=== PATIENT | male | born 1965 | race Hispanic/Latino ===

== ENCOUNTER 2019-01-21 09:36 | Emergency (ER) | payer SELFPAY ==
--- NOTE | 2019-01-21 11:16 | RAD REPORT ---
EXAM DESCRIPTION: RAD - Chest Pa And Lat (2 Views) - 01/21/2019 11:09 am CLINICAL HISTORY: cough, fever Chest pain. COMPARISON: Chest Single View dated 08/14/2016; CHEST SINGLE VIEW dated 03/12/2015; CHEST PA AND LAT 2 VIEW dated 11/08/2012; CHEST SINGLE VIEW dated 10/01/2011 FINDINGS: The lungs are clear. The heart is normal in size. No displaced fractures. IMPRESSION: No acute or concerning finding suspected.
[2019-01-21 11:29] LABS: Absolute Lymphocytes (CBC) 2.5 K/uL (0.7-4.9); Absolute Monocytes 0.5 K/uL (0.1-1.3); Absolute Neutrophil 6.4 K/uL (1.8-8.0); Basophils % 0.9 % (0-1.3); Eosinophils % 2.4 % (0-4.4); Hematocrit 47.2 % (39.6-49.0); Lymphocytes % 25.8 % (15.3-44.8); MPV 7.9 fL (7.6-11.3); Monocytes % 5.1 % (3.3-12.3); RBC Red Blood Cell Count 5.53 M/uL (4.33-5.43)
[2019-01-21 11:45] LABS: ALT/SGPT 24 U/L (12-78); AST/SGOT 7 U/L (15-37); Albumin 3.5 g/dL (3.4-5.0); Alkaline Phosphatase 120 U/L (45-117); BUN Blood Urea Nitrogen 13 mg/dL (7-18); Bicarbonate 27 mmol/L (21-32); Bilirubin Total 0.5 mg/dL (0.2-1.0); Glucose Level 264 mg/dL (74-106); Potassium 4.3 mmol/L (3.5-5.1); Protein, Total 8.1 g/dL (6.4-8.2); Sodium Level 134 mmol/L (136-145)
--- NOTE | 2019-01-21 12:22 | ER ---
Nurse's Notes [facility] Name: Nas White Jr Age: 53 yrs Sex: Male : 1965 Arrival Date: 01/21/2019 Time: 09:38 Bed 14 Private MD: None, None Diagnosis: Streptococcal pharyngitis Presentation: 01/21 10:12 Presenting complaint: Patient states: 2 weeks ago, my throat started hurting, I felt sg really sick, had been riding to work with a friend who had flu like symptoms, started taking OTC medications (Nyquil, etc) and thought it was getting better until last night, I got the sweats and its hard and painful to swallow now, this cough just wont go away. Im diabetic so i know if i get sick it can make that all worse. Transition of care: patient was not received from another setting of care. Onset of symptoms was January 21, 2019. Risk Assessment: Do you want to hurt yourself or someone else? Patient reports no desire to harm self or others. Initial Sepsis Screen: Does the patient meet any 2 criteria? No. Patient's initial sepsis screen is negative. Does the patient have a suspected source of infection? No. Patient's initial sepsis screen is negative. Care prior to arrival: None. 10:12 Method Of Arrival: Ambulatory sg 10:12 Acuity: CAITLIN 4 sg Historical: - Allergies: 10:16 No Known Allergies; sg - Home Meds: 10:16 Metformin Oral [Active]; sg - PMHx: 10:16 Diabetes - NIDDM; Hypertension; sg - PSHx: 10:16 Appendectomy; sg - Immunization history:: Adult Immunizations not up to date, Flu vaccine is not up to date. Patient has never been vaccinated. - Social history:: Smoking status: Patient uses tobacco products, denies chronic smoking, but will smoke occasionally, quitting today. - Ebola Screening: : Patient negative for fever greater than or equal to 101.5 degrees Fahrenheit, and additional compatible Ebola Virus Disease symptoms Patient denies exposure to infectious person Patient denies travel to an Ebola-affected area in the 21 days before illness onset No symptoms or risks identified at this time. Screenin:20 Abuse screen: Denies threats or abuse. Denies injuries from another. Nutritional sg screening: No deficits noted. Tuberculosis screening: No symptoms or risk factors identified. Never had TB. Fall Risk None identified. Assessment: 10:18 General: Appears in no apparent distress. uncomfortable, well groomed, well developed, sg well nourished, Behavior is cooperative, appropriate for age. Pain: Complains of pain in body aches and sore throat Quality of pain is described as aching, sore. Neuro: Level of Consciousness is awake, alert, obeys commands, Oriented to person, place, time, situation, Commercial Reporter are equal bilaterally Moves all extremities. Full function Gait is steady, Speech is normal, Facial symmetry appears normal. Cardiovascular: Heart tones S1 S2 present Capillary refill is brisk in bilateral fingers Patient's skin is warm and dry. Chest pain is denied. Respiratory: Airway is patent Respiratory effort is even, unlabored, Respiratory pattern is regular, symmetrical, Breath sounds are clear. GI: Abdomen is round non-distended, obese, Reports tolerance of fluids, tolerance of food. : No signs and/or symptoms were reported regarding the genitourinary system. EENT: Nares are clear bilaterally Oral mucosa is moist. Throat is pink Reports pain when swallowing. Derm: Skin is pink, warm \T\ dry. Musculoskeletal: No signs and/or symptoms reported regarding the musculoskeletal system. Vital Signs: 10:14 BP 117 / 80; Pulse 75; Resp 18; Temp 98.4; Pulse Ox 97% on R/A; Weight 111.13 kg; sg Height 5 ft. 4 in. (162.56 cm); Pain 8/10; 11:16 BP 127 / 85 LA; Pulse 76; Resp 17 S; Pulse Ox 98% on R/A; rv 12:00 BP 137 / 85 LA; Pulse 77; Resp 17 S; Pulse Ox 98% on R/A; rv 10:14 Body Mass Index 42.05 (111.13 kg, 162.56 cm) sg ED Course: 09:38 Patient arrived in ED. ag5 09:40 None, None is Private Physician. ag5 10:08 Mark Tavarez PA is PHCP. jmm 10:08 Jose D Ponce MD is Attending Physician. jmm 10:12 Yon Mata, GELY is Primary Nurse. sg 10:14 Triage completed. sg 10:17 Arm band placed on. sg 10:20 No provider procedures requiring assistance completed. sg 11:08 X-ray completed. Patient tolerated procedure well. Patient moved back from radiology. jb2 11:10 Chest Pa And Lat (2 Views) XRAY In Process Unspecified. EDMS 12:36 Patient has correct armband on for positive identification. Bed in low position. Call rv light in reach. Side rails up X 1. Adult w/ patient. Pulse ox on. NIBP on. 12:37 IV discontinued, bleeding controlled, No redness/swelling at site. Pressure dressing rv applied. Administered Medications: No medications were administered Outcome: 12:20 Discharge ordered by . keila 12:36 Discharged to home ambulatory. rv 12:36 Condition: good 12:36 Discharge instructions given to patient, Instructed on discharge instructions, follow up and referral plans. medication usage, Demonstrated understanding of instructions, follow-up care, medications, Prescriptions given X 1. 12:37 Patient left the ED. rv Signatures: Dispatcher [employer] EDMS Yon Mata, GELY RN sg Mark Tavarez PA PA jmm Buechter, Jesse jb2 Shaan Sprague RN RN Santos Bowles ag5
--- NOTE | 2019-01-21 12:22 | EDPHYS ---
Physician Documentation [facility] Name: Nas White Jr Age: 53 yrs Sex: Male : 1965 Arrival Date: 01/21/2019 Time: 09:38 Bed 14 Private MD: None, None ED Physician Jose D Ponce HPI: 01/21 10:16 This 53 yrs old Male presents to ER via Ambulatory with complaints of Cough, jmm Cold Symptoms, Difficulty Swallowing. 10:16 The patient or guardian reports cough. Onset: The symptoms/episode began/occurred jmm gradually, 2 week(s) ago. Modifying factors: The symptoms are alleviated by nothing, the symptoms are aggravated by nothing. Associated signs and symptoms: Pertinent positives: fever, sore throat. This is a 53 year old male with a history of dm that presents to the ED with complaints of sore throat for 2 weeks with cough. Patient states he developed chills last night with increased pain to his throat. . Historical: - Allergies: 10:16 No Known Allergies; sg - Home Meds: 10:16 Metformin Oral [Active]; sg - PMHx: 10:16 Diabetes - NIDDM; Hypertension; sg - PSHx: 10:16 Appendectomy; sg - Immunization history:: Adult Immunizations not up to date, Flu vaccine is not up to date. Patient has never been vaccinated. - Social history:: Smoking status: Patient uses tobacco products, denies chronic smoking, but will smoke occasionally, quitting today. - Ebola Screening: : Patient negative for fever greater than or equal to 101.5 degrees Fahrenheit, and additional compatible Ebola Virus Disease symptoms Patient denies exposure to infectious person Patient denies travel to an Ebola-affected area in the 21 days before illness onset No symptoms or risks identified at this time. ROS: 10:16 Constitutional: Positive for body aches, chills. jmm 10:16 ENT: Positive for sore throat. 10:16 Respiratory: Positive for cough. 10:16 All other systems are negative. Exam: 10:16 Constitutional: This is a well developed, well nourished patient who is awake, alert, jmm and in no acute distress. Head/Face: atraumatic. Eyes: EOMI, no conjunctival erythema appreciated ENT: Moist Mucus Membranes Neck: Trachea midline, Supple Chest/axilla: Normal chest wall appearance and motion. 10:16 Respiratory: Normal respirations, no respiratory distress appreciated Abdomen/GI: Non distended, soft Back: Normal ROM Skin: General appearance color normal MS/ Extremity: Moves all extremities, no obvious deformities appreciated, no edema noted to the lower extremities Neuro: Awake and alert, normal gait Psych: Behavior is normal, Mood is normal, Patient is cooperative and pleasant 10:16 ENT: Posterior pharynx: erythema, that is mild. Vital Signs: 10:14 BP 117 / 80; Pulse 75; Resp 18; Temp 98.4; Pulse Ox 97% on R/A; Weight 111.13 kg; sg Height 5 ft. 4 in. (162.56 cm); Pain 8/10; 11:16 BP 127 / 85 LA; Pulse 76; Resp 17 S; Pulse Ox 98% on R/A; rv 12:00 BP 137 / 85 LA; Pulse 77; Resp 17 S; Pulse Ox 98% on R/A; rv 10:14 Body Mass Index 42.05 (111.13 kg, 162.56 cm) sg MDM: 10:16 Patient medically screened. [facility] 12:19 Data reviewed: vital signs, nurses notes. Counseling: I had a detailed discussion with keila the patient and/or guardian regarding: the historical points, exam findings, and any diagnostic results supporting the discharge/admit diagnosis, lab results, radiology results, the need for outpatient follow up, to return to the emergency department if symptoms worsen or persist or if there are any questions or concerns that arise at home. ED course: Patient is alert and non toxic in appearance in the ED. Patient prescribed oral antibiotics. Advised to follow up with PCP in 1 to 2 days for reevaluation. Patient is otherwise given strict return precautions. Patient understood and agrees with the plan of care. . 01/21 10:34 Order name: Strep; Complete Time: 12:06 [facility] 01/21 10:34 Order name: CBC with Diff; Complete Time: 11:32 [facility] 01/21 10:34 Order name: CMP; Complete Time: 11:48 [facility] 01/21 10:34 Order name: Saline Lock; Complete Time: 11:36 [facility] 01/21 10:34 Order name: Chest Pa And Lat (2 Views) XRAY; Complete Time: 11:16 [facility] 01/21 10:34 Order name: Flu; Complete Time: 12:06 [facility] Administered Medications: No medications were administered Disposition: 15:14 Co-signature as Attending Physician, Jose D Ponce MD I agree with the assessment and [facility] plan of care. Disposition: 01/21/19 12:20 Discharged to Home. Impression: Streptococcal pharyngitis. - Condition is Stable. - Discharge Instructions: Strep Throat. - Prescriptions for Amoxicillin 875 mg Oral Tablet - take 1 tablet by ORAL route every 12 hours for 10 days; 20 tablet. - Medication Reconciliation Form, Thank You Letter, Antibiotic Education, Prescription Opioid Use form. - Follow up: Private Physician; When: 2 - 3 days; Reason: Recheck today's complaints, Continuance of care, Re-evaluation by your physician. Signatures: Dispatcher [employer] EDYon Beltran, GELY RN Jose D Schafer MD MD cha Mickail, Joel, PA PA Shaan Helm RN RN rv Corrections: (The following items were deleted from the chart) 12:37 12:20 01/21/2019 12:20 Discharged to Home. Impression: Streptococcal pharyngitis. rv Condition is Stable. Forms are Medication Reconciliation Form, Thank You Letter, Antibiotic Education, Prescription Opioid Use. Follow up: Private Physician; When: 2 - 3 days; Reason: Recheck today's complaints, Continuance of care, Re-evaluation by your physician. keila
[2019-01-21 13:08] VITALS: TEMP 98.4
[2019-01-21 13:09] VITALS: O2SAT 98
[2019-01-21 13:10] VITALS: BP 137/85
== END 2019-01-21 12:37 | disposition home or self-care (01) ==
LOC: ER 09:36
DX: J02.0 Streptococcal pharyngitis (principal); E11.9 Type 2 diabetes mellitus without complications
CPT/HCPCS: 36415; 71046; 80053; 85025; 87081; 87804; 99283

== ENCOUNTER 2020-05-20 05:38 | Emergency (ER) | payer SELFPAY ==
[2020-05-20] MEDS ORDERED: LIDOCAINE 1% MPF 5 ML VIAL ONE (06:51)
[2020-05-20] MEDS ORDERED: CEPHALEXIN 250 MG CAP ONE (06:51)
[2020-05-20] MEDS ORDERED: SMZ./TMP. 800/160 MG TABLET ONE (06:51)
--- NOTE | 2020-05-20 07:47 | ER ---
Nurse's Notes [facility] Name: Nas White Jr Age: 54 yrs Sex: Male : 1965 Arrival Date: 05/20/2020 Time: 05:39 Bed 5 Private MD: Diagnosis: Cutaneous abscess of right lower limb Presentation: 05/20 06:04 Chief complaint: Patient states: my right leg is swollen and its hurting so bad. I am rr5 doing yard work a week ago and something bit me, I don't know what it was. Coronavirus screen: Proceed with normal triage. Ebola Screen: Patient negative for fever greater than or equal to 101.5 degrees Fahrenheit, and additional compatible Ebola Virus Disease symptoms Patient denies exposure to infectious person. Patient denies travel to an Ebola-affected area in the 21 days before illness onset. Initial Sepsis Screen: Does the patient meet any 2 criteria? No. Patient's initial sepsis screen is negative. Does the patient have a suspected source of infection? Yes: Skin breakdown/wound. Risk Assessment: Do you want to hurt yourself or someone else? Patient reports no desire to harm self or others. Onset of symptoms was May 20, 2020. 06:04 Method Of Arrival: Ambulatory rr5 06:04 Acuity: CAITLIN 3 rr5 Triage Assessment: 06:11 Bite description: bite sustained to right leg and right calf by an unknown animal, rr5 animal information: vaccination(s) is unknown. Historical: - Allergies: 06:08 No Known Allergies; rr5 - Home Meds: 06:08 Metformin Oral [Active]; rr5 - PMHx: 06:08 Diabetes - NIDDM; Hypertension; rr5 - PSHx: 06:08 Appendectomy; rr5 - Immunization history:: Adult Immunizations unknown, Last tetanus immunization: unknown. - Social history:: Smoking status: Patient reports the use of cigarette tobacco products, smokes one-half pack cigarettes per day, Patient uses alcohol, only on a social basis. street drugs, marijuana. Screenin:09 Abuse screen: Denies threats or abuse. Denies injuries from another. Nutritional rr5 screening: No deficits noted. Tuberculosis screening: No symptoms or risk factors identified. Fall Risk None identified. Total Calderon Fall Scale indicates No Risk (0-24 pts). Assessment: 06:10 General: Appears in no apparent distress. uncomfortable, Behavior is calm, cooperative, rr5 appropriate for age. Pain: Complains of pain in right calf Pain radiates to right leg Pain currently is 8 out of 10 on a pain scale. Quality of pain is described as aching, Pain began gradually, Is intermittent. Neuro: Level of Consciousness is awake, alert, obeys commands, Oriented to person, place, time, situation. Cardiovascular: Capillary refill < 3 seconds Patient's skin is warm and dry. Respiratory: Airway is patent Respiratory effort is even, unlabored, Respiratory pattern is regular, symmetrical. GI: No signs and/or symptoms were reported involving the gastrointestinal system. : No signs and/or symptoms were reported regarding the genitourinary system. EENT: No signs and/or symptoms were reported regarding the EENT system. Derm: Skin is intact, is healthy with good turgor, Skin is pink, warm \T\ dry. Wound noted right calf Wound is dime size wound redness on the area noted. Musculoskeletal: Capillary refill < 3 seconds, Swelling present in right leg. Vital Signs: 06:04 BP 154 / 82; Pulse 84; Resp 19; Temp 98.5; Pulse Ox 100% ; Weight 108.86 kg; Height 5 rr5 ft. 4 in. (162.56 cm); Pain 8/10; 06:04 Body Mass Index 41.20 (108.86 kg, 162.56 cm) rr5 ED Course: 05:39 Patient arrived in ED. cl3 06:01 Annabella Aldana FNP-C [facility]. kb 06:01 Tyrone Rodriguez MD is Attending Physician. kb 06:04 Mike Flower RN is Primary Nurse. rr5 06:08 Triage completed. rr5 06:09 Arm band placed on right wrist. rr5 06:09 Patient has correct armband on for positive identification. Bed in low position. Call rr5 light in reach. 06:09 No provider procedures requiring assistance completed. rr5 07:53 Patient did not have IV access during this emergency room visit. Dressings: 4X4s X 1; ss right calf. Wound care: was cleaned with soap and water, Patient tolerated well. Administered Medications: 06:44 Drug: Bactrim (160 mg-800 mg (DS) 1 tablet Route: PO; wh 07:44 Follow up: Response: No adverse reaction em 06:44 Drug: KeFLEX 500 mg Route: PO; 07:44 Follow up: Response: No adverse reaction em 07:40 Drug: Lidocaine (1 %) 1 vials {Note: administered by NP. Annabella} Volume: 5 ml; Route: em Infiltration; Outcome: 07:46 Discharge ordered by . wilfred 07:53 Discharged to home ambulatory. 07:53 Condition: good 07:53 Discharge instructions given to patient, Instructed on discharge instructions, follow up and referral plans. medication usage, wound care, Demonstrated understanding of instructions, follow-up care, medications, wound care, Prescriptions given X 2. 07:54 Patient left the ED. Signatures: Annabella Aldana, STICK FEEDER-C STICK FEEDER-Kei Ferrer, Alia Ching RN, RN RN Jaylen Dorman Raymond, RN RN rr5 Maki Cullen cl3
--- NOTE | 2020-05-20 07:47 | EDPHYS ---
Physician Documentation [facility] Name: aNs White Jr Age: 54 yrs Sex: Male : 1965 Arrival Date: 05/20/2020 Time: 05:39 Bed 5 Private MD: ED Physician Tyrone Rodriguez HPI: 05/20 07:45 This 54 yrs old Male presents to ER via Ambulatory with complaints of Insect kb Bite, Leg Swelling. 07:45 The patient presents with an abscess of the right calf. Description: draining, kb erythematous, swollen, warm. Onset: The symptoms/episode began/occurred 4 day(s) ago. Possible cause(s): insect sting, spider bite. Associated signs and symptoms: Pertinent positives: drainage, erythema, swelling, Pertinent negatives: fever. Modifying factors: the symptoms are alleviated by nothing, the symptoms are aggravated by touching. Severity of symptoms: At their worst the symptoms were moderate, in the emergency department the symptoms are unchanged. The patient has not experienced similar symptoms in the past. The patient has not recently seen a physician. Historical: - Allergies: 06:08 No Known Allergies; rr5 - Home Meds: 06:08 Metformin Oral [Active]; rr5 - PMHx: 06:08 Diabetes - NIDDM; Hypertension; rr5 - PSHx: 06:08 Appendectomy; rr5 - Immunization history:: Adult Immunizations unknown, Last tetanus immunization: unknown. - Social history:: Smoking status: Patient reports the use of cigarette tobacco products, smokes one-half pack cigarettes per day, Patient uses alcohol, only on a social basis. street drugs, marijuana. ROS: 07:43 Constitutional: Negative for fever, chills, and weight loss, Cardiovascular: Negative kb for chest pain, palpitations, and edema, Respiratory: Negative for shortness of breath, cough, wheezing, and pleuritic chest pain, Abdomen/GI: Negative for abdominal pain, nausea, vomiting, diarrhea, and constipation, Back: Negative for injury and pain, MS/Extremity: Negative for injury and deformity, Neuro: Negative for headache, weakness, numbness, tingling, and seizure. 07:43 Skin: Positive for abscess, of the right calf. Exam: 07:44 Constitutional: This is a well developed, well nourished patient who is awake, alert, kb and in no acute distress. Head/Face: Normocephalic, atraumatic. Chest/axilla: Normal chest wall appearance and motion. Nontender with no deformity. No lesions are appreciated. Cardiovascular: Regular rate and rhythm with a normal S1 and S2. No gallops, murmurs, or rubs. Normal PMI, no JVD. No pulse deficits. Respiratory: Lungs have equal breath sounds bilaterally, clear to auscultation and percussion. No rales, rhonchi or wheezes noted. No increased work of breathing, no retractions or nasal flaring. Abdomen/GI: Soft, non-tender, with normal bowel sounds. No distension or tympany. No guarding or rebound. No evidence of tenderness throughout. MS/ Extremity: Pulses equal, no cyanosis. Neurovascular intact. Full, normal range of motion. Neuro: Awake and alert, GCS 15, oriented to person, place, time, and situation. Cranial nerves II-XII grossly intact. Motor strength 5/5 in all extremities. Sensory grossly intact. Cerebellar exam normal. Normal gait. 07:44 Skin: abscess, that is small, of the right calf, with drainage, with fluctuance, with induration. Vital Signs: 06:04 BP 154 / 82; Pulse 84; Resp 19; Temp 98.5; Pulse Ox 100% ; Weight 108.86 kg; Height 5 rr5 ft. 4 in. (162.56 cm); Pain 8/10; 06:04 Body Mass Index 41.20 (108.86 kg, 162.56 cm) rr5 Procedures: 07:44 I \T\ D: Incision and drainage was performed for an abscess of the right right calf kb Prepped with Betadine, Anesthetized with 1 ml's 1% Lidocaine. Incised with #11 blade. Drained moderate amount purulent fluid. the patient tolerated the procedure well. MDM: 06:01 Patient medically screened. kb 07:44 Data reviewed: vital signs, nurses notes. Data interpreted: Pulse oximetry: on room air kb is 100 %. Interpretation: normal. Counseling: I had a detailed discussion with the patient and/or guardian regarding: the historical points, exam findings, and any diagnostic results supporting the discharge/admit diagnosis, the need for outpatient follow up, a family practitioner, to return to the emergency department if symptoms worsen or persist or if there are any questions or concerns that arise at home. 05/20 06:21 Order name: I\T\D Setup; Complete Time: 06:44 kb Administered Medications: 06:44 Drug: Bactrim (160 mg-800 mg (DS) 1 tablet Route: PO; 07:44 Follow up: Response: No adverse reaction em 06:44 Drug: KeFLEX 500 mg Route: PO; 07:44 Follow up: Response: No adverse reaction em 07:40 Drug: Lidocaine (1 %) 1 vials {Note: administered by RITCHIE Winchester.} Volume: 5 ml; Route: em Infiltration; Disposition: 05/21 01:34 Co-signature as Attending Physician, Tyrone Rodriguez MD. [email or web address] Disposition: 05/20/20 07:46 Discharged to Home. Impression: Cutaneous abscess of right lower limb. - Condition is Stable. - Discharge Instructions: Skin Abscess, [id number], Incision and Drainage, Care After. - Prescriptions for Keflex 500 mg Oral Capsule - take 1 capsule by ORAL route every 8 hours for 10 days; 30 capsule. Bactrim DS 800- 160 mg Oral Tablet - take 1 tablet by ORAL route every 12 hours for 10 days; 20 tablet. - Medication Reconciliation Form, Thank You Letter, Antibiotic Education, Prescription Opioid Use form. - Follow up: Emergency Department; When: As needed; Reason: Worsening of condition. Follow up: Private Physician; When: 2 - 3 days; Reason: Recheck today's complaints, Continuance of care, Re-evaluation by your physician. Signatures: Annabella Aldana, RIMA WHEAT COMBINE DRIVER-Kei Ferrer RN RN Alia Rangel RN RN Jaylen Dorman Mike Flower RN RN 5 Tyrone Rodriguez MD MD 7 Corrections: (The following items were deleted from the chart) 05/20 07:54 07:46 05/20/2020 07:46 Discharged to Home. Impression: Cutaneous abscess of right lower ss limb. Condition is Stable. Forms are Medication Reconciliation Form, Thank You Letter, Antibiotic Education, Prescription Opioid Use. Follow up: Emergency Department; When: As needed; Reason: Worsening of condition. Follow up: Private Physician; When: 2 - 3 days; Reason: Recheck today's complaints, Continuance of care, Re-evaluation by your physician. kb
[2020-05-20 08:05] VITALS: BP 154/82; TEMP 98.5; O2SAT 100
== END 2020-05-20 07:54 | disposition home or self-care (01) ==
LOC: ER 05:38
PROC: 0J9N0ZZ Drainage of Right Lower Leg Subcutaneous Tissue and Fascia, Open Approach (ICD-10-PCS; principal; 2020-05-20)
DX: L02.415 Cutaneous abscess of right lower limb (principal); E11.9 Type 2 diabetes mellitus without complications
CPT/HCPCS: 99283

== ENCOUNTER 2020-10-23 08:48 | Emergency (ER) | payer SELFPAY ==
--- NOTE | 2020-10-23 09:51 | ER ---
Nurse's Notes [facility] Name: Nas White Jr Age: 54 yrs Sex: Male : 1965 Arrival Date: 10/23/2020 Time: 08:48 Bed 28 Private MD: Diagnosis: Cellulitis of face Presentation: 10/23 09:39 Chief complaint: Patient states: pain inside right nostril X 4 days, scratched it and iw it's now painful and feels like there's a sore inside it. Coronavirus screen: At this time, the client does not indicate any symptoms associated with coronavirus-19. Ebola Screen: Patient negative for fever greater than or equal to 101.5 degrees Fahrenheit, and additional compatible Ebola Virus Disease symptoms Patient denies exposure to infectious person. Patient denies travel to an Ebola-affected area in the 21 days before illness onset. No symptoms or risks identified at this time. Initial Sepsis Screen: Does the patient meet any 2 criteria? No. Patient's initial sepsis screen is negative. Does the patient have a suspected source of infection? No. Patient's initial sepsis screen is negative. Risk Assessment: Do you want to hurt yourself or someone else? Patient reports no desire to harm self or others. Onset of symptoms was October 19, 2020. 09:39 Method Of Arrival: Ambulatory iw 09:39 Acuity: CAITLIN 4 iw Triage Assessment: 10:00 General: Appears in no apparent distress. Behavior is calm, cooperative. iw Historical: - Allergies: 09:40 No Known Allergies; iw - PMHx: 09:40 Diabetes - NIDDM; Hypertension; iw - PSHx: 09:40 Appendectomy; iw - Immunization history:: Adult Immunizations unknown. - Social history:: Smoking status: unknown. Screenin:05 Abuse screen: Denies threats or abuse. Denies injuries from another. Nutritional iw screening: No deficits noted. Tuberculosis screening: No symptoms or risk factors identified. Fall Risk None identified. Assessment: 10:00 General: Appears in no apparent distress. Behavior is calm, cooperative. Pain: iw Complains of pain in nose. Neuro: Level of Consciousness is awake, alert, obeys commands, Oriented to person, place, time, situation, Moves all extremities. Full function. Cardiovascular: Patient's skin is warm and dry. Respiratory: Respiratory effort is even, unlabored, Respiratory pattern is regular, symmetrical. EENT: Nares redness and swelling noted to right nostril . Derm: Skin is intact, is healthy with good turgor. Musculoskeletal: Range of motion: intact in all extremities. Vital Signs: 09:44 BP 151 / 74; Pulse 89; Resp 16; Temp 98.2; Pulse Ox 100% ; Weight 108.86 kg; Pain 9/10; iw ED Course: 08:48 Patient arrived in ED. ag5 09:07 Jose D Ferris PA is PHCP. cp 09:07 Jose D Ponce MD is Attending Physician. cp 09:34 Margot Shea RN is Primary Nurse. iw 09:40 Triage completed. iw 09:40 Patient has correct armband on for positive identification. iw 09:41 Arm band placed on. iw 09:50 Virginia Evans MD is Referral Physician. cp 10:06 No provider procedures requiring assistance completed. Patient did not have IV access iw during this emergency room visit. Administered Medications: 09:56 Drug: Clindamycin 600 mg Route: PO; iw 09:56 Drug: Bactrim (160 mg-800 mg (DS) 1 tablet Route: PO; iw 09:57 Drug: Ibuprofen 800 mg Route: PO; iw 09:57 Drug: Tylenol 1000 mg Route: PO; iw Outcome: 09:51 Discharge ordered by MD. cp 10:06 Discharged to home ambulatory. iw 10:06 Condition: good 10:06 Discharge instructions given to patient, Instructed on discharge instructions, follow up and referral plans. medication usage, Demonstrated understanding of instructions, follow-up care, medications, Prescriptions given X 3. 10:07 Patient left the ED. iw Signatures: Margot Shea, RN RN iw Jose D Ferris PA PA cp Gaskin, Ajare ag5 Corrections: (The following items were deleted from the chart) 09:41 09:39 Acuity: CAITLIN 3 iw iw
--- NOTE | 2020-10-23 09:52 | EDPHYS ---
Physician Documentation [facility] Name: Nas White Jr Age: 54 yrs Sex: Male : 1965 Arrival Date: 10/23/2020 Time: 08:48 Bed 28 Private MD: AUDRA Physician Jose D Ponce HPI: 10/23 09:45 This 54 yrs old Male presents to ER via Ambulatory with complaints of Nose cp Problem. 09:45 The patient presents with swelling of nose and pain. cp 09:45 Onset: The symptoms/episode began/occurred 4 day(s) ago. cp 09:45 Associated signs and symptoms: Pertinent negatives: fever. cp Historical: - Allergies: 09:40 No Known Allergies; iw - PMHx: 09:40 Diabetes - NIDDM; Hypertension; iw - PSHx: 09:40 Appendectomy; iw - Immunization history:: Adult Immunizations unknown. - Social history:: Smoking status: unknown. ROS: 09:48 Constitutional: Negative for body aches, chills, fever. cp 09:48 ENT: Positive for nose swelling and nose pain. 09:48 Skin: Negative for rash. 09:48 All other systems are negative. Exam: 09:49 Constitutional: The patient appears in no acute distress, alert, awake, non-toxic, well cp developed, well nourished. 09:49 Head/face: Noted is erythema, that is mild, of the right cheek and nose, swelling, cp that is mild, of the right cheek and nose, tenderness, that is moderate, of the nose. 09:49 Eyes: Pupils: equal, round, and reactive to light and accomodation, Conjunctiva: normal, no exudate, no injection, Sclera: no appreciated abnormality, Lids and lashes: appear normal, bilaterally. 09:49 ENT: External ear(s): are unremarkable, Nose: Nasal mucosa: edematous, right nasal passage, nasal drainage, is not appreciated, Posterior pharynx: Airway: no evidence of obstruction, patent. 09:49 Neck: ROM/movement: is normal, is supple, no meningismus, no nuchal rigidity, Lymph nodes: no appreciated lymphadenopathy. 09:49 Chest/axilla: Inspection: normal. 09:49 Cardiovascular: Rate: normal. 09:49 Respiratory: the patient does not display signs of respiratory distress, Respirations: normal. Vital Signs: 09:44 BP 151 / 74; Pulse 89; Resp 16; Temp 98.2; Pulse Ox 100% ; Weight 108.86 kg; Pain 9/10; iw MDM: 09:37 Patient medically screened. cp 09:50 Differential diagnosis: trauma, cellulitis, abscess. cp 09:51 Data reviewed: vital signs, nurses notes, and as a result, I will discharge patient. cp 09:51 Counseling: I had a detailed discussion with the patient and/or guardian regarding: the cp historical points, exam findings, and any diagnostic results supporting the discharge/admit diagnosis, the need for outpatient follow up, an ENT specialist. Administered Medications: 09:56 Drug: Clindamycin 600 mg Route: PO; iw 09:56 Drug: Bactrim (160 mg-800 mg (DS) 1 tablet Route: PO; iw 09:57 Drug: Ibuprofen 800 mg Route: PO; iw 09:57 Drug: Tylenol 1000 mg Route: PO; iw Disposition: 09:55 Chart complete. cp 17:51 Co-signature as Attending Physician, Jose D Ponce MD I agree with the assessment and tyler plan of care. Disposition: 10/23/20 09:51 Discharged to Home. Impression: Cellulitis of face. - Condition is Stable. - Discharge Instructions: Cellulitis, Adult. - Prescriptions for Clindamycin HCl 300 mg Oral Capsule - take 1 capsule by ORAL route every 6 hours for 10 days; 40 capsule. Bactrim DS 800- 160 mg Oral Tablet - take 1 tablet by ORAL route every 12 hours for 10 days; 20 tablet. Tramadol 50 mg Oral Tablet - take 1 tablet by ORAL route every 8 hours as needed; 12 tablet. - Medication Reconciliation Form, Thank You Letter, Antibiotic Education, Prescription Opioid Use form. - Follow up: Virginia Evans MD; When: 1 - 2 days; Reason: Recheck today's complaints. - Problem is new. - Symptoms have improved. Signatures: Jose D Ponce MD MD cha Williams, Irene RN RN iw Jose D Ferris PA PA cp Corrections: (The following items were deleted from the chart) 10:07 09:51 10/23/2020 09:51 Discharged to Home. Impression: Cellulitis of face. Condition is iw Stable. Forms are Medication Reconciliation Form, Thank You Letter, Antibiotic Education, Prescription Opioid Use. Follow up: Virginia Evans; When: 1 - 2 days; Reason: Recheck today's complaints. Problem is new. Symptoms have improved. cp 10/24 06:00 10/23 09:45 The patient presents with swelling of nose, cp cp
[2020-10-23] MEDS ORDERED: SMZ./TMP. 800/160 MG TABLET ONE (10:05)
[2020-10-23] MEDS ORDERED: ACETAMINOPHEN 500 MG TAB ONE (10:06)
[2020-10-23] MEDS ORDERED: IBUPROFEN 400 MG TAB ONE (10:06)
[2020-10-26 23:08] VITALS: BP 151/74; TEMP 98.2; O2SAT 100
== END 2020-10-23 10:07 | disposition home or self-care (01) ==
LOC: ER 08:48
DX: J34.0 Abscess, furuncle and carbuncle of nose (principal); I10 Essential (primary) hypertension
CPT/HCPCS: 99283

== ENCOUNTER 2023-04-29 14:11 | Emergency (ER) | payer SELFPAY ==
[2023-04-29] MEDS ORDERED: CLINDAMYCIN 600MG/D5W 50 ML IV ONE (15:04)
[2023-04-29 15:14] LABS: Absolute Lymphocytes (CBC) 2.3 K/uL (0.7-4.9); Hematocrit 42.8 % (39.6-49.0); Lymphocytes % 29.8 % (15.3-44.8); MCV 88.5 fL (80-100); MPV 8.1 fL (7.6-11.3); RBC Red Blood Cell Count 4.84 M/uL (4.33-5.43)
--- NOTE | 2023-04-29 16:01 | RAD REPORT ---
EXAM DESCRIPTION: RAD - Foot Left 3 View - 04/29/2023 3:25 pm CLINICAL HISTORY: assess for osteo 5th digit;Swelling;Pain COMPARISON: No comparisons TECHNIQUE: Left foot, 3 views. FINDINGS: Subtle lucency along the medial aspect of the fifth digit distal phalanx. No fracture, dis location or periosteal reaction. Mild degenerative changes at the first tarsometatarsal articulation. No air or foreign body. Soft tis saeid swelling about the fifth digit. Vascular calcifications. Large calcaneal spur. Enthesopathy at the Achilles tendon attachment. IMPRESSION: Subtle lucency along the medial aspect of the fifth digit distal phalanx. Possibility of osteomyelitis cannot be ruled out. If there is persistent clinical concern, MRI would provide improv ed imaging sensitivity. Chronic findings as above.
--- NOTE | 2023-04-29 16:15 | EDPHYS ---
Physician Documentation [facility] Name: Nsa White Jr Age: 57 yrs Sex: Male : 1965 Arrival Date: 04/29/2023 Time: 14:11 Bed Treatment Private MD: ED Physician Bal Bernal HPI: 04/29 14:34 This 57 yrs old Male presents to ER via Ambulatory with complaints of Foot sp3 infection little toe. 14:34 57-year-old male with history of diabetes and hypertension presents with left fifth sp3 digit foot pain secondary to "having a boot on all day". He states that he had a blister that "popped" and he has been having extreme pain and swelling in the fifth digit and he feels it may be infected. He has had prior peripheral infections in the past and they have "taken a long time to heal". No history of osteomyelitis endorsed. On review of systems, he denies headache, fever, URI symptoms, chest pain, shortness of breath, abdominal pain, back pain, other skin rash, joint pain, neurological complaints or deficits, or any other signs or symptoms at this time.. Historical: - Allergies: 14:19 No Known Allergies; aa5 - PMHx: 14:19 Diabetes - NIDDM; Hypertension; aa5 - PSHx: 14:19 Appendectomy; aa5 - Immunization history:: Adult Immunizations unknown. - Social history:: Smoking status: Patient reports the use of cigarette tobacco products. ROS: 14:35 Constitutional: Negative for fever, chills, and weight loss, Eyes: Negative for injury, sp3 pain, redness, and discharge, Neck: Negative for injury, pain, and swelling, Cardiovascular: Negative for chest pain, palpitations, and edema, Respiratory: Negative for shortness of breath, cough, wheezing, and pleuritic chest pain, Abdomen/GI: Negative for abdominal pain, nausea, vomiting, diarrhea, and constipation, Back: Negative for injury and pain, Neuro: Negative for headache, weakness, numbness, tingling, and seizure, Psych: Negative for depression, anxiety, suicide ideation, homicidal ideation, and hallucinations, Allergy/Immunology: Negative for hives, rash, and allergies. 14:35 All other systems are negative. Exam: 14:35 Constitutional: This is a well developed, well nourished patient who is awake, alert, sp3 and in no acute distress. Head/Face: Normocephalic, atraumatic. Neck: Trachea midline, no thyromegaly or masses palpated, and no cervical lymphadenopathy. Supple, full range of motion without nuchal rigidity, or vertebral point tenderness. No Meningismus. Chest/axilla: Normal chest wall appearance and motion. Nontender with no deformity. No lesions are appreciated. Cardiovascular: Regular rate and rhythm with a normal S1 and S2. No gallops, murmurs, or rubs. Normal PMI, no JVD. No pulse deficits. Respiratory: Lungs have equal breath sounds bilaterally, clear to auscultation and percussion. No rales, rhonchi or wheezes noted. No increased work of breathing, no retractions or nasal flaring. Abdomen/GI: Soft, non-tender, with normal bowel sounds. No distension or tympany. No guarding or rebound. No evidence of tenderness throughout. Back: No spinal tenderness. No costovertebral tenderness. Full range of motion. Neuro: Awake and alert, GCS 15, oriented to person, place, time, and situation. Cranial nerves II-XII grossly intact. Motor strength 5/5 in all extremities. Sensory grossly intact. Cerebellar exam normal. Normal gait. 14:35 Musculoskeletal/extremity: Poor skin care and nail care on bilateral lower extremities. Left foot fifth digit demonstrates small ulceration and overlying cellulitis and does not appear to be down to the bone level. Area is painful to touch. Nail does not allow capillary refill secondary to fungal growth. Soft tissue capillary refill assessment is less than 3 seconds.. Vital Signs: 14:19 BP 149 / 82; Pulse 89; Resp 19 S; Temp 98.2(TE); Pulse Ox 99% on R/A; Weight 108.86 kg aa5 (R); Height 5 ft. 4 in. (R); 16:37 BP 138 / 84; Pulse 82; Resp 18; Pulse Ox 100% on R/A; mb9 14:19 Body Mass Index 41.20 (108.86 kg, 162.56 cm) aa5 MDM: 14:33 Patient medically screened. sp3 14:37 Data reviewed: vital signs, nurses notes, lab test result(s), radiologic studies. ED sp3 course: 57-year-old male with diabetes and hypertension and likely poor peripheral circulation presents with left foot infection of the fifth small toe. Infection is most likely cellulitic however we will assess for any osteomyelitis with an x-ray and also obtain lab work and administer 1 dose of IV clindamycin. If work-up is negative, we will safely discharge patient home on p.o. clindamycin and p.o. Bactrim with follow-up to PCP. I have educated patient extensively on not keeping his foot in a boot for sweat infused environment. He acknowledges understanding and states he will do his best to avoid this. Clinically I am not highly suspicious for DVT/PE spectrum, arterial occlusion, sepsis, shock, joint involvement, or any other concerning or critical findings at this time.. 16:12 ED course: Laboratory values within normal limits other than glucose which is 385. sp3 Pseudohyponatremia noted and is normal once corrected for glucose. Patient given option to stay for MRI in the morning for potential osteomyelitis of the left fifth digit however patient wants to be discharged and wants to try p.o. antibiotics first. He states he will return if there are not working or if he has not improved. I have stressed to him the importance of keeping his foot dry and not in any hot and moist environment. He verbally articulates understanding. He also understands the risk of being discharged with possible early osteomyelitis but states he would still rather try oral medications first. Joint decision-making has been documented and patient will be discharged at this time.. 04/29 14:33 Order name: CBC with Diff; Complete Time: 15:36 sp3 04/29 14:33 Order name: Chem 7; Complete Time: 15:36 sp3 04/29 14:33 Order name: Foot Left 3 View XRAY: Assess for osteo 5th digit; Complete Time: 16:08 sp3 04/29 14:33 Order name: IV Saline Lock; Complete Time: 15:08 sp3 04/29 16:12 Order name: Dressing - Wound: Please clean and dress left 5th digit prior to discharge; sp3 Complete Time: 16:28 Administered Medications: 15:08 Drug: Clindamycin IVPB 600 mg Route: IVPB; Infused Over: 30 mins; Site: right mb9 antecubital; 16:28 Follow up: Response: No adverse reaction; IV Status: Completed infusion mb9 16:28 Drug: Insulin Regular Human IVP 10 units {Co-Signature: iw (Margot Shea RN).} mb9 Route: IVP; Site: right antecubital; Disposition Summary: 04/29/23 16:14 Discharge Ordered Location: Home sp3 Condition: Stable sp3 Diagnosis - Cellulitis of left foot fifth digit, hyperglycemia sp3 Followup: sp3 - With: Private Physician - When: Upon discharge from the Emergency Department - Reason: Continuance of care Discharge Instructions: - Discharge Summary Sheet sp3 - Cellulitis, Adult sp3 Forms: - Medication Reconciliation Form sp3 - Thank You Letter sp3 - Antibiotic Education sp3 - Prescription Opioid Use sp3 - Work release form mb9 Prescriptions: - Clindamycin HCl 300 mg Oral Capsule - take 1 capsule by ORAL route every 6 hours for 10 days; 40 capsule; Refills: 0, sp3 Product Selection Permitted - Metformin 500 mg Oral Tablet - take 1 tablet by ORAL route every 12 hours for 7 days Then take 1 tablet with sp3 morning meals AND evening meals; 30 tablet; Refills: 0, Product Selection Permitted - Bactrim DS 800-160 mg Oral Tablet - take 1 tablet by ORAL route every 12 hours for 10 days; 20 tablet; Refills: 0, sp3 Product Selection Permitted Signatures: Dispatcher [employer] Maritza Irwin, RN RN aa5 Bal Bernal MD MD sp3 Laverne Bergeron RN RN mb9 Margot Shea RN iw
--- NOTE | 2023-04-29 16:15 | ER ---
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 Pt reports left foot pain radiating up to left calf. Coronavirus screen: At this time, the client does not indicate any symptoms associated with coronavirus-19. Ebola Screen: Patient denies travel to an Ebola-affected area in the 21 days before illness onset. Initial Sepsis Screen: Does the patient meet any 2 criteria? No. Patient's initial sepsis screen is negative. Does the patient have a suspected source of infection? No. Patient's initial sepsis screen is negative. Risk Assessment: Do you want to hurt yourself or someone else? Patient reports no desire to harm self or others. Onset of symptoms was April 2023. 14:19 Acuity: CAITLIN 3 aa5 14:19 Method Of Arrival: Ambulatory aa5 Historical: - Allergies: 14:19 No Known Allergies; aa5 - PMHx: 14:19 Diabetes - NIDDM; Hypertension; aa5 - PSHx: 14:19 Appendectomy; aa5 - Immunization history:: Adult Immunizations unknown. - Social history:: Smoking status: Patient reports the use of cigarette tobacco products. Screenin:09 [facility] ED Fall Risk Assessment (Adult) History of falling in the last 3 months, mb9 including since admission No falls in past 3 months (0 pts) Confusion or Disorientation No (0 pts) Intoxicated or Sedated No (0 pts) Impaired Gait No (0 pts) Mobility Assist Device Used No (0 pt) Altered Elimination No (0 pt) Score/Fall Risk Level 0 - 2 = Low Risk Oriented to surroundings, Maintained a safe environment, Educated pt \\T\\ family on fall prevention, incl call for assistance when getting out of bed. Abuse screen: Denies threats or abuse. Nutritional screening: No deficits noted. Tuberculosis screening: No symptoms or risk factors identified. Assessment: 15:08 General: Appears in no apparent distress. Behavior is cooperative. Pain: Complains of mb9 pain in left foot. Neuro: [place] Agitation-Sedation Scale (RASS): 0 - Alert and Calm Level of Consciousness is awake, alert, obeys commands, Oriented to person, place, time, situation, Appropriate for age. Respiratory: Airway is patent Respiratory effort is even, unlabored, Respiratory pattern is regular, symmetrical. Derm: Skin is pink, warm \\T\\ dry. Musculoskeletal: Range of motion: intact in all extremities. 16:37 Reassessment: No changes from previously documented assessment. Patient and/or family mb9 updated on plan of care and expected duration. Pain level reassessed. Patient is alert, oriented x 3, equal unlabored respirations, skin warm/dry/pink. Vital Signs: 14:19 BP 149 / 82; Pulse 89; Resp 19 S; Temp 98.2(TE); Pulse Ox 99% on R/A; Weight 108.86 kg aa5 (R); Height 5 ft. 4 in. (R); 16:37 BP 138 / 84; Pulse 82; Resp 18; Pulse Ox 100% on R/A; mb9 14:19 Body Mass Index 41.20 (108.86 kg, 162.56 cm) aa5 ED Course: 14:13 Patient arrived in ED. im 14:19 Arm band placed on. aa5 14:21 Triage completed. aa5 14:21 Bal Bernal MD is Attending Physician. sp3 14:28 Laverne Bergeron RN is Primary Nurse. mb9 15:08 Chem 7 Sent. mb9 15:08 CBC with Diff Sent. mb9 15:08 Inserted saline lock: 22 gauge in right antecubital area, using aseptic technique. mb9 15:09 Bed in low position. Call light in reach. Side rails up X 1. Client placed on mb9 continuous cardiac and pulse oximetry monitoring. NIBP monitoring applied. 15:09 No provider procedures requiring assistance completed. mb9 15:27 Foot Left 3 View XRAY: Assess for osteo 5th digit In Process Unspecified. EDMS 16:41 IV discontinued, intact, bleeding controlled, No redness/swelling at site. Pressure mb9 dressing applied. Administered Medications: 15:08 Drug: Clindamycin IVPB 600 mg Route: IVPB; Infused Over: 30 mins; Site: right mb9 antecubital; 16:28 Follow up: Response: No adverse reaction; IV Status: Completed infusion mb9 16:28 Drug: Insulin Regular Human IVP 10 units {Co-Signature: john (Margot Shea RN).} mb9 Route: IVP; Site: right antecubital; Medication: 15:09 VIS not applicable for this client. mb9 Outcome: 16:14 Discharge ordered by . melo 16:41 Discharged to home ambulatory. mb9 16:41 Condition: stable 16:41 Discharge instructions given to patient, Instructed on discharge instructions, follow up and referral plans. Demonstrated understanding of instructions, follow-up care, medications, Prescriptions given X 3. 16:41 Patient left the ED. mb9 Signatures: Dispatcher [employer] EDMaritza Koenig, RN RN aa5 Bal Bernal MD MD sp3 Laverne Bergeron RN RN mb9 Catherine Rivera Irene RN iw
[2023-04-29] MEDS ORDERED: INSULIN -REGULAR HUMAN 50 UNIT/0.5 ML ML ONE (16:32)
[2023-04-29 16:54] VITALS: TEMP 98.2
[2023-04-29 16:59] VITALS: BP 138/84; O2SAT 100
== END 2023-04-29 16:41 | disposition home or self-care (01) ==
LOC: ER 14:11
DX: L03.032 Cellulitis of left toe (principal); E11.65 Type 2 diabetes mellitus with hyperglycemia
CPT/HCPCS: 36415; 80048; 85025; 96365; 96375; 99284; J1815

== ENCOUNTER 2023-05-01 13:08 | Emergency (ER) | payer SELFPAY ==
--- NOTE | 2023-05-01 15:54 | EDPHYS ---
Physician Documentation [facility] Name: Nas White Jr Age: 57 yrs Sex: Male : 1965 Arrival Date: 05/01/2023 Time: 13:08 Bed DIS2 Private MD: ED Physician Gagan Nunez HPI: 05/01 15:59 This 57 yrs old Male presents to ER via Ambulatory with complaints of Infected snw Toe. Historical: - Allergies: 13:51 No Known Drug Allergies; ph - PMHx: 13:51 Diabetes - NIDDM; Hypertension; ph - PSHx: 13:51 Appendectomy; ph ROS: 15:59 Constitutional: Negative for fever, chills, and weight loss, Eyes: Negative for injury, snw pain, redness, and discharge, ENT: Negative for injury, pain, and discharge, Neck: Negative for injury, pain, and swelling, Cardiovascular: Negative for chest pain, palpitations, and edema, Respiratory: Negative for shortness of breath, cough, wheezing, and pleuritic chest pain, Abdomen/GI: Negative for abdominal pain, nausea, vomiting, diarrhea, and constipation, Back: Negative for injury and pain, : Negative for injury, bleeding, discharge, and swelling, MS/Extremity: Negative for injury and deformity, Skin: Negative for injury, rash, and discoloration, need to recheck left pinkie toe, may need MRI Neuro: Negative for headache, weakness, numbness, tingling, and seizure, Psych: Negative for depression, anxiety, suicide ideation, homicidal ideation, and hallucinations. Exam: 15:57 Constitutional: This is a well developed, well nourished patient who is awake, alert, snw and in no acute distress. Head/Face: Normocephalic, atraumatic. Eyes: Pupils equal round and reactive to light, extra-ocular motions intact. Lids and lashes normal. Conjunctiva and sclera are non-icteric and not injected. Cornea within normal limits. Periorbital areas with no swelling, redness, or edema. Neck: Trachea midline, no thyromegaly or masses palpated, and no cervical lymphadenopathy. Supple, full range of motion without nuchal rigidity, or vertebral point tenderness. No Meningismus. Chest/axilla: Normal chest wall appearance and motion. Nontender with no deformity. No lesions are appreciated. Cardiovascular: Regular rate and rhythm with a normal S1 and S2. No gallops, murmurs, or rubs. Normal PMI, no JVD. No pulse deficits. Abdomen/GI: Soft, non-tender, with normal bowel sounds. No distension or tympany. No guarding or rebound. No evidence of tenderness throughout. Back: No spinal tenderness. No costovertebral tenderness. Full range of motion. MS/ Extremity: Pulses equal, no cyanosis. Neurovascular intact. Full, normal range of motion. Neuro: Awake and alert, GCS 15, oriented to person, place, time, and situation. Cranial nerves II-XII grossly intact. Motor strength 5/5 in all extremities. Sensory grossly intact. Cerebellar exam normal. Normal gait. 15:57 Skin: Appearance: normal except for affected area, cellulitis, that is mild, well demarcated, on the left fifth toe, skin peeling, otherwise clean and dry, + perfusion, cap refill less than 3 sec. Vital Signs: 13:48 BP 146 / 85; Pulse 83; Resp 18; Temp 97.7; Pulse Ox 100% on R/A; Weight 108.86 kg; ph Height 5 ft. 4 in. ; 13:48 Body Mass Index 41.20 (108.86 kg, 162.56 cm) ph MDM: 14:06 Patient medically screened. snw 15:56 Differential diagnosis: viral Infection, bacterial infection. Data reviewed: vital snw signs, nurses notes. I considered the following discharge prescriptions or medication management in the emergency department Medications were administered in the Emergency Department. See MAR. Care significantly affected by the following chronic conditions: Diabetes, Hypertension. Counseling: I had a detailed discussion with the patient and/or guardian regarding: the historical points, exam findings, and any diagnostic results supporting the discharge/admit diagnosis, the need for outpatient follow up, for definitive care, Need to bridge RX for abx not filled 2nd to financial hardship, pt voices understanding, will give abx here and a RX for Cipro to pick up driver x 7 days for under $10. Pt will complete this rx but also pick up driver and begin previous rx on Saturday (). Special discussion: I have referred the patient to see his PCP for further evaluation of high blood pressure. I discussed in detail with the patient the higher chance of wound infection based on his presenting history. Based on the history and exam findings, there is no indication for further emergent testing or inpatient evaluation. I discussed with the patient/guardian the need to see the primary care provider for further evaluation of the symptoms. Administered Medications: 16:42 Drug: Rocephin (cefTRIAXone) IM 1 grams Route: IM; Site: left gluteus; ss 16:51 Drug: Ciprofloxacin PO 500 mg Route: PO; ss 16:51 Drug: Hibiclens Topical Liquid 4 % 1 application Route: Topical; Site: affected area; ss Disposition: : Co-signature as Attending Physician, Gagan Nunez MD I reviewed the patient's care rt provided by the Advanced Practice Provider and agree with the diagnosis and treatment plan. Disposition Summary: 05/01/23 15:53 Discharge Ordered Location: Home snw Condition: Stable snw Diagnosis - Cellulitis of toe snw - Patient's intentional underdosing of medication regimen due to financial hardship snw Followup: snw - With: Emergency Department - When: As needed - Reason: Worsening of condition Followup: snw - With: Private Physician - When: 1 week - Reason: Recheck today's complaints, Continuance of care, Re-evaluation by your physician Discharge Instructions: - Discharge Summary Sheet snw - Cellulitis, Adult snw Forms: - Medication Reconciliation Form snw - Thank You Letter snw - Antibiotic Education snw - Prescription Opioid Use snw Prescriptions: - Cipro 500 mg Oral Tablet - take 1 tablet by ORAL route every 12 hours for 7 days; 14 tablet; Refills: 0, snw Product Selection Permitted Signatures: Antonina Briones, ALEX-C HOUSEKEEPING/LAUNDRY-Csnw Alia August, RN RN Kylee Caceres RN RN Gagan Nunez MD MD rt
--- NOTE | 2023-05-01 15:54 | ER ---
Nurse's Notes [facility] Name: Nas White Jr Age: 57 yrs Sex: Male : 1965 Arrival Date: 05/01/2023 Time: 13:08 Bed DIS2 Private MD: Diagnosis: Cellulitis of toe;Patient's intentional underdosing of medication regimen due to financial hardship Presentation: 05/01 13:48 Chief complaint: Patient states: Seen in ED on Saturday for wound to R 5th toe, states ph that DR Bernal wanted to admit him for MRI but he was unable to stay at that time d/t work. Is here for MRI of R foot to r/o bone infection. Coronavirus screen: Vaccine status: Patient reports being unvaccinated. Ebola Screen: No symptoms or risks identified at this time. Initial Sepsis Screen: Does the patient meet any 2 criteria? No. Patient's initial sepsis screen is negative. Does the patient have a suspected source of infection? No. Patient's initial sepsis screen is negative. Risk Assessment: Do you want to hurt yourself or someone else? Patient reports no desire to harm self or others. Onset of symptoms was May 01, 2023. 13:48 Method Of Arrival: Ambulatory ph 13:48 Acuity: CAITLIN 3 ph Historical: - Allergies: 13:51 No Known Drug Allergies; ph - PMHx: 13:51 Diabetes - NIDDM; Hypertension; ph - PSHx: 13:51 Appendectomy; ph Screenin:52 Tuberculosis screening: ss 16:52 [facility] ED Fall Risk Assessment (Adult) History of falling in the last 3 months, ss including since admission No falls in past 3 months (0 pts). Abuse screen: Denies threats or abuse. Denies injuries from another. Nutritional screening: No deficits noted. Assessment: 16:52 General: Appears in no apparent distress. comfortable, Behavior is calm, cooperative. ss Neuro: Level of Consciousness is awake, alert, obeys commands, Oriented to person, place, time, situation. Respiratory: Airway is patent Respiratory effort is even, unlabored. Derm: Skin is pink, warm \T\ dry. normal. Vital Signs: 13:48 BP 146 / 85; Pulse 83; Resp 18; Temp 97.7; Pulse Ox 100% on R/A; Weight 108.86 kg; ph Height 5 ft. 4 in. ; 13:48 Body Mass Index 41.20 (108.86 kg, 162.56 cm) ph ED Course: 13:11 Patient arrived in ED. mr 13:38 Antonina Briones FNP-C is [facility]. snw 13:38 Gagan Nunez MD is Attending Physician. snw 13:51 Triage completed. ph 13:51 Arm band placed on. ph 16:51 Alia August, RN is Primary Nurse. ss 16:52 Patient has correct armband on for positive identification. ss 16:53 No provider procedures requiring assistance completed. Patient did not have IV access ss during this emergency room visit. Wound care: cleansed wound with Hibiclens, saline and 4x4s. Administered Medications: 16:42 Drug: Rocephin (cefTRIAXone) IM 1 grams Route: IM; Site: left gluteus; ss 16:51 Drug: Ciprofloxacin PO 500 mg Route: PO; ss 16:51 Drug: Hibiclens Topical Liquid 4 % 1 application Route: Topical; Site: affected area; ss Medication: 16:52 VIS not applicable for this client. ss Outcome: 15:53 Discharge ordered by . snw 16:53 Discharged to home ambulatory. ss 16:53 Condition: good 16:53 Discharge instructions given to patient, Instructed on discharge instructions, follow up and referral plans. Demonstrated understanding of instructions, follow-up care, Prescriptions given X 1. 16:54 Patient left the ED. ss Signatures: Antonina Briones FNP-C GROUP LEADER-Lizzy Laverne Lopez mr Alia August, RN RN Kylee Caceres RN RN
[2023-05-01] MEDS ORDERED: CIPROFLOXACIN HCL 500 MG TAB ONE (16:42)
[2023-05-01] MEDS ORDERED: WATER FOR INJ,STERILE 10 ML ONE (16:42)
[2023-05-01] MEDS ORDERED: CEFTRIAXONE 1000 MG/VIAL ONE (16:42)
[2023-05-01 17:15] VITALS: BP 146/85; TEMP 97.7; O2SAT 100
== END 2023-05-01 16:54 | disposition home or self-care (01) ==
LOC: ER 13:08
DX: L03.032 Cellulitis of left toe (principal); Z91.120 Patient's intentional underdosing of medication regimen due to financial hardship
CPT/HCPCS: J0696

== ENCOUNTER 2023-07-23 10:06 | Observation (INO) | payer SELFPAY ==
[2023-07-23] MEDS ORDERED: ASPIRIN 81 MG CHEWABLE TABLET ONE (10:37)
[2023-07-23] MEDS ORDERED: NA CHLORIDE 0.9% 1,000 ML ONE (10:37)
[2023-07-23] MEDS ORDERED: NA CHLORIDE 0.9% 500 ML ONE (10:37)
--- NOTE | 2023-07-23 10:43 | RAD REPORT ---
EXAM DESCRIPTION: RAD - Chest Single View - 07/23/2023 10:35 am CLINICAL HISTORY: CHEST PAIN COMPARISON: Chest Pa And Lat (2 Views) dated 01/21/2019; Chest Single View dated 08/14/2016; CHEST SIN GLE VIEW dated 03/12/2015; CHEST PA AND LAT 2 VIEW dated 11/08/2012 FINDINGS: Lines: None. Lungs: No evidence of edema or pneumonia. Pleural: No significant pleural effusions or pneumothorax. Cardiac: The heart size is within normal limits. Mediastinum: Within normal limits. Bones: No acute fractures. Other: None IMPRESSION: No acute cardiopulmonary disease.
[2023-07-23 11:00] LABS: Absolute Lymphocytes (CBC) 2.5 K/uL (0.7-4.9); Hematocrit 49.1 % (39.6-49.0); MCV 87.5 fL (80-100); MPV 7.8 fL (7.6-11.3); Platelets 216 thou/uL (152-406); RBC Red Blood Cell Count 5.61 M/uL (4.33-5.43)
--- NOTE | 2023-07-23 11:01 | EDPHYS ---
Physician Documentation [facility] Name: Nas White Jr Age: 57 yrs Sex: Male : 1965 Arrival Date: 07/23/2023 Time: 10:06 Bed 4 Private MD: ED Physician Jose D Ponce HPI: 07/23 10:50 This 57 yrs old Male presents to ER via Ambulatory with complaints of Chest tyler Pain. 10:50 The patient or guardian reports chest pain that is located primarily in the substernal tyler area. Onset: last night. The pain does not radiate. Associated signs and symptoms: Pertinent positives: nausea, shortness of breath. The chest pain is described as a pressure. Duration: The patient or guardian reports multiple episodes, with no pattern. Modifying factors: The symptoms are alleviated by nothing. the symptoms are aggravated by nothing. Severity of pain: At its worst the pain was moderate in the emergency department the pain has improved moderately. The patient has not experienced similar symptoms in the past. Historical: - Allergies: 10:10 No Known Allergies; ap3 - Home Meds: 10:10 Metformin Oral [Active]; ap3 - PMHx: 10:10 Diabetes - NIDDM; Hypertension; ap3 - Immunization history:: Client reports having NOT received the Covid vaccine. - Social history:: Smoking status: Patient reports the use of cigarette tobacco products, smokes one pack cigarettes per day. - Family history:: not pertinent. ROS: 10:50 Constitutional: Negative for fever, chills, and weight loss, Eyes: Negative for injury, tyler pain, redness, and discharge, ENT: Negative for injury, pain, and discharge, Neck: Negative for injury, pain, and swelling, Respiratory: Negative for shortness of breath, cough, wheezing, and pleuritic chest pain, Abdomen/GI: Negative for abdominal pain, nausea, vomiting, diarrhea, and constipation, Back: Negative for injury and pain, : Negative for injury, bleeding, discharge, and swelling, MS/Extremity: Negative for injury and deformity, Skin: Negative for injury, rash, and discoloration, Neuro: Negative for headache, weakness, numbness, tingling, and seizure. 10:50 Cardiovascular: Positive for chest pain, of the chest. Exam: 10:50 Constitutional: This is a well developed, well nourished patient who is awake, alert, tyler and in no acute distress. Head/Face: Normocephalic, atraumatic. Eyes: Pupils equal round and reactive to light, extra-ocular motions intact. Lids and lashes normal. Conjunctiva and sclera are non-icteric and not injected. Cornea within normal limits. Periorbital areas with no swelling, redness, or edema. ENT: Nares patent. No nasal discharge, no septal abnormalities noted. Tympanic membranes are normal and external auditory canals are clear. Oropharynx with no redness, swelling, or masses, exudates, or evidence of obstruction, uvula midline. Mucous membranes moist. Neck: Trachea midline, no thyromegaly or masses palpated, and no cervical lymphadenopathy. Supple, full range of motion without nuchal rigidity, or vertebral point tenderness. No Meningismus. Chest/axilla: Normal chest wall appearance and motion. Nontender with no deformity. No lesions are appreciated. Cardiovascular: Regular rate and rhythm with a normal S1 and S2. No gallops, murmurs, or rubs. Normal PMI, no JVD. No pulse deficits. Respiratory: Lungs have equal breath sounds bilaterally, clear to auscultation and percussion. No rales, rhonchi or wheezes noted. No increased work of breathing, no retractions or nasal flaring. Abdomen/GI: Soft, non-tender, with normal bowel sounds. No distension or tympany. No guarding or rebound. No evidence of tenderness throughout. Back: No spinal tenderness. No costovertebral tenderness. Full range of motion. Skin: Warm, dry with normal turgor. Normal color with no rashes, no lesions, and no evidence of cellulitis. MS/ Extremity: Pulses equal, no cyanosis. Neurovascular intact. Full, normal range of motion. Neuro: Awake and alert, GCS 15, oriented to person, place, time, and situation. Cranial nerves II-XII grossly intact. Motor strength 5/5 in all extremities. Sensory grossly intact. Cerebellar exam normal. Normal gait. Psych: Awake, alert, with orientation to person, place and time. Behavior, mood, and affect are within normal limits. 10:50 ECG was reviewed by the Attending Physician. Vital Signs: 10:09 BP 131 / 81; Pulse 97; Resp 18; Temp 98.1; Pulse Ox 99% ; Weight 111.13 kg; Pain 6/10; ap3 11:36 BP 161 / 84; Pulse 72; Resp 16; Pulse Ox 99% on R/A; mb9 12:23 BP 148 / 86; Pulse 90; Resp 17; Pulse Ox 100% on R/A; mb9 13:20 BP 150 / 89; Pulse 82; Resp 18; Pulse Ox 98% on R/A; mb9 10:09 Pain Scale: Adult ap3 MDM: 10:19 Patient medically screened. tyler 10:56 Differential diagnosis: abnormal EKG, acute myocardial infarction, acute pericarditis, tyler chest wall pain, cholecystitis, Cholelithiasis costochondritis, esophagitis, gastritis, herpes zoster, hiatal hernia, mitral valve prolapse, pancreatitis, pericarditis, pleurisy, pneumonia, pulmonary embolus, thoracic aortic disection. HEART Score: History: Moderately Suspicious (1), ECG: Normal (0), Age: > 45 and < 65 years (1), Risk Factors: > or = 3 Risk factors for atherosclerotic disease (2), [Hypercholesterolemia] [Hypertension] [Active Smoker] [+ Family HX] [Obesity] Troponin: < or = 1 x Normal Limit (0). The patient was given aspirin in the Emergency Department. VANDANA Risk Score: 1 - Three or more CAD risk factors, TOTAL SCORE = 1. Data reviewed: vital signs, nurses notes, lab test result(s), EKG, radiologic studies, plain films. Consideration of Admission/Observation Patient was admitted/placed on observation. Escalation of care including admission/observation considered. I considered the following discharge prescriptions or medication management in the emergency department Medications were administered in the Emergency Department. See MAR. Independent interpretation of the following test(s) in the Emergency Department EKG: See my EKG interpretation above. Test considered but Not performed: EKG: . Care significantly affected by the following chronic conditions: Diabetes, Hypertension, Obesity. Counseling: I had a detailed discussion with the patient and/or guardian regarding the historical points, exam findings, and any diagnostic results supporting the discharge/admit diagnosis, lab results, radiology results, the need for further work-up and treatment in the hospital. 07/23 10:19 Order name: Basic Metabolic Panel; Complete Time: 11:24 [facility] 07/23 10:19 Order name: CBC with Diff; Complete Time: 11:24 [facility] 07/23 10:19 Order name: LFT's; Complete Time: 11:24 [facility] 07/23 10:19 Order name: Magnesium; Complete Time: 11:24 [facility] 07/23 10:19 Order name: NT PRO-BNP; Complete Time: 11:24 [facility] 07/23 10:19 Order name: PT-INR; Complete Time: 11:24 [facility] 07/23 10:19 Order name: Troponin HS; Complete Time: 11:24 [facility] 07/23 10:19 Order name: Lipase; Complete Time: 11:24 [facility] 07/23 12:19 Order name: Hemoglobin A1c [facility] 07/23 12:19 Order name: Lipid Profile [facility] 07/23 12:19 Order name: Thyroid Stimulating Hormone [facility] 07/23 12:19 Order name: Troponin High Sensitivity [facility] 07/23 12:19 Order name: CBC with Automated Diff [facility] 07/23 12:19 Order name: CBC with Automated Diff [facility] 07/23 12:19 Order name: CBC with Automated Diff [facility] 07/23 12:19 Order name: CBC with Automated Diff [facility] 07/23 12:19 Order name: Comprehensive Metabolic Panel [facility] 07/23 12:19 Order name: Comprehensive Metabolic Panel [facility] 07/23 12:19 Order name: Comprehensive Metabolic Panel [facility] 07/23 12:19 Order name: Comprehensive Metabolic Panel [facility] 07/23 10:19 Order name: XRAY Chest (1 view); Complete Time: 11:24 [facility] 07/23 10:19 Order name: EKG; Complete Time: 10:20 [facility] 07/23 12:19 Order name: CONS Physician Consult [facility] 07/23 12:19 Order name: 60g Consistent Carbohydrate (ADA 1800/2000) [facility] 07/23 10:19 Order name: Cardiac monitoring; Complete Time: 10:44 [facility] 07/23 10:19 Order name: EKG - Nurse/Tech; Complete Time: 10:44 [facility] 07/23 10:19 Order name: IV Saline Lock; Complete Time: 10:44 [facility] 07/23 10:19 Order name: Labs collected and sent; Complete Time: 10:44 [facility] 07/23 10:19 Order name: O2 Per Protocol; Complete Time: 10:44 [facility] 07/23 10:19 Order name: O2 Sat Monitoring; Complete Time: 10:44 [facility] EC:50 Rate is 87 beats/min. Rhythm is regular. QRS [place] is Normal. NV interval is normal. QRS tyler interval is normal. QT interval is normal. No Q waves. T waves are Normal. No ST changes noted. Clinical impression: NSR w/ Non-specific ST/T Changes and No evidence of ischemia. Interpreted by me. Reviewed by me. Administered Medications: 10:44 Drug: Aspirin PO Chewable Tablet 324 mg Route: PO; mb9 12:27 Follow up: Response: No adverse reaction mb9 10:45 Drug: NS 0.9% IV 500 ml Route: IV; Rate: bolus; Site: right antecubital; mb9 12:27 Follow up: Response: No adverse reaction; IV Status: Completed infusion mb9 10:45 Drug: NS 0.9% IV 1000 ml Route: IV; Rate: 125 ml/hr; Site: right antecubital; mb9 12:01 Drug: Enoxaparin Sub-Q 1 mg/kg Route: Sub-Q; Site: left lower abdomen; mb9 12:27 Follow up: Response: No adverse reaction mb9 Disposition Summary: 07/23/23 11:00 Hospitalization Ordered Hospitalization Status: Observation tyler Provider: Gume Gonzalez cha Location: Telemetry/MedSurg (observation) tyler Condition: Stable tyler Problem: new tyler Symptoms: have improved tyler Bed/Room Type: Standard tyler Room Assignment: 218(07/23/23 13:11) bd Diagnosis - Chest pain, unspecified tyler - Type 2 diabetes mellitus with hyperglycemia tyler - Obesity due to excess calories tyler Forms: - Medication Reconciliation Form tyler - SBAR form tyler - Leadership Thank You Letter tyler Signatures: Dispatcher [employer] Anisa Silveira Corey, MD MD cha Prokisch, Amanda RN RN ap3 Laverne Bergeron RN RN mb9 Corrections: (The following items were deleted from the chart) 13:11 11:00 tyler bd
--- NOTE | 2023-07-23 11:01 | ER ---
Nurse's Notes [facility] Name: Nas White Jr Age: 57 yrs Sex: Male : 1965 Arrival Date: 07/23/2023 Time: 10:06 Bed 4 Private MD: Diagnosis: Chest pain, unspecified;Type 2 diabetes mellitus with hyperglycemia;Obesity due to excess calories Presentation: 07/23 10:09 Chief complaint: Patient states: he started having chest pain last night that feels ap3 like a "bubbling sensation". patient rates his pain as a 6/10 on the pain scale. Coronavirus screen: At this time, the client does not indicate any symptoms associated with coronavirus-19. Ebola Screen: No symptoms or risks identified at this time. Initial Sepsis Screen: Does the patient meet any 2 criteria? No. Patient's initial sepsis screen is negative. Does the patient have a suspected source of infection? No. Patient's initial sepsis screen is negative. Risk Assessment: Do you want to hurt yourself or someone else? Patient reports no desire to harm self or others. Onset of symptoms was July 22, 2023. 10:09 Method Of Arrival: Ambulatory ap3 10:09 Acuity: CAITLIN 3 ap3 Triage Assessment: 10:11 General: Appears in no apparent distress. Behavior is calm, cooperative, appropriate ap3 for age. Pain: Complains of pain in chest Pain currently is 6 out of 10 on a pain scale. Pain began 1 day ago. Neuro: Level of Consciousness is awake, alert, obeys commands, Oriented to person, place, time, situation. Cardiovascular: Reports chest pain, Patient's skin is warm and dry. Respiratory: Airway is patent Respiratory effort is even, unlabored, Respiratory pattern is regular, symmetrical. Historical: - Allergies: 10:10 No Known Allergies; ap3 - Home Meds: 10:10 Metformin Oral [Active]; ap3 - PMHx: 10:10 Diabetes - NIDDM; Hypertension; ap3 - Immunization history:: Client reports having NOT received the Covid vaccine. - Social history:: Smoking status: Patient reports the use of cigarette tobacco products, smokes one pack cigarettes per day. - Family history:: not pertinent. Screenin:12 [facility] ED Fall Risk Assessment (Adult) History of falling in the last 3 months, ap3 including since admission No falls in past 3 months (0 pts). Abuse screen: Denies threats or abuse. Nutritional screening: No deficits noted. Tuberculosis screening: No symptoms or risk factors identified. Assessment: 10:36 General: Appears uncomfortable, Behavior is cooperative. Pain: Complains of pain in mb9 chest Pain does not radiate. Pain currently is 8 out of 10 on a pain scale. Quality of pain is described as heavy, pressure, Pain began 1 day ago. Is intermittent. Neuro: Darden Agitation-Sedation Scale (RASS): 0 - Alert and Calm Level of Consciousness is awake, alert, obeys commands, Oriented to person, place, time, situation, Appropriate for age. Cardiovascular: Reports chest pain, lightheadedness, shortness of breath, Heart tones S1 S2 present Patient's skin is warm and dry. Rhythm is regular. Respiratory: Airway is patent Respiratory effort is even, unlabored, Respiratory pattern is regular, symmetrical, Breath sounds are clear bilaterally. GI: Abdomen is round non-distended, Bowel sounds present X 4 quads. Abd is soft and non tender X 4 quads. : No signs and/or symptoms were reported regarding the genitourinary system. EENT: No signs and/or symptoms were reported regarding the EENT system. Derm: Skin is pink, warm \\T\\ dry. Musculoskeletal: Range of motion: intact in all extremities. 11:36 Reassessment: No changes from previously documented assessment. Patient and/or family mb9 updated on plan of care and expected duration. Pain level reassessed. Patient is alert, oriented x 3, equal unlabored respirations, skin warm/dry/pink. 12:23 Reassessment: No changes from previously documented assessment. Patient and/or family mb9 updated on plan of care and expected duration. Pain level reassessed. Patient is alert, oriented x 3, equal unlabored respirations, skin warm/dry/pink. 13:20 Reassessment: attempted to call report to admitting nurse. ina 13:21 Reassessment: No changes from previously documented assessment. Patient and/or family mb9 updated on plan of care and expected duration. Pain level reassessed. Patient is alert, oriented x 3, equal unlabored respirations, skin warm/dry/pink. 14:04 Reassessment: report called to admitting nurse Neda. RN. mb9 Vital Signs: 10:09 BP 131 / 81; Pulse 97; Resp 18; Temp 98.1; Pulse Ox 99% ; Weight 111.13 kg; Pain 6/10; ap3 11:36 BP 161 / 84; Pulse 72; Resp 16; Pulse Ox 99% on R/A; mb9 12:23 BP 148 / 86; Pulse 90; Resp 17; Pulse Ox 100% on R/A; mb9 13:20 BP 150 / 89; Pulse 82; Resp 18; Pulse Ox 98% on R/A; mb9 10:09 Pain Scale: Adult ap3 ED Course: 10:07 Patient arrived in ED. im 10:10 Triage completed. ap3 10:12 Arm band placed on left wrist. ap3 10:12 Patient maintains SpO2 saturation greater than 95% on room air. ap3 10:18 Jose D Ponce MD is Attending Physician. tyler 10:25 No provider procedures requiring assistance completed. EKG done, by ED staff, reviewed mb9 by Laverne Bergeron RN. 10:35 Inserted saline lock: 22 gauge in right antecubital area, using aseptic technique. mb9 10:36 Laverne Bergeron, RN is Primary Nurse. mb9 10:37 XRAY Chest (1 view) In Process Unspecified. EDMS 10:37 Placed in gown. Bed in low position. Call light in reach. Side rails up X 1. Client mb9 placed on continuous cardiac and pulse oximetry monitoring. NIBP monitoring applied. nuclear monitoring technician on. 10:45 Basic Metabolic Panel Sent. mb9 10:45 CBC with Diff Sent. mb9 10:45 LFT's Sent. mb9 10:45 Magnesium Sent. mb9 10:45 NT PRO-BNP Sent. mb9 10:45 PT-INR Sent. mb9 10:45 Troponin HS Sent. mb9 10:45 Lipase Sent. mb9 10:59 Gume Gonzalez MD is Hospitalizing Provider. tyler 14:04 Patient admitted, IV remains in place. mb9 Administered Medications: 10:44 Drug: Aspirin PO Chewable Tablet 324 mg Route: PO; mb9 12:27 Follow up: Response: No adverse reaction mb9 10:45 Drug: NS 0.9% IV 500 ml Route: IV; Rate: bolus; Site: right antecubital; mb9 12:27 Follow up: Response: No adverse reaction; IV Status: Completed infusion mb9 10:45 Drug: NS 0.9% IV 1000 ml Route: IV; Rate: 125 ml/hr; Site: right antecubital; mallorie9 12:01 Drug: Enoxaparin Sub-Q 1 mg/kg Route: Sub-Q; Site: left lower abdomen; mb9 12:27 Follow up: Response: No adverse reaction mb9 Medication: 10:12 VIS not applicable for this client. ap3 Outcome: 11:00 Decision to Hospitalize by Provider. tyler 14:04 Admitted to Med/surg via wheelchair, room 219, with chart, Report called to GELY Red9 14:04 Condition: stable 14:04 Instructed on the need for admit. 14:15 Patient left the ED. mb9 Signatures: Dispatcher [employer] Jose D Ge MD MD cha Prokisch, Amanda, RN RN ap3 Laverne Bergeron RN RN mb9 Catherine Rivera
[2023-07-23 11:18] LABS: Albumin 3.7 g/dL (3.4-5.0); Bilirubin Direct 0.2 mg/dL (0-0.2); Bilirubin Indirect, Calculated 0.5 mg/dL (0.2-0.8); Bilirubin Total 0.7 mg/dL (0.2-1.0); Magnesium 2.3 mg/dL (1.6-2.4); Protein, Total 8.1 g/dL (6.4-8.2); Troponin High Sensitivity 6.7 pg/mL (<58.9)
[2023-07-23] MEDS ORDERED: ENOXAPARIN 100 MG/ML SYR SQ ONE (11:32)
--- NOTE | 2023-07-23 12:09 | P.HP ---
Certification for Inpatient Patient admitted to: Observation With expected LOS: <2 Midnights Patient will require the following post-hospital care: None Practitioner: I am a practitioner with admitting privileges, knowledge of patient current condition, hospital course, and medical plan of care. Services: Services provided to patient in accordance with Admission requirements found in Title 42 Section 412.3 of the Code of Federal Regulations Patient History Date of Service: 07/23/23 Primary Care Provider: none Reason for admission: chest pain History of Present Illness: Patient with a 20 year history of dm2. As well as htn. He has been out of his medications due to lack of insurance. Has been feeling thirsty and polyuria. Last night he had numbness of his chest and epigastric area. The patient states the pain was on and off. Has been on and off pain. Radiates to the left jaw and down the left arm. It was getting worse and he came to the ER. Has negative troponins and EKG looks benign. However he is high risk so will admit the patient Allergies No Known Drug Allergies Allergy (Verified 08/14/16 17:22) Unknown No Known Allergies Allergy (Uncoded 08/14/16 17:54) Unknown Home Medications: Metformin HCl [Glucophage*] 500 mg PO BID 08/14/16 lisinopriL [Prinivil*] 10 mg PO DAILY 08/14/16 - Past Medical/Surgical History Diabetic: Yes -: HTN -: DM -: APPENDECTOMY - Family History Mother -: Hypertension, Diabetes, Cancer Notes: STOMACH CANCER Father -: Hypertension, Diabetes, Stroke - Social History Alcohol use: Yes CD- Drugs: Yes Caffeine use: Yes Review of Systems 10-point ROS is otherwise unremarkable Cardiovascular: Chest Pain Physical Examination - Physical Exam General: Alert, Moderate distress HEENT: Atraumatic, PERRLA, Mucous membr. moist/pink, EOMI, Sclerae nonicteric Neck: Supple, 2+ carotid pulse no bruit, No LAD, Without JVD or thyroid abnormality Respiratory: Clear to auscultation bilaterally, Normal air movement Cardiovascular: Regular rate/rhythm, Normal S1 S2 Gastrointestinal: Normal bowel sounds, No tenderness Musculoskeletal: No tenderness Integumentary: No rashes Neurological: Normal gait, Normal speech, Normal strength at 5/5 x4 extr, Normal tone, Normal affect Lymphatics: No axilla or inguinal lymphadenopathy - Studies Laboratory Data (last 24 hrs) 07/23/23 07/23/23 07/23/23 10:40 10:40 10:40 WBC 8.40 Hgb 17.0 Hct 49.1 H Plt Count 216 PT 11.0 INR 1.00 Sodium 133 L Potassium 4.0 BUN 20 H Creatinine 0.99 Glucose 279 H Magnesium 2.3 Total Bilirubin 0.7 AST 15 ALT 29 Alkaline Phosphatase 93 Lipase 32 Assessment and Plan - Problems (Diagnosis) (1) Chest pain Onset Date: 08/15/16 Current Visit: No Status: Acute Plan: will admit for a chest pain rule out. Start nitrous patch and anticoagulation. Will consult Dr. Jasso and monitor serial troponins Qualifiers: Chest pain type: unspecified Qualified Code(s): R07.9 - Chest pain, unspecified (2) Diabetes type 2, controlled Current Visit: No Status: Acute Plan: will restart his metformin. Start him on an ada diet. check an a1c on the patient Qualifiers: Diabetes mellitus manager intermediate insulin use: without residential use Diabetes mellitus complication status: without complication Qualified Code(s): E11.9 - Type 2 diabetes mellitus without complications (3) Hypertension Current Visit: No Status: Chronic Plan: start the patient on lisinopril. will adjust as needed. Qualifiers: Hypertension type: primary hypertension Qualified Code(s): I10 - Essential (primary) hypertension Discharge Plan: Home Plan to discharge in: 24 Hours - Advance Directives Does patient have a Living Will: No Does patient have a Durable POA for Healthcare: No - Code Status/Comfort Care Code Status Assessed: No Code Status: Full Code Physician Review: Patient Assessed, Agree with Above Assessment and Plan Critical Care: No Time Spent Managing Pts Care (In Minutes): 40
[2023-07-23] MEDS ORDERED: HYDRALAZINE HCL 20 MG/ML VIAL IV PRN (12:13)
[2023-07-23] MEDS ORDERED: GLUCAGON 1 MG/VIAL IM PRN (12:14)
[2023-07-23] MEDS ORDERED: IBUPROFEN 600 MG TAB PO PRN (12:14)
[2023-07-23] MEDS ORDERED: D50W 25 GM/50 ML SYRINGE IV PRN (12:14)
[2023-07-23] MEDS ORDERED: MORPHINE 4 MG/ML SYR IV PRN (12:14)
[2023-07-23] MEDS ORDERED: D10W 125 ML IV PRN (12:25)
[2023-07-23] MEDS: NA CHLORIDE 0.9% 1,000 ML IV SCH ×2 (13:00→21:59)
[2023-07-23 15:46] VITALS: BMI 42.0
[2023-07-23] MEDS: ENOXAPARIN 40 MG/0.4 ML SQ SCH (17:00)
[2023-07-23] MEDS: INSULIN -REGULAR HUMAN 50 UNIT/0.5 ML ML SQ SCH ×2 (17:14→19:25)
[2023-07-23] MEDS: METFORMIN HCL 500 MG TAB PO SCH (17:15)
[2023-07-24] MEDS: PANTOPRAZOLE 40MG TABLET PO SCH (05:50)
[2023-07-24 06:50] LABS: Absolute Lymphocytes (CBC) 3.4 K/uL (0.7-4.9); Hematocrit 39.7 % (39.6-49.0); Lymphocytes % 44.9 % (15.3-44.8); MCV 87.5 fL (80-100); MPV 7.6 fL (7.6-11.3); Platelets 169 thou/uL (152-406); RBC Red Blood Cell Count 4.53 M/uL (4.33-5.43)
[2023-07-24] MEDS ORDERED: SIMETHICONE 80 MG TAB PO PRN (08:24)
--- NOTE | 2023-07-24 08:27 | P.PN ---
Subjective Date of Service: 07/24/23 Primary Care Provider: none Chief Complaint: chest pain Subjective: Improving Review of Systems 10-point ROS is otherwise unremarkable Cardiovascular: Chest Pain (improved but still has impremittent luq pain ) Physical Examination - Vital Signs Temperature: 97.3 F Blood Pressure: 131/65 Pulse: 72 Respirations: 18 Pulse Ox (%): 97 - Physical Exam General: Alert, In no apparent distress HEENT: Atraumatic, PERRLA, EOMI Neck: Supple, JVD not distended Respiratory: Clear to auscultation bilaterally, Normal air movement Cardiovascular: Regular rate/rhythm, Normal S1 S2 Gastrointestinal: Normal bowel sounds, No tenderness Musculoskeletal: No tenderness Integumentary: No rashes Neurological: Normal speech, Normal tone, Normal affect Lymphatics: No axilla or inguinal lymphadenopathy - Studies Laboratory Data (last 24 hrs) 07/23/23 07/23/23 07/23/23 10:40 10:40 10:40 WBC 8.40 Hgb 17.0 Hct 49.1 H Plt Count 216 PT 11.0 INR 1.00 Sodium 133 L Potassium 4.0 BUN 20 H Creatinine 0.99 Glucose 279 H Magnesium 2.3 Total Bilirubin 0.7 AST 15 ALT 29 Alkaline Phosphatase 93 Lipase 32 Assessment And Plan - Current Problems (Diagnosis) (1) Chest pain Onset Date: 08/15/16 Current Visit: No Status: Acute Plan: will admit for a chest pain rule out. Start nitrous patch and anticoagulation. Will consult Dr. Jasso and monitor serial troponins 07/24/23 Patient has negative troponins. Will treat him with gerd medications. Will await Dr. Jasso seeing the patient before discharge. Qualifiers: Chest pain type: unspecified Qualified Code(s): R07.9 - Chest pain, unspecified (2) Diabetes type 2, controlled Current Visit: No Status: Acute Plan: will restart his metformin. Start him on an ada diet. check an a1c on the patient . a1c is 12.4 continue metformin and sliding scale. Will have him follow up and start the patient on ozempic. Will need to refer him to the diabetic education program Qualifiers: Diabetes mellitus fci insulin use: without personal coach use Diabetes mellitus complication status: without complication Qualified Code(s): E11.9 - Type 2 diabetes mellitus without complications (3) Hypertension Current Visit: No Status: Chronic Plan: start the patient on lisinopril. will adjust as needed. Qualifiers: Hypertension type: primary hypertension Qualified Code(s): I10 - Essential (primary) hypertension Discharge Plan: Home Plan to discharge in: 24 Hours - Code Status/Comfort Care Code Status Assessed: No Physician Review: Patient Assessed, Agree with Above Assessment and Plan Critical Care: No Time Spent Managing PTS Care (In Minutes): 20
[2023-07-24] MEDS ORDERED: lisinopriL 10 MG TAB PO SCH (09:00)
[2023-07-24] MEDS: NITROGLYCERIN 0.1 MG/HR (2.5 MG) PATCH TD SCH (09:00)
[2023-07-24 09:43] LABS: Bilirubin Total 0.4 mg/dL (0.2-1.0); Protein, Total 6.7 g/dL (6.4-8.2); Thyroid Stimulating Hormone 1.71 uIU/mL (0.358-3.740)
[2023-07-24 09:44] LABS: Potassium 4.2 mEq/L (3.5-5.1)
[2023-07-24] MEDS: METFORMIN HCL 500 MG TAB PO SCH ×2 (10:06→18:13)
[2023-07-24] MEDS: INSULIN -REGULAR HUMAN 50 UNIT/0.5 ML ML SQ SCH ×4 (10:07→21:59)
[2023-07-24] MEDS: NA CHLORIDE 0.9% 1,000 ML IV SCH ×3 (10:57→22:01)
--- NOTE | 2023-07-24 14:58 | EKG ---
Test Date: 2023-07-23 Test Time: 10:31:48 Proc Tech: MB MEASUREMENT RESULTS: Intervals: Rate: 87 KS: 144 QRSD: 82 QT: 378 QTc: 454 [place]: P: 15 KS: 144 QRS: 14 T: 23 INTERPRETIVE STATEMENTS: Normal sinus rhythm Normal ECG Compared to ECG 08/14/2016 12:09:27 No significant changes Electronically Signed On 07-24-23 14:54:45 CDT by Les Jasso
[2023-07-24] MEDS: ENOXAPARIN 40 MG/0.4 ML SQ SCH (18:13)
--- NOTE | 2023-07-24 20:17 | CON ---
Date of Consultation: 07/24/2023 Reason For Consultation: Chest pain. History Of Present Illness: This is a 57-year-old male with history of diabetes, hypertension, prese nted with chest pain on and off and it is in the lower chest and epigastric area. No radiation. Not related to exertion. Since admission, has no further chest pain and cardiac enzymes have been negat werner. Past Medical History: As outlined above in the HPI. Medications: Refer to reconciliation sheet for detailed list. Allergies: NO KNOWN DRUG ALLERGIES. Family History: No premature coronary artery disease or cancer. Social History: He does not drink, or use any drugs. Review of Systems: All systems reviewed and they were negative except what mentioned in HPI. Physical Examination: Vital Signs: Reviewed. Head and Neck: Pupils are equal, reactive to light. Intact eye movements. No JVD. No cervical lym phadenopathy. Neck is supple. Thyroid is not enlarged. Lungs: Clear to auscultation bilaterally. No rhonchi, wheezing, or crackles. No accessory muscle u se. Heart: Regular rate and rhythm. No extra sounds. Abdomen: Soft, nontender. Bowel sounds positive. No organomegaly. No masses or hernia. No rigidi ty or rebound. Extremities: No edema, clubbing, or cyanosis. Intact pulses. Skin: No rash. No nodule. Neurologic: Alert, awake, oriented x3. No acute focal deficits appreciated. Investigations: Troponins are negative. BUN is 18, creatinine 0.85. Assessment And Recommendations: 1.Chest pain. It is atypical, but he has multiple risk factors. Further ischemia evaluation is rec ommended with a stress test and an echo, and continue baby aspirin. 2.Hypertension. Blood pressure is controlled. Continue current management. SR/MODL Voice ID: [id number] Report ID: [id number]
[2023-07-25] MEDS: NA CHLORIDE 0.9% 1,000 ML IV SCH (04:13)
[2023-07-25] MEDS: PANTOPRAZOLE 40MG TABLET PO SCH (04:13)
[2023-07-25 07:16] LABS: Absolute Lymphocytes (CBC) 3.1 K/uL (0.7-4.9); Hematocrit 39.5 % (39.6-49.0); Lymphocytes % 36.9 % (15.3-44.8); MCV 88.3 fL (80-100); MPV 7.7 fL (7.6-11.3); Platelets 173 thou/uL (152-406); RBC Red Blood Cell Count 4.47 M/uL (4.33-5.43)
[2023-07-25 07:22] LABS: Albumin 2.7 g/dL (3.4-5.0); Bilirubin Total 0.3 mg/dL (0.2-1.0); Potassium 4.4 mEq/L (3.5-5.1)
[2023-07-25] MEDS: INSULIN -REGULAR HUMAN 50 UNIT/0.5 ML ML SQ SCH ×2 (07:30→11:30)
[2023-07-25] MEDS: METFORMIN HCL 500 MG TAB PO SCH (08:00)
--- NOTE | 2023-07-25 08:29 | P.PN ---
Subjective Date of Service: 07/25/23 Primary Care Provider: none Chief Complaint: chest pain Subjective: No new changes Review of Systems 10-point ROS is otherwise unremarkable Cardiovascular: Chest Pain (while contrast was injected ) Physical Examination - Vital Signs Temperature: 98.1 F Blood Pressure: 129/70 Pulse: 76 Respirations: 18 Pulse Ox (%): 96 - Physical Exam General: Alert, In no apparent distress HEENT: Atraumatic, PERRLA, EOMI Neck: Supple, JVD not distended Respiratory: Clear to auscultation bilaterally, Normal air movement Cardiovascular: Regular rate/rhythm, Normal S1 S2 Gastrointestinal: Normal bowel sounds, No tenderness Musculoskeletal: No tenderness Integumentary: No rashes Neurological: Normal speech, Normal tone, Normal affect Lymphatics: No axilla or inguinal lymphadenopathy Assessment And Plan - Current Problems (Diagnosis) (1) Chest pain Onset Date: 08/15/16 Current Visit: No Status: Acute Plan: will admit for a chest pain rule out. Start nitrous patch and anticoagulation. Will consult Dr. Jasso and monitor serial troponins 07/25 plans for stress test today Qualifiers: Chest pain type: unspecified Qualified Code(s): R07.9 - Chest pain, unspecified (2) Diabetes type 2, controlled Current Visit: No Status: Acute Plan: will restart his metformin. Start him on an ada diet. check an a1c on the patient 9.12 a1c is 12.4 continue metformin and sliding scale. Will have him follow up and start the patient on ozempic. Will need to refer him to the diabetic education program Qualifiers: Diabetes mellitus joint terminal attack controller insulin use: without joint terminal attack controller use Diabetes mellitus complication status: without complication Qualified Code(s): E11.9 - Type 2 diabetes mellitus without complications (3) Hypertension Current Visit: No Status: Chronic Plan: start the patient on lisinopril. will adjust as needed. Qualifiers: Hypertension type: primary hypertension Qualified Code(s): I10 - Essential (primary) hypertension Discharge Plan: Home Plan to discharge in: 24 Hours - Code Status/Comfort Care Code Status Assessed: No Physician Review: Patient Assessed, Agree with Above Assessment and Plan Critical Care: No Time Spent Managing PTS Care (In Minutes): 20
[2023-07-25] MEDS ORDERED: REGADENOSON 0.4 MG/5 ML SYR IV ONE (08:50)
[2023-07-25] MEDS: NITROGLYCERIN 0.1 MG/HR (2.5 MG) PATCH TD SCH (09:00)
--- NOTE | 2023-07-25 11:21 | RAD REPORT ---
EXAM DESCRIPTION: NM - Rest Stress Cardiac Imaging - 07/25/2023 10:04 am CLINICAL HISTORY: CP COMPARISON: Rest Stress Cardiac Imaging dated 08/15/2016 TECHNIQUE: The patient was administered approximately 10.9 mCi of Tc 99m Sestamibi prior to resting SPECT imaging of the heart. The patient was then administered approximately 30.2 mCi of Tc 99m Sestam ibi following exercise or pharmacologic stress. Multiplanar SPECT images were reviewed. FINDINGS: No stress induced ischemic defect is seen to suggest stress induced ischemia. No sizable f ixed defect is seen to suggest hibernating myocardium or scarred myocardium. Stable small focus of r elatively decreased uptake along the inferolateral wall near the apex, favored to be artifactual. The end diastolic volume is 130 ml, the end systolic volume is 63 ml, and the ejection fraction is 52 %. IMPRESSION: No evidence of stress-induced myocardial ischemia. Stable likely artifactual fixed defec t of the inferolateral wall near the apex. Ejection fraction calculated at 52%, probably within normal limits.
[2023-07-25 12:34] VITALS: BP 147/71; TEMP 97.9
[2023-07-25 13:20] VITALS: O2SAT 100
--- NOTE | 2023-07-25 14:04 | TREADPHA ---
DX: CHEST PAIN Date of Study: 07/25/2023 Ht: 5' 4 " Wt: 245 lb 0 oz Consulting Physician: FOZIA MEDICATIONS: LOVENOX, APRESOLINE, NOVOLIN-R, PRINIVIL HISTORY: 57 YEAR OLD MALE WITH COMPLAINTS OF CHEST PAIN. HISTORY OF HYPERTENSION, HIGH CHOLESTEROL, DIABETES MELLITUS, SMOKES ONE PACK DAILY, OCCASIONAL DRINKING. PHYSICIAL EXAMINATION: RESTING B.P.: 131/74 RESTING H.R.: 70 RESTING EKG: NORMAL SINUS RHYTHM, WITHIN NORMAL LIMITS. PROTOCOL: LEXISCAN EXERCISE TIME: 3:30 B.P. AT PEAK STRESS: 106/61 IMPRESSION: LEXISCAN INJECTED, FOLLOWED BY CARDIOLITE PER PROTOCOL. SEE NUCLEAR MEDICINE REPORT. NO SUPRAVENTRICULAR TACHYCARDIA, VENTRICULAR TACHYCARDIA, PREMATURE ATRIAL COMPLEXES OT PREMATURE VENTRICULAR COMPLEXES. PATIENT REPORTED CHEST PAIN 8/10. NO EKG CHANGES OF ISCHEMIA WITH LEXISCAN.
--- NOTE | 2023-07-25 14:27 | P.DS ---
Admission Date: 07/23/23 Discharge Date: 07/25/23 Primary Care Provider: none Disposition: ROUTINE DISCHARGE Discharge Condition: GOOD Reason for Admission: chest pain - Problems (1) Chest pain Onset Date: 08/15/16 Current Visit: No Status: Acute Qualifiers: Chest pain type: unspecified Qualified Code(s): R07.9 - Chest pain, unspecified (2) Diabetes type 2, controlled Current Visit: No Status: Acute Qualifiers: Diabetes mellitus ferry terminal supervisor insulin use: without ferry terminal supervisor use Diabetes mellitus complication status: without complication Qualified Code(s): E11.9 - Type 2 diabetes mellitus without complications (3) Hypertension Current Visit: No Status: Chronic Qualifiers: Hypertension type: primary hypertension Qualified Code(s): I10 - Essential (primary) hypertension Brief History of Present Illness: Patient with a 20 year history of dm2. As well as htn. He has been out of his medications due to lack of insurance. Has been feeling thirsty and polyuria. Last night he had numbness of his chest and epigastric area. The patient states the pain was on and off. Has been on and off pain. Radiates to the left jaw and down the left arm. It was getting worse and he came to the ER. Has negative troponins and EKG looks benign. However he is high risk so will admit the patient Hospital Course: Patient admitted for chest pain. He had negative troponins and a negative stress test He was started on GERD medications. Has an a1c of 12.4. He can follow up with me in the office and Dr. Jasso Vital Signs/Physical Exam: Temp Pulse Resp BP Pulse Ox 97.9 F 70 18 147/71 H 100 07/25/23 12:00 07/25/23 12:07/25/23 12:00 07/25/23 12:07/25/23 12:00 General: Alert, In no apparent distress HEENT: Atraumatic, PERRLA, EOMI Neck: Supple, JVD not distended Respiratory: Clear to auscultation bilaterally, Normal air movement Cardiovascular: Regular rate/rhythm, Normal S1 S2 Gastrointestinal: Normal bowel sounds, No tenderness Musculoskeletal: No tenderness Integumentary: No rashes Neurological: Normal speech, Normal tone, Normal affect Lymphatics: No axilla or inguinal lymphadenopathy Laboratory Data at Discharge: WBC 8.30 thou/uL (4.3-10.9) 07/25/23 06:50 Hgb 13.5 g/dL (13.6-17.9) L 07/25/23 06:50 Hct 39.5 % (39.6-49.0) L 07/25/23 06:50 Plt Count 173 thou/uL (152-406) 07/25/23 06:50 PT 11.0 SECONDS (9.5-12.5) 07/23/23 10:40 INR 1.00 07/23/23 10:40 Sodium 133 mEq/L (136-145) L 07/25/23 06:50 Potassium 4.4 mEq/L (3.5-5.1) 07/25/23 06:50 BUN 15 mg/dL (7-18) 07/25/23 06:50 Creatinine 0.86 mg/dL (0.70-1.30) 07/25/23 06:50 Glucose 194 mg/dL (74-106) H 07/25/23 06:50 Magnesium 2.3 mg/dL (1.6-2.4) 07/23/23 10:40 Total Bilirubin 0.3 mg/dL (0.2-1.0) 07/25/23 06:50 AST 9 U/L (15-37) L 07/25/23 06:50 ALT 22 U/L (16-61) 07/25/23 06:50 Alkaline Phosphatase 78 U/L (45-117) 07/25/23 06:50 Triglycerides 381 mg/dL (<150) H 07/24/23 08:48 Cholesterol 156 mg/dL (<200) 07/24/23 08:48 HDL Cholesterol 29 mg/dL (40-60) L 07/24/23 08:48 Cholesterol/HDL Ratio 5.38 07/24/23 08:48 Lipase 32 U/L (13-75) 07/23/23 10:40 Home Medications: Metformin HCl [Glucophage*] 500 mg PO BID 08/14/16 Metformin HCl [Glucophage*] 1,000 mg PO BIDWM 90 Days #180 tab 07/25/23 lisinopriL [Prinivil*] 10 mg PO DAILY 90 Days #90 tab 07/25/23 New Medications: Metformin HCl [Glucophage*] 1,000 mg PO BIDWM 90 Days #180 tab lisinopriL [Prinivil*] 10 mg PO DAILY 90 Days #90 tab Followup: NONE,NONE [Primary Care Provider] - Gume Gonzalez MD [ACTIVE - CAN ADMIT] - Les Jasso MD [ACTIVE - CAN ADMIT] - Time spent managing pt's care (in minutes): 30
[2023-07-25] MEDS ORDERED: METFORMIN HCL 500 MG TAB PO SCH (17:00)
== END 2023-07-25 15:02 | disposition home or self-care (01) ==
LOC: ER 10:06 → ERHOLD 12:12 → 2ND 14:01
PROVIDERS: ADMIT Internal Medicine; ATTEND Internal Medicine
DX: R07.9 Chest pain, unspecified (principal); K21.9 Gastro-esophageal reflux disease without esophagitis; I10 Essential (primary) hypertension; R35.89 Other polyuria; E11.9 Type 2 diabetes mellitus without complications; R63.1 Polydipsia; Z82.49 Family history of ischemic heart disease and other diseases of the circulatory system; Z91.148 Patient's other noncompliance with medication regimen for other reason; Z83.3 Family history of diabetes mellitus; Z82.3 Family history of stroke; Z80.9 Family history of malignant neoplasm, unspecified
CPT/HCPCS: 36415; 71045; 78452; 80048; 80053; 80061; 80076; 82947; 83036; 83690; 83735; 83880; 84443; 84484; 85025; 85610; 93005; 93017; 96360; 96361; 96372; 99285; A9500; G0378; J1650; J1815; J2785; J7030; J7040

== ENCOUNTER 2024-05-14 14:19 | Emergency (ER) | payer OTHER, SELFPAY ==
--- NOTE | 2024-05-14 15:57 | RAD REPORT ---
EXAM DESCRIPTION: RAD - Foot Left 3 View - 05/14/2024 3:51 pm CLINICAL HISTORY: injury, wound on great toe COMPARISON: Foot Left 3 View dated 04/29/2023 FINDINGS/IMPRESSION: No acute fracture. No malalignment. Plantar and dorsal aspect calcaneal spurrin g. Peripheral vascular calcifications. Prominent spurring at the neck of the talus.
--- NOTE | 2024-05-14 15:58 | RAD REPORT ---
EXAM DESCRIPTION: RAD - Foot Right 3 View - 05/14/2024 3:51 pm CLINICAL HISTORY: wound, injury;Pain COMPARISON: Foot Left 3 View dated 05/14/2024 FINDINGS/IMPRESSION: No acute fracture. No malalignment. Dorsal and plantar aspect calcaneal spurs. Degenerative changes at the distal tibiotalar joint. No radiographic evidence of osteomyelitis.
--- NOTE | 2024-05-14 16:03 | EDPHYS ---
Physician Documentation [facility] Name: Nas White Jr Age: 58 yrs Sex: Male : 1965 Arrival Date: 05/14/2024 Time: 14:19 Bed 11 Private MD: ED Physician Alexey Garcia HPI: 05/14 14:44 This 58 yrs old Male presents to ER via Ambulatory with complaints of Toe rn Injury. 14:44 The patient presents with an injury, pain. The complaints affect the left foot. Onset: rn The symptoms/episode began/occurred 3 week(s) ago. Modifying factors: The symptoms are alleviated by nothing. the symptoms are aggravated by nothing. Severity of symptoms: At their worst the symptoms were mild, in the emergency department the symptoms are unchanged. The patient has not experienced similar symptoms in the past. Patient reports injured left great toe 3 weeks ago, stubbed it on something, had an open wound to that foot since then, has slowly been healing but has not completely healed. No drainage. No fever. Does not have PCP so came for evaluation. Also reports he is diabetic but off his metformin for some time now.. Historical: - Allergies: 14:29 No Known Allergies; ko1 - PMHx: 14:29 Diabetes - NIDDM; Hypertension; ko1 - PSHx: 14:29 Appendectomy; ko1 - Immunization history:: Adult Immunizations up to date. - Infectious Disease History:: Denies. - Social history:: Smoking status: Patient denies any tobacco usage or history of. - Family history:: not pertinent. - Hospitalizations: : No recent hospitalization is reported. ROS: 14:44 Constitutional: Negative for fever, chills, and weight loss, Cardiovascular: Negative rn for chest pain, palpitations, and edema, Respiratory: Negative for shortness of breath, cough, wheezing, and pleuritic chest pain, Abdomen/GI: Negative for abdominal pain, nausea, vomiting, diarrhea, and constipation, MS/Extremity: Positive for left great toe wound and pain Skin: Positive for slow healing wound to the left foot Exam: 14:44 Constitutional: This is a well developed, well nourished patient who is awake, alert, rn and in no acute distress. Cardiovascular: Regular rate and rhythm. No pulse deficits. MS/ Extremity: Pulses equal, no cyanosis. Neurovascular intact. Full, normal range of motion. Left foot medial side at the base of the great toe with slow healing wound, no drainage, no erythema, no warmth. Vital Signs: 14:25 BP 122 / 66; Pulse 88; Resp 16; Temp 98; Pulse Ox 98% ; ko1 16:34 BP 129 / 71; Pulse 74; Resp 18; Pulse Ox 100% on R/A; ld1 MDM: 14:25 Patient medically screened. rn 16:01 Differential diagnosis: closed fracture, contusion, Poor healing wound, cellulitis. rn Data reviewed: vital signs, nurses notes, lab test result(s), radiologic studies, plain films, and as a result, I will discharge patient. Care significantly affected by the following chronic conditions: Diabetes. Counseling: I had a detailed discussion with the patient and/or guardian regarding the historical points, exam findings, and any diagnostic results supporting the discharge/admit diagnosis, radiology results, the need for outpatient follow up, to return to the emergency department if symptoms worsen or persist or if there are any questions or concerns that arise at home. 16:02 Special discussion: I discussed with the patient/guardian in detail that at this point rn there is no indication for admission to the hospital. It is understood, however, that if the symptoms persist or worsen the patient needs to return immediately for re-evaluation. Based on the history and exam findings, there is no indication for further emergent testing or inpatient evaluation. I discussed with the patient/guardian the need to see the primary care provider for further evaluation of the symptoms. ED course: No evidence of osteomyelitis, more likely poor healing wound, will place on antibiotics given diabetic status and open wound for 3 weeks, also will refill his metformin given hyperglycemia. Stable vital signs. I have personally reviewed all of the results, including but not limited to blood tests and imaging deemed necessary to safely discharge this patient at this time. All results given to and printed out for patient. I personally went over all the results with the patient and answered all questions. Patient will follow-up with PCP and or specialist as discussed. Return precautions given and understood.. 05/14 14:49 Order name: Glucose, Ancillary Testing; Complete Time: 15:04 EDMS 05/14 14:35 Order name: XRAY Foot RIGHT 3 View; Complete Time: 16:01 rn 05/14 14:44 Order name: XRAY Foot LEFT 3 View; Complete Time: 16:01 rn 05/14 14:35 Order name: Glucose Level; Complete Time: 14:38 rn Administered Medications: 16:31 Drug: metFORMIN PO 1000 mg PO once; with meal or snack Route: PO; ld1 16:31 Drug: Trimethoprim-Sulfamethoxazole PO (160 mg-800 mg (DS) 1 tablet PO once Route: PO; ld1 Disposition Summary: 05/14/24 16:03 Discharge Ordered Notes: Location: Home rn Problem: an ongoing problem rn Symptoms: are unchanged rn Condition: Stable rn Diagnosis - Foot Laceration/ Open wound of foot rn - Hyperglycemia, unspecified rn Followup: rn - With: Private Physician - When: 2 - 3 days - Reason: Recheck today's complaints, Re-evaluation by your physician Discharge Instructions: - Discharge Summary Sheet rn - How to Change Your Wound Dressing rn - Hyperglycemia rn - Blood Glucose Monitoring, Adult rn - Wound Care, Adult rn Forms: - Medication Reconciliation Form rn - Antibiotic rnfa - Prescription Opioid Use rn - Patient Portal Instructions rn - Leadership Thank You Letter rn Prescriptions: - Metformin 500 mg Oral Tablet, Extended Release 24 hr - take 1 tablet ORAL route once daily with evening meal; 60 tablet; Refills: 0, rn Product Selection Permitted - Bactrim DS 800-160 mg Oral Tablet - take 1 tablet ORAL route every 12 hours for 10 days; 20 tablet; Refills: 0, rn Product Selection Permitted Signatures: Dispatcher [employer] Alexey Burris MD MD rn Sims, Lauren RN RN ld1 Amber Moon RN RN ko1
--- NOTE | 2024-05-14 16:03 | ER ---
Nurse's Notes [facility] Name: Nsa White Jr Age: 58 yrs Sex: Male : 1965 Arrival Date: 05/14/2024 Time: 14:19 Bed 11 Private MD: Diagnosis: Foot Laceration/ Open wound of foot;Hyperglycemia, unspecified Presentation: 05/14 14:25 Chief complaint: Patient states: left great toe joint with wound x 3 weeks. Coronavirus ko1 screen: At this time, the client does not indicate any symptoms associated with coronavirus-19. Ebola Screen: No symptoms or risks identified at this time. Initial Sepsis Screen: Does the patient meet any 2 criteria? No. Patient's initial sepsis screen is negative. Does the patient have a suspected source of infection? No. Patient's initial sepsis screen is negative. Risk Assessment: Do you want to hurt yourself or someone else? Patient reports no desire to harm self or others. Onset of symptoms is unknown. 14:25 Method Of Arrival: Ambulatory ko1 14:25 Acuity: CAITLIN 3 ko1 Triage Assessment: 14:29 General: Appears in no apparent distress. Behavior is calm, cooperative, appropriate ko1 for age. Pain: Complains of pain in medial aspect of left toes. Historical: - Allergies: 14:29 No Known Allergies; ko1 - PMHx: 14:29 Diabetes - NIDDM; Hypertension; ko1 - PSHx: 14:29 Appendectomy; ko1 - Immunization history:: Adult Immunizations up to date. - Infectious Disease History:: Denies. - Social history:: Smoking status: Patient denies any tobacco usage or history of. - Family history:: not pertinent. - Hospitalizations: : No recent hospitalization is reported. Screenin:35 [facility] ED Fall Risk Assessment (Adult) History of falling in the last 3 months, ld1 including since admission No falls in past 3 months (0 pts) Confusion or Disorientation No (0 pts) Intoxicated or Sedated No (0 pts) Impaired Gait No (0 pts) Mobility Assist Device Used No (0 pt) Altered Elimination No (0 pt) Score/Fall Risk Level 0 - 2 = Low Risk Oriented to surroundings, Maintained a safe environment, Educated pt \T\ family on fall prevention, incl call for assistance when getting out of bed, Assessed \T\ reinforced patient's understanding of fall precautions, Provided non-skid footwear, Hourly rounding (assess needs \T\ fall precautionary measures) done, Used ambulatory aids as needed (educated on \T\ assisted with), Used gait belt as appropriate. Abuse screen: Denies threats or abuse. Nutritional screening: No deficits noted. Tuberculosis screening: No symptoms or risk factors identified. Assessment: 16:34 Reassessment: Patient appears in no apparent distress at this time. No changes from ld1 previously documented assessment. Patient and/or family updated on plan of care and expected duration. Pain level reassessed. Patient is alert, oriented x 3, equal unlabored respirations, skin warm/dry/pink. General: Appears in no apparent distress. comfortable, Behavior is calm, cooperative, appropriate for age. Pain: Denies pain. Neuro: Level of Consciousness is awake, alert, obeys commands, Oriented to person, place, time, situation, Appropriate for age. Cardiovascular: Capillary refill < 3 seconds Patient's skin is warm and dry. Rhythm is sinus rhythm. Respiratory: Airway is patent Respiratory effort is even, unlabored. GI: Abdomen is round non-distended. : No signs and/or symptoms were reported regarding the genitourinary system. Vital Signs: 14:25 BP 122 / 66; Pulse 88; Resp 16; Temp 98; Pulse Ox 98% ; ko1 16:34 BP 129 / 71; Pulse 74; Resp 18; Pulse Ox 100% on R/A; ld1 ED Course: 14:22 Patient arrived in ED. ts1 14:25 Alexey Garcia MD is Attending Physician. rn 14:29 Triage completed. ko1 14:29 Arm band placed on right wrist. Patient placed in an exam room, on a stretcher, on ko1 pulse oximetry, Patient notified of wait time. 15:52 XRAY Foot RIGHT 3 View In Process Unspecified. EDMS 15:53 XRAY Foot LEFT 3 View In Process Unspecified. EDMS 16:31 Kristi Crooks, RN is Primary Nurse. ld1 16:35 No provider procedures requiring assistance completed. Patient did not have IV access ld1 during this emergency room visit. 16:36 Patient has correct armband on for positive identification. Placed in gown. Bed in low ld1 position. Call light in reach. Side rails up X2. hall monitor on. Pulse ox on. NIBP on. Door closed. Noise minimized. Warm blanket given. Administered Medications: 16:31 Drug: metFORMIN PO 1000 mg PO once; with meal or snack Route: PO; ld1 16:31 Drug: Trimethoprim-Sulfamethoxazole PO (160 mg-800 mg (DS) 1 tablet PO once Route: PO; ld1 Medication: 16:34 VIS not applicable for this client. ld1 Outcome: 16:03 Discharge ordered by . rn 16:36 Discharged to home ambulatory, ld1 16:36 Condition: stable 16:36 Discharge instructions given to patient, Instructed on discharge instructions, follow up and referral plans. Demonstrated understanding of instructions, follow-up care, 16:36 Patient left the ED. ld1 Signatures: Dispatcher [employer] EDAlexey Carrizales MD MD rn Sims, Lauren RN RN ld1 Amber Moon RN RN ko1 Tatiana Hawkins, FERNANDO PAS ts1
[2024-05-14] MEDS ORDERED: SMZ./TMP. 800/160 MG TABLET ONE (16:25)
[2024-05-14] MEDS ORDERED: METFORMIN HCL 500 MG TAB ONE (16:25)
[2024-05-14 17:17] VITALS: BP 129/71; TEMP 98; O2SAT 100
== END 2024-05-14 16:36 | disposition home or self-care (01) ==
LOC: ER 14:19
DX: S91.312A Laceration without foreign body, left foot, initial encounter (principal); E11.65 Type 2 diabetes mellitus with hyperglycemia
CPT/HCPCS: 82947; 99284

== ENCOUNTER 2024-06-15 08:20 | Inpatient (IN) | payer SELFPAY ==
[2024-06-15 09:09] LABS: Absolute Basophils 0.1 K/uL (0-0.5); Absolute Eosinophils 0.3 K/uL (0-0.5); Absolute Lymphocytes (CBC) 2.1 K/uL (0.7-4.9); Absolute Monocytes 0.5 K/uL (0.1-1.3); Absolute Neutrophil 5.1 K/uL (1.8-8.0); Basophils % 0.7 % (0-1.3); Eosinophils % 3.2 % (0-4.4); Hematocrit 42.3 % (39.6-49.0); Hemoglobin 14.2 g/dL (13.6-17.9); MCH 29.7 pg (27.0-35.0); MCHC 33.6 g/dL (32.0-36.0); MCV 88.1 fL (80-100); MPV 7.3 fL (7.6-11.3); Monocytes % 6.1 % (3.3-12.3); Platelets 285 thou/uL (152-406); RBC Red Blood Cell Count 4.79 M/uL (4.33-5.43); Red Cell Distribution Width 13.3 % (12.1-15.2)
[2024-06-15 09:20] LABS: Anion Gap 9.2 mEq/L (5.0-15.0); Potassium 4.2 mEq/L (3.5-5.1)
--- NOTE | 2024-06-15 10:10 | RAD REPORT ---
EXAM DESCRIPTION: RAD - Foot Left 3 View - 06/15/2024 9:09 am CLINICAL HISTORY: r/o osteomyelitis COMPARISON: Foot Left 3 View dated 05/28/2024; Foot Left 3 View dated 05/14/2024 TECHNIQUE: Left foot, 3 views. FINDINGS: Soft tissue defect along the medial forefoot at the level of the first metatarsal head. Un derlying osseous lucency of the metatarsal head. No fracture, dislocation or periosteal reaction. Large calcaneal spur. Moderate degenerative changes at the tibiotalar articulation with marginal spurring. Vascular calcifications. Enthesopathy at the A chilles tendon attachment. IMPRESSION: Osseous lucency of the first metatarsal head underlying knee wound, representing a woodard e since the prior radiographs, concerning for acute osteomyelitis.
--- NOTE | 2024-06-15 10:16 | EDPHYS ---
Physician Documentation [facility] Name: Nas White Jr Age: 58 yrs Sex: Male : 1965 Arrival Date: 06/15/2024 Time: 08:20 Bed 11 Private MD: ED Physician Ernie Mendez HPI: 06/15 08:31 This 58 yrs old Male presents to ER via Unassigned with complaints of Foot kb Pain - Open wound. 08:31 Pt is a 58 year old male who presents for open wound to left foot that started one kb month ago. States his shoe rubbed a wound into his foot a month ago, he was seen and put on antibiotics at that time. States he came again about 2 weeks ago and didn't have an infection in his blood or on x-ray. States he was given a stronger antibiotic at that visit and has about 4 pills left. Denies fever. States he came back today because his foot has been swelling. States the swelling gets better when he sleeps, but comes back when he's up moving around. . Historical: - Allergies: 08:34 No Known Drug Allergies; ll1 - PMHx: 08:34 Diabetes - NIDDM; Hypertension; ll1 - PSHx: 08:34 Appendectomy; ll1 - Immunization history:: Adult Immunizations up to date. - Infectious Disease History:: Denies. - Social history:: Smoking status: Patient reports the use of cigarette tobacco products, smokes one-half pack cigarettes per day. ROS: 08:34 Constitutional: As per HPI kb Exam: 10:14 Constitutional: This is a well developed, well nourished patient who is awake, alert, kb and in no acute distress. Head/Face: Normocephalic, atraumatic. ENT: Moist Mucous membranes Cardiovascular: Regular rate Respiratory: Respirations even and unlabored. No increased work of breathing. Talking in full sentences Abdomen/GI: Soft, non-tender. No distention MS/ Extremity: Pulses equal, no cyanosis. Neurovascular intact. Full, normal range of motion. Neuro: Awake and alert, GCS 15, oriented to person, place, time, and situation. Moves all extremities. Normal gait. 10:14 Skin: moderate swelling to left foot with ulcer to medial aspect, at base of great toe. 10:55 ECG was reviewed by the Attending Physician. kb Vital Signs: 08:46 BP 160 / 76; Pulse 88; Resp 17; Temp 97.1; Pulse Ox 96% ; Weight 111.13 kg; Height 5 ll1 ft. 4 in. ; Pain 6/10; 11:45 BP 152 / 81; Pulse 88; Resp 17; Temp 97.1; Pulse Ox 100% ; ll1 08:46 Body Mass Index 42.05 (111.13 kg, 162.56 cm) ll1 08:46 Pain Scale: Adult ll1 MDM: 08:25 Patient medically screened. kb 10:15 Differential diagnosis: cellulitis, osteomyelitis, diabetic ulcer. Data reviewed: vital kb signs, nurses notes. Consideration of Admission/Observation Patient was admitted/placed on observation. Escalation of care including admission/observation considered. Management of patient was discussed with the following: Hospitalist: Hospitalist team, pt accepted for admission under Dr Loo. Care significantly affected by the following chronic conditions: Diabetes, Hypertension. Counseling: I had a detailed discussion with the patient and/or guardian regarding the historical points, exam findings, and any diagnostic results supporting the discharge/admit diagnosis, lab results, radiology results, the need for further work-up and treatment in the hospital. 10:17 Care significantly affected by the following Social Determinants of Health: Poor access kb to healthcare and/or lack of insurance. ED course: Patient is a 58-year-old male with a history of diabetes and hypertension who presents for open wound and swelling to left foot that started 1 month ago. On exam patient has moderate swelling to left foot with an ulceration to medial aspect, close to base of great toe. Patient is afebrile, nontoxic in appearance. Labs reassuring, x-ray reveals possible osteomyelitis which is new since prior visit. Patient has been on 2 rounds of Bactrim, wound culture from previous visit reviewed and susceptible to Bactrim. Patient has no PCP, insurance, needs a follow-up. Will admit for IV antibiotics. 06/15 08:36 Order name: CBC with Diff; Complete Time: 09:15 kb 06/15 08:36 Order name: Basic Metabolic Panel; Complete Time: 09:27 kb 06/15 08:36 Order name: Wound Culture kb 06/15 10:13 Order name: Blood Culture Adult (2) kb 06/15 10:13 Order name: Lactate w/ 2H reflex if indic.; Complete Time: 11:24 kb 06/15 10:13 Order name: Protime (+inr); Complete Time: 11:06 kb 06/15 10:13 Order name: Ptt, Activated; Complete Time: 11:06 kb 06/15 10:13 Order name: LFT's; Complete Time: 11:41 kb 06/15 08:36 Order name: Foot Left 3 View XRAY; Complete Time: 10:11 kb 06/15 10:13 Order name: EKG; Complete Time: 10:14 kb 06/15 08:36 Order name: IV Start; Complete Time: 08:55 kb 06/15 10:13 Order name: Accucheck; Complete Time: 10:43 kb 06/15 10:13 Order name: Cardiac monitoring; Complete Time: 10:54 kb 06/15 10:13 Order name: EKG - Nurse/Tech; Complete Time: 10:54 kb 06/15 10:13 Order name: IV Saline Lock - Large Bore; Complete Time: 10:16 kb 06/15 10:13 Order name: Labs collected and sent; Complete Time: 10:16 kb 06/15 10:13 Order name: O2 Per Protocol; Complete Time: 10:16 kb 06/15 10:13 Order name: O2 Sat Monitoring; Complete Time: 10:16 kb 06/15 10:13 Order name: Vital Signs; Complete Time: 10:43 kb EC:55 Rate is 76 beats/min. Rhythm is regular. QRS [place] is Normal. ND interval is normal at kb 150 msec. QRS interval is normal at 86 msec. QT interval is normal at 411 msec. Administered Medications: 10:54 Drug: Cefepime IVPB 1 grams IVPB at 200 ml/hr once over 30 mins; (mix in NS 100 mL), hb administer after blood cultures drawn Route: IVPB; Rate: 200 ml/hr; Infused Over: 30 mins; Site: right forearm; 11:30 Follow up: Response: No adverse reaction; IV Status: Completed infusion; IV Intake: hb 100ml 11:32 Drug: vancoMYCIN IVPB 1 grams IVPB once over 2 hrs; administer after blood cultures hb drawn Route: IVPB; Infused Over: 2 hrs; Site: right forearm; Disposition Summary: 06/15/24 10:16 Hospitalization Ordered Notes: Hospitalization Status: Inpatient Admission kb Provider: Laurie Loo Location: Telemetry/[facility] (Inpatient) kb Condition: Stable kb Problem: new kb Symptoms: are unchanged kb Bed/Room Type: Standard Room Assignment: 219(06/15/24 11:17) kb3 Diagnosis - Osteomyelitis, unspecified kb - Foot Laceration/ Open wound of foot - ulceration left foot kb Forms: - Medication Reconciliation Form kb - SBAR form kb - Leadership Thank You Letter kb Addendum: 06/18/2024 20:19 I was immediately available for consultation during this patient's visit. I did not e c2 personally see the patient or discuss the patient with the SHAHBAZ. . Signatures: Dispatcher [employer] EDAnnabella Acosta, ALEX-C [employer] Milagro Mccarty, RN RN Edi Cullen RN RN ll1 Viviana Gramajo RN RN kb3 Ernie Mendez MD MD ec2 Corrections: (The following items were deleted from the chart) 06/15 08:36 08:36 Foot Left 3 View+RAD.RAD.BRZ ordered. [facility] 08:46 08:34 Social history: Smoking status: Patient denies any tobacco usage or history of. ll1 ll1 11:17 10:16 kb kb3
--- NOTE | 2024-06-15 10:16 | ER ---
Nurse's Notes [facility] Name: Nas White Jr Age: 58 yrs Sex: Male : 1965 Arrival Date: 06/15/2024 Time: 08:20 Bed 11 Private MD: Diagnosis: Osteomyelitis, unspecified;Foot Laceration/ Open wound of foot-ulceration left foot Presentation: 06/15 08:46 Chief complaint: Patient states: L foot wound for about 1 month. On second round of ll1 antibiotics. No known fever. Coronavirus screen: Client denies travel out of the [place] in the last 14 days. At this time, the client does not indicate any symptoms associated with coronavirus-19. Ebola Screen: Patient denies travel to an Ebola-affected area in the 21 days before illness onset. Initial Sepsis Screen: Does the patient meet any 2 criteria? No. Patient's initial sepsis screen is negative. Does the patient have a suspected source of infection? No. Patient's initial sepsis screen is negative. Risk Assessment: Do you want to hurt yourself or someone else? Patient reports no desire to harm self or others. Onset of symptoms was May 15, 2024. 08:46 Method Of Arrival: Ambulatory ll1 08:46 Acuity: CAITLIN 3 ll1 Historical: - Allergies: 08:34 No Known Drug Allergies; ll1 - PMHx: 08:34 Diabetes - NIDDM; Hypertension; ll1 - PSHx: 08:34 Appendectomy; ll1 - Immunization history:: Adult Immunizations up to date. - Infectious Disease History:: Denies. - Social history:: Smoking status: Patient reports the use of cigarette tobacco products, smokes one-half pack cigarettes per day. Screenin:04 [facility] ED Fall Risk Assessment (Adult) History of falling in the last 3 months, ll1 including since admission No falls in past 3 months (0 pts) Confusion or Disorientation No (0 pts) Intoxicated or Sedated No (0 pts) Impaired Gait No (0 pts) Mobility Assist Device Used No (0 pt) Altered Elimination No (0 pt) Score/Fall Risk Level 0 - 2 = Low Risk Maintained a safe environment, Hourly rounding (assess needs \T\ fall precautionary measures) done. Abuse screen: Denies threats or abuse. Nutritional screening: No deficits noted. Tuberculosis screening: No symptoms or risk factors identified. Assessment: 08:47 General: Appears uncomfortable, Behavior is calm, cooperative, appropriate for age. ll1 Pain: Complains of pain in left foot Pain currently is 6 out of 10 on a pain scale. Quality of pain is described as aching, throbbing. Derm: Approximate dollar sized decubitus L foot, slowly healing. Drains clear liquid on bandages Decubitus located on left foot Reports pain. Musculoskeletal: Circulation, motion, and sensation intact. Capillary refill < 3 seconds, Reports pain in left foot. 10:45 Reassessment: No changes from previously documented assessment. Patient and/or family ll1 updated on plan of care and expected duration. Pain level reassessed. Patient is alert, oriented x 3, equal unlabored respirations, skin warm/dry/pink. 11:45 Reassessment: No changes from previously documented assessment. Patient and/or family ll1 updated on plan of care and expected duration. Pain level reassessed. Patient is alert, oriented x 3, equal unlabored respirations, skin warm/dry/pink. Vital Signs: 08:46 BP 160 / 76; Pulse 88; Resp 17; Temp 97.1; Pulse Ox 96% ; Weight 111.13 kg; Height 5 ll1 ft. 4 in. ; Pain 6/10; 11:45 BP 152 / 81; Pulse 88; Resp 17; Temp 97.1; Pulse Ox 100% ; ll1 08:46 Body Mass Index 42.05 (111.13 kg, 162.56 cm) ll1 08:46 Pain Scale: Adult ll1 ED Course: 08:25 Patient arrived in ED. ra3 08:25 Annabella Aldana FNP-C is PHCP. kb 08:25 Ernie Mendez MD is Attending Physician. kb 08:47 Triage completed. ll1 08:48 Arm band placed on. ll1 08:50 Initial lab(s) drawn, by me, sent to lab. Inserted saline lock: 22 gauge in right ll1 forearm, using aseptic technique. Blood collected. Flushed with 10 mL NS. 09:01 Edi Cullen, GELY is Primary Nurse. ll1 09:01 Wound Culture Sent. ll1 09:01 Basic Metabolic Panel Sent. ll1 09:01 CBC with Diff Sent. ll1 09:04 Patient has correct armband on for positive identification. Bed in low position. 1 Provided Education on: ER procedures and process. Cardiac monitoring not applicable on this patient. 09:11 Foot Left 3 View XRAY In Process Unspecified. EDMS 10:16 Laurie Loo MD is Hospitalizing Provider. kb 10:54 Blood Culture Adult (2) Sent. hb 10:54 Lactate w/ 2H reflex if indic. Sent. hb 10:55 Ptt, Activated Sent. hb 11:41 No provider procedures requiring assistance completed. Patient admitted, IV remains in ll1 place. Administered Medications: 10:54 Drug: Cefepime IVPB 1 grams IVPB at 200 ml/hr once over 30 mins; (mix in NS 100 mL), hb administer after blood cultures drawn Route: IVPB; Rate: 200 ml/hr; Infused Over: 30 mins; Site: right forearm; 11:30 Follow up: Response: No adverse reaction; IV Status: Completed infusion; IV Intake: hb 100ml 11:32 Drug: vancoMYCIN IVPB 1 grams IVPB once over 2 hrs; administer after blood cultures hb drawn Route: IVPB; Infused Over: 2 hrs; Site: right forearm; Medication: 09:04 VIS not applicable for this client. 1 Intake: 11:30 IV: 100ml; Total: 100ml. hb Outcome: 10:16 Decision to Hospitalize by Provider. kb 11:41 Admitted to Med/surg 1 11:41 Condition: stable 11:41 Instructed on the need for admit, Demonstrated understanding of 12:33 Patient left the ED. eb Signatures: Dispatcher [employer] EDCA Annabella Aldana, EARTHMOVING LABOURER-C EARTHMOVING LABOURER-CkMilagro Winters, RN RN Sarah Cash Edi Cullen RN RN ll1 Gladys Silva ra3 Corrections: (The following items were deleted from the chart) 08:46 08:34 Social history: Smoking status: Patient denies any tobacco usage or history of. [email or web address]
--- NOTE | 2024-06-15 10:31 | P.HP ---
Certification for Inpatient Patient admitted to: Inpatient <Davina Alvarez - Last Filed: 06/15/24 14:35> Patient History Date of Service: 06/15/24 Reason for admission: Left foot osteomyelitis History of Present Illness: 58-year-old male past medical history of hypertension, diabetes mellitus type 2, presented to the emergency room with a left great toe diabetic foot ulcer. He reports failed outpatient treatment of antibiotics. He does not know the name of his antibiotics. He reports he is uninsured. He reports symptoms progressively worse over the last 2 weeks. He reports left lower extremity foot pain, swelling. With a open ulcer with drainage. He reports taking 2 rounds of antibiotics, wound is getting worse. denies fever, chills, nausea vomiting diarrhea. Plan to admit for left great toe osteomyelitis, with surgery to consult.BP 160 / 76; Pulse 88; Resp 17; Temp 97.1; Pulse Ox 96% ; Weight 111.13 kg; Height 5 ll1 ft. 4 in. ; Pain 6/10; EKG Rate is 76 beats/min. Rhythm is regular. QRS [place] is Normal. SC interval is normal at 150 msec. QRS interval is normal at 86 msec. QT interval is normal at 411 msec. - Past Medical/Surgical History Diabetic: Yes -: HTN -: DM -: left great toe diabtetic foot ulcer -: APPENDECTOMY - Family History Mother -: Hypertension, Diabetes, Cancer Notes: STOMACH CANCER Father -: Hypertension, Diabetes, Stroke - Social History Alcohol use: Yes CD- Drugs: Yes Caffeine use: Yes <Davina Alvarez - Last Filed: 06/15/24 14:35> Date of Service: 06/15/24 <Laurie Loo - Last Filed: 06/15/24 15:31> Allergies No Known Drug Allergies Allergy (Verified 08/14/16 17:22) Unknown No Known Allergies Allergy (Uncoded 08/14/16 17:54) Unknown Home Medications: Metformin HCl [Glucophage*] 500 mg PO DAILY 08/14/16 lisinopriL [Prinivil*] 10 mg PO DAILY 90 Days #90 tab 07/25/23 Review of Systems as per HPI <Davina Alvarez - Last Filed: 06/15/24 14:35> Physical Examination - Physical Exam General: Alert, In no apparent distress, Oriented x3 HEENT: Atraumatic, Normocephalic Neck: Supple, 2+ carotid pulse no bruit, JVD not distended Respiratory: Clear to auscultation bilaterally, Normal air movement Cardiovascular: Normal pulses, Regular rate/rhythm Gastrointestinal: Normal bowel sounds, Soft and benign, Non-distended Musculoskeletal: No clubbing, No swelling Integumentary: Other (Left great toe DM foot ulcer) Neurological: Normal gait, Normal speech, Normal strength at 5/5 x4 extr - Studies Laboratory Data (last 24 hrs) 06/15/24 06/15/24 08:50 08:50 WBC 7.90 Hgb 14.2 Hct 42.3 Plt Count 285 Sodium 132 L Potassium 4.2 BUN 18 Creatinine 0.96 Glucose 283 H <Davina Alvarez - Last Filed: 06/15/24 14:35> - Studies Laboratory Data (last 24 hrs) 06/15/24 06/15/24 06/15/24 10:30 10:30 08:50 WBC Hgb Hct Plt Count PT 10.2 INR 0.91 APTT 32.9 Sodium 132 L Potassium 4.2 BUN 18 Creatinine 0.96 Glucose 283 H Total Bilirubin 0.3 AST 15 ALT 31 Alkaline Phosphatase 92 06/15/24 08:50 WBC 7.90 Hgb 14.2 Hct 42.3 Plt Count 285 PT INR APTT Sodium Potassium BUN Creatinine Glucose Total Bilirubin AST ALT Alkaline Phosphatase <Laurie Loo C - Last Filed: 06/15/24 15:31> Assessment and Plan - Plan Assessment plan Left great toe diabetic foot ulcer Osteomyelitis of the left great toe Failed outpatient treatment and x 2 rounds Surgery consult, n.p.o. for possible I&D Vancomycin, cefepime Follow cultures As needed analgesia PT OT eval for DME MRI of the left foot ordered Left foot x-ray osteomyelitis of the left great toe Uncontrolled hypertension Uncontrolled diabetes mellitus type A1c in the a.m., Accu-Cheks Educated on strict blood glucose control Lipid panel Resume home med Full code DVT SCD Diet diabetic Disposition Home independent prior Discharge Plan: Home - Advance Directives Does patient have a Living Will: No Does patient have a Durable POA for Healthcare: No - Code Status/Comfort Care Code Status: Full Code Critical Care: No Time Spent Managing Pts Care (In Minutes): 65 <Davina Alvarez - Last Filed: 06/15/24 14:35> - Plan Pt seen and examined. I agree with the note by the CONSTRUCTION ENGINEER. Pt is a 58 yo male with past medical of Htn and DM who presents with left foot pain due to open wound. Pt noticed the wound about a month and he took abx but the infection persisted. He came back to the hospital due to leg swelling. On admission, lab studies show wbc 7.9, Hgb 14.2, K 4.2, Na 132, cr 0.96 and glucose 283. X-ray shows osseous lucency of the left 1st metatarsal head, concerning for acute osteomyelitis. At bedside, pt is in NAD. A/P: Acute osteomyelitis: X-ray of the left foot shows osseous lucency of the left 1 st metatarsal head. Will continue iv vanc and cefepime. F/u wound cx. Consulted Dr. Morales for wound debridement. Will f/u MRI of the left foot. Hyponatremia: Na is 132. Will give gentle hydration and trend sodium Htn: Continue home med DM II: Continue accuchek, SSI, lantus 20u qhs and ADA diet DVT ppx; SCD Code: full <Laurie Loo - Last Filed: 06/15/24 15:31>
[2024-06-15] MEDS ORDERED: VANCOMYCIN 1 GM/VIAL ONE (10:44)
[2024-06-15] MEDS ORDERED: NA CHLORIDE 0.9% 100 ML ONE (10:44)
[2024-06-15] MEDS ORDERED: NA CHLORIDE 0.9% 250 ML ONE (10:44)
[2024-06-15] MEDS ORDERED: CEFEPIME 1 GM/VIAL ONE (10:45)
[2024-06-15 11:05] LABS: PT Prothrombin Time 10.2 SECONDS (9.4-12.5); PTT, Activated Partial Thromb 32.9 SECONDS (24.3-36.9); Protime INR 0.91
[2024-06-15 11:18] LABS: ALT/SGPT 31 U/L (16-61); AST/SGOT 15 U/L (15-37); Albumin 3.5 g/dL (3.4-5.0); Albumin/Globulin Ratio 0.8 (1.1-1.8); Alkaline Phosphatase 92 U/L (45-117); Bilirubin Total 0.3 mg/dL (0.2-1.0); Globulin 4.6 g/dL (2.3-3.5); Protein, Total 8.1 g/dL (6.4-8.2)
[2024-06-15 11:29] LABS: Bilirubin Direct < 0.2 mg/dL (0-0.2); Bilirubin Indirect, Calculated 0.1 mg/dL (0.2-0.8)
[2024-06-15] MEDS: INSULIN LISPRO 100 UNIT/ML SQ SCH (11:30)
[2024-06-15] MEDS ORDERED: ONDANSETRON 4 MG/2 ML VIAL IV PRN (12:46)
[2024-06-15] MEDS ORDERED: ACETAMINOPHEN 500 MG TAB PO PRN (12:46)
[2024-06-15] MEDS ORDERED: HYDROMORPHONE HCL 2 MG/ML inj IV PRN (12:51)
[2024-06-15] MEDS: VANCOMYCIN 1 GM in NA CHLORIDE 0.9% 250 ML IVPB SCH (13:38)
[2024-06-15] MEDS: NA CHLORIDE 0.9% 1,000 ML IV SCH (13:38)
[2024-06-15 13:54] VITALS: BMI 42.0
[2024-06-15] MEDS: INSULIN REGULAR (HUMAN) 100 UNIT/ML SQ SCH (16:30)
--- NOTE | 2024-06-15 17:26 | P.CNS ---
Date of Consult: 06/15/24 PC: I was asked to see this 58-year-old male regards to a wound on his metatarsal phalange joint medial side HPC: Patient had been here a few weeks ago. Had an open wound in that area. Was given antibiotics. He says that the area has not improved, and is now causing him increased pain. PSHx: NAD PMHx: Diabetic poor control makes feel Social Hx: No known drug allergies Sys R: States he is otherwise in good health, O/E: Awake alert vital signs are stable HEENT: Within normal limits Chest: Negative Abd: Soft [place]: Has palpable pulses Data: X-ray of foot shows possible ostia Impression: This patient has an open wound over the metatarsal phalangeal joint of his right foot this appears to be a chronic wound with hypertrophic callus skin around a central necrotic area. Does not have a foul odor, is not draining much at the moment. Plan: We will modify wound care plan for this patient. I will discuss the case with the hospitalist to see whether a bone scan will be pertinent. He may require 6 weeks of IV antibiotics.
[2024-06-15] MEDS ORDERED: INSULIN GLARGINE 100 UNIT/ML SQ SCH (21:00)
[2024-06-15] MEDS: CEFEPIME 2 GM in NA CHLORIDE 0.9% 100 ML IV SCH (21:04)
[2024-06-15 21:49] LABS: Specific Gravity > 1.030 (1.005-1.030); Sqamous Epithelial <5 /HPF (None Seen); Urine Bacteria None Seen /HPF (<20); Urine Bilirubin NEGATIVE (Negative); Urine Blood Negative (Negative); Urine Clarity Clear (Clear); Urine Color Light-Yellow (Yellow); Urine Culture Reflex Order NOT NEEDED; Urine Glucose 4+ (Over) (Negative); Urine Ketones NEGATIVE (Negative); Urine Microscopic Reflex YN ORDER UMIC; Urine Mucus Slight /HPF (None Seen); Urine Nitrite NEGATIVE (Negative); Urine Protein NEGATIVE (Negative); Urine RBC <5 /HPF (None Seen); Urine Urobilinogen Normal (Normal); Urine WBC None Seen /HPF (<5); Urine pH 5.5 (5.0-7.0)
[2024-06-15] MEDS: VANCOMYCIN 1.5 GM in NA CHLORIDE 0.9% 500 ML IVPB SCH (23:48)
[2024-06-16 05:35] LABS: Absolute Eosinophils 0.4 K/uL (0-0.5); Absolute Lymphocytes (CBC) 2.8 K/uL (0.7-4.9); Absolute Monocytes 0.6 K/uL (0.1-1.3); Absolute Neutrophil 4.3 K/uL (1.8-8.0); Basophils % 0.5 % (0-1.3); Eosinophils % 4.4 % (0-4.4); Hematocrit 38.5 % (39.6-49.0); Hemoglobin 12.9 g/dL (13.6-17.9); Lymphocytes % 34.6 % (15.3-44.8); MCH 29.7 pg (27.0-35.0); MCHC 33.5 g/dL (32.0-36.0); MCV 88.6 fL (80-100); MPV 7.7 fL (7.6-11.3); Monocytes % 7.5 % (3.3-12.3); Platelets 236 thou/uL (152-406); RBC Red Blood Cell Count 4.34 M/uL (4.33-5.43); Red Cell Distribution Width 13.4 % (12.1-15.2)
[2024-06-16 05:41] LABS: Magnesium 1.9 mg/dL (1.6-2.4)
[2024-06-16] MEDS: AMLODIPINE 5 MG TAB PO SCH (09:33)
[2024-06-16] MEDS: lisinopriL 10 MG TAB PO SCH (09:33)
--- NOTE | 2024-06-16 10:29 | P.PN ---
Date of Service: 06/16/24 Subjective afebrile overnight, pain controlled with prn analgesics Review of Systems 10 point ROS negative unless listed as per HPI Physical Examination Vital signs reviewed - Physical Exam General: Alert, In no apparent distress, Oriented x3, afebrile HEENT: Atraumatic, Normocephalic Neck: Supple, 2+ carotid pulse no bruit, JVD not distended Respiratory: Clear to auscultation bilaterally, Normal air movement Cardiovascular: Normal pulses, Regular rate/rhythm Gastrointestinal: Normal bowel sounds, Soft and benign, Non-distended Musculoskeletal: No clubbing, LLE weakness, LLE OM Left foot, Integumentary: Other (Left great toe DM foot ulcer) Neurological: Normal gait, Normal speech, Normal strength at 5/5 x4 extr Assessment and Plan - Plan Assessment plan Left great toe diabetic foot ulcer Osteomyelitis of the left great toe Failed outpatient treatment and x 2 rounds Surgery consult, n.p.o. for possible I&D Vancomycin, cefepime Follow cultures As needed analgesia PT OT eval for DME MRI of the left foot ordered Left foot x-ray osteomyelitis of the left great toe Plan for 6 weeks IV antibiotics for OM of left great toe ID consulted uncontrolled hypertension hyperlipidemia uncontrolled Uncontrolled diabetes mellitus type with peripheral neuropathy A1c 12.2, start lantus 25 units daily Accu-Cheks, dietitian consult for diabetic diet Educated on strict blood glucose control Lipid panel Resume home med Full code DVT SCD Diet diabetic Disposition Home independent prior Discharge Plan: Home - Advance Directives Does patient have a Living Will: No Does patient have a Durable POA for Healthcare: No - Code Status/Comfort Care Code Status: Full Code Critical Care: No Time Spent Managing Pts Care (In Minutes): 35 <Davina Alvarez - Last Filed: 06/16/24 13:45> Patient chart was reviewed and patient was seen and examined. SHAHBAZ history and physical reviewed as well. Agree with the assessment and plan. Patient presented with diabetic foot wound; surgery consultation and wound care consult ation. Patient may need bedside debridement or chemical debridement. Most of the MDM was done by myself and plan of care was discussed with SHAHBAZ as well as the patient. Plan to discharge with IV antibiotics for 6 weeks. <Arabella Linton - Last Filed: 06/17/24 04:53>
[2024-06-16] MEDS: INSULIN GLARGINE 100 UNIT/ML SQ SCH (11:36)
--- NOTE | 2024-06-16 13:11 | CON ---
History Of Present Illness: Patient is being consulted for osteomyelitis of left big toe. Patient h as significant past medical history of uncontrolled diabetes mellitus, hypertension, and diabetic huong ropathy with decreased sensation to his feet. Patient is coming in with left big toe ulcer. Denies any headache, nausea, vomiting, chest pain, abdominal pain, constipation, or diarrhea. Past Medical History: As per HPI. Social History: Nonsmoker. Nondrinker. Family History: Noncontributory. Medications: Include cefepime and vancomycin. See MARs for other medications. Allergies: NO KNOWN DRUG ALLERGIES. Review of Systems: A 10-point review was performed. Physical Examination: General: This is a 58-year-old male, lying in bed, not in any acute cardiopulmonary distress. Vital Signs: Temperature 97, pulse 74, respirations 18, blood pressure 143/65. HEENT: Unremarkable. Neck: Supple. Lungs: Clear to auscultation. Heart: S1, S2. Regular. Abdomen: Soft, nontender. Bowel sounds present. Extremity: Left foot first metatarsal head ulceration noted to the medial aspect of the foot. Decre ased sensation to both foot region up to the ankle. Laboratory Data: Shows WBC 8.1, hemoglobin 12.9, platelets are 236. Chemistry shows BUN of 18, crea tinine 0.88, glucose is 220. Micro data; cultures are pending with no growth in 24 hours. Assessment And Plan: Left foot diabetic foot ulcer with diabetic neuropathy in a 58-year-old male sourav roberson. Recommend to apply Betadine and consider debridement of the ulceration necrotic area. Consid er diabetic shoe, 6 weeks of antibiotic if MRI is positive for osteomyelitis. Continue IV antibiotic and supportive care. Diabetic management and nutritional support. We will follow the patient as ne eded. Thank you for consult. NF/MODL Voice ID: [id number] Report ID: [id number]
--- NOTE | 2024-06-16 15:36 | RAD REPORT ---
EXAM DESCRIPTION: MRI - Foot Left Wo Cont - 06/16/2024 3:04 pm CLINICAL HISTORY: eval OM Left foot COMPARISON: Foot Left 3 View dated 06/15/2024; Foot Left 3 View dated 05/28/2024; Foot Right 3 View phyllis ed 05/14/2024 TECHNIQUE MRI of the left foot was obtained without contrast. FINDINGS: Abnormal T2 hyperintense signal and T1 low signal present within the lateral aspect of the first metatarsal head. There are erosive changes and loss of cortex. No abscess identified. Mild T2 hyperintensity within the great toe proximal phalanx but without corresponding low T1 signal or rotat ions. No abscess identified. IMPRESSION: Findings consistent with osteomyelitis at the great toe metatarsal head. No abscess. Mild marrow edema without corresponding T1 signal at the great toe proximal phalanx. Early osteomyeli tis not excluded.
--- NOTE | 2024-06-16 17:08 | EKG ---
Test Date: 2024-06-15 Test Time: 10:51:52 Regulatory Compliance Coordinator: SURJIT MEASUREMENT RESULTS: Intervals: Rate: 76 AR: 150 QRSD: 86 QT: 366 QTc: 411 [place]: P: 17 AR: 150 QRS: -2 T: 20 INTERPRETIVE STATEMENTS: Normal sinus rhythm Normal ECG Compared to ECG 07/23/2023 10:31:48 No significant changes Electronically Signed On 06-16-24 17:04:55 CDT by Les Jasso
[2024-06-16] MEDS: ATORVASTATIN 40 MG TAB PO SCH (21:19)
[2024-06-17 05:21] LABS: Absolute Basophils 0.1 K/uL (0-0.5); Absolute Eosinophils 0.3 K/uL (0-0.5); Absolute Lymphocytes (CBC) 2.9 K/uL (0.7-4.9); Absolute Monocytes 0.7 K/uL (0.1-1.3); Absolute Neutrophil 4.8 K/uL (1.8-8.0); Basophils % 0.8 % (0-1.3); Eosinophils % 3.8 % (0-4.4); Hematocrit 39.7 % (39.6-49.0); Hemoglobin 13.3 g/dL (13.6-17.9); Lymphocytes % 33.1 % (15.3-44.8); MCH 29.8 pg (27.0-35.0); MCHC 33.6 g/dL (32.0-36.0); MCV 88.7 fL (80-100); MPV 7.6 fL (7.6-11.3); Monocytes % 7.5 % (3.3-12.3); Neutrophils % 54.8 % (41.7-73.7); Nucleated Red Blood Cells % 0.2 % (0-0); Platelets 244 thou/uL (152-406); RBC Red Blood Cell Count 4.47 M/uL (4.33-5.43); Red Cell Distribution Width 13.8 % (12.1-15.2)
[2024-06-17 05:47] LABS: Anion Gap 9.9 mEq/L (5.0-15.0); Magnesium 2.3 mg/dL (1.6-2.4); Potassium 3.9 mEq/L (3.5-5.1)
--- NOTE | 2024-06-17 06:32 | P.PN ---
Date of Service: 06/17/24 Subjective No overnight complaint Surgery following for osteomyelitis of the left great Review of Systems 10 point ROS negative unless listed as per HPI Physical Examination Vital signs reviewed - Physical Exam General: Alert, In no apparent distress, Oriented x3, afebrile HEENT: Atraumatic, Normocephalic Neck: Supple, 2+ carotid pulse no bruit, JVD not distended Respiratory: Clear to auscultation bilaterally, Normal air movement Cardiovascular: Normal pulses, Regular rate/rhythm Gastrointestinal: Normal bowel sounds, nontender Musculoskeletal: No clubbing, LLE weakness, LLE OM Left foot, Integumentary: Other (Left great toe DM foot ulcer) Neurological: Normal gait, Normal speech, Normal strength at 5/5 x4 extr Assessment and Plan - Plan Assessment plan Left great toe diabetic foot ulcer Osteomyelitis of the left great toe Failed outpatient treatment and x 2 rounds Surgery consult, n.p.o. for possible I&D Vancomycin, cefepime Follow cultures As needed analgesia PT OT eval for DME MRI of the left foot ordered Left foot x-ray osteomyelitis of the left great toe Plan for 6 weeks IV antibiotics for OM of left great toe ID consulted uncontrolled hypertension hyperlipidemia uncontrolled Uncontrolled diabetes mellitus type with peripheral neuropathy A1c 12.2, start lantus 25 units daily Accu-Cheks, dietitian consult for diabetic diet Educated on strict blood glucose control Lipid panel Resume home med Full code DVT SCD Diet diabetic Disposition Home independent prior Discharge Plan: Home - Advance Directives Does patient have a Living Will: No Does patient have a Durable POA for Healthcare: No - Code Status/Comfort Care Code Status: Full Code Critical Care: No Time Spent Managing Pts Care (In Minutes): 35
[2024-06-17] MEDS ORDERED: HYDROCODONE/APAP 5/325 MG TAB PO PRN (06:39)
[2024-06-17] MEDS: Mupirocin NASAL 2 APPL/1 GM TUBE NAS SCH ×2 (08:50→20:35)
--- NOTE | 2024-06-17 13:40 | P.PN ---
Date of Service: 06/17/24 S: Patient has no specific complaints today. Says his foot feels a whole lot better. Not causing him hardly any discomfort at all. O: The wound is dry, this looks like it just a callus over the head of the metatarsal at the moment. There is no under lying passages noted. No fluctuance was elicited. A: Surgically stable P: This patient who presented to the hospital with pain and tenderness over the head of the metatarsal was suspected abscess and possible osteo has improved markedly over the last week with just IV antibiotics. The wound is dry there does not appear any pus accumulated underneath it. There is callus formation and some thick debris on top of the this area. 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 I explained to him the risks of this, but possible treatment outcomes etc. he is happy with this plan. Will get him back on a diabetic diet.
[2024-06-18 05:27] LABS: Absolute Basophils 0.1 K/uL (0-0.5); Absolute Eosinophils 0.4 K/uL (0-0.5); Absolute Lymphocytes (CBC) 2.7 K/uL (0.7-4.9); Absolute Monocytes 0.6 K/uL (0.1-1.3); Absolute Neutrophil 4.4 K/uL (1.8-8.0); Basophils % 0.7 % (0-1.3); Eosinophils % 4.4 % (0-4.4); Hematocrit 38.7 % (39.6-49.0); Hemoglobin 12.9 g/dL (13.6-17.9); Lymphocytes % 33.2 % (15.3-44.8); MCH 29.5 pg (27.0-35.0); MCHC 33.4 g/dL (32.0-36.0); MCV 88.4 fL (80-100); MPV 7.6 fL (7.6-11.3); Monocytes % 7.6 % (3.3-12.3); Neutrophils % 54.1 % (41.7-73.7); Nucleated Red Blood Cells % 0.1 % (0-0); Platelets 219 thou/uL (152-406); RBC Red Blood Cell Count 4.38 M/uL (4.33-5.43); Red Cell Distribution Width 13.6 % (12.1-15.2)
[2024-06-18 05:36] LABS: Anion Gap 9.1 mEq/L (5.0-15.0); Magnesium 2.1 mg/dL (1.6-2.4); Potassium 4.1 mEq/L (3.5-5.1)
--- NOTE | 2024-06-18 06:30 | P.PN ---
Date of Service: 06/18/24 Subjective afebrile overnight, pain controlled with prn analgesics Order for PICC line for long-term IV antibiotics for osteomyelitis of the left great toe Hyperglycemia nursing staff to educate patient on insulin injection, symptom hypoglycemia Review of Systems 10 point ROS negative unless listed as per HPI Physical Examination Vital signs reviewed - Physical Exam General: Alert, In no apparent distress, Oriented x3, afebrile HEENT: Atraumatic, Normocephalic Neck: Supple, 2+ carotid pulse no bruit, JVD not distended Respiratory: Clear to auscultation bilaterally, unlabored Cardiovascular: Normal pulses, Regular rate/rhythm Gastrointestinal: Normal bowel sounds, Soft and benign, Non-distended Musculoskeletal: No clubbing, LLE weakness, LLE OM Left foot, Integumentary: Other (Left great toe DM foot ulcer) scab no drainage Neurological: Normal gait, Normal speech, Normal strength at 5/5 x4 extr Assessment and Plan - Plan Assessment plan Left great toe diabetic foot ulcer Osteomyelitis of the left great toe Failed outpatient treatment and x 2 rounds Surgery consult, n.p.o. for possible I&D Vancomycin, cefepime Follow cultures As needed analgesia PT OT eval for DME MRI of the left foot ordered Left foot x-ray osteomyelitis of the left great toe Plan for 6 weeks IV antibiotics for OM of left great toe vancomycin, cefepime ID consulted Patient to follow-up with wound care the wound clinic for surgery to eval wound uncontrolled hypertension hyperlipidemia uncontrolled Uncontrolled diabetes mellitus type with peripheral neuropathy A1c 12.2, start lantus 25 units daily Accu-Cheks, dietitian consult for diabetic diet Educated on strict blood glucose control Lipid panel Resume home med Full code DVT SCD Diet diabetic Disposition Home independent prior Discharge Plan: Home - Advance Directives Does patient have a Living Will: No Does patient have a Durable POA for Healthcare: No - Code Status/Comfort Care Code Status: Full Code Critical Care: No Time Spent Managing Pts Care (In Minutes): 35
[2024-06-18] MEDS: COLLAGENASE 30 GM OINTMENT TOP SCH (08:33)
[2024-06-18 10:13] VITALS: O2SAT 97
[2024-06-18] MEDS: CEFEPIME 2 GM in NA CHLORIDE 0.9% 100 ML IV SCH (13:00)
[2024-06-18] MEDS: NA CHLORIDE 0.9% 0 ML ONE (13:24)
[2024-06-18] MEDS: VANCOMYCIN 2 GM in NA CHLORIDE 0.9% 500 ML IVPB SCH (13:31)
--- NOTE | 2024-06-18 18:07 | RAD REPORT ---
EXAM DESCRIPTION: RAD - Chest Single View - 06/17/2024 11:56 pm CLINICAL HISTORY: Male, 58 years old, PICC TECHNIQUE: 1 view COMPARISON: None available FINDINGS: SUPPORT DEVICES: Right upper extremity PICC tip overlies the mid SVC. LUNGS/PLEURA: No consolidation, pleural effusion, or pneumothorax. HEART/MEDIASTINUM: Normal size and configuration. OTHER: No acute osseous findings. IMPRESSION: 1. Appropriately positioned PICC. 2. No acute cardiopulmonary findings. Electronically signed by: Yon Young MD 06/18/2024 01:14 AM CDT RP Due to temporary technical issues with the PACS/Fluency reporting system, reports are being signed by the in house radiologists without review as a courtesy to insure prompt reporting. The interpreting radiologist is fully responsible for the content of the report.
--- NOTE | 2024-06-19 05:55 | P.PN ---
Date of Service: 06/19/24 Subjective afebrile overnight, pain controlled with prn analgesics Review of Systems 10 point ROS negative unless listed as per HPI Physical Examination Vital signs reviewed - Physical Exam General: Alert, In no apparent distress, Oriented x3, afebrile HEENT: Atraumatic, Normocephalic Neck: Supple, 2+ carotid pulse no bruit, JVD not distended Respiratory: Clear to auscultation bilaterally, Normal air movement Cardiovascular: Normal pulses, Regular rate/rhythm Gastrointestinal: Normal bowel sounds, Soft and benign, Non-distended Musculoskeletal: No clubbing, LLE weakness, LLE OM Left foot, Integumentary: Other (Left great toe DM foot ulcer) Neurological: Normal gait, Normal speech, Normal strength at 5/5 x4 extr Assessment and Plan - Plan Assessment plan Left great toe diabetic foot ulcer Osteomyelitis of the left great toe Failed outpatient treatment and x 2 rounds Surgery consult, n.p.o. for possible I&D Vancomycin, cefepime Follow cultures As needed analgesia PT OT eval for DME MRI of the left foot ordered Left foot x-ray osteomyelitis of the left great toe Plan for 6 weeks IV antibiotics for OM of left great toe ID consulted uncontrolled hypertension hyperlipidemia uncontrolled Uncontrolled diabetes mellitus type with peripheral neuropathy A1c 12.2, start lantus 25 units daily Accu-Cheks, dietitian consult for diabetic diet Educated on strict blood glucose control Lipid panel Resume home med Full code DVT SCD Diet diabetic Disposition Home independent prior Discharge Plan: Home - Advance Directives Does patient have a Living Will: No Does patient have a Durable POA for Healthcare: No - Code Status/Comfort Care Code Status: Full Code Critical Care: No Time Spent Managing Pts Care (In Minutes): 35
[2024-06-19 06:03] LABS: Absolute Basophils 0.1 K/uL (0-0.5); Absolute Eosinophils 0.3 K/uL (0-0.5); Absolute Lymphocytes (CBC) 2.4 K/uL (0.7-4.9); Absolute Monocytes 0.7 K/uL (0.1-1.3); Absolute Neutrophil 4.6 K/uL (1.8-8.0); Basophils % 0.7 % (0-1.3); Eosinophils % 4.1 % (0-4.4); Hematocrit 39.4 % (39.6-49.0); Lymphocytes % 29.3 % (15.3-44.8); MCH 29.2 pg (27.0-35.0); MCHC 32.9 g/dL (32.0-36.0); MCV 88.5 fL (80-100); MPV 7.6 fL (7.6-11.3); Monocytes % 8.6 % (3.3-12.3); Neutrophils % 57.3 % (41.7-73.7); Nucleated Red Blood Cells % 0.1 % (0-0); Platelets 192 thou/uL (152-406); RBC Red Blood Cell Count 4.45 M/uL (4.33-5.43); Red Cell Distribution Width 13.7 % (12.1-15.2)
[2024-06-19 06:11] LABS: Anion Gap 10.2 mEq/L (5.0-15.0); Magnesium 1.9 mg/dL (1.6-2.4); Potassium 4.2 mEq/L (3.5-5.1)
[2024-06-19] MEDS ORDERED: BISACODYL E.C. 5 MG TAB PO PRN (07:14)
[2024-06-19] MEDS ORDERED: HYDROMORPHONE HCL 0.5 MG/0.5 ML INJ IV PRN (07:31)
[2024-06-19] MEDS: INSULIN GLARGINE 100 UNIT/ML SQ SCH (08:52)
[2024-06-19 09:35] VITALS: BP 120/71; TEMP 97.1
--- NOTE | 2024-06-19 13:05 | P.DS ---
Admission Date: 06/16/24 Discharge Date: 06/19/24 Disposition: ROUTINE DISCHARGE Discharge Condition: FAIR Reason for Admission: Left foot osteomyelitis Brief History of Present Illness: 58-year-old male past medical history of hypertension, diabetes mellitus type 2, presented to the emergency room with a left great toe diabetic foot ulcer. He reports failed outpatient treatment of antibiotics. He does not know the name of his antibiotics. He reports he is uninsured. He reports symptoms progressively worse over the last 2 weeks. He reports left lower extremity foot pain, swelling. With a open ulcer with drainage. He reports taking 2 rounds of antibiotics, wound is getting worse. denies fever, chills, nausea vomiting diarrhea. Plan to admit for left great toe osteomyelitis, with surgery to consult.BP 160 / 76; Pulse 88; Resp 17; Temp 97.1; Pulse Ox 96% ; Weight 111.13 kg; Height 5 ll1 ft. 4 in. ; Pain 6/10; EKG Rate is 76 beats/min. Rhythm is regular. QRS [place] is Normal. CT interval is normal at 150 msec. QRS interval is normal at 86 msec. QT interval is normal at 411 msec. - Physical Exam General: Alert, In no apparent distress, Oriented x3 HEENT: Atraumatic, Normocephalic Neck: Supple, 2+ carotid pulse no bruit, JVD not distended Respiratory: Clear to auscultation bilaterally, Normal air movement Cardiovascular: Normal pulses, Regular rate/rhythm Gastrointestinal: Normal bowel sounds, Soft and benign, Non-distended Musculoskeletal: No clubbing, No swelling Integumentary: Other (Left great toe DM foot ulcer) Neurological: Normal gait, Normal speech, Normal strength at 5/5 x4 extr Hospital Course: 58-year-old male past medical history of hypertension, diabetes mellitus type 2, presented to the emergency room with a left great toe diabetic foot ulcer. He reports failed outpatient treatment of antibiotics. Revealed to have osteomyelitis of the left great toe. He was seen by surgery, wound is scabbed over, no incision or drainage, treated with IV antibiotics while inpatient. Plan to discharge home, receive IV antibiotics by coming to the hospital for infusions.. He is to follow-up with surgery after discharge. Diabetes is uncontrolled, hemoglobin A1c 12.2, started on long-acting insulin, treated with sliding scale insulin. He needs to follow-up with PCP for diabetic treatment and monitoring. Discharged with PICC line for long-term antibiotic, patient will have to return to the same-day surgery for antibiotic infusion/PICC care. Will need to follow-up with wound care for wound healing for wound care. Follow-up with PCP for uncontrolled diabetes, uncontrolled hypertension,. Educated on strict blood glucose control for wound healing. Patient verbalized understanding Assessment Osteomyelitis of the left great toe Will need IV antibiotics, arranged by same-day surgery for antibiotic infusion, PICC care Follow-up in the wound care clinic arranged by social work for wound care Assessment Osteomyelitis of the left great toe Uncontrolled diabetes Uncontrolled hypertension Discharge medications Lantus 15 units subcu daily Nursing instructed patient on insulin injection, signs and symptoms of hypoglycemia, patient verbalized understanding of care and strict blood glucose control for proper wound healing Norvasc 5 mg daily Hydrocodone 5 mg 1 every 4 hours as needed for pain Bactroban 1 application twice daily Continue home medicines as previously prescribed GOAL: Clear understanding of disease process INSTRUCTIONS: Physician Discharge Instructions: -Follow-up with PCP in 1 to 2 weeks -Please call Dr. Linton at [phone] if any questions regarding hospital stay -Please call nursing station at [phone] if any nursing or medication questions -Return to the emergency room if symptoms worsen Diet: ADA, low sodium Activity: Fall precautions Vital Signs/Physical Exam: Temp Pulse Resp BP Pulse Ox 97.1 F 75 18 120/71 100 06/19/24 08:00 06/19/24 08:00 06/19/24 08:00 06/19/24 08:00 06/19/24 08:00 Laboratory Data at Discharge: WBC 8.10 thou/uL (4.3-10.9) 06/19/24 05:45 Hgb 13.0 g/dL (13.6-17.9) L 06/19/24 05:45 Hct 39.4 % (39.6-49.0) L 06/19/24 05:45 Plt Count 192 thou/uL (152-406) 06/19/24 05:45 PT 10.2 SECONDS (9.4-12.5) 06/15/24 10:30 INR 0.91 06/15/24 10:30 APTT 32.9 SECONDS (24.3-36.9) 06/15/24 10:30 Sodium 135 mEq/L (136-145) L 06/19/24 05:45 Potassium 4.2 mEq/L (3.5-5.1) 06/19/24 05:45 BUN 13 mg/dL (7-18) 06/19/24 05:45 Creatinine 0.66 mg/dL (0.70-1.30) L 06/19/24 05:45 Glucose 205 mg/dL (74-106) H 06/19/24 05:45 Magnesium 1.9 mg/dL (1.6-2.4) 06/19/24 05:45 Total Bilirubin 0.3 mg/dL (0.2-1.0) 06/15/24 10:30 AST 15 U/L (15-37) 06/15/24 10:30 ALT 31 U/L (16-61) 06/15/24 10:30 Alkaline Phosphatase 92 U/L (45-117) 06/15/24 10:30 Triglycerides 373 mg/dL (<150) H 06/16/24 04:17 Cholesterol 160 mg/dL (<200) 06/16/24 04:17 HDL Cholesterol 28 mg/dL (40-60) L 06/16/24 04:17 Cholesterol/HDL Ratio 5.71 06/16/24 04:17 Home Medications: Metformin HCl [Glucophage*] 500 mg PO DAILY 08/14/16 lisinopriL [Prinivil*] 10 mg PO DAILY 90 Days #90 tab 07/25/23 Amlodipine [Norvasc*] 5 mg PO DAILY #30 tab 06/18/24 Atorvastatin Calcium [Lipitor] 40 mg PO BEDTIME #30 tab 06/18/24 Collagenase [Santyl Ointment*] 1 appl TOP DAILY tube 06/18/24 Hydrocodone 5/APAP 325 [[place] 5/325*] 1 tab PO Q4H PRN #30 tab 06/18/24 Insulin Glargine,Hum.rec.anlog [Semglee] 15 unit SQ DAILY #10 ml 06/18/24 Mupirocin Calcium [Bactroban Nasal*] 1 appl ELKIN BID #1 tube 06/18/24 New Medications: Mupirocin Calcium [Bactroban Nasal*] 1 appl ELKIN BID #1 tube Atorvastatin Calcium [Lipitor] 40 mg PO BEDTIME #30 tab Hydrocodone 5/APAP 325 [[place] 5/325*] 1 tab PO Q4H PRN #30 tab PRN Reason: Pain Scale 5-7 (Moderate) Amlodipine [Norvasc*] 5 mg PO DAILY #30 tab Insulin Glargine,Hum.rec.anlog [Semglee] 15 unit SQ DAILY #10 ml Physician Discharge Instructions: -DC IV and DC home -Follow-up with PCP in 1 to 2 weeks -[facility] 1 to 2 weeks ([phone]) -Please call Dr. Linton at [phone] if any questions regarding hospital stay -Please call nursing station at [phone] if any nursing or medication questions -Return to the emergency room if symptoms worsen IV Vancomycin and Cefepime daily for [address] Barlow ordered labs on Saturday and . P:[phone] for questions. On weekends will receive infusion through the ER. Come to the ER to have PICC line removed after the 5 weeks are completed. Diet: ADA Activity: Fall precautions Followup: NONE,NONE [Primary Care Provider] - Physician Review: Patient Assessed, Agree with Above Assessment and Plan Time spent managing pt's care (in minutes): 55
== END 2024-06-19 12:20 | disposition home or self-care (01) | DRG 638 ==
LOC: ER 08:20 → INTOOBSV 10:32 → ERHOLD 10:32 → 2ND 11:57 → OBSVTOIN 06-16 16:13
PROVIDERS: ADMIT Hospitalist; ATTEND Hospitalist
PROC: 02HV33Z Insertion of Infusion Device into Superior Vena Cava, Percutaneous Approach (ICD-10-PCS; principal; 2024-06-17)
DX: E11.69 Type 2 diabetes mellitus with other specified complication (principal); E87.1 Hypo-osmolality and hyponatremia; M86.172 Other acute osteomyelitis, left ankle and foot; E11.42 Type 2 diabetes mellitus with diabetic polyneuropathy; E11.65 Type 2 diabetes mellitus with hyperglycemia; E11.621 Type 2 diabetes mellitus with foot ulcer; L97.529 Non-pressure chronic ulcer of other part of left foot with unspecified severity; I10 Essential (primary) hypertension; E78.5 Hyperlipidemia, unspecified; S91.312A Laceration without foreign body, left foot, initial encounter; F17.210 Nicotine dependence, cigarettes, uncomplicated; Z79.4 Long term (current) use of insulin; Z79.84 Long term (current) use of oral hypoglycemic drugs; Z90.49 Acquired absence of other specified parts of digestive tract; Z79.899 Other long term (current) drug therapy
CPT/HCPCS: 36415; 71045; 80048; 80061; 80076; 80202; 81001; 82947; 83036; 83605; 83735; 85025; 85610; 85730; 86140; 87040; 87070; 87205; 93005; 96365; 96375; 97161; 99285; G0378; J0692; J3590; J7030; J7040; J7050

== ENCOUNTER 2024-08-12 07:17 | Emergency (ER) | payer SELFPAY ==
[2024-08-12] MEDS ORDERED: GABAPENTIN 300 MG CAP ONE (07:31)
[2024-08-12] MEDS ORDERED: MORPHINE 4 MG/ML SYR ONE (07:32)
[2024-08-12] MEDS ORDERED: NA CHLORIDE 0.9% 500 ML ONE (07:32)
[2024-08-12 08:01] LABS: Absolute Basophils 0.1 K/uL (0-0.5); Absolute Eosinophils 0.2 K/uL (0-0.5); Absolute Monocytes 1.3 K/uL (0.1-1.3); Absolute Neutrophil 8.9 K/uL (1.8-8.0); Basophils % 0.7 % (0-1.3); Eosinophils % 1.9 % (0-4.4); Hematocrit 37.9 % (39.6-49.0); Hemoglobin 12.9 g/dL (13.6-17.9); Lymphocytes % 15.7 % (15.3-44.8); MCH 28.8 pg (27.0-35.0); MCHC 34.1 g/dL (32.0-36.0); MCV 84.6 fL (80-100); MPV 7.3 fL (7.6-11.3); Monocytes % 10.3 % (3.3-12.3); Neutrophils % 71.4 % (41.7-73.7); Platelets 261 thou/uL (152-406); RBC Red Blood Cell Count 4.48 M/uL (4.33-5.43)
[2024-08-12 08:15] LABS: Anion Gap 7.9 mEq/L (5.0-15.0); Potassium 3.9 mEq/L (3.5-5.1)
--- NOTE | 2024-08-12 09:23 | ER ---
Nurse's Notes [facility] Name: Nas White Jr Age: 58 yrs Sex: Male : 1965 Arrival Date: 08/12/2024 Time: 07:17 Bed 20 Private MD: Diagnosis: Foot Laceration/ Open wound of foot;Type 2 diabetes mellitus with diabetic neuropathy, unspecified Presentation: 08/12 07:19 Chief complaint: EMS states: +they were toned out for LLE pain. pt states he has had a kc6 wound on it since May and has been taking care of it at home but reports increased pain since working last night. Coronavirus screen: At this time, the client does not indicate any symptoms associated with coronavirus-19. Ebola Screen: No symptoms or risks identified at this time. Initial Sepsis Screen: Does the patient meet any 2 criteria? No. Patient's initial sepsis screen is negative. Does the patient have a suspected source of infection? No. Patient's initial sepsis screen is negative. Risk Assessment: Do you want to hurt yourself or someone else? Patient reports no desire to harm self or others. Onset of symptoms was August 12, 2024. 07:19 Method Of Arrival: EMS: [facility] kc6 07:19 Acuity: CAITLIN 3 kc6 Triage Assessment: 07:21 General: Appears in no apparent distress. uncomfortable, well groomed, well developed, kc6 Behavior is calm, cooperative, appropriate for age. Pain: Complains of pain in left foot and left leg Pain currently is 10 out of 10 on a pain scale. Is chronic. EENT: No signs and/or symptoms were reported regarding the EENT system. Neuro: Level of Consciousness is awake, alert, obeys commands, Oriented to person, place, time, situation, Appropriate for age. Cardiovascular: Capillary refill < 3 seconds. Respiratory: Airway is patent Trachea midline Respiratory effort is even, unlabored, Respiratory pattern is regular, symmetrical. GI: No signs and/or symptoms were reported involving the gastrointestinal system. : No signs and/or symptoms were reported regarding the genitourinary system. Derm: Skin is healthy with good turgor, Skin is dry, Skin is normal, Skin temperature is warm Wound noted medial aspect of left toes Wound is open with serosanguineous drainage. Musculoskeletal: No signs and/or symptoms reported regarding the musculoskeletal system. Circulation, motion, and sensation intact. Capillary refill < 3 seconds, Range of motion: intact in all extremities. Historical: - Allergies: 07:21 No Known Allergies; kc6 - PMHx: 07:21 Diabetes - NIDDM; Hypertension; kc6 - PSHx: 07:21 Appendectomy; kc6 - Immunization history:: Adult Immunizations up to date. - Infectious Disease History:: Denies. - Social history:: Smoking status: Patient reports the use of cigarette tobacco products, smokes one pack cigarettes per day. - Family history:: not pertinent. - Hospitalizations: : No recent hospitalization is reported. Screenin:23 [facility] ED Fall Risk Assessment (Adult) History of falling in the last 3 months, kc6 including since admission No falls in past 3 months (0 pts) Confusion or Disorientation No (0 pts) Intoxicated or Sedated No (0 pts) Impaired Gait No (0 pts) Mobility Assist Device Used No (0 pt) Altered Elimination No (0 pt) Score/Fall Risk Level 0 - 2 = Low Risk Oriented to surroundings. Abuse screen: Denies threats or abuse. Denies injuries from another. Nutritional screening: No deficits noted. Tuberculosis screening: No symptoms or risk factors identified. Assessment: 07:23 Reassessment: please see triage. [facility] 08:50 Reassessment: Patient appears in no apparent distress at this time. No changes from [facility] previously documented assessment. Patient and/or family updated on plan of care and expected duration. Pain level reassessed. Patient is alert, oriented x 3, equal unlabored respirations, skin warm/dry/pink. Patient states feeling better. Patient states symptoms have improved. 09:37 Reassessment: Patient appears in no apparent distress at this time. No changes from [facility] previously documented assessment. Patient and/or family updated on plan of care and expected duration. Pain level reassessed. Patient is alert, oriented x 3, equal unlabored respirations, skin warm/dry/pink. Vital Signs: 07:19 BP 127 / 72; Pulse 82; Resp 18 S; Temp 97.8(O); Pulse Ox 100% on R/A; Weight 108.86 kg kc6 (R); Height 5 ft. 4 in. (R); Pain 10/10; 08:50 BP 129 / 73; Pulse 76; Resp 16 S; Pulse Ox 97% on R/A; kc6 07:19 Body Mass Index 41.20 (108.86 kg, 162.56 cm) kc6 07:19 Pain Scale: Adult kc6 ED Course: 07:19 Patient arrived in ED. kc6 07:19 Alexey Garcia MD is Attending Physician. rn 07:21 Triage completed. kc6 07:21 Arm band placed on. kc6 07:23 Patient has correct armband on for positive identification. Bed in low position. Call kc6 light in reach. Side rails up X2. Pulse ox on. NIBP on. Door closed. Noise minimized. Lights dimmed. Pillow given. 07:23 Patient maintains SpO2 saturation greater than 95% on room air. kc6 07:30 Marianela Anguiano RN is Primary Nurse. kc6 07:52 Missed attempt(s): 20 gauge in right antecubital area. Inserted saline lock: 22 gauge kc6 in right antecubital area, using aseptic technique. Blood collected. Flushed with 10 mL NS. 09:37 Wound care: to diabetic foot ulcer located on medial aspect of left toes was dressed kc6 with petroleum gauze, non adherent dressing, gauze and aleisha wrap, Patient tolerated well. 09:38 No provider procedures requiring assistance completed. IV discontinued, intact, kc6 bleeding controlled, No redness/swelling at site. Pressure dressing applied. Administered Medications: 07:52 Drug: NS 0.9% IV 500 ml IV at bolus once Route: IV; Rate: bolus; Site: right kc6 antecubital; 08:22 Follow up: Response: No adverse reaction; IV Status: Completed infusion; IV Intake: kc6 500ml 07:52 Drug: morphine IVP or IV 4 mg IVP once over 4 mins Route: IVP; Infused Over: 4 mins; kc6 Site: right antecubital; 08:22 Follow up: Response: No adverse reaction; Pain is decreased; RASS: Alert and Calm (0) kc6 07:52 Drug: Gabapentin PO 300 mg PO once Route: PO; kc6 08:22 Follow up: Response: No adverse reaction; Pain is decreased kc6 Medication: 09:39 VIS not applicable for this client. kc6 Intake: 08:22 IV: 500ml; Total: 500ml. kc6 Outcome: 09:22 Discharge ordered by . rn 09:39 Discharged to home ambulatory, kc6 :39 Condition: good :39 Discharge instructions given to patient, Instructed on discharge instructions, follow up and referral plans. medication usage, wound care, Demonstrated understanding of instructions, follow-up care, medications, wound care, Prescriptions given X :39 Patient left the ED. kc6 Signatures: Alexey Garcia MD MD rn Campbell, Kaitlyn, RN RN kc6
--- NOTE | 2024-08-12 09:23 | EDPHYS ---
Physician Documentation [facility] Name: Nas White Jr Age: 58 yrs Sex: Male : 1965 Arrival Date: 08/12/2024 Time: 07:17 Bed 20 Private MD: ED Physician Alexey Garcia HPI: 08/12 09:15 This 58 yrs old Male presents to ER via EMS with complaints of Foot Pain. rn 09:15 The patient presents with pain. The complaints affect the left foot. Onset: The rn symptoms/episode began/occurred at an unknown time. Modifying factors: The symptoms are alleviated by nothing. 09:19 Severity of symptoms: At their worst the symptoms were moderate, in the emergency rn department the symptoms are unchanged. The patient has experienced similar episodes in the past, chronically. The patient has been recently seen by a physician: The patient has been recently seen at the [facility] Emergency Department. 09:19 Patient reports still having foot pain, seen here recently for foot pain, negative rn x-ray and negative blood work. Patient having a little trouble controlling his blood sugar, takes 15 units of insulin once a day and sugar still 200-400. Otherwise denies any fever or chills or signs of infection from the wound.. Historical: - Allergies: 07:21 No Known Allergies; kc6 - PMHx: 07:21 Diabetes - NIDDM; Hypertension; kc6 - PSHx: 07:21 Appendectomy; kc6 - Immunization history:: Adult Immunizations up to date. - Infectious Disease History:: Denies. - Social history:: Smoking status: Patient reports the use of cigarette tobacco products, smokes one pack cigarettes per day. - Family history:: not pertinent. - Hospitalizations: : No recent hospitalization is reported. ROS: 09:19 Constitutional: Negative for fever, chills, and weight loss, Cardiovascular: Negative rn for chest pain, palpitations, and edema, Respiratory: Negative for shortness of breath, cough, wheezing, and pleuritic chest pain, Abdomen/GI: Negative for abdominal pain, nausea, vomiting, diarrhea, and constipation, MS/Extremity: Negative for injury Exam: 09:19 Constitutional: This is a well developed, well nourished patient who is awake, alert, rn and in no acute distress. Cardiovascular: Regular rate and rhythm. No pulse deficits. MS/ Extremity: Pulses equal, no cyanosis. Neurovascular intact. Full, normal range of motion. Equal circumference. Chronic wound left medial foot at base of first toe, no purulence or foul smell. Vital Signs: 07:19 BP 127 / 72; Pulse 82; Resp 18 S; Temp 97.8(O); Pulse Ox 100% on R/A; Weight 108.86 kg kc6 (R); Height 5 ft. 4 in. (R); Pain 10; 08:50 BP 129 / 73; Pulse 76; Resp 16 S; Pulse Ox 97% on R/A; kc6 07:19 Body Mass Index 41.20 (108.86 kg, 162.56 cm) [facility] 07:19 Pain Scale: Adult kc6 MDM: 07:19 Patient medically screened. rn 09:19 Differential diagnosis: Chronic wound, hyperglycemia, neuropathy. Data reviewed: vital rn signs, nurses notes, old medical records, lab test result(s), and as a result, I will discharge patient. Counseling: I had a detailed discussion with the patient and/or guardian regarding the historical points, exam findings, and any diagnostic results supporting the discharge/admit diagnosis, lab results, the need for outpatient follow up, to return to the emergency department if symptoms worsen or persist or if there are any questions or concerns that arise at home. Special discussion: I discussed with the patient/guardian in detail that at this point there is no indication for admission to the hospital. It is understood, however, that if the symptoms persist or worsen the patient needs to return immediately for re-evaluation. Based on the history and exam findings, there is no indication for further emergent testing or inpatient evaluation. I discussed with the patient/guardian the need to see the primary care provider for further evaluation of the symptoms. ED course: Patient states did not fill his gabapentin prescription. Recommended tighter glucose control and monitoring to follow-up with PCP for further insulin instructions. Will add antibiotics given elevated white blood cell count but no indication for admission at this time. 08/12 07:26 Order name: CBC with Diff; Complete Time: 08: rn 08/12 07:26 Order name: Basic Metabolic Panel; Complete Time: 08: rn 08/12 07: Order name: IV Start; Complete Time: :52 rn Administered Medications: 07:52 Drug: NS 0.9% IV 500 ml IV at bolus once Route: IV; Rate: bolus; Site: right kc6 antecubital; 08:22 Follow up: Response: No adverse reaction; IV Status: Completed infusion; IV Intake: kc6 500ml 07:52 Drug: morphine IVP or IV 4 mg IVP once over 4 mins Route: IVP; Infused Over: 4 mins; kc6 Site: right antecubital; 08:22 Follow up: Response: No adverse reaction; Pain is decreased; RASS: Alert and Calm (0) kc6 07:52 Drug: Gabapentin PO 300 mg PO once Route: PO; kc6 08:22 Follow up: Response: No adverse reaction; Pain is decreased kc6 Disposition Summary: 08/12/24 09:22 Discharge Ordered Notes: Location: Home rn Problem: chronic rn Symptoms: have improved rn Condition: Stable rn Diagnosis - Foot Laceration/ Open wound of foot rn - Type 2 diabetes mellitus with diabetic neuropathy, unspecified rn Followup: rn - With: Private Physician - When: As needed - Reason: Recheck today's complaints, Re-evaluation by your physician Discharge Instructions: - Discharge Summary Sheet rn - Diabetes Mellitus and Foot Care rn - Neuropathic Pain rn Forms: - Medication Reconciliation Form rn - Antibiotic axle turner - Prescription Opioid Use rn - Patient Portal Instructions rn - Leadership Thank You Letter rn Prescriptions: - Clindamycin HCl 300 mg Oral Capsule - take 1 capsule ORAL route every 6 hours for 10 days; 40 capsule; Refills: 0, rn Product Selection Permitted Signatures: Dispatcher [employer] Alexey Burris MD MD rn Campbell, Kaitlyn, RN RN [facility]
[2024-08-12 21:33] VITALS: TEMP 97.8
[2024-08-12 22:03] VITALS: BP 129/73; O2SAT 97
== END 2024-08-12 09:39 | disposition home or self-care (01) ==
LOC: ER 07:17
DX: S91.302A Unspecified open wound, left foot, initial encounter (principal); E11.40 Type 2 diabetes mellitus with diabetic neuropathy, unspecified; F17.210 Nicotine dependence, cigarettes, uncomplicated; I10 Essential (primary) hypertension; X58.XXXA Exposure to other specified factors, initial encounter; Z79.4 Long term (current) use of insulin
CPT/HCPCS: 36415; 80048; 85025; 96374; 99285; J7040

== ENCOUNTER 2024-08-13 14:31 | Inpatient (IN) | payer SELFPAY ==
[2024-08-13] MEDS ORDERED: VANCOMYCIN 1 GM/VIAL ONE (15:23)
[2024-08-13] MEDS ORDERED: NA CHLORIDE 0.9% 250 ML ONE (15:23)
[2024-08-13] MEDS ORDERED: MORPHINE 4 MG/ML SYR ONE (15:23)
[2024-08-13] MEDS ORDERED: PIPERACIL/TAZO 3.375 GM VIAL IV ONE (15:24)
[2024-08-13] MEDS ORDERED: NA CHLORIDE 0.9% 100 ML ONE (15:24)
[2024-08-13 15:33] LABS: Absolute Basophils 0.1 K/uL (0-0.5); Absolute Eosinophils 0.1 K/uL (0-0.5); Absolute Monocytes 1.2 K/uL (0.1-1.3); Absolute Neutrophil 12.9 K/uL (1.8-8.0); Basophils % 0.5 % (0-1.3); Eosinophils % 0.6 % (0-4.4); Hematocrit 39.7 % (39.6-49.0); Hemoglobin 13.5 g/dL (13.6-17.9); Lymphocytes % 12.4 % (15.3-44.8); MCH 28.6 pg (27.0-35.0); MCHC 33.9 g/dL (32.0-36.0); MCV 84.3 fL (80-100); MPV 7.6 fL (7.6-11.3); Monocytes % 7.4 % (3.3-12.3); Neutrophils % 79.1 % (41.7-73.7); Platelets 274 thou/uL (152-406); RBC Red Blood Cell Count 4.71 M/uL (4.33-5.43); Red Cell Distribution Width 13.7 % (12.1-15.2)
[2024-08-13 15:44] LABS: PT Prothrombin Time 12.7 SECONDS (9.4-12.5); PTT, Activated Partial Thromb 30.8 SECONDS (24.3-36.9); Protime INR 1.14
[2024-08-13 15:53] LABS: ALT/SGPT 22 U/L (16-61); Albumin 3.2 g/dL (3.4-5.0); Albumin/Globulin Ratio 0.6 (1.1-1.8); Alkaline Phosphatase 92 U/L (45-117); Anion Gap 2.3 mEq/L (5.0-15.0); BUN Blood Urea Nitrogen 19 mg/dL (7-18); Bicarbonate 31 mEq/L (21-32); Bilirubin Total 0.9 mg/dL (0.2-1.0); Globulin 5.2 g/dL (2.3-3.5); Glomerular Filtration Rate 91 ml/min (=/>90); Glucose Level 248 mg/dL (74-106); Potassium 4.3 mEq/L (3.5-5.1); Protein, Total 8.4 g/dL (6.4-8.2); Sodium Level 127 mEq/L (136-145)
[2024-08-13 15:54] LABS: AST/SGOT < 10 U/L (15-37)
--- NOTE | 2024-08-13 16:27 | ER ---
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 Not ss getting wound care due to financial reasons. Coronavirus screen: Vaccine status: Client denies travel out of the [place] in the last 14 days. At this time, the client does not indicate any symptoms associated with coronavirus-19. Ebola Screen: Patient denies travel to an Ebola-affected area in the 21 days before illness onset. Initial Sepsis Screen: Does the patient meet any 2 criteria? No. Patient's initial sepsis screen is negative. Does the patient have a suspected source of infection? No. Patient's initial sepsis screen is negative. Risk Assessment: Do you want to hurt yourself or someone else? Patient reports no desire to harm self or others. Onset of symptoms was July 26, 2024. 14:57 Method Of Arrival: Wheelchair ss 14:57 Acuity: CAITLIN 2 ss Historical: - Allergies: 14:57 No Known Allergies; ss - PMHx: 14:57 Diabetes - NIDDM; Hypertension; ss - PSHx: 14:57 Appendectomy; ss - Immunization history:: Adult Immunizations up to date. - Infectious Disease History:: Denies. - Social history:: Smoking status: Patient denies any tobacco usage or history of. Screenin:20 [facility] ED Fall Risk Assessment (Adult) History of falling in the last 3 months, kc6 including since admission No falls in past 3 months (0 pts) Confusion or Disorientation No (0 pts) Intoxicated or Sedated No (0 pts) Impaired Gait Yes (1 pt) Mobility Assist Device Used No (0 pt) Altered Elimination No (0 pt) Score/Fall Risk Level 0 - 2 = Low Risk Oriented to surroundings. Abuse screen: Denies threats or abuse. Denies injuries from another. Nutritional screening: No deficits noted. Tuberculosis screening: No symptoms or risk factors identified. Assessment: 15:50 General: Appears in no apparent distress. uncomfortable, well groomed, well developed, kc6 Behavior is cooperative, appropriate for age, crying. Pain: Complains of pain in medial aspect of left toes Pain currently is 10 out of 10 on a pain scale. Quality of pain is described as sharp, shooting, Is continuous, Alleviated by medications, Aggravated by increased activity, weight bearing, Noted to be crying, grimacing, moaning, resistant to movement. Neuro: Level of Consciousness is awake, alert, obeys commands, Oriented to person, place, time, situation, Appropriate for age. Cardiovascular: Capillary refill < 3 seconds. Respiratory: Airway is patent Trachea midline Respiratory effort is even, unlabored, Respiratory pattern is regular, symmetrical. GI: No signs and/or symptoms were reported involving the gastrointestinal system. : No signs and/or symptoms were reported regarding the genitourinary system. EENT: No signs and/or symptoms were reported regarding the EENT system. Derm: Skin is healthy with good turgor, Skin is dry, Skin is normal, Skin temperature is warm Wound noted medial aspect of left toes Wound is open, with redness, swelling, and drainage. no foul odor at this time. Musculoskeletal: No signs and/or symptoms reported regarding the musculoskeletal system. Circulation, motion, and sensation intact. Capillary refill < 3 seconds, Range of motion: intact in all extremities. 16:22 Reassessment: Patient appears in no apparent distress at this time. No changes from kc6 previously documented assessment. Patient and/or family updated on plan of care and expected duration. Pain level reassessed. Patient is alert, oriented x 3, equal unlabored respirations, skin warm/dry/pink. 17:56 Reassessment: Patient appears in no apparent distress at this time. No changes from kc6 previously documented assessment. Patient and/or family updated on plan of care and expected duration. Pain level reassessed. Patient is alert, oriented x 3, equal unlabored respirations, skin warm/dry/pink. Vital Signs: 15:00 BP 134 / 76; Pulse 96; Resp 16; Pulse Ox 100% ; cm10 16:23 BP 129 / 74; Pulse 90; Resp 19 S; Pulse Ox 100% on R/A; kc6 ED Course: 14:35 Patient arrived in ED. im 14:40 Salomon Crooks DO is Attending Physician. ms3 14:57 Marianela Anguiano, RN is Primary Nurse. kc6 14:57 Arm band placed on Patient placed in an exam room, on a stretcher. ss 14:58 Triage completed. ss 15:44 Patient has correct armband on for positive identification. Bed in low position. Call kc6 light in reach. Side rails up X 1. Adult w/ patient. Pulse ox on. NIBP on. 15:44 Inserted saline lock: 20 gauge in right antecubital area, using aseptic technique. kc6 Blood collected. Flushed with 10 mL NS. 15:57 Notified ED physician of a critical lab result(s). Ca <5.0. ll1 16:21 Patient maintains SpO2 saturation greater than 95% on room air. kc6 16:25 Angelito Hidalgo is Hospitalizing Provider. ms3 17:08 1708 CM met with at the bedside in the ED exam room. Patient identified by ane name and . Patient confirmed address on file is only where is mail is sent and that he now stays at the [facility]. Patient's corrected his phopne number, and it is as follows; [phone]. Patient reports that prior to this admission, he was still ambulating without assistance or assistive devices. He states he performs ADLs independently and is still employed. He reports that he does not have any DME, no HH, no home oxygen and completed IV antibiotic therapy via PICC line on July 25, 2024. When asked what his preferred discharge plan is, Mr. White stated he does not prefer to return to the [facility] but will if that is his only choice, and " I don't have nowhere to go." Patient does not have an MPOA in place, does not have a PCP. He reports the does have family that may be able to transport him home upon discharge. CM team will continue to follow and coordinate care during this hospital stay. 17:56 No provider procedures requiring assistance completed. Patient admitted, IV remains in kc6 place. Administered Medications: 15:44 Drug: morphine IVP or IV 4 mg IVP once over 4 mins Route: IVP; Infused Over: 4 mins; kc6 Site: right antecubital; 16:20 Follow up: Response: No adverse reaction; Pain is decreased; RASS: Alert and Calm (0) kc6 15:44 Drug: Piperacillin-Tazobactam IVPB 3.375 grams IVPB once over 60 mins; (mix in NS 100 kc6 mL) Route: IVPB; Infused Over: 60 mins; Site: right antecubital; 16:13 Follow up: IV Status: Completed infusion 16:13 Drug: vancoMYCIN IVPB 1 grams IVPB once over 2 hrs Route: IVPB; Infused Over: 2 hrs; ss Site: right antecubital; 17:29 Follow up: Response: No adverse reaction; IV Status: Completed infusion; IV Intake: kc6 250ml Medication: 15:57 VIS not applicable for this client. ll1 Intake: 17:29 IV: 250ml; Total: 250ml. kc6 Outcome: 16:26 Decision to Hospitalize by Provider. ms3 17:56 Admitted to Med/surg accompanied by nurse, via wheelchair, with chart, 6 17:56 Condition: good 17:56 Instructed on the need for admit, 18:02 Patient left the ED. [facility] Signatures: Alia August, RN RN ss Edi Cullen RN RN ll1 Salomon Crooks, DO DO ms3 Marianela Anguiano RN RN kc6 Catherine Rivera Clarissa, RN RN cm10 Noreen Farr RN RN ryan
--- NOTE | 2024-08-13 16:27 | EDPHYS ---
Physician Documentation [facility] Name: Nas White Jr Age: 58 yrs Sex: Male : 1965 Arrival Date: 08/13/2024 Time: 14:31 Bed 19 Private MD: ED Physician Salomon Crooks HPI: 08/13 14:54 This 58 yrs old Male presents to ER via Unassigned with complaints of Foot ms3 Pain. 14:54 58-year-old male with past medical history of diabetes and hypertension presents to the [facility] emergency department for left foot ulceration. Patient states he has been dealing with this for the last 3 months. Patient states his ulceration began bleeding yesterday. Patient states pain is 10/10. He denies any alleviating or inciting factors. Historical: - Allergies: 14:57 No Known Allergies; ss - PMHx: 14:57 Diabetes - NIDDM; Hypertension; ss - PSHx: 14:57 Appendectomy; ss - Immunization history:: Adult Immunizations up to date. - Infectious Disease History:: Denies. - Social history:: Smoking status: Patient denies any tobacco usage or history of. ROS: 14:54 Constitutional: Negative for fever, and chills. Neck: Negative for injury, pain, and ms3 swelling, Cardiovascular: Negative for chest pain, and palpitations. Respiratory: Negative for shortness of breath, cough, wheezing, and pleuritic chest pain, Abdomen/GI: Negative for abdominal pain, nausea, vomiting, diarrhea, and constipation, MS/Extremity: Negative for injury and deformity, 14:54 Skin: Positive for ulceration, Exam: 14:54 Constitutional: This is a well developed, well nourished patient who is awake, alert, ms3 and in no acute distress. Head/Face: Normocephalic, atraumatic. Chest/axilla: Normal chest wall appearance and motion. Nontender with no deformity. Cardiovascular: Regular rate and rhythm with a normal S1 and S2. No gallops, murmurs, or rubs. Normal PMI, no JVD. No pulse deficits. Respiratory: Lungs have equal breath sounds bilaterally, clear to auscultation and percussion. No rales, rhonchi or wheezes noted. No increased work of breathing, no retractions or nasal flaring. Abdomen/GI: Soft, non-tender, with normal bowel sounds. No distension or tympany. No guarding or rebound. No evidence of tenderness throughout. MS/ Extremity: Pulses equal, no cyanosis. Neurovascular intact. Full, normal range of motion. 18:01 ECG was reviewed by the Attending Physician. ms3 Vital Signs: 15:00 BP 134 / 76; Pulse 96; Resp 16; Pulse Ox 100% ; cm10 16:23 BP 129 / 74; Pulse 90; Resp 19 S; Pulse Ox 100% on R/A; kc6 MDM: 14:54 Differential diagnosis: Osteomyelitis vs Cellulitis vs Foot pain. ms3 14:59 Patient medically screened. ms3 18:46 Data reviewed: vital signs, nurses notes, lab test result(s), EKG, radiologic studies, ms3 and as a result, I will admit patient. Consideration of Admission/Observation Patient was admitted/placed on observation. Management of patient was discussed with the following: Hospitalist: Dr. Hidalgo. I considered the following discharge prescriptions or medication management in the emergency department Medications were administered in the Emergency Department. See MAR. Counseling: I had a detailed discussion with the patient and/or guardian regarding the historical points, exam findings, and any diagnostic results supporting the discharge/admit diagnosis, lab results, radiology results, the need for further work-up and treatment in the hospital. ED course: Discussed necessity for admission with patient. Patient understands agrees with plan. All questions were answered. I discussed case with and he understands/ agrees with plan.. 08/13 14:53 Order name: Blood Culture Adult (2) ms3 08/13 14:53 Order name: CBC with Diff; Complete Time: 16:07 ms3 08/13 14:53 Order name: CMP; Complete Time: 16:07 ms3 08/13 14:53 Order name: Lactate w/ 2H reflex if indic.; Complete Time: 16:07 ms3 08/13 14:53 Order name: Protime (+inr); Complete Time: 16:07 ms3 08/13 14:53 Order name: Ptt, Activated; Complete Time: 16:07 ms3 08/13 17:09 Order name: Urinalysis w/ reflexes EDMS 08/13 17:09 Order name: Basic Metabolic Panel EDMS 08/13 17:09 Order name: Basic Metabolic Panel EDMS 08/13 17:09 Order name: Basic Metabolic Panel EDMS 08/13 17:09 Order name: Basic Metabolic Panel EDMS 08/13 17:09 Order name: Basic Metabolic Panel EDMS 08/13 17:09 Order name: Basic Metabolic Panel EDMS 08/13 17:09 Order name: Basic Metabolic Panel EDMS 08/13 17:09 Order name: Basic Metabolic Panel EDMS 08/13 17:09 Order name: CBC with Automated Diff EDMS 08/13 17:09 Order name: CBC with Automated Diff EDMS 08/13 17:09 Order name: CBC with Automated Diff EDMS 08/13 17:09 Order name: CBC with Automated Diff EDMS 08/13 17:09 Order name: CBC with Automated Diff EDMS 08/13 17:09 Order name: CBC with Automated Diff EDMS 08/13 17:09 Order name: CBC with Automated Diff EDMS 08/13 17:09 Order name: CBC with Automated Diff EDMS 08/13 17:09 Order name: Magnesium EDMS 08/13 17:09 Order name: Magnesium EDMS 08/13 17:09 Order name: Magnesium EDMS 08/13 17:09 Order name: Magnesium EDMS 08/13 17:09 Order name: Magnesium EDMS 08/13 17:09 Order name: Magnesium EDMS 08/13 17:09 Order name: Magnesium EDMS 08/13 17:09 Order name: Magnesium EDMS 08/13 17:09 Order name: Phosphorus EDMS 08/13 17:09 Order name: Phosphorus EDMS 08/13 17:09 Order name: Phosphorus EDMS 08/13 17:09 Order name: Phosphorus EDMS 08/13 17:09 Order name: Phosphorus EDMS 08/13 17:09 Order name: Phosphorus EDMS 08/13 17:09 Order name: Phosphorus EDMS 08/13 17:09 Order name: Phosphorus EDMS 08/13 14:53 Order name: EKG; Complete Time: 14:54 ms3 08/13 17:09 Order name: CONS Physician Consult EDMS 08/13 14:53 Order name: Accucheck; Complete Time: 15:44 ms3 08/13 14:53 Order name: Cardiac monitoring; Complete Time: 15:44 ms3 08/13 14:53 Order name: EKG - Nurse/Tech; Complete Time: 15:44 ms3 08/13 14:53 Order name: IV Saline Lock - Large Bore; Complete Time: 15:44 ms3 08/13 14:53 Order name: Labs collected and sent; Complete Time: 15:44 ms3 08/13 14:53 Order name: O2 Per Protocol; Complete Time: 14:58 ms3 08/13 14:53 Order name: O2 Sat Monitoring; Complete Time: 14:58 ms3 08/13 14:53 Order name: Vital Signs; Complete Time: 15:44 ms3 EC:01 Rate is 92 beats/min. Rhythm is regular. QRS Cob[place] is Normal. TX interval is normal. QRS ms3 interval is normal. QT interval is normal. Clinical impression: Normal ECG. Interpreted by me. Reviewed by me. Administered Medications: 15:44 Drug: morphine IVP or IV 4 mg IVP once over 4 mins Route: IVP; Infused Over: 4 mins; kc6 Site: right antecubital; 16:20 Follow up: Response: No adverse reaction; Pain is decreased; RASS: Alert and Calm (0) kc6 15:44 Drug: Piperacillin-Tazobactam IVPB 3.375 grams IVPB once over 60 mins; (mix in NS 100 kc6 mL) Route: IVPB; Infused Over: 60 mins; Site: right antecubital; 16:13 Follow up: IV Status: Completed infusion ss 16:13 Drug: vancoMYCIN IVPB 1 grams IVPB once over 2 hrs Route: IVPB; Infused Over: 2 hrs; ss Site: right antecubital; 17:29 Follow up: Response: No adverse reaction; IV Status: Completed infusion; IV Intake: kc6 250ml Disposition Summary: 08/13/24 16:26 Hospitalization Ordered Notes: Hospitalization Status: Inpatient Admission ms3 Provider: Angelito Hidalgo ms3 Location: Telemetry/MedSurg (Inpatient) ms3 Condition: Stable ms3 Problem: new ms3 Symptoms: are unchanged ms3 Bed/Room Type: Standard ms3 Room Assignment: 217(08/13/24 17:13) bc6 Diagnosis - 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 EDMS EDMS 14:54 14:54 CBC+H.LAB.BRZ ordered. EDMS EDMS 14:54 14:54 COMPREHENSIVE METABOLIC PANEL+C.LAB.BRZ ordered. EDMS EDMS 14:54 14:54 LACTATE+C.LAB.BRZ ordered. EDMS EDMS 14:54 14:54 PROTIME (+INR)+COAG.LAB.BRZ ordered. EDMS EDMS 14:54 14:54 PTT, ACTIVATED+COAG.LAB.BRZ ordered. EDMS EDMS 17:13 16:26 ms3 bc6
[2024-08-13] MEDS: VANCOMYCIN 1 GM in NA CHLORIDE 0.9% 250 ML IVPB SCH (17:05)
--- NOTE | 2024-08-13 17:28 | P.HP ---
Certification for Inpatient Patient admitted to: Inpatient With expected LOS: >2 Midnights Patient will require the following post-hospital care: None Practitioner: I am a practitioner with admitting privileges, knowledge of patient current condition, hospital course, and medical plan of care. Services: Services provided to patient in accordance with Admission requirements found in Title 42 Section 412.3 of the Code of Federal Regulations Patient History Date of Service: 08/13/24 Reason for admission: Left great toe wound History of Present Illness: Nas White is a 58 year old male with Pmhx DM- IDDM and HTN who presents to the ED with chief complaint of increased pain and open wound to right great toe. Nas reports seeing Dr. Morales until January when he lost his job/insurance. Since then he has not been able to take care of his foot. He was discharged with IV antibiotics from an June admission. Today, his wound is open, erythema and swelling to the foot, WBC 16.3, with severe pain. 08/08 left foot xray reports "No evidence of acute osseous abnormality involving the imaged foot." Initial vitals BP 134 / 76; Pulse 96; Resp 16; Pulse Ox 100% Nas will be admitted to hospitalist service for futher treatment of Left great toe wound. Allergies No Known Allergies Allergy (Verified 07/23/24 10:16) Home Medications: Metformin HCl [Glucophage*] 500 mg PO DAILY 08/14/16 lisinopriL [Prinivil*] 10 mg PO DAILY 90 Days #90 tab 07/25/23 Amlodipine [Norvasc*] 5 mg PO DAILY #30 tab 06/18/24 Atorvastatin Calcium [Lipitor] 40 mg PO BEDTIME #30 tab 06/18/24 Collagenase [Santyl Ointment*] 1 appl TOP DAILY tube 06/18/24 Hydrocodone 5/APAP 325 [[place] 5/325*] 1 tab PO Q4H PRN #30 tab 06/18/24 Insulin Glargine,Hum.rec.anlog [Semglee] 15 unit SQ DAILY #10 ml 06/18/24 Mupirocin Calcium [Bactroban Nasal*] 1 appl ELKIN BID #1 tube 06/18/24 - Past Medical/Surgical History Diabetic: Yes -: HTN -: DM -: left great toe diabtetic foot ulcer -: APPENDECTOMY - Family History Mother -: Hypertension, Diabetes, Cancer Notes: STOMACH CANCER Father -: Hypertension, Diabetes, Stroke - Social History Smoking Status: Former smoker Alcohol use: Yes CD- Drugs: Yes Caffeine use: Yes Review of Systems Musculoskeletal: Foot Pain (left ) Physical Examination - Physical Exam General: Alert, In no apparent distress, Oriented x3 HEENT: Atraumatic, Normocephalic, PERRLA Neck: Supple, JVD not distended Respiratory: Clear to auscultation bilaterally, Normal air movement Cardiovascular: Normal pulses, Regular rate/rhythm, Normal S1 S2 Capillary refill: <2 Seconds Gastrointestinal: Normal bowel sounds, Soft and benign Musculoskeletal: Swelling (left foot), Erythema (left foot), Tenderness (left foot), Warmth (left foot) Integumentary: Other (left great toe open wound) Neurological: Normal speech, Normal tone - Studies Laboratory Data (last 24 hrs) 08/13/24 08/13/24 08/13/24 15:18 15:18 15:18 WBC 16.30 H Hgb 13.5 L Hct 39.7 Plt Count 274 PT 12.7 H INR 1.14 APTT 30.8 Sodium 127 L Potassium 4.3 BUN 19 H Creatinine 0.97 Glucose 248 H Total Bilirubin 0.9 AST < 10 L ALT 22 Alkaline Phosphatase 92 Assessment and Plan - Plan Assessment and plan Left great toe wound Leukocytosis -WBC 16.3 -08/08 left foot xray reports "No evidence of acute osseous abnormality involving the imaged foot." -Surgery consulted -Cefepime and vanc -Pain control -Follow blood and wound culture cultures -Consult wound care Hyponatremia Hypocalcemia Decreased PO intake -Sodium 127, corrected calcium 5.6 -IVF -monitor and replace PRN -Reports [facility] and does not get very much food Diabetes mellitusIDDM -Accu-Chek with sliding scale insulin -Glucose 248 Hypertension -Continue home medication Substance Abuse -Marijuana abuse DVT PPx heparin Full code LOS 3 days Discharge Plan: Home Plan to discharge in: 72 Hours - Advance Directives Does patient have a Living Will: No Does patient have a Durable POA for Healthcare: No
[2024-08-13] MEDS: CALCIUM CL 10% 13.6 MEQ in NA CHLORIDE 0.9% 100 ML IV ONE (17:43)
[2024-08-13] MEDS: MORPHINE 2 MG/ML SYR IV PRN (19:05)
[2024-08-13] MEDS: NA CHLORIDE 0.9% 1,000 ML IV SCH (19:08)
[2024-08-13] MEDS: CALCIUM GLUCONATE 1 GM IVPB 1 GM/50 ML BAG IV ONE (19:09)
[2024-08-13 19:15] VITALS: BMI 41.1
[2024-08-13] MEDS: HEPARIN 5000 UNIT/ML 1 ML VIAL SQ SCH (19:48)
[2024-08-13] MEDS: INSULIN REGULAR (HUMAN) 100 UNIT/ML SQ SCH (19:49)
[2024-08-13] MEDS: CEFEPIME 2 GM in NA CHLORIDE 0.9% 100 ML IV SCH (19:50)
[2024-08-13] MEDS: VANCOMYCIN 1 GM in NA CHLORIDE 0.9% 250 ML IVPB ONE (22:32)
[2024-08-13 22:55] LABS: Specific Gravity 1.029 (1.005-1.030); Urine Bilirubin NEGATIVE (Negative); Urine Blood Negative (Negative); Urine Clarity Clear (Clear); Urine Color Light-Yellow (Yellow); Urine Glucose 4+ (Over) (Negative); Urine Ketones 1+ (Negative); Urine Microscopic Reflex YN NO UMIC; Urine Nitrite NEGATIVE (Negative); Urine Protein NEGATIVE (Negative); Urine Urobilinogen Normal (Normal)
[2024-08-14] MEDS: HYDROCODONE/APAP 10/325 TAB PO PRN (03:54)
[2024-08-14 05:33] LABS: Absolute Basophils 0.1 K/uL (0-0.5); Absolute Eosinophils 0.2 K/uL (0-0.5); Absolute Lymphocytes (CBC) 0.4 K/uL (0.7-4.9); Absolute Monocytes 0.7 K/uL (0.1-1.3); Basophils % 0.5 % (0-1.3); Eosinophils % 1.4 % (0-4.4); Hematocrit 33.5 % (39.6-49.0); Hemoglobin 11.4 g/dL (13.6-17.9); Lymphocytes % 2.8 % (15.3-44.8); MCHC 34.1 g/dL (32.0-36.0); MPV 7.4 fL (7.6-11.3); Monocytes % 4.9 % (3.3-12.3); Neutrophils % 90.4 % (41.7-73.7); Platelets 237 thou/uL (152-406); RBC Red Blood Cell Count 3.94 M/uL (4.33-5.43); Red Cell Distribution Width 13.7 % (12.1-15.2)
[2024-08-14 05:49] LABS: Anion Gap 8.9 mEq/L (5.0-15.0); Magnesium 1.8 mg/dL (1.6-2.4); Phosphorus 2.2 mg/dL (2.5-4.9); Potassium 3.9 mEq/L (3.5-5.1)
[2024-08-14 06:33] LABS: Blood Morphology Comment NOTED (NOT SEEN); Platelet Estimate ADEQ; Spherocyte 1+; White Blood Cell Scan OK (OK)
[2024-08-14] MEDS: POTASS/SODIUM PHOSPHATE 1 PKT POWD.PACK PO SCH (06:35)
[2024-08-14] MEDS: MAGNESIUM SULFATE 1 gm IVPB 1 GM/100 ML BAG IV ONE (06:35)
[2024-08-14] MEDS: POTASSIUM CL SA 10 MEQ TAB PO ONE (08:57)
[2024-08-14] MEDS: INFLUENZA VACCINE (for 6+ mo) 0.5 ML DOSE IMVAC ONE (12:00)
--- NOTE | 2024-08-14 15:19 | P.PN ---
Date of Service: 08/14/24 Subjective Awake, feeling a little better, Reports pain is more located just in his foot. no new complaints ROS 10 point ROS as noted above, otherwise negative Physical Exam General: Alert and Oriented x3, NAD HEENT: Atraumatic, Normocephalic, PERRLA Neck: Supple, JVD not distended Respiratory: Clear to auscultation bilaterally, symmetrical chest wall movement, on room air Cardiovascular: Normal pulses, RRR, Normal S1 S2, no murmur noted Capillary refill: <2 Seconds Gastrointestinal: Normal active bowel sounds, Soft and benign on palpation Musculoskeletal: Swelling (left foot), Erythema (left foot), Tenderness (left foot), Warmth (left foot) Integumentary: Other (left great toe open wound) Neurological: Normal speech, Normal tone Vitals Reviewed Problem list Left great toe wound Leukocytosis Hyponatremia Hypocalcemia Decreased PO intake Diabetes mellitusIDDM Hypertension Substance Abuse Assessment and Plan Left great toe wound Leukocytosis -Sirs Criteria HR 96, WBC 16.3 -WBC 14.4, improved -08/08 left foot xray reports "No evidence of acute osseous abnormality involving the imaged foot." -Surgery consulted -Cefepime stopped, gram positive blood culture -Merrem and vanc -Pain control -Blood culture G pos cocci in clusters x 2 vials and wound culture gram positive Cocci clusters, PRS, CHS -repeat blood culture -Consult wound care Hyponatremia Hypocalcemia Decreased PO intake -Sodium 131, calcium 8.8 -Continue IVF -monitor and replace PRN -Reports living at the [facility] and does not get very much food Diabetes mellitusIDDM -Accu-Chek with sliding scale insulin -Glucose 240 -Semglee 15 units added / Hypertension -Continue home medication Substance Abuse -Marijuana abuse DVT PPx heparin Full code LOS 3 days Discharge Plan: Home <Mirna Segura - Last Filed: 08/14/24 14:56> Patient seen and examined, plan of care discussed with Ms. Keysey. Patient complaining of left toe pain. 2 out of 4 blood cultures growing gram-positive cocci. Continue IV vancomycin and cefepime Awaiting general surgery input Analgesics as needed Aggressive blood sugar control. <mirela garcia - Last Filed: 08/14/24 18:30>
[2024-08-14] MEDS ORDERED: VANCOMYCIN 1 GM in NA CHLORIDE 0.9% 250 ML IVPB SCH (16:00)
[2024-08-14] MEDS: NA CHLORIDE 0.9% 1,000 ML IV SCH (16:00)
[2024-08-14] MEDS: VANCOMYCIN 2 GM in NA CHLORIDE 0.9% 500 ML IVPB SCH ×2 (16:00→20:00)
--- NOTE | 2024-08-14 16:34 | EKG ---
Test Date: 2024-08-13 Test Time: 15:38:25 Lead Programmer: DEANNA MEASUREMENT RESULTS: Intervals: Rate: 92 [place]: 144 QRSD: 86 QT: 356 QTc: 440 Poth: P: 25 NY: 144 QRS: 6 T: 32 INTERPRETIVE STATEMENTS: Normal sinus rhythm Normal ECG Compared to ECG 06/15/2024 10:51:52 No significant changes Electronically Signed On 08-14-24 16:32:07 CDT by Les Jasso
[2024-08-14] MEDS: Meropenem 1,000 MG in NA CHLORIDE 0.9% 100 ML IV SCH (17:00)
--- NOTE | 2024-08-14 19:33 | RAD REPORT ---
EXAMINATION: ONE VIEW CHEST XR CLINICAL INDICATION: PICC placement TECHNIQUE: Frontal chest projection is submitted. Examination is limited by patient positioning and t echnique. COMPARISON: No prior exam. FINDINGS: A right-sided PICC line has been placed with its tip in the SVC. The lungs are grossly clear. The hea rt is mildly prominent.
[2024-08-14] MEDS: Mupirocin NASAL 2 APPL/1 GM TUBE NAS SCH (20:08)
[2024-08-14] MEDS: INSULIN GLARGINE 100 UNIT/ML SQ SCH (20:48)
[2024-08-14] MEDS: ACETAMINOPHEN 325 MG TABLET PO PRN (20:49)
[2024-08-14] MEDS: DIPHENHYDRAMINE 50 MG/ML VIAL IV PRN (23:04)
[2024-08-15 06:08] LABS: Absolute Eosinophils 0.5 K/uL (0-0.5); Absolute Lymphocytes (CBC) 0.8 K/uL (0.7-4.9); Absolute Monocytes 0.9 K/uL (0.1-1.3); Absolute Neutrophil 8.1 K/uL (1.8-8.0); Basophils % 0.3 % (0-1.3); Hematocrit 30.8 % (39.6-49.0); Hemoglobin 10.6 g/dL (13.6-17.9); Lymphocytes % 7.6 % (15.3-44.8); MCH 29.2 pg (27.0-35.0); MCHC 34.6 g/dL (32.0-36.0); MCV 84.5 fL (80-100); MPV 7.4 fL (7.6-11.3); Monocytes % 8.4 % (3.3-12.3); Neutrophils % 78.7 % (41.7-73.7); Nucleated Red Blood Cells % 0.1 % (0-0); Platelets 231 thou/uL (152-406); RBC Red Blood Cell Count 3.64 M/uL (4.33-5.43); Red Cell Distribution Width 13.7 % (12.1-15.2)
[2024-08-15 06:23] LABS: Anion Gap 7.8 mEq/L (5.0-15.0); Magnesium 2.2 mg/dL (1.6-2.4); Potassium 3.8 mEq/L (3.5-5.1)
[2024-08-15] MEDS: POTASS/SODIUM PHOSPHATE 1 PKT POWD.PACK PO SCH (08:37)
[2024-08-15] MEDS: VANCOMYCIN 1.5 GM in NA CHLORIDE 0.9% 500 ML IVPB SCH (10:33)
--- NOTE | 2024-08-15 12:37 | P.PN ---
Date of Service: 08/15/24 Subjective Awake and crying continues to have a pain to the left foot Febrile 101.4 F ROS 10 point ROS as noted above, otherwise negative Physical Exam General: Alert and Oriented x3, NAD, Febrile HEENT: Atraumatic, Normocephalic, PERRLA Neck: Supple, JVD not distended Respiratory: Clear to auscultation bilaterally, non-labored breathing, on room air Cardiovascular: Normal pulses present,Regular rate and rhythm, Normal S1 S2, no murmur noted Capillary refill: <2 Seconds Gastrointestinal: Normal active bowel sounds, Soft and benign on palpation Musculoskeletal: Swelling (left foot), Erythema (left foot), Tenderness (left foot), Warmth (left foot), dressing CDI Integumentary: Other (left great toe open wound) Neurological: Normal speech, Normal tone Vitals Reviewed Problem list Left great toe wound Leukocytosis Hyponatremia Hypocalcemia Decreased PO intake Diabetes mellitusIDDM Hypertension Substance Abuse Assessment and Plan SIRS 2/2 Left great toe wound Leukocytosis-resolved -Sirs Criteria HR 96, WBC 16.3 now with Temp 101.4 F -WBC 14.4, improved -08/08 left foot xray reports "No evidence of acute osseous abnormality involving the imaged foot." -Surgery consulted -Cefepime stopped, gram positive blood culture -Merrem and vanc -IVF NS at 125 ml/hr, now at 75 ml/hr -Pain control -Blood culture G pos cocci in clusters x 2 vials and wound culture gram positive Cocci clusters, PRS, CHS -repeat blood culture -Consult wound care Hyponatremia Hypocalcemia Decreased PO intake -Sodium 132, calcium 8.0 -Continue IVF -monitor and replace PRN -Reports living at the [facility] [employer] and does not get very much food Diabetes mellitusIDDM -Accu-Chek with sliding scale insulin -Glucose 175- improved with semglee -Semglee 15 units added 08/14 Hypertension -Continue home medication Substance Abuse -Marijuana abuse DVT PPx heparin Full code LOS 3 days Discharge Plan: Home
[2024-08-15] MEDS: NA CHLORIDE 0.9% 1,000 ML IV SCH (17:55)
[2024-08-15] MEDS: Meropenem 1000 MG/VIAL IV ONE (17:56)
[2024-08-16 06:36] LABS: Absolute Eosinophils 0.5 K/uL (0-0.5); Absolute Lymphocytes (CBC) 1.2 K/uL (0.7-4.9); Absolute Monocytes 0.8 K/uL (0.1-1.3); Absolute Neutrophil 4.8 K/uL (1.8-8.0); Basophils % 0.3 % (0-1.3); Eosinophils % 7.5 % (0-4.4); Hematocrit 30.6 % (39.6-49.0); Hemoglobin 10.2 g/dL (13.6-17.9); Lymphocytes % 16.4 % (15.3-44.8); MCH 28.3 pg (27.0-35.0); MCHC 33.2 g/dL (32.0-36.0); MCV 85.4 fL (80-100); MPV 7.2 fL (7.6-11.3); Monocytes % 10.5 % (3.3-12.3); Neutrophils % 65.3 % (41.7-73.7); Platelets 213 thou/uL (152-406); RBC Red Blood Cell Count 3.59 M/uL (4.33-5.43); Red Cell Distribution Width 13.8 % (12.1-15.2)
[2024-08-16 06:47] LABS: Magnesium 2.2 mg/dL (1.6-2.4); Phosphorus 1.8 mg/dL (2.5-4.9)
[2024-08-16] MEDS: Levofloxacin 750mg IV 750 MG/150 ML BAG IV SCH (10:21)
--- NOTE | 2024-08-16 14:28 | P.PN ---
Date of Service: 08/16/24 Subjective Afebrile overnight, pain is better but continues to irritate c/o the bandage smelling bad no odor noticed on examination ROS 10 point ROS as noted above, otherwise negative Physical Exam General: Alert and oriented x3, NAD, Afebrile HEENT: Atraumatic, Normocephalic, PERRLA Neck: Supple, trachea midline, JVD not distended Respiratory: Clear to auscultation bilaterally, non-labored breathing, on room a ir Cardiovascular: Normal pulses present, RRR, Normal S1 S2, no murmur noted Capillary refill: <2 Seconds Gastrointestinal: Normal active bowel sounds, Soft and benign on palpation Musculoskeletal: Swelling (left foot), Erythema (left foot), Tenderness (left foot), Warmth (left foot), dressing CDI Integumentary: Other (left great toe open wound) Neurological: Normal speech, Normal tone Vitals Reviewed Problem list Left great toe wound Leukocytosis Hyponatremia Hypocalcemia Decreased PO intake Diabetes mellitusIDDM Hypertension Substance Abuse Assessment and Plan SIRS 2/2 Left great toe wound Leukocytosis-resolved -Sirs Criteria HR 96, WBC 16.3 now with Temp 101.4 F -WBC 14.4, improved -08/08 left foot xray reports "No evidence of acute osseous abnormality involving the imaged foot." -08/16 repeat left foot xray reoprts "Progressive osseous lytic changes along the medial head of the first metatarsal, concerning for osteomyelitis" -Dr. Barlow consulted -Surgery following -Cefepime stopped, gram positive blood culture -Merrem and vanc changed to Ancef and levaquin -IVF NS at 125 ml/hr, now at 75 ml/hr -Pain control -Blood culture Staph aureus x 4 vials and wound culture escherichia coli and staph aureus -repeat blood culture- NGTD -Consult wound care Hyponatremia Hypocalcemia Decreased PO intake -Sodium 134, calcium 7.8 -Continue IVF -monitor and replace PRN -Reports living at the [facility] [employer] and does not get very much food Diabetes mellitusIDDM -Accu-Chek with sliding scale insulin (mod) -Glucose 189- improved with semglee -Semglee 15 units added 08/14 -hypoglycemia protocol Hypertension -Continue home medication Substance Abuse -Marijuana abuse -Cessation education provided DVT PPx heparin Full code LOS 3 days Discharge Plan: Home <Mirna Segura - Last Filed: 08/16/24 18:42> Patient seen and examined, plan of care discussed with Ms. Segura. Patient with MSSA bacteremia. Patient recently completed 6 weeks of IV cefepime and vancomycin for osteomyelitis of the left great toe. Possible failed antibiotic therapy. Case discussed with Dr. Morales who is considering debridement as compared to amputation. Infectious disease Dr. Barlow consulted for opinion regarding repeat long-term antibiotics versus amputation. <mirela garcia - Last Filed: 08/17/24 18:37>
--- NOTE | 2024-08-16 17:04 | RAD REPORT ---
EXAMINATION: Foot Left 3 View CLINICAL INDICATION: Male, 58 years old. [facility] Left great toe wound TECHNIQUE: 3 view radiographs of the left foot were obtained. COMPARISON: No prior exam. FINDINGS: Progressive osseous lytic changes along the medial aspect of the head of the first metatars al. Overlying soft tissue defect/swelling. No dislocation. Normal alignment. No evidence of arthropathy or other focal bone lesion. No significant degenerative changes. IMPRESSION: Progressive osseous lytic changes along the medial head of the first metatarsal, concerning for osteo myelitis.
[2024-08-16] MEDS: CEFAZOLIN SODIUM 2 GM in NA CHLORIDE 0.9% 100 ML IVPB SCH (17:16)
[2024-08-16] MEDS: INSULIN REGULAR (HUMAN) 100 UNIT/ML SQ SCH (19:57)
[2024-08-17 05:46] LABS: Anion Gap 7.9 mEq/L (5.0-15.0); Magnesium 2.2 mg/dL (1.6-2.4); Phosphorus 2.4 mg/dL (2.5-4.9); Potassium 3.9 mEq/L (3.5-5.1)
[2024-08-17 05:49] LABS: Absolute Eosinophils 0.5 K/uL (0-0.5); Absolute Lymphocytes (CBC) 1.4 K/uL (0.7-4.9); Absolute Monocytes 0.7 K/uL (0.1-1.3); Absolute Neutrophil 4.5 K/uL (1.8-8.0); Basophils % 0.5 % (0-1.3); Eosinophils % 7.1 % (0-4.4); Hematocrit 30.8 % (39.6-49.0); Hemoglobin 10.4 g/dL (13.6-17.9); Lymphocytes % 19.6 % (15.3-44.8); MCH 28.6 pg (27.0-35.0); MCHC 33.8 g/dL (32.0-36.0); MCV 84.6 fL (80-100); MPV 7.1 fL (7.6-11.3); Monocytes % 10.3 % (3.3-12.3); Neutrophils % 62.5 % (41.7-73.7); Nucleated Red Blood Cells % 0.1 % (0-0); Platelets 237 thou/uL (152-406); RBC Red Blood Cell Count 3.63 M/uL (4.33-5.43); Red Cell Distribution Width 13.7 % (12.1-15.2)
[2024-08-17] MEDS: POTASSIUM PHOS IN 0.9 % NACL 15 MMOL/250 ML BAG IV ONE (08:10)
[2024-08-17] MEDS: FLU (Fluarix Triv) TS24-25(6MOS UP)/PF 45 MCG/0.5 ML Syringe IM ONE (12:00)
--- NOTE | 2024-08-17 12:26 | P.PN ---
Date of Service: 08/17/24 Subjective Feeling better expressed frustration with the chance he will need an amputation Dr. Barlow saw him today, recommendations below ROS 10 point ROS as noted above, otherwise negative Physical Exam General: AAO x3, NAD, Afebrile HEENT: Atraumatic, Normocephalic, PERRLA Neck: Supple, trachea midline, JVD not distended Respiratory: Clear to auscultation bilaterally, non-labored breathing, on room air Cardiovascular: Normal pulses present, Regular rate and rhythm, Normal S1 S2 present, no murmur noted Capillary refill: <2 Seconds Gastrointestinal: Normal active bowel sounds, Soft and benign on palpation, nontender Musculoskeletal: Swelling (left foot), Erythema (left foot), Tenderness (left foot), Warmth (left foot), dressing CDI Integumentary: Other (left great toe open wound) Neurological: Normal speech, Normal tone Vitals Reviewed Problem list SEPSIS 2/2 Left great toe osteomylitis Leukocytosis Hyponatremia Hypocalcemia Decreased PO intake Diabetes mellitusIDDM Hypertension Substance Abuse Assessment and Plan SEPSIS 2/2 Left great toe osteomylitis Leukocytosis-resolved -Sepsis Criteria HR 96, WBC 16.3 now with Temp 101.4 F, left great toe osteromylitis -WBC 14.4, improved -08/08 left foot xray reports "No evidence of acute osseous abnormality involving the imaged foot." -08/16 repeat left foot xray reoprts "Progressive osseous lytic changes along the medial head of the first metatarsal, concerning for osteomyelitis" -Dr. Barlow, santyl, levaquin IV, I and D -Surgery following -Cefepime stopped, gram positive blood culture -Merrem and vanc changed to Ancef and levaquin -IVF NS at 125 ml/hr, now at 75 ml/hr -Pain control -Blood culture Staph aureus x 4 vials and wound culture escherichia coli and staph aureus -repeat blood culture- NGTD -Consult wound care Hyponatremia Hypocalcemia Decreased PO intake -Sodium 135, calcium 8.2 -Continue IVF -monitor and replace PRN -Reports living at the [facility] and does not get very much food Diabetes mellitusIDDM -Accu-Chek with sliding scale insulin (mod) -Glucose 143- improved with semglee -Semglee 15 units added 10/4 -hypoglycemia protocol Hypertension -Continue home medication Substance Abuse -Marijuana abuse -Cessation education provided DVT PPx heparin Full code LOS 3 days Discharge Plan: Home
[2024-08-17] MEDS: COLLAGENASE 30 GM OINTMENT TOP SCH (12:51)
--- NOTE | 2024-08-17 16:27 | PN ---
History Of Present Illness: This is a 58-year-old male with diabetes mellitus, noncompliant with med ication, hemoglobin A1c of 11, coming in with the diabetic foot ulcer and osteomyelitis of the big to e metatarsal head. Patient complains of discomfort and pain. He is trying his best to control his s ugars, but still running in 200s to 300s. Past Medical History: As per HPI and hypercholesterolemia. Social History: Nonsmoker. Nondrinker. Family History: Noncontributory. Medications: Cefazolin and Levaquin. See MARs for other medications. Allergies: NO KNOWN DRUG ALLERGIES. Review of Systems: A 10-point review was performed. Physical Examination: Vital Signs: Temperature 97, pulse 75, respirations 16, blood pressure 138/67. HEENT: Unremarkable. Neck: Supple. Lungs: Clear to auscultation. Heart: S1, S2. Regular. Abdomen: Soft, nontender. Bowel sounds present. Extremity: Trace edema and foot wound noted. Laboratory Data: WBC 7.3 down from 16.3, hemoglobin 10.4, platelets are 237. Chemistry shows BUN of 10, creatinine 0.5. Micro data shows E coli, Enterobacter cloacae, and Staph aureus bacteremia. Recommendations: The patient on Levaquin and cefazolin. We will continue IV antibiotic for 6 weeks with Levaquin. Recommend to get an EKG to evaluate QT interval. Manage diabetes mellitus to control A1c and fasting sugar between 100 and 150. Continue diabetic education and diabetic support. We will fo llow the patient as needed. NF/MODL Voice ID: [id number] Report ID: [id number]
--- NOTE | 2024-08-17 16:41 | P.PN ---
Date of Service: 08/17/24 S: Patient feels well today, still having pain and tenderness in his toe. O: Open ulceration on that toe, has some drainage. His x-ray shows he does have osteo in that metatarsal phalangeal joint. A: Osteomyelitis of the great toe P: I discussed with the patient, his findings at the moment. He where he stood. He is very anxious to get his self back to work and reestablish himself. I explained to him that we could taken the operating room tomorrow for an amputation of that great toe. That is the route that he prefers to take, as he has been dealing with this for quite a time and it is both physically and mentally draining. He is anxious to get back to work so he can maintain his independence. We discussed ongoing problems with wound care, the need most likely for orthotics, the possibility of further pathology, and the fact that he will need to take care of his health over the oncoming years. He is understanding of all this and agrees. Will make him n.p.o. at midnight, and OR tomorrow.
[2024-08-18 07:45] LABS: Absolute Eosinophils 0.5 K/uL (0-0.5); Absolute Lymphocytes (CBC) 1.5 K/uL (0.7-4.9); Absolute Monocytes 0.7 K/uL (0.1-1.3); Absolute Neutrophil 4.7 K/uL (1.8-8.0); Basophils % 0.5 % (0-1.3); Eosinophils % 6.7 % (0-4.4); Hematocrit 33.2 % (39.6-49.0); Hemoglobin 11.1 g/dL (13.6-17.9); MCH 28.3 pg (27.0-35.0); MCHC 33.5 g/dL (32.0-36.0); MCV 84.6 fL (80-100); MPV 6.9 fL (7.6-11.3); Neutrophils % 62.8 % (41.7-73.7); Platelets 258 thou/uL (152-406); RBC Red Blood Cell Count 3.92 M/uL (4.33-5.43); Red Cell Distribution Width 13.8 % (12.1-15.2)
[2024-08-18 08:06] LABS: Anion Gap 8.1 mEq/L (5.0-15.0); Magnesium 1.9 mg/dL (1.6-2.4); Phosphorus 3.2 mg/dL (2.5-4.9); Potassium 4.1 mEq/L (3.5-5.1)
[2024-08-18] MEDS ORDERED: ONDANSETRON 4 MG/2 ML VIAL ONE (11:46)
[2024-08-18] MEDS ORDERED: propofoL 200 MG/20 ML VIAL IV ONE (11:46)
[2024-08-18] MEDS ORDERED: LIDOCAINE 2% MPF 5 ML VIAL ONE (11:46)
[2024-08-18] MEDS ORDERED: FENTANYL CITR 100 MCG/2 ML ONE ×2 (11:46→13:21)
[2024-08-18] MEDS ORDERED: MIDAZOLAM HCL 2 MG/2 ML INJ ONE (11:46)
[2024-08-18] MEDS ORDERED: COLLAGENASE 30 GM OINTMENT TOP SCH (12:00)
--- NOTE | 2024-08-18 12:29 | EKG ---
Test Date: 2024-08-17 Test Time: 13:03:46 Director Intelligence Analysis Programs: DERRICK MEASUREMENT RESULTS: Intervals: Rate: 67 MT: 162 QRSD: 86 QT: 402 QTc: 424 Thayer: P: 23 MT: 162 QRS: 0 T: 20 INTERPRETIVE STATEMENTS: Normal sinus rhythm Normal ECG Compared to ECG 08/13/2024 15:38:25 No significant changes Electronically Signed On 08-18-24 12:26:18 CDT by Yared Pedro
--- NOTE | 2024-08-18 12:42 | P.PN ---
Date of Service: 08/18/24 Subjective Going for amputation today No acute events overnight ROS 10 point ROS as noted above, otherwise negative Physical Exam General: AAO x3, NAD, Afebrile HEENT: Atraumatic, Normocephalic, PERRLA Neck: Supple, trachea midline, JVD not distended Respiratory: Clear to auscultation bilaterally, non-labored breathing, on room air Cardiovascular: Normal pulses present, Regular rate and rhythm, Normal S1 S2 present, no murmur noted Capillary refill: <2 Seconds Gastrointestinal: Normal active bowel sounds, Soft and benign on palpation, no ntender Musculoskeletal: Swelling (left foot), Erythema (left foot), Tenderness (left foot), Warmth (left foot), dressing CDI Integumentary: Other (left great toe open wound) Neurological: Normal speech, Normal tone Vitals Reviewed Problem list Sepsis secondary to left great toe osteomylitis Bacteremia Hyponatremia Hypocalcemia Decreased PO intake Diabetes mellitusIDDM Hypertension Substance Abuse Plan Sepsis secondary to left great toe osteomylitis Bacteremia Leukocytosis-resolved -Sepsis Criteria HR 96, WBC 16.3 now with Temp 101.4 F, left great toe osteromylitis -WBC improved -Surgery following-plan for amputation 08/18 -Cefepime stopped, gram positive blood culture -Merrem and vanc changed to Ancef and levaquin -IVF NS at 125 ml/hr, now at 75 ml/hr -Blood culture Staph aureus x 4 vials and wound culture escherichia coli and staph aureus -repeat blood culture- NGTD -Consult wound care Hyponatremia Hypocalcemia Decreased PO intake -Continue IVF -monitor and replace PRN -Reports living at the [facility] and does not get very much food Diabetes mellitusIDDM -Accu-Chek with sliding scale insulin (mod) -Semglee 15 units added 08/14 -hypoglycemia protocol Hypertension -Continue home medication Substance Abuse -Marijuana abuse -Cessation education provided DVT PPx heparin Full code LOS 3 days Discharge Plan: Home
--- NOTE | 2024-08-18 12:53 | P.CNS ---
Date of Consult: 08/15/24 PC: This patient presented to the emergency room with severe pain in his left great toe. HPC: This patient, who is well-known to me on a following the wound care presented back to the emergency room with severe pain and discomfort in his left great toe. He said there was purulent drainage from it, and he could hardly walk on it. PSHx: Negative PMHx: Diabetes, hypertension Social Hx: No known allergies Sys R: No cough, wheeze, shortness of breath. No chest pain or palpitations. Denies any urinary complaints O/E: Awake alert very uncomfortable HEENT: Negative Chest: Air entry equal bilaterally Abd: Soft nontender Saffell: Over the left metatarsal phalangeal joint has an ulcer. There is some foul-smelling drainage coming from it. We have been treating this as an outpatient at the wound care center. It however appears to have progressed Data: Foot x-ray displays osteomyelitis of the metatarsal phalangeal joint Impression: Osteomyelitis of the left great toe Plan: I have discussed extensively the patient his options at this point. We had tried treating him with IV antibiotics previously for this. He however is frustrated with this and I explained to him that the likelihood of it being healed at this time was minimal with the second round course. He wants to think about it, but he understands the metatarsal phalangeal amputation is most likely in his future. It may be necessary to take out the hole of the bone of the great toe depending on what the operative findings which show. The risks of this procedure were discussed with him the possibility of these for further surgeries and procedures was described nonhealing residual infection left behind were explained. Interference with his gait and need for proper footwear were explained. He understands and wants us to proceed.
--- NOTE | 2024-08-18 13:00 | PN ---
Subjective: The patient is lying in bed. No new acute event. Objective: Vital Signs: Reviewed. Lungs: Clear to auscultation. Heart: S1, S2. Regular. Abdomen: Soft, nontender. Bowel sounds present. Extremities: Foot wound noted. Laboratory Data: Reviewed. Assessment And Plan: Foot cellulitis and diabetic foot ulcer. The patient is up for amputation of t he big toe. Continue management of diabetes. The patient was encouraged to follow up with the clini c as outpatient. Wound care as per surgical team. We will follow the patient as needed. NF/MODL Voice ID: [id number] Report ID: [id number]
--- NOTE | 2024-08-18 14:29 | P.OP ---
Preoperative diagnosis: Osteomyelitis of the head of the left great metatarsal Postoperative diagnosis: The same Primary procedure: Amputation of great toe left foot Anesthesia: General Estimated blood loss: 10 cc Specimen: Toe and bone fragment Operative Technique: The patient brought the operating room placed supine on the table. After the induction of adequate general anesthesia, the area of the left foot was prepped with a Betadine solution, draped in the usual aseptic manner. After inspecting the toe a skin marker was used to danette our surgical incision lines. The skin incision was made over the medial aspect of the left foot over the metatarsal. This went down to ellipse around the actual metatarsal phalangeal joint that had ulcerated fold [place] and had necrotic bone underneath. This came around the great toe. Having extended our skin incision all the way down to bone the dissection continued we disarticulated the metatarsal tarsal phalangeal joint sending the toe for histopathology. On looking at the metatarsal phalangeal joint we could see there was obvious bone necrosis with fragments and passed the infection inside. Coming back to clean bone on that metatarsal we were now able to use the articulating solid to transect the metatarsal itself. Good clean bone was found on the proximal aspect. The distal portion was excised from the surrounding tissue and sent for histopa thology. The underlying sesamoid bones were now dissected free and sent as a separate specimen as well. The wound was inspected to ensure adequate hemostasis. Using interrupted sutures of PDS we were able to approximate the underlying tissue. Marie were then applied to the skin. At the end of the procedure the patient was in a stable condition when sent to the recovery room. Needle sponge instrument count were correct. No drains were placed.
[2024-08-18] MEDS: HYDROMORPHONE HCL 1 MG/ML INJ ONE (14:37)
[2024-08-18 14:52] VITALS: O2SAT 100
[2024-08-18] MEDS ORDERED: GLUCAGON 1 MG/VIAL IM PRN (15:19)
[2024-08-18] MEDS ORDERED: D10W 125 ML IV PRN (15:19)
[2024-08-18] MEDS: CEFAZOLIN SODIUM 2 GM in NA CHLORIDE 0.9% 100 ML IVPB SCH (16:48)
[2024-08-18] MEDS: HYDROCODONE/APAP 7.5/325 MG TAB PO PRN (16:48)
[2024-08-18] MEDS: Levofloxacin 750mg IV 750 MG/150 ML BAG IV SCH (16:48)
[2024-08-18] MEDS: INSULIN REGULAR (HUMAN) 100 UNIT/ML SQ SCH (16:50)
[2024-08-18] MEDS: MORPHINE 4 MG/ML SYR IV PRN (17:54)
[2024-08-18] MEDS: DIPHENHYDRAMINE 25 MG TAB/CAP PO ONE (21:30)
--- NOTE | 2024-08-19 09:17 | P.PN ---
Date of Service: 08/19/24 Subjective S/P amputation 08/18 Doing well post op Having a significant amount of pain still ROS 10 point ROS as noted above, otherwise negative Physical Exam General: AAO x3, NAD, Afebrile HEENT: Atraumatic, Normocephalic, PERRLA Neck: Supple, trachea midline, JVD not distended Respiratory: Clear to auscultation bilaterally, non-labored breathing, on room air Cardiovascular: Normal pulses present, Regular rate and rhythm, Normal S1 S2 present, no murmur noted Capillary refill: <2 Seconds Gastrointestinal: Normal active bowel sounds, Soft and benign on palpation, nontender Musculoskeletal: Swelling (left foot), Erythema (left foot), Tenderness (left foot), Warmth (left foot), dressing CDI Integumentary: Other (left great toe open wound) Neurological: Normal speech, Normal tone Vitals Reviewed Problem list Sepsis secondary to left great toe osteomylitis Bacteremia Hyponatremia Hypocalcemia Decreased PO intake Diabetes mellitusIDDM Hypertension Substance Abuse Plan Sepsis secondary to left great toe osteomylitis Bacteremia Leukocytosis-resolved -amputation performed 08/18 -Cefepime stopped, gram positive blood culture -Merrem and vanc changed to Ancef and levaquin -Blood culture Staph aureus x 4 vials and wound culture escherichia coli and staph aureus -repeat blood culture- NGTD -Consult wound care Hyponatremia Hypocalcemia Decreased PO intake -Continue IVF -monitor and replace PRN Diabetes mellitusIDDM -Accu-Chek with sliding scale insulin (mod) -Semglee 15 units added 08/14 -hypoglycemia protocol Hypertension -Continue home medication Substance Abuse -Marijuana abuse -Cessation education provided DVT PPx heparin Full code LOS 3 days Discharge Plan: Home
--- NOTE | 2024-08-19 13:36 | PN ---
Subjective: The patient is lying in bed, status post amputation, doing well. Objective: Vital Signs: Reviewed. Lungs: Clear to auscultation. Heart: S1, S2. Regular. Abdomen: Soft, nontender. Bowel sounds present. Extremities: Wound noted. Laboratory Data: Reviewed. Assessment And Plan: Diabetic neuropathy, diabetes mellitus, status post amputation of big toe. The patient's sugars are still running high. Continue current treatment. Wound management as per surgi noel team. We will follow the patient as needed. Continue antibiotic for 2 weeks, Keflex and Levaqui n. We will follow the patient as needed. NF/MODL Voice ID: [id number] Report ID: [id number]
[2024-08-19] MEDS: GABAPENTIN 100 MG CAP PO SCH (17:16)
[2024-08-19] MEDS ORDERED: GABAPENTIN 100 MG CAP PO SCH (21:00)
[2024-08-20 04:47] LABS: Hematocrit 33.1 % (39.6-49.0); Hemoglobin 11.2 g/dL (13.6-17.9); MCH 28.5 pg (27.0-35.0); MCHC 33.9 g/dL (32.0-36.0); MCV 84.1 fL (80-100); MPV 6.6 fL (7.6-11.3); Platelets 313 thou/uL (152-406); RBC Red Blood Cell Count 3.94 M/uL (4.33-5.43); Red Cell Distribution Width 14.2 % (12.1-15.2)
[2024-08-20 04:57] LABS: Anion Gap 7.9 mEq/L (5.0-15.0); Potassium 3.9 mEq/L (3.5-5.1)
[2024-08-20 09:19] VITALS: BP 137/73; TEMP 98.2
--- NOTE | 2024-08-20 13:52 | P.DS ---
Admission Date: 08/13/24 Discharge Date: 08/20/24 Disposition: ROUTINE DISCHARGE Discharge Condition: GOOD Reason for Admission: Left great toe wound Brief History of Present Illness: Nas White is a 58 year old male with Pmhx DM- IDDM and HTN who presents to the ED with chief complaint of increased pain and open wound to right great toe. Nas reports seeing Dr. Morales until January when he lost his job/insurance. Since then he has not been able to take care of his foot. He was discharged with IV antibiotics from an June admission. Today, his wound is open, erythema and swelling to the foot, WBC 16.3, with severe pain. Hospital Course: Problem list Sepsis secondary to left great toe osteomylitis Bacteremia Hyponatremia Hypocalcemia Decreased PO intake Diabetes mellitusIDDM Hypertension Substance Abuse Patient was admitted to the hospital for left great toe wound with osteomyelitis. Treated with IV antibiotics and subsequently underwent amputation of the great toe of left foot on 08/18. On admission he had blood cultures drawn on 08/13 which showed Staph aureus no 4 bottles, his wound culture grew E. coli, Enterobacter, Staph aureus and Enterococcus. All bacteria in the wound were sensitive to Levaquin, staph in blood sensitive to cephalosporins, Levaquin. Patient was seen by ID who recommends a total of 14 days of antibiotics after negative cultures, patient had negative blood cultures on 08/14 with 5 days with no growth. Patient will be sent prescriptions for Keflex, Levaquin for an additional 8 days to total 14 days of treatment after negative blood culture as well as the medicationNorco. Dressing with Santyl, gauze, Kerlix daily. Please follow-up with Dr. Morales and wound healing on Sunday 08/26. Continue other home medications as previously prescribed putting her insulin, gabapentin. Please also follow-up with your primary care doctor 1 to 2 weeks Vital Signs/Physical Exam: Temp Pulse Resp BP Pulse Ox 98.2 F 83 20 137/73 100 08/20/24 08:00 08/20/24 08:00 08/20/24 08:32 08/20/24 08:00 08/20/24 08:32 General: Alert, In no apparent distress, Oriented x3 HEENT: Atraumatic, PERRLA Neck: Supple, JVD not distended Respiratory: Clear to auscultation bilaterally, Normal air movement Cardiovascular: Regular rate/rhythm, Normal S1 S2 Gastrointestinal: Normal bowel sounds, No tenderness Musculoskeletal: No tenderness Integumentary: Other (Dressing in place to LLE CDI) Neurological: Normal speech, Normal tone, Normal affect Laboratory Data at Discharge: WBC 11.70 thou/uL (4.3-10.9) H 08/20/24 04:20 Hgb 11.2 g/dL (13.6-17.9) L 08/20/24 04:20 Hct 33.1 % (39.6-49.0) L 08/20/24 04:20 Plt Count 313 thou/uL (152-406) 08/20/24 04:20 PT 12.7 SECONDS (9.4-12.5) H 08/13/24 15:18 INR 1.14 08/13/24 15:18 APTT 30.8 SECONDS (24.3-36.9) 08/13/24 15:18 Sodium 132 mEq/L (136-145) L 08/20/24 04:20 Potassium 3.9 mEq/L (3.5-5.1) 08/20/24 04:20 BUN 13 mg/dL (7-18) 08/20/24 04:20 Creatinine 0.68 mg/dL (0.70-1.30) L 08/20/24 04:20 Glucose 127 mg/dL (74-106) H 08/20/24 04:20 Phosphorus 3.2 mg/dL (2.5-4.9) 08/18/24 07:00 Magnesium 1.9 mg/dL (1.6-2.4) 08/18/24 07:00 Total Bilirubin 0.9 mg/dL (0.2-1.0) 08/13/24 15:18 AST < 10 U/L (15-37) L 08/13/24 15:18 ALT 22 U/L (16-61) 08/13/24 15:18 Alkaline Phosphatase 92 U/L (45-117) 08/13/24 15:18 Home Medications: Metformin HCl [Glucophage*] 500 mg PO DAILY 08/14/16 lisinopriL [Prinivil*] 10 mg PO DAILY 90 Days #90 tab 07/25/23 Amlodipine [Norvasc*] 5 mg PO DAILY #30 tab 06/18/24 Atorvastatin Calcium [Lipitor] 40 mg PO BEDTIME #30 tab 06/18/24 Collagenase [Santyl Ointment*] 1 appl TOP DAILY tube 06/18/24 Insulin Glargine,Hum.rec.anlog [Semglee] 15 unit SQ DAILY #10 ml 06/18/24 Mupirocin Calcium [Bactroban Nasal*] 1 appl ELKIN BID #1 tube 06/18/24 Cephalexin [Keflex] 500 mg PO BID 8 Days #16 cap 08/20/24 Hydrocodone 10/APAP 325 [Pingree 10/325] 1 tab PO Q6H PRN #15 tab 08/20/24 levoFLOXacin [Levofloxacin] 500 mg PO DAILY #8 tab 08/20/24 New Medications: Cephalexin [Keflex] 500 mg PO BID 8 Days #16 cap levoFLOXacin [Levofloxacin] 500 mg PO DAILY #8 tab Hydrocodone 10/APAP 325 [Pingree 10/325] 1 tab PO Q6H PRN #15 tab PRN Reason: Pain Physician Discharge Instructions: Patient was admitted to the hospital for left great toe wound with osteomyelitis. Treated with IV antibiotics and subsequently underwent amputation of the great toe of left foot on 08/18. On admission he had blood cultures drawn on 08/13 which showed Staph aureus no 4 bottles, his wound culture grew E. coli, Enterobacter, Staph aureus and Enterococcus. All bacteria in the wound were sensitive to Levaquin, staph in blood sensitive to cephalosporins, Levaquin. Patient was seen by ID who recommends a total of 14 days of antibiotics after negative cultures, patient had negative blood cultures on 08/14 with 5 days with no growth. Patient will be sent prescriptions for Keflex, Levaquin for an additional 8 days to total 14 days of treatment after negative blood culture as well as the medicationNorco. Dressing with Santyl, gauze, Kerlix daily. Please follow-up with Dr. Morales and wound healing on Sunday 08/26. Continue other home medications as previously prescribed putting her insulin, gabapentin. Please also follow-up with your primary care doctor 1 to 2 weeks Diet: ADA Activity: Touch-down Followup: Fernie Morales MD [ACTIVE - CAN ADMIT] - 1 Week NONE,NONE [Primary Care Provider] - Time spent managing pt's care (in minutes): 43
== END 2024-08-20 10:07 | disposition home or self-care (01) | DRG 854 ==
LOC: ER 14:31 → 2ND 17:01
PROVIDERS: ADMIT Nurse Practitioner; ATTEND Hospitalist
PROC: 02HV33Z Insertion of Infusion Device into Superior Vena Cava, Percutaneous Approach (ICD-10-PCS; 2024-08-14)
PROC: 0Y6Q0Z0 Detachment at Left 1st Toe, Complete, Open Approach (ICD-10-PCS; principal; 2024-08-18 12:30)
DX: A41.51 Sepsis due to Escherichia coli [E. coli] (principal); E11.52 Type 2 diabetes mellitus with diabetic peripheral angiopathy with gangrene; L03.116 Cellulitis of left lower limb; E87.1 Hypo-osmolality and hyponatremia; M86.172 Other acute osteomyelitis, left ankle and foot; A41.01 Sepsis due to Methicillin susceptible Staphylococcus aureus; A41.81 Sepsis due to Enterococcus; A41.89 Other specified sepsis; I10 Essential (primary) hypertension; E11.69 Type 2 diabetes mellitus with other specified complication; E11.40 Type 2 diabetes mellitus with diabetic neuropathy, unspecified; E11.621 Type 2 diabetes mellitus with foot ulcer; L97.529 Non-pressure chronic ulcer of other part of left foot with unspecified severity; E83.51 Hypocalcemia; F12.10 Cannabis abuse, uncomplicated; T50.906A Underdosing of unspecified drugs, medicaments and biological substances, initial encounter; Z79.4 Long term (current) use of insulin; Z79.84 Long term (current) use of oral hypoglycemic drugs; Z90.49 Acquired absence of other specified parts of digestive tract; Z79.899 Other long term (current) drug therapy; Z87.891 Personal history of nicotine dependence; Z91.148 Patient's other noncompliance with medication regimen for other reason
CPT/HCPCS: 36415; 36569; 71045; 80048; 80053; 80202; 81003; 82947; 83036; 83605; 83735; 84100; 85025; 85027; 85610; 85730; 87040; 87070; 87077; 87186; 87205; 88304; 88305; 88311; 93005; 94010; 96365; 96367; 96375; 99285; J0612; J0692; J1170; J1200; J1644; J2001; J2185; J2250; J2270; J2405; J2543; J2704; J3010; J3475; J3590; J7030; J7040; J7050

== ENCOUNTER 2024-08-22 16:26 | Emergency (ER) | payer SELFPAY ==
--- NOTE | 2024-08-22 16:59 | ER ---
Nurse's Notes [facility] Name: Nas White Jr Age: 58 yrs Sex: Male : 1965 Arrival Date: 08/22/2024 Time: 16:26 Bed 5 Private MD: Diagnosis: Constipation Presentation: 08/22 16:37 Chief complaint: Patient states: constipation, pt reports rectal pain, reports last BM aa5 was 08/19/2024. Coronavirus screen: At this time, the client does not indicate any symptoms associated with coronavirus-19. Ebola Screen: Patient denies travel to an Ebola-affected area in the 21 days before illness onset. Initial Sepsis Screen: Does the patient meet any 2 criteria? No. Patient's initial sepsis screen is negative. Does the patient have a suspected source of infection? No. Patient's initial sepsis screen is negative. Risk Assessment: Do you want to hurt yourself or someone else? Patient reports no desire to harm self or others. Onset of symptoms was August 2024. 16:37 Acuity: CAITLIN 3 aa5 16:37 Method Of Arrival: Ambulatory aa5 Historical: - Allergies: 16:37 No Known Allergies; aa5 - PMHx: 16:37 Diabetes - NIDDM; Hypertension; aa5 - PSHx: 16:37 Appendectomy; aa5 - Immunization history:: Adult Immunizations unknown. - Infectious Disease History:: Denies. - Social history:: Smoking status: Patient reports the use of cigarette tobacco products, denies chronic smoking, but will smoke occasionally. Screenin:07 [facility] ED Fall Risk Assessment (Adult) History of falling in the last 3 months, mb9 including since admission No falls in past 3 months (0 pts) Confusion or Disorientation No (0 pts) Intoxicated or Sedated No (0 pts) Impaired Gait No (0 pts) Mobility Assist Device Used No (0 pt) Altered Elimination No (0 pt) Score/Fall Risk Level 0 - 2 = Low Risk Oriented to surroundings, Maintained a safe environment, Educated pt \T\ family on fall prevention, incl call for assistance when getting out of bed. Abuse screen: Denies threats or abuse. Nutritional screening: No deficits noted. Tuberculosis screening: No symptoms or risk factors identified. Assessment: 17:00 General: Appears in no apparent distress. Behavior is calm, cooperative. Pain: Denies mb9 pain. Neuro: Darden Agitation-Sedation Scale (RASS): 0 - Alert and Calm Level of Consciousness is awake, alert, obeys commands, Oriented to person, place, time, situation, Appropriate for age. Cardiovascular: Patient's skin is warm and dry. Respiratory: Airway is patent Respiratory effort is even, unlabored. GI: Abdomen is round non-distended, Bowel sounds present X 4 quads. Abd is soft and non tender X 4 quads. Reports constipation. : No signs and/or symptoms were reported regarding the genitourinary system. Derm: Skin is pink, warm \T\ dry. Musculoskeletal: Range of motion: intact in all extremities. Vital Signs: 16:37 BP 134 / 68; Pulse 99; Resp 18 S; Temp 98(TE); Pulse Ox 98% on R/A; Weight 106.59 kg aa5 (R); Height 5 ft. 4 in. (R); 16:37 Body Mass Index 40.34 (106.59 kg, 162.56 cm) aa5 ED Course: 16:30 Patient arrived in ED. mg5 16:31 [facility] Ald[facility]C [facility] kb 16:31 Ernie Mendez MD is Attending Physician. kb 16:37 Triage completed. aa5 16:37 Arm band placed on. aa5 16:40 Laverne Villanueva, RN is Primary Nurse. mb9 16:58 Laverne Villanueva, RN is Primary Nurse. mb9 17:00 Bed in low position. Call light in reach. Side rails up X 1. Provided Education on: mb9 press call light if needing anything. Client placed on continuous cardiac and pulse oximetry monitoring. NIBP monitoring applied. 17:07 No provider procedures requiring assistance completed. Patient did not have IV access mb9 during this emergency room visit. Administered Medications: 17:00 Drug: Magnesium Citrate PO Liquid 300 ml PO once Route: PO; mb9 17:22 Follow up: Response: No adverse reaction mb9 Medication: 17:07 VIS not applicable for this client. mb9 Outcome: 16:58 Discharge ordered by . kb 17:22 Discharged to home ambulatory, mb9 17:22 Condition: stable 17:22 Discharge instructions given to patient, Instructed on discharge instructions, follow up and referral plans. Demonstrated understanding of instructions, follow-up care, 17:23 Patient left the ED. mb9 Signatures: Annabella Aldana FNP-C FNP-Maritza Calzada RN RN aa5 Laverne Villanueva RN RN mb9 Jodi Sanchez mg5 Corrections: (The following items were deleted from the chart) 16:38 16:37 Social history: Smoking status: Patient denies any tobacco usage or history of. carissa aa5
--- NOTE | 2024-08-22 16:59 | EDPHYS ---
Physician Documentation [facility] Name: Nas White Jr Age: 58 yrs Sex: Male : 1965 Arrival Date: 08/22/2024 Time: 16:26 Bed 5 Private MD: ED Physician Ernie Mendez HPI: 08/22 16:52 This 58 yrs old Male presents to ER via Ambulatory with complaints of kb Constipation. 16:52 Pt is a 58 year old male who presents for constipation. States last BM was 08/19/24. kb States he feels like there is something there that needs to come out, but he is unable to push it out. Denies n/v, abd pain.. Historical: - Allergies: 16:37 No Known Allergies; aa5 - PMHx: 16:37 Diabetes - NIDDM; Hypertension; aa5 - PSHx: 16:37 Appendectomy; aa5 - Immunization history:: Adult Immunizations unknown. - Infectious Disease History:: Denies. - Social history:: Smoking status: Patient reports the use of cigarette tobacco products, denies chronic smoking, but will smoke occasionally. ROS: 16:50 Constitutional: As per HPI kb Exam: 16:51 Constitutional: This is a well developed, well nourished patient who is awake, alert, kb and in no acute distress. Head/Face: Normocephalic, atraumatic. ENT: Moist Mucous membranes Cardiovascular: Regular rate Respiratory: Respirations even and unlabored. No increased work of breathing. Talking in full sentences Abdomen/GI: Soft, non-tender. No distention Skin: Warm, dry with normal turgor. Normal color. MS/ Extremity: Pulses equal, no cyanosis. Neurovascular intact. Full, normal range of motion. Neuro: Awake and alert, GCS 15, oriented to person, place, time, and situation. Moves all extremities. Normal gait. 16:51 Abdomen/GI: Rectal exam: the exam is deferred, because of patient request, Vital Signs: 16:37 BP 134 / 68; Pulse 99; Resp 18 S; Temp 98(TE); Pulse Ox 98% on R/A; Weight 106.59 kg aa5 (R); Height 5 ft. 4 in. (R); 16:37 Body Mass Index 40.34 (106.59 kg, 162.56 cm) aa5 MDM: 16:31 Patient medically screened. kb 16:51 Differential diagnosis: constipation, bowel obstruction, fecal impaction. Data kb reviewed: vital signs, nurses notes. Test considered but Not performed: X-ray: KUB considered but pt has no abd pain or tenderness. Counseling: I had a detailed discussion with the patient and/or guardian regarding the historical points, exam findings, and any diagnostic results supporting the discharge/admit diagnosis, the need for outpatient follow up, a family practitioner, to return to the emergency department if symptoms worsen or persist or if there are any questions or concerns that arise at home. ED course: Discussed rectal exam and possible enema with pt. Pt does not want anything inserted into rectum. States he would just like an oral medication. Denies abd pian, n/v, fever. . Administered Medications: 17:00 Drug: Magnesium Citrate PO Liquid 300 ml PO once Route: PO; mb9 17:22 Follow up: Response: No adverse reaction mb9 Disposition Summary: 08/22/24 16:58 Discharge Ordered Notes: Location: Home kb Condition: Stable kb Diagnosis - Constipation kb Followup: kb - With: Emergency Department - When: As needed - Reason: Worsening of condition Followup: kb - With: Private Physician - When: 2 - 3 days - Reason: Recheck today's complaints, Continuance of care, Re-evaluation by your physician Discharge Instructions: - Discharge Summary Sheet kb - Constipation, Adult, [id number] kb Forms: - Medication Reconciliation Form kb - Antibiotic Education kb - Prescription Opioid Use kb - Patient Portal Instructions kb - Leadership Thank You Letter kb Addendum: 08/24/2024 09:22 I was immediately available for consultation during this patient's visit. I did not e c2 personally see the patient or discuss the patient with the SHAHBAZ. . Signatures: Annabella Aldana, RIMA JOHNSON-Maritza Calzada RN RN aa5 Laverne Villanueva RN RN mb9 Ernie Mendez MD MD ec2 Corrections: (The following items were deleted from the chart) 08/22 16:38 16:37 Social history: Smoking status: Patient denies any tobacco usage or history of. aa5 aa5
[2024-08-22] MEDS ORDERED: MAGNESIUM CITRATE 300 ML BOT ONE (17:00)
[2024-08-22 20:29] VITALS: BP 134/68; TEMP 98; O2SAT 98
== END 2024-08-22 17:23 | disposition home or self-care (01) ==
LOC: ER 16:26
DX: K59.00 Constipation, unspecified (principal)
CPT/HCPCS: 99283

== ENCOUNTER 2024-11-02 18:05 | Inpatient (IN) | payer SELFPAY ==
--- OUTSIDE RECORDS SUMMARY | 2024-11-02 18:08 | XMS REPORT | Continuity of Care Document ---
Author Name Unknown Address [address] [place] [address] [facility] thconnect Address 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 Ordering Clinician Indication Dosage Frequency Signature (SIG) Comments Components Source gabapentin 100 mg capsule 2023-11 2- 00:00: 00 Yes 12mg Raj Irwin atorvastati n 10 mg tablet 2023-11 0-24 00:00: 00 Yes 1mg Raj Irwin hydrocodone 10 mg-acetamin ophen 325 mg tablet 2023-11 0-10 00:00: 00 Yes mg Raj Irwin clindamycin HCl 300 mg capsule 2023-11 0- 00:00: 00 Yes mg Raj Irwin gabapentin 100 mg capsule 2023-11 0-02 00:00: 00 Yes mg Raj Irwin glyburide 2.5 mg tablet -20 00:00: 00 Yes mg Raj Irwin sulfamethox azole 800 mg-trimetho prim 160 mg tablet -20 00:00: 00 Yes mg Raj Irwin sulfamethox azole 800 mg-trimetho prim 160 mg tablet 7-05 00:00: 00 Yes mg Raj Irwin metformin ER 500 mg tablet,exte nded release 24 hr - 00:00: 00 Yes mg Raj Irwin Vital Signs Vital Name Observation Time Observation Value Comments S tracy BP Systolic 2024-10-22 14:11:00 122 mm[Hg] Step zina Irwin BP Diastolic 2024-10-22 14:11:00 71 mm[Hg] Raoy phen F Dc Weight Measured 2024-10-22 14:11:00 217.20 pounds Raj F Dc Height Measured 2024-10-22 14:11:00 68.00 inches Raj F Dc Body Temperature 2024-10-22 14:11:00 98.20 degrees Raj F Dc Heart Rate 2024-10-22 14:11:00 92.00 /min Verónica en F Dc Respiratory Rate 2024-10-22 14:11:00 18.00 /min Raj F Dc Body Temperature 2024-09-23 17:38:00 98.10 degrees Raj F Dc Heart Rate 2024-09-23 17:38:00 98.00 /min Verónica en F Dc Respiratory Rate 2024-09-23 17:38:00 18.00 /min Raj F Dc BP Systolic 2024-09-23 17:38:00 123 mm[Hg] Step hen F Dc BP Diastolic 2024-09-23 17:38:00 78 mm[Hg] Rayo phen F Dc Weight Measured 2024-09-23 17:38:00 213.00 pounds Raj F Dc Height Measured 2024-09-23 17:38:00 68.00 inches Raj F Dc BP Systolic 2024-09-03 10:03:00 108 mm[Hg] Step hen F Dc BP Diastolic 2024-09-03 10:03:00 72 mm[Hg] Rayo phen F Dc Weight Measured 2024-09-03 10:03:00 206.00 pounds Raj F Dc Height Measured 2024-09-03 10:03:00 68.00 inches Raj F Dc Body Temperature 2024-09-03 10:03:00 98.20 degrees Raj F Dc Heart Rate 2024-09-03 10:03:00 95.00 /min Verónica en F Dc Respiratory Rate 2024-09-03 10:03:00 18.00 /min Raj F Dc BP Systolic 2024-09-03 09:53:00 108 mm[Hg] Step hen F Dc BP Diastolic 2024-09-03 09:53:00 72 mm[Hg] Rayo phen F Dc Weight Measured 2024-09-03 09:53:00 206.00 pounds Raj F Dc Height Measured 2024-09-03 09:53:00 68.00 inches Raj Irwin Body Temperature 2024-09-03 09:53:00 98.20 degrees Raj Irwin Heart Rate 2024-09-03 09:53:00 95.00 /min Verónica Irwin Respiratory Rate 2024-09-03 09:53:00 18.00 /min Raj Irwin Encounters Start Date/Time End Date/Time Encounter Type Admission Type Attending [facility] Care Department Encounter ID Source 2024-10-22 14:04:32 2024-10-22 14:04:32 Outpatient [facility] S[facility] [id number] Raj Irwin 2024-10-22 00:00:00 2024-10-22 00:00:00 Outpatient Visit SFA [id number] Raj Irwin 2024-10-01 08:16:36 2024-10-01 08:16:36 Outpatient [facility] SFA [id number] Raj Irwin 2024-09-23 17:21:05 2024-09-23 17:21:05 Outpatient [facility] SFA [id number] Raj Irwin 2024-09-23 00:00:00 2024-09-23 00:00:00 Outpatient Visit SFA [id number] Raj Irwin 2024-09-03 09:39:47 2024-09-03 09:39:47 Outpatient S[facility] SFA [id number] Raj Irwin
[2024-11-02] MEDS ORDERED: NA CHLORIDE 0.9% 1,000 ML ONE (19:14)
[2024-11-02] MEDS ORDERED: MORPHINE 4 MG/ML SYR ONE (19:14)
[2024-11-02] MEDS ORDERED: ONDANSETRON 4 MG/2 ML VIAL ONE (19:14)
[2024-11-02 19:36] LABS: Absolute Basophils 0.1 K/uL (0-0.5); Absolute Eosinophils 0.2 K/uL (0-0.5); Absolute Lymphocytes (CBC) 2.5 K/uL (0.7-4.9); Absolute Monocytes 1.2 K/uL (0.1-1.3); Absolute Neutrophil 11.3 K/uL (1.8-8.0); Basophils % 0.7 % (0-1.3); Eosinophils % 1.4 % (0-4.4); Hematocrit 35.7 % (39.6-49.0); Hemoglobin 11.9 g/dL (13.6-17.9); Lymphocytes % 16.4 % (15.3-44.8); MCHC 33.4 g/dL (32.0-36.0); MCV 80.9 fL (80-100); MPV 6.8 fL (7.6-11.3); Monocytes % 7.6 % (3.3-12.3); Neutrophils % 73.9 % (41.7-73.7); Nucleated Red Blood Cells % 0.2 % (0-0); Platelets 330 thou/uL (152-406); RBC Red Blood Cell Count 4.42 M/uL (4.33-5.43); Red Cell Distribution Width 15.1 % (12.1-15.2)
[2024-11-02 19:41] LABS: PTT, Activated Partial Thromb 32.4 SECONDS (24.3-36.9); Protime INR 1.07
[2024-11-02 19:53] LABS: Albumin 2.9 g/dL (3.4-5.0); Albumin/Globulin Ratio 0.6 (1.1-1.8); Anion Gap 9.7 mEq/L (5.0-15.0); Bilirubin Total 0.4 mg/dL (0.2-1.0); Globulin 5.1 g/dL (2.3-3.5); Potassium 3.7 mEq/L (3.5-5.1)
--- NOTE | 2024-11-02 20:31 | RAD REPORT ---
Exam:Foot Left 3 View CLINICAL HISTORY: Left foot pain FINDINGS: Most of the first metatarsal and remainder of the first phalanx are absent presumably secondary to am putation. Ill-defined lucencies are present within the residual first metatarsal which may indicate osteomyelit is. Further evaluation with MRI may be helpful No fracture or location seen
--- NOTE | 2024-11-02 20:40 | ER ---
Nurse's Notes [facility] Name: Nas White Jr Age: 59 yrs Sex: Male : 1965 Arrival Date: 11/02/2024 Time: 18:05 Bed 17 Private MD: Diagnosis: Cellulitis of left lower limb-foot;Osteomyelitis, unspecified Presentation: 11/02 18:24 Chief complaint: Severe left foot pain that started after wound care at Dr. Morales's office today. Coronavirus screen: At this time, the client does not indicate any symptoms associated with coronavirus-19. Ebola Screen: No symptoms or risks identified at this time. Initial Sepsis Screen: Does the patient meet any 2 criteria? No. Patient's initial sepsis screen is negative. Does the patient have a suspected source of infection? No. Patient's initial sepsis screen is negative. Risk Assessment: Do you want to hurt yourself or someone else? Patient reports no desire to harm self or others. Onset of symptoms was November 02, 2024. 18:24 Method Of Arrival: Wheelchair 18:24 Acuity: CAITLIN 3 hb Historical: - Allergies: 18:25 No Known Allergies; hb - PMHx: 18:25 Diabetes - NIDDM; Hypertension; hb - PSHx: 18:25 Appendectomy; hb - Immunization history:: Adult Immunizations up to date. - Infectious Disease History:: Denies. - Social history:: Smoking status: Patient denies any tobacco usage or history of. Screenin:00 [facility] ED Fall Risk Assessment (Adult) History of falling in the last 3 months, me1 including since admission No falls in past 3 months (0 pts) Confusion or Disorientation No (0 pts) Intoxicated or Sedated No (0 pts) Impaired Gait No (0 pts) Mobility Assist Device Used No (0 pt) Altered Elimination No (0 pt) Score/Fall Risk Level 0 - 2 = Low Risk Maintained a safe environment, Provided non-skid footwear, Hourly rounding (assess needs \T\ fall precautionary measures) done. Abuse screen: Denies threats or abuse. Nutritional screening: No deficits noted. Tuberculosis screening: No symptoms or risk factors identified. Assessment: 19:00 General: Appears uncomfortable, well groomed, well developed, well nourished, Behavior me1 is calm, cooperative, appropriate for age, Reports Severe left foot pain that started after wound care at Dr. Morales's office today. Pain: Complains of pain in left third toe and left second toe and dorsum of left foot and left foot and left first toe Pain does not radiate. Pain currently is 10 out of 10 on a pain scale. Quality of pain is described as throbbing, Pain began suddenly, Is continuous. Neuro: Level of Consciousness is awake, alert, obeys commands, Oriented to person, place, time, situation, Appropriate for age. Cardiovascular: Patient's skin is warm and dry. Respiratory: Airway is patent Trachea midline Respiratory effort is even, unlabored, Respiratory pattern is regular, symmetrical. GI: Abdomen is round non-distended, Reports vomiting. : No signs and/or symptoms were reported regarding the genitourinary system. EENT: No signs and/or symptoms were reported regarding the EENT system. Derm: Skin is healthy with good turgor, Skin is pink, warm \T\ dry. Wound noted left first toe Wound is non healing wound from left great toe amputation in August. Musculoskeletal: Reports pain in left first toe. Vital Signs: 18:24 BP 111 / 69; Pulse 91; Resp 18; Temp 99.9(O); Pulse Ox 100% on R/A; Weight 98.43 kg; hb Height 5 ft. 4 in. ; Pain 10/10; 19:00 BP 143 / 63; Pulse 88; Resp 16; Pulse Ox 96% on R/A; me1 20:00 BP 143 / 64; Pulse 89; Resp 16; Pulse Ox 96% ; me1 21:00 BP 140 / 63; Pulse 87; Resp 14; Pulse Ox 99% ; me1 18:24 Body Mass Index 37.25 (98.43 kg, 162.56 cm) hb 18:24 Pain Scale: Adult hb ED Course: 18:08 Patient arrived in ED. im 18:09 Annabella Aldana FNP-C is PHCP. kb 18:09 Jose D Ponce MD is Attending Physician. kb 18:25 Triage completed. hb 18:25 Arm band placed on. hb 19:00 Patient has correct armband on for positive identification. Bed in low position. Call me1 light in reach. Side rails up X 1. Provided Education on: POC. Verbalized understanding.. Client placed on continuous cardiac and pulse oximetry monitoring. NIBP monitoring applied. nuclear monitoring technician on. Pulse ox on. NIBP on. Warm blanket given. 19:00 No provider procedures requiring assistance completed. me1 19:09 Orin Rojo, RN is Primary Nurse. me1 19:17 Foot Left 3 View In Process Unspecified. EDMS 19:29 Initial lab(s) drawn, by sd, sent to lab. Inserted saline lock: 20 gauge in right sd1 antecubital area, using aseptic technique. 19:30 Blood Culture Adult (2) Sent. me1 19:30 CBC with Diff Sent. me1 19:30 CMP Sent. me1 19:30 Lactate w/ 2H reflex if indic. Sent. me1 19:30 Protime (+inr) Sent. sd1 19:30 Ptt, Activated Sent. me1 19:35 First set of blood cultures drawn by me, Second set of blood cultures drawn by me. sd1 20:42 Mike Garcia MD is Hospitalizing Provider. 11/03 15:30 Patient admitted, IV remains in place. tm6 Administered Medications: 11/02 19:30 Drug: Ondansetron IVP 4 mg IVP once; over 2 minutes Route: IVP; Site: right antecubital;sd1 19:44 Follow up: Response: No adverse reaction; Nausea is decreased sd1 19:30 Drug: NS 0.9% IV 1000 ml IV at 1 bolus Per protocol; to be given as a bolus over 60 me1 minutes Route: IV; Rate: 1 bolus; Site: right antecubital; 21:56 Follow up: Response: No adverse reaction; IV Status: Infusion continued; IV Intake: mt4 1000ml 19:31 Drug: morphine IVP or IV 4 mg IVP once over 4 mins Route: IVP; Infused Over: 4 mins; sd1 Site: right antecubital; 19:45 Follow up: Response: No adverse reaction; Pain is decreased me1 20:47 Follow up: Response: No adverse reaction; Pain is decreased sd1 21:11 Drug: Piperacillin-Tazobactam IVPB 3.375 grams IVPB once over 60 mins; (mix in NS 100 me1 mL) Route: IVPB; Infused Over: 60 mins; Site: right antecubital; 21:56 Follow up: Response: No adverse reaction; IV Status: Infusion continued; IV Intake: mt4 100ml 21:55 Drug: vancoMYCIN IVPB 1 grams IVPB once over 2 hrs Route: IVPB; Infused Over: 2 hrs; mt4 Site: right antecubital; Medication: 19:00 VIS not applicable for this client. me1 Intake: 21:56 IV: 100ml; Total: 100ml. mt4 21:56 IV: 1000ml; Total: 1100ml. mt4 Outcome: 20:40 Discharge ordered by . wilfred 20:43 Decision to Hospitalize by Provider. wilfred 11/03 15:29 Admitted to ER Hold. Please see [facility] for further documentation. tm6 Condition: stable Instructed on the need for admit, 15:30 Patient left the ED. tm6 Signatures: Dispatcher [employer] EDAnnabella Acosta, PEDIATRIC PHYSICAL THERAPY ASSISTANT-C PEDIATRIC PHYSICAL THERAPY ASSISTANT-Ckb Milagro Mccarty RN RN Catherine Rivera Michelle, RN RN sd1 Fatuma Torres RN RN tm6 Fermin Jackson RN RN mt4 Corrections: (The following items were deleted from the chart) 11/02 21:36 18:24 Chief complaint: Severe left foot pain that started after wound care at Dr. salud Morales's office today. hb
--- NOTE | 2024-11-02 20:43 | EDPHYS ---
Physician Documentation [facility] Name: Nas White Jr Age: 59 yrs Sex: Male : 1965 Arrival Date: 11/02/2024 Time: 18:05 Bed 17 Private MD: ED Physician Jose D Ponce HPI: 11/02 19:58 This 59 yrs old Male presents to ER via Wheelchair with complaints of Foot kb Pain - Left. 19:58 Pt is a 59 year old male who presents for increased pain to left foot than normal. kb States he has had pain to the foot since amputation of great toe approx 4 months ago. Today he saw Dr Morales and he put "some black stuff on the wound." States the pain has been worse since then. Also reports increased redness and swelling. . Historical: - Allergies: 18:25 No Known Allergies; hb - PMHx: 18:25 Diabetes - NIDDM; Hypertension; hb - PSHx: 18:25 Appendectomy; hb - Immunization history:: Adult Immunizations up to date. - Infectious Disease History:: Denies. - Social history:: Smoking status: Patient denies any tobacco usage or history of. ROS: 19:57 Constitutional: As per HPI kb Exam: 19:57 Constitutional: This is a well developed, well nourished patient who is awake, alert, kb and in no acute distress. Head/Face: Normocephalic, atraumatic. ENT: Moist Mucous membranes Cardiovascular: Regular rate Respiratory: Respirations even and unlabored. No increased work of breathing. Talking in full sentences Neuro: Awake and alert, GCS 15, oriented to person, place, time, and situation. 19:57 Musculoskeletal/extremity: Extremities: grossly normal except: noted in the left first toe: open wound s/p amputation, ROM: intact in all extremities, Circulation is intact in all extremities. Sensation intact. 19:57 Skin: cellulitis, that is mild, on the left third toe and left second toe and dorsum of left foot, 21:11 ECG was reviewed by the Attending Physician. Vital Signs: 18:24 BP 111 / 69; Pulse 91; Resp 18; Temp 99.9(O); Pulse Ox 100% on R/A; Weight 98.43 kg; hb Height 5 ft. 4 in. ; Pain 10/10; 19:00 BP 143 / 63; Pulse 88; Resp 16; Pulse Ox 96% on R/A; me1 20:00 BP 143 / 64; Pulse 89; Resp 16; Pulse Ox 96% ; me1 21:00 BP 140 / 63; Pulse 87; Resp 14; Pulse Ox 99% ; me1 18:24 Body Mass Index 37.25 (98.43 kg, 162.56 cm) hb 18:24 Pain Scale: Adult hb MDM: 18:09 Medical Screening Exam initiated kb 19:57 Data reviewed: vital signs, nurses notes. kb 20:40 Differential diagnosis: cellulitis, osteomyelitis, wound infection. kb 20:41 Consideration of Admission/Observation Patient was admitted/placed on observation. kb Escalation of care including admission/observation considered. Management of patient was discussed with the following: Hospitalist: MARY Yang accepts pt for admission under Dr Garcia. Counseling: I had a detailed discussion with the patient and/or guardian regarding the historical points, exam findings, and any diagnostic results supporting the discharge/admit diagnosis, lab results, radiology results, the need for further work-up and treatment in the hospital. 11/02 18:24 Order name: Blood Culture Adult (2) kb 11/02 18:24 Order name: CBC with Diff; Complete Time: 19:39 kb 11/02 18:24 Order name: CMP; Complete Time: 19:54 kb 11/02 18:24 Order name: Lactate w/ 2H reflex if indic.; Complete Time: 19:54 kb 11/02 18:24 Order name: Protime (+inr); Complete Time: 19:42 kb 11/02 18:24 Order name: Ptt, Activated; Complete Time: 19:42 kb 11/02 21:15 Order name: Vancomycin Level Trough EDMS 11/02 21:26 Order name: Urinalysis w/ reflexes EDMS 11/02 21:26 Order name: CBC with Automated Diff EDMS 11/02 21:26 Order name: Comprehensive Metabolic Panel EDMS 11/02 21:26 Order name: Magnesium EDMS 11/02 21:26 Order name: Phosphorus EDMS 11/03 08:34 Order name: Glucose, Ancillary Testing EDMS 11/03 12:31 Order name: Glucose, Ancillary Testing EDMS 11/02 19:17 Order name: Foot Left 3 View; Complete Time: 20:32 EDMS 11/02 21:17 Order name: Foot Left Wo Cont EDMS 11/02 21:26 Order name: CONS Physician Consult EDKY 11/02 18:24 Order name: Accucheck; Complete Time: 10:25 kb 11/02 18:24 Order name: Cardiac monitoring; Complete Time: 10:25 kb 11/02 18:24 Order name: EKG - Nurse/Tech; Complete Time: 10:25 kb 11/02 18:24 Order name: IV Saline Lock - Large Bore; Complete Time: 19:30 kb 11/02 18:24 Order name: Labs collected and sent; Complete Time: 19:30 kb 11/02 18:24 Order name: O2 Per Protocol; Complete Time: 19:30 kb 11/02 18:24 Order name: O2 Sat Monitoring; Complete Time: 19:30 kb 11/02 18:24 Order name: Vital Signs; Complete Time: 19:30 kb EC:11 Rate is 84 beats/min. Rhythm is regular. QRS [place] is Normal. OR interval is normal at kb 178 msec. QRS interval is normal at 94 msec. QT interval is normal at 449 msec. Administered Medications: 19:30 Drug: Ondansetron IVP 4 mg IVP once; over 2 minutes Route: IVP; Site: right antecubital;me1 19:44 Follow up: Response: No adverse reaction; Nausea is decreased me1 19:30 Drug: NS 0.9% IV 1000 ml IV at 1 bolus Per protocol; to be given as a bolus over 60 me1 minutes Route: IV; Rate: 1 bolus; Site: right antecubital; 21:56 Follow up: Response: No adverse reaction; IV Status: Infusion continued; IV Intake: mt4 1000ml 19:31 Drug: morphine IVP or IV 4 mg IVP once over 4 mins Route: IVP; Infused Over: 4 mins; me1 Site: right antecubital; 19:45 Follow up: Response: No adverse reaction; Pain is decreased me1 20:47 Follow up: Response: No adverse reaction; Pain is decreased me1 21:11 Drug: Piperacillin-Tazobactam IVPB 3.375 grams IVPB once over 60 mins; (mix in NS 100 me1 mL) Route: IVPB; Infused Over: 60 mins; Site: right antecubital; 21:56 Follow up: Response: No adverse reaction; IV Status: Infusion continued; IV Intake: mt4 100ml 21:55 Drug: vancoMYCIN IVPB 1 grams IVPB once over 2 hrs Route: IVPB; Infused Over: 2 hrs; mt4 Site: right antecubital; Disposition Summary: 11/02/24 20:43 Hospitalization Ordered Notes: Hospitalization Status: Inpatient Admission kb Provider: Mike Garcia Condition: Stable(11/02/24 20:43) kb Problem: an ongoing problem kb Symptoms: have worsened kb Bed/Room Type: Standard kb Location: Telemetry/MedSurg (Inpatient)(11/03/24 12:23) eb Room Assignment: 232(11/03/24 12:27) ja Diagnosis - Cellulitis of left lower limb - foot(11/02/24 20:43) kb - Osteomyelitis, unspecified(11/02/24 20:43) kb Forms: - Medication Reconciliation Form kb - SBAR form kb - Leadership Thank You Letter kb Addendum: 11/05/2024 12:40 Co-signature as Attending Physician, Jose D Ponce MD I agree with the assessment and c villanueva plan of care. Signatures: Dispatcher [employer] EDKY Annabella Aldana, GLASS CUTTER HAND-C GLASS CUTTER HAND-Ckb Jose D Ponce MD MD cha Baxter, Heather, RN RN Vaibhav Bennett RN RN jaSarah Hernández Romy Larson RN RN vc1 Orin Rojo RN RN me1 Fermin Jackson RN RN mt4 Corrections: (The following items were deleted from the chart) 11/02 19:17 18:23 Foot Right 3 View+RAD.RAD.BRZ ordered. [facility] EDKY 19:57 19:55 Constitutional: As per HPI ENT: Negative for injury, pain, and discharge, kb Cardiovascular: Negative for chest pain, palpitations, and edema, Respiratory: Negative for shortness of breath, cough, wheezing, and pleuritic chest pain, Neuro: Negative for headache, weakness, numbness, tingling, and seizure, kb 19:57 19:55 MS/extremity: Positive for of the left first toe, s/p amputation, open wound with kb surrounding cellulitis. , kb 19:57 19:55 Skin: Positive for cellulitis, of the dorsum of left foot, left second toe and kb left third toe, kb 20:40 20:40 Home kb kb 20:40 20:40 Stable kb kb 20:40 20:40 Cellulitis of left lower limb - foot kb kb 20:40 20:40 Osteomyelitis, unspecified kb kb 11/03 02:20 11/02 20:43 Telemetry/MedSurg (Inpatient) kb vc1 11/03 02:20 11/02 20:43 kb vc1 11/03 12:23 02:20 [facility] ER HOLD vc1 eb 12: 02:20 ERHOLD- vc1 eb 12: 12:23 211 eb ja1
[2024-11-02] MEDS ORDERED: NA CHLORIDE 0.9% 250 ML ONE (21:01)
[2024-11-02] MEDS ORDERED: PIPERACIL/TAZO 3.375 GM VIAL IV ONE (21:01)
[2024-11-02] MEDS ORDERED: VANCOMYCIN 1 GM/VIAL ONE (21:01)
[2024-11-02] MEDS ORDERED: NA CHLORIDE 0.9% 100 ML ONE (21:01)
[2024-11-02] MEDS ORDERED: D10W 125 ML IV PRN (21:14)
[2024-11-02] MEDS ORDERED: GLUCAGON 1 MG/VIAL IM PRN (21:14)
[2024-11-02] MEDS: VANCOMYCIN 0.75 GM in NA CHLORIDE 0.9% 150 ML IVPB ONE (21:30)
--- NOTE | 2024-11-02 21:32 | P.HP ---
Certification for Inpatient With expected LOS: <2 Midnights <Celia Harrison - Last Filed: 11/02/24 21:26> Patient History Date of Service: 11/02/24 Reason for admission: Left foot pain History of Present Illness: 59-year-old man with a past medical history significant for DM type 2 insulin- dependent, HTN, and HDL presented to the emergency room complaining of left foot pain. The patient states 08/18/24 he had a left great toe amputation performed. He states he was given by mouth antibiotics to take after the surgery and completed all medication post discharge. The patient states that earlier today, he felt he was developing a fever, and noticed drainage from his left foot. He is a current smoker and reports smoking half a pack daily. The patient states that he has not attempted anything to alleviate his fever or left foot pain, and states nothing worsens. He denies cough, dyspnea, urinary symptoms. Home medications list reviewed: Yes - Past Medical/Surgical History Diabetic: Yes -: HTN -: DM -: left great toe chronic wound s/p amputation -: HDL -: APPENDECTOMY - Family History Mother -: Hypertension, Diabetes, Cancer Notes: STOMACH CANCER Father -: Hypertension, Diabetes, Stroke - Social History Smoking Status: Current every day smoker (Half a pack daily) Alcohol use: No CD- Drugs: No Caffeine use: Yes <Celia Harrison - Last Filed: 11/02/24 21:26> Date of Service: 11/03/24 <Mike Garcia - Last Filed: 11/03/24 10:45> Allergies No Known Allergies Allergy (Verified 07/23/24 10:16) Home Medications: Metformin HCl [Glucophage*] 500 mg PO DAILY 08/14/16 lisinopriL [Prinivil*] 10 mg PO DAILY 90 Days #90 tab 07/25/23 Amlodipine [Norvasc*] 5 mg PO DAILY #30 tab 06/18/24 Atorvastatin Calcium [Lipitor] 40 mg PO BEDTIME #30 tab 06/18/24 Collagenase [Santyl Ointment*] 1 appl TOP DAILY tube 06/18/24 Insulin Glargine,Hum.rec.anlog [Semglee] 15 unit SQ DAILY #10 ml 06/18/24 Mupirocin Calcium [Bactroban Nasal*] 1 appl ELKIN BID #1 tube 06/18/24 Cephalexin [Keflex] 500 mg PO BID 8 Days #16 cap 08/20/24 Hydrocodone 10/APAP 325 [[place] 103[address]] 1 tab PO Q6H PRN #15 tab 08/20/24 levoFLOXacin [Levofloxacin] 500 mg PO DAILY #8 tab 08/20/24 Review of Systems General: Fever Musculoskeletal: Foot Pain (Left foot) Integumentary: Other (Left great toe amputation) <Harrison,Celia Q - Last Filed: 11/02/24 21:26> Physical Examination - Vital Signs Temperature: 99.1 F Blood Pressure: 147/66 Pulse: 88 Respirations: 18 Pulse Ox (%): 100 (On room air) - Physical Exam General: Alert, Oriented x3 HEENT: Atraumatic, Normocephalic Neck: JVD not distended Respiratory: Clear to auscultation bilaterally Cardiovascular: No edema, Regular rate/rhythm, No gallops, No rubs, No murmurs Gastrointestinal: Normal bowel sounds, Non-distended, No tenderness Musculoskeletal: Swelling (Mild edema of left foot), Erythema (Mild erythema left foot), Tenderness (Mild tenderness of left foot), Warmth (Warm to touch- left foot) Integumentary: Other (Left great toe amputation with a black tape packing wound) Neurological: Normal speech, Normal strength at 5/5 x4 extr, Sensation intact - Studies Laboratory Data (last 24 hrs) 11/02/24 11/02/24 11/02/24 19:26 19:26 19:26 WBC 15.30 H Hgb 11.9 L Hct 35.7 L Plt Count 330 PT 12.0 INR 1.07 APTT 32.4 Sodium 132 L Potassium 3.7 BUN 18 Creatinine 0.76 Glucose 180 H Total Bilirubin 0.4 AST 15 ALT 23 Alkaline Phosphatase 87 <Harrison,Celia Q - Last Filed: 11/02/24 21:26> - Studies Laboratory Data (last 24 hrs) 11/02/24 11/02/24 11/02/24 19:26 19:26 19:26 WBC 15.30 H Hgb 11.9 L Hct 35.7 L Plt Count 330 PT 12.0 INR 1.07 APTT 32.4 Sodium 132 L Potassium 3.7 BUN 18 Creatinine 0.76 Glucose 180 H Total Bilirubin 0.4 AST 15 ALT 23 Alkaline Phosphatase 87 <Mike Garcia - Last Filed: 11/03/24 10:45> Assessment and Plan - Problems (Diagnosis) (1) Osteomyelitis Current Visit: Yes Status: Acute (2) Dyslipidemia (high LDL; low HDL) Current Visit: Yes Status: Acute (3) Diabetes type 2, controlled Current Visit: No Status: Acute Qualifiers: Diabetes mellitus mcfp insulin use: without terminal carman use Diabetes mellitus complication status: without complication Qualified Code(s): E11.9 - Type 2 diabetes mellitus without complications (4) Hypertension Current Visit: No Status: Chronic Qualifiers: Hypertension type: primary hypertension Qualified Code(s): I10 - Essential (primary) hypertension - Plan Osteomyelitis: Admit to floor General Surgery consulted Blood cultures collected in ED MRI of left foot ordered Vancomycin ordered IV cefepime ordered Vanc trough ordered Left foot XR revealed great toe amputated, ill-defined lucencies which may represent osteomyelitis DMT2: Insulin sliding scale ordered HTN: Resumed home medication HDL: Resumed home medication - Advance Directives Does patient have a Living Will: No Does patient have a Durable POA for Healthcare: No <Celia Harrison - Last Filed: 11/02/24 21:26> - Plan DOS (11/02/24) Discussed case with MARY Harrison and independently reviewed EMR at time of admission Agree with plan of care as noted above. Concern for osteomyelitis. empiric coverage: vanc/cefepime; avoid increased nephrotoxicity risk with vanc/zosyn confirm home meds surgery consult <Mike Garcia - Last Filed: 11/03/24 10:45>
[2024-11-02] MEDS: NA CHLORIDE 0.9% 1,000 ML IV SCH (22:00)
[2024-11-03] MEDS: HEPARIN 5000 UNIT/ML 1 ML VIAL SQ SCH (01:00)
[2024-11-03] MEDS ORDERED: NA CHLORIDE 0.9% 1,000 ML ONE (02:05)
[2024-11-03] MEDS ORDERED: VANCOMYCIN 1 GM/VIAL ONE (02:05)
[2024-11-03] MEDS ORDERED: HEPARIN 5000 UNIT/ML 1 ML VIAL ONE ×2 (02:05→09:29)
[2024-11-03] MEDS ORDERED: NA CHLORIDE 0.9% 250 ML ONE (02:11)
[2024-11-03] MEDS ORDERED: MORPHINE 2 MG/ML SYR ONE ×2 (02:31→09:30)
[2024-11-03] MEDS: MORPHINE 2 MG/ML SYR IV PRN (02:32)
[2024-11-03 04:51] LABS: Albumin 2.3 g/dL (3.4-5.0); Albumin/Globulin Ratio 0.5 (1.1-1.8); Anion Gap 7.1 mEq/L (5.0-15.0); Bilirubin Total 0.5 mg/dL (0.2-1.0); Globulin 4.7 g/dL (2.3-3.5); Phosphorus 2.4 mg/dL (2.5-4.9); Potassium 4.1 mEq/L (3.5-5.1)
[2024-11-03 04:58] LABS: Absolute Basophils 0.1 K/uL (0-0.5); Absolute Eosinophils 0.2 K/uL (0-0.5); Absolute Lymphocytes (CBC) 1.5 K/uL (0.7-4.9); Absolute Monocytes 0.7 K/uL (0.1-1.3); Absolute Neutrophil 9.8 K/uL (1.8-8.0); Basophils % 0.4 % (0-1.3); Eosinophils % 1.7 % (0-4.4); Hematocrit 35.2 % (39.6-49.0); Hemoglobin 11.3 g/dL (13.6-17.9); Lymphocytes % 12.3 % (15.3-44.8); MCH 26.3 pg (27.0-35.0); MCHC 32.3 g/dL (32.0-36.0); MCV 81.6 fL (80-100); MPV 7.4 fL (7.6-11.3); Monocytes % 5.7 % (3.3-12.3); Neutrophils % 79.9 % (41.7-73.7); Platelets 305 thou/uL (152-406); RBC Red Blood Cell Count 4.31 M/uL (4.33-5.43); Red Cell Distribution Width 14.8 % (12.1-15.2)
[2024-11-03] MEDS ORDERED: ACETAMINOPHEN 325 MG TABLET ONE (05:53)
[2024-11-03] MEDS: ACETAMINOPHEN 325 MG TABLET PO PRN (05:54)
[2024-11-03] MEDS: INSULIN REGULAR (HUMAN) 100 UNIT/ML SQ SCH (07:30)
[2024-11-03] MEDS ORDERED: VANCOMYCIN 1 GM in NA CHLORIDE 0.9% 250 ML IVPB SCH (09:00)
[2024-11-03] MEDS ORDERED: AMLODIPINE 5 MG TAB PO SCH (09:00)
[2024-11-03] MEDS: CEFEPIME 2 GM in NA CHLORIDE 0.9% 100 ML IV SCH (09:00)
[2024-11-03] MEDS ORDERED: lisinopriL 10 MG TAB PO SCH (09:00)
[2024-11-03] MEDS ORDERED: CEFEPIME 2 GM VIAL ONE (09:29)
[2024-11-03] MEDS ORDERED: NA CHLORIDE 0.9% 100 ML ONE (09:30)
[2024-11-03] MEDS: VANCOMYCIN 1.75 GM in NA CHLORIDE 0.9% 500 ML IVPB SCH (10:24)
--- NOTE | 2024-11-03 12:16 | RAD REPORT ---
EXAM: MRI of the left foot without contrast HISTORY: Evaluate for osteomyelitis. osteomyelitis COMPARISON: Plain radiograph 11/02/2024 prior MRI 06/16/2024 TECHNIQUE: Multiplanar multisequence MR images were obtained of the left foot without contrast. FINDINGS: Evidence of amputation at the level of the first metatarsal midshaft. The remaining osseous structure s show normal marrow pattern. Evidence of a heterogenous fluid collection measuring 3.5 x 1.9 cm is seen along the anteromedial soft tissues of the foot.No evidence of acute fracture or subluxation. Th e muscles and tendons appear intact. IMPRESSION: No osteomyelitis findings are present. The patient has undergone recent amputation at the level of th e mid shaft of the first metatarsal. 3.5 x 2.0 cm heterogenous presumed fluid collection is present as detailed. Sterility of this collection is indeterminant. Please note that evaluation is limited without IV contrast.
--- NOTE | 2024-11-03 14:23 | P.PN ---
Subjective Date of Service: 11/03/24 Chief Complaint: Left foot pain admitted left foot pain has suspected osteomyelitis left lower extremity, surgery consulted to eval <Davina Alvarez - Last Filed: 11/03/24 19:05> Date of Service: 11/03/24 <Arabella Linton - Last Filed: 11/10/24 05:17> Review of Systems 10-point ROS is otherwise unremarkable General: As per HPI <Davina Alvarez - Last Filed: 11/03/24 19:05> Physical Examination - Vital Signs Temperature: 98.1 F Blood Pressure: 143/67 Pulse: 68 Respirations: 19 Pulse Ox (%): 98 - Physical Exam General: Alert, In no apparent distress, Oriented x3 HEENT: Atraumatic, Normocephalic Neck: Supple, 2+ carotid pulse no bruit, JVD not distended Respiratory: Clear to auscultation bilaterally, Normal air movement Cardiovascular: Normal pulses, Regular rate/rhythm, Normal S1 S2, Other (Left lower foot edema) Capillary refill: <2 Seconds Gastrointestinal: Normal bowel sounds, Soft and benign Musculoskeletal: Other (Left lower foot tenderness to palpitation, 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) Integumentary: Erythema (Left foot erythema with mild edema and tenderness to palpation) Neurological: Normal speech, Normal strength at 5/5 x4 extr, Sensation intact, Cranial nerves 3-12 intact - Studies Laboratory Data (last 24 hrs) 11/02/24 11/02/24 11/02/24 19:26 19:26 19:26 WBC 15.30 H Hgb 11.9 L Hct 35.7 L Plt Count 330 PT 12.0 INR 1.07 APTT 32.4 Sodium 132 L Potassium 3.7 BUN 18 Creatinine 0.76 Glucose 180 H Total Bilirubin 0.4 AST 15 ALT 23 Alkaline Phosphatase 87 <Davina Alvarez - Last Filed: 11/03/24 19:05> Assessment And Plan - Current Problems (Diagnosis) (1) SIRS (systemic inflammatory response syndrome) Status: Acute (2) Lower extremity cellulitis Status: Acute (3) History of osteomyelitis Status: Acute (4) Amputation of left great toe Status: Acute (5) Insulin dependent type 2 diabetes mellitus Status: Acute (6) Hypertension Status: Chronic Qualifiers: Hypertension type: primary hypertension Qualified Code(s): I10 - Essential (primary) hypertension - Plan Assessment plan Admit to MedSur, Surgery to consult, IV antibiotics, IV fluids, as needed analgesics, antiemetic MRI of the left foot No osteomyelitis findings are present. The patient has undergone recent amputation at the level of the mid shaft of the first metatarsal. 3.5 x 2.0 cm heterogenous presumed fluid collection is presentas detailed. Sterility of this collection is indeterminant. Accu-Cheks ACHS, resume home insulin Resume home antihypertensives Full code DVT SCDs Diet diabetic disposition Home independent Discharge Plan: Home - Code Status/Comfort Care Code Status: Full Code Critical Care: No Time Spent Managing PTS Care (In Minutes): 35 <Davina Alvarez - Last Filed: 11/03/24 19:05> Date of Service: 11/03/24 Chart has been reviewed. Events of the last 24 hours have been noted. Case discussed with SHAHBAZ. I performed a substantial part of the MDM during this patient's care today. I personally made or approved the documented management plan and acknowledge its risk of complications. I agree with the findings and documentation provided in the SHAHBAZ's notes <Arabella Linton - Last Filed: 11/10/24 05:17>
--- NOTE | 2024-11-03 14:39 | EKG ---
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
[2024-11-03] MEDS ORDERED: VANCOMYCIN 1.75 GM in NA CHLORIDE 0.9% 500 ML IVPB SCH (15:00)
[2024-11-03] MEDS ORDERED: ATORVASTATIN 40 MG TAB PO SCH (21:00)
[2024-11-04 07:02] LABS: Absolute Eosinophils 0.3 K/uL (0-0.5); Absolute Lymphocytes (CBC) 0.6 K/uL (0.7-4.9); Absolute Monocytes 0.6 K/uL (0.1-1.3); Absolute Neutrophil 8.9 K/uL (1.8-8.0); Basophils % 0.2 % (0-1.3); Eosinophils % 2.6 % (0-4.4); Hematocrit 36.1 % (39.6-49.0); Hemoglobin 12.1 g/dL (13.6-17.9); MCH 26.8 pg (27.0-35.0); MCHC 33.5 g/dL (32.0-36.0); MCV 80.1 fL (80-100); MPV 6.7 fL (7.6-11.3); Monocytes % 5.4 % (3.3-12.3); Neutrophils % 85.8 % (41.7-73.7); Platelets 335 thou/uL (152-406)
[2024-11-04 07:25] LABS: Anion Gap 7.3 mEq/L (5.0-15.0); Potassium 4.3 mEq/L (3.5-5.1)
[2024-11-04 09:34] LABS: Blood Morphology Comment NOT SEEN (NOT SEEN); Platelet Estimate ADEQ; White Blood Cell Scan OK (OK)
[2024-11-04] MEDS ORDERED: ACETAMINOPHEN 500 MG TAB PO PRN (10:19)
[2024-11-04] MEDS: ACETAMINOPHEN 500 MG TAB PO ONE (12:50)
--- NOTE | 2024-11-04 16:53 | P.PN ---
Date of Service: 11/04/24 Subjective Chief Complaint: Left foot pain Left foot pain, swelling improving, afebrile overnight Review of Systems 10-point ROS is otherwise unremarkable General: As per HPI Physical Examination - Vital Signs Reviewed - Physical Exam General: Alert, In no apparent distress, Oriented x3 afebrile HEENT: Atraumatic, Normocephalic Neck: Supple, 2+ carotid pulse no bruit, JVD not distended Respiratory: Clear to auscultation bilaterally, Cardiovascular: Normal pulses, Regular rate/rhythm, Normal S1 S2, Other (Left lower foot edema) Capillary refill: <2 Seconds Gastrointestinal: Normal bowel sounds, Soft and benign only Musculoskeletal: Other (Left lower foot tenderness to palpitation, left great toe amputation dave) Integumentary: Erythema (Left foot edema improved) Neurological: Normal speech, Normal strength at 5/5 x4 extr, Assessment And Plan - Current Problems (Diagnosis) (1) SIRS (systemic inflammatory response syndrome) improved Current Visit: Yes Status: Acute (2) Lower extremity cellulitis improved Current Visit: Yes Status: Acute (3) History of osteomyelitis Current Visit: Yes Status: Chronic (4) Amputation of left great toe Current Visit: Yes Status: Chronic (5) Insulin dependent type 2 diabetes mellitus Current Visit: Yes Status: Acute (6) Hypertension Current Visit: No Status: Chronic Qualifiers: Hypertension type: primary hypertension Qualified Code(s): I10 - Essential (primary) hypertension - Plan Assessment plan Admit to MedSur, Surgery to consult, IV antibiotics, IV fluids, as needed analgesics, antiemetic MRI of the left foot No osteomyelitis findings are present. The patient has undergone recent amputation at the level of the mid shaft of the first metatarsal. 3.5 x 2.0 cm heterogenous presumed fluid collection is presentas detailed. Sterility of this collection is indeterminant. Accu-Cheks ACHS, resume home insulin Resume home antihypertensives Full code DVT SCDs Diet diabetic disposition Home independent Discharge Plan: Home - Code Status/Comfort Care Code Status: Full Code Critical Care: No Time Spent Managing PTS Care (In Minutes): 25 <Davina Alvarez - Last Filed: 11/04/24 16:49> Chart has been reviewed. Events of the last 24 hours have been noted. Case discussed with SHAHBAZ. I performed a substantial part of the MDM during this patient's care today. I personally made or approved the documented management plan and acknowledge its risk of complications. I agree with the findings and documentation provided in the SHAHBAZ's notes <Arabella Linton - Last Filed: 11/10/24 05:18>
[2024-11-04] MEDS: HYDROCODONE/APAP 10/325 TAB PO PRN (20:06)
[2024-11-05 05:15] VITALS: BMI 36.3
[2024-11-05 06:59] LABS: Absolute Eosinophils 0.4 K/uL (0-0.5); Absolute Lymphocytes (CBC) 0.9 K/uL (0.7-4.9); Absolute Monocytes 0.8 K/uL (0.1-1.3); Absolute Neutrophil 6.9 K/uL (1.8-8.0); Basophils % 0.2 % (0-1.3); Eosinophils % 4.4 % (0-4.4); Hematocrit 35.3 % (39.6-49.0); MCH 27.3 pg (27.0-35.0); MCHC 34.1 g/dL (32.0-36.0); MPV 6.9 fL (7.6-11.3); Monocytes % 8.5 % (3.3-12.3); Neutrophils % 76.9 % (41.7-73.7); Nucleated Red Blood Cells % 0.1 % (0-0); Platelets 330 thou/uL (152-406); RBC Red Blood Cell Count 4.42 M/uL (4.33-5.43); Red Cell Distribution Width 14.8 % (12.1-15.2)
[2024-11-05 07:22] LABS: Anion Gap 10.5 mEq/L (5.0-15.0); Phosphorus 2.5 mg/dL (2.5-4.9); Potassium 3.5 mEq/L (3.5-5.1)
--- NOTE | 2024-11-05 09:07 | P.DS ---
Admission Date: 11/02/24 Discharge Date: 11/07/24 Reason for Admission: Left foot pain Brief History of Present Illness: 59-year-old man with a past medical history significant for DM type 2 insulin- dependent, HTN, and HDL presented to the emergency room complaining of left foot pain. The patient states 08/18/24 he had a left great toe amputation performed. He states he was given by mouth antibiotics to take after the surgery and completed all medication post discharge. The patient states that earlier today, he felt he was developing a fever, and noticed drainage from his left foot. He is a current smoker and reports smoking half a pack daily. The patient states that he has not attempted anything to alleviate his fever or left foot pain, and states nothing worsens. He denies cough, dyspnea, urinary symptoms. - Physical Exam General: Alert, Oriented x3 HEENT: Atraumatic, Normocephalic Neck: JVD not distended Respiratory: Clear to auscultation bilaterally Cardiovascular: No edema, Regular rate/rhythm, No gallops, No rubs, No murmurs Gastrointestinal: Normal bowel sounds, Non-distended, No tenderness Musculoskeletal: Swelling (Mild edema of left foot), Erythema (Mild erythema left foot), Tenderness (Mild tenderness of left foot), Integumentary: Other (Left great toe amputation with a black tape packing wound) Neurological: Normal speech, Normal strength at 5/5 x4 extr, Sensation intact Hospital Course: 59-year-old man with a past medical history significant for DM type 2 insulin- dependent, HTN, and HDL presented to the emergency room complaining of left foot pain. The patient states 08/18/24 he had a left great toe amputation performed. He states he was given by mouth antibiotics to take after the surgery and completed all medication post discharge. The patient states that earlier today, he felt he was developing a fever, and noticed drainage from his left foot. He is a current smoker and reports smoking half a pack daily. Was noted to have SIRS infection left lower extremity. Leukocytosis, left foot cellulitis, was treated with IV fluids, IV antibiotics, as needed analgesics, surgery was consulted. MRI reports no osteomyelitis findings are present. He is tolerating diet stable to discharge home, follow-up with surgery after discharge Left foot x-ray FINDINGS: Most of the first metatarsal and remainder of the first phalanx are absent presumably secondary to amputation. Ill-defined lucencies are present within the residual first metatarsal which may indicate osteomyelitis. Further evaluation with MRI may be helpful No fracture or location seen MRI of the left foot No osteomyelitis findings are present. The patient has undergone recent amputation at the level of the mid shaft of the first metatarsal. 3.5 x 2.0 cm heterogenous presumed fluid collection is presentas detailed. Sterility of this collection is indeterminant. Continue home medicines as previously prescribed GOAL: Clear understanding of disease process INSTRUCTIONS: Physician Discharge Instructions: -Follow-up with surgery after discharge, call office for appointment -Follow-up with PCP in 1 to 2 weeks -Please call Dr. Linton at [phone] if any questions regarding hospital stay -Please call nursing station at [phone] if any nursing or medication questions -Return to the emergency room if symptoms worsen Diet: ADA, low sodium Activity: Fall precautions <Davina Alvarez - Last Filed: 11/09/24 12:14> Admission Date: 11/02/24 Discharge Date: 11/07/24 Hospital Course: Chart has been reviewed. Events of the last 24 hours have been noted. Case discussed with SHAHBAZ. I performed a substantial part of the MDM during this patient's care today. I personally made or approved the documented management plan and acknowledge its risk of complications. I agree with the findings and documentation provided in the SHAHBAZ's notes <Arabella Linton - Last Filed: 11/10/24 05:21> Disposition: ROUTINE DISCHARGE Discharge Condition: GOOD Vital Signs/Physical Exam: Temp Pulse Resp BP Pulse Ox 99.1 F 79 16 135/54 L 96 11/05/24 04:00 11/05/24 04:00 11/05/24 04:00 11/05/24 04:00 11/05/24 04:00 Laboratory Data at Discharge: WBC 9.00 thou/uL (4.3-10.9) 11/05/24 06:16 Hgb 12.0 g/dL (13.6-17.9) L 11/05/24 06:16 Hct 35.3 % (39.6-49.0) L 11/05/24 06:16 Plt Count 330 thou/uL (152-406) 11/05/24 06:16 PT 12.0 SECONDS (9.4-12.5) 11/02/24 19: INR 1.07 11/02/24 19: APTT 32.4 SECONDS (24.3-36.9) 11/02/24 19:26 Sodium 133 mEq/L (136-145) L 11/05/24 06:16 Potassium 3.5 mEq/L (3.5-5.1) D 11/05/24 06:16 BUN 10 mg/dL (7-18) 11/05/24 06:16 Creatinine 0.54 mg/dL (0.70-1.30) L 11/05/24 06:16 Glucose 88 mg/dL (74-106) 11/05/24 06:16 Phosphorus 2.5 mg/dL (2.5-4.9) 11/05/24 06:16 Magnesium 2.0 mg/dL (1.6-2.4) 11/03/24 04:15 Total Bilirubin 0.5 mg/dL (0.2-1.0) 11/03/24 04:15 AST 16 U/L (15-37) 11/03/24 04:15 ALT 20 U/L (16-61) 11/03/24 04:15 Alkaline Phosphatase 74 U/L (45-117) 11/03/24 04:15 <Davina Alvarez - Last Filed: 11/09/24 12:14> Vital Signs/Physical Exam: Temp Pulse Resp BP Pulse Ox 98.2 F 74 18 156/87 H 97 11/07/24 08:00 11/07/24 08:00 11/07/24 08:00 11/07/24 08:00 11/07/24 08:00 Laboratory Data at Discharge: WBC 10.10 thou/uL (4.3-10.9) 11/06/24 04:34 Hgb 11.2 g/dL (13.6-17.9) L 11/06/24 04:34 Hct 33.0 % (39.6-49.0) L 11/06/24 04:34 Plt Count 316 thou/uL (152-406) 11/06/24 04:34 PT 12.0 SECONDS (9.4-12.5) 11/02/24 19: INR 1.07 11/02/24 19:26 APTT 32.4 SECONDS (24.3-36.9) 11/02/24 19:26 Sodium 133 mEq/L (136-145) L 11/07/24 05:14 Potassium 3.5 mEq/L (3.5-5.1) D 11/07/24 05:14 BUN 9 mg/dL (7-18) 11/07/24 05:14 Creatinine 0.54 mg/dL (0.70-1.30) L 11/07/24 05:14 Glucose 81 mg/dL (74-106) 11/07/24 05:14 Phosphorus 2.4 mg/dL (2.5-4.9) L 11/07/24 05:14 Magnesium 2.0 mg/dL (1.6-2.4) 11/03/24 04:15 Total Bilirubin 0.5 mg/dL (0.2-1.0) 11/03/24 04:15 AST 16 U/L (15-37) 11/03/24 04:15 ALT 20 U/L (16-61) 11/03/24 04:15 Alkaline Phosphatase 74 U/L (45-117) 11/03/24 04:15 <Arabella Linton - Last Filed: 11/10/24 05:21> Diet: ADA Activity: Fall precautions Time spent managing pt's care (in minutes): 45 <Davina Alvarez - Last Filed: 11/09/24 12:14> <Arabella Linton - Last Filed: 11/10/24 05:21> Home Medications: lisinopriL [Prinivil*] 10 mg PO DAILY 90 Days #90 tab 07/25/23 Insulin Glargine,Hum.rec.anlog [Semglee] 15 unit SQ DAILY #10 ml 06/18/24 Mupirocin Calcium [Bactroban Nasal*] 1 appl ELKIN BID #1 tube 06/18/24 Hydrocodone 10/APAP 325 [[place] [address]] 1 tab PO Q6H PRN #15 tab 08/20/24 Atorvastatin Calcium [Lipitor] 40 mg PO BEDTIME #30 tab 11/07/24 Ciprofloxacin HCl [Cipro 500 MG Tablet] 500 mg PO BID 5 Days #10 tab 12/28/24 Metformin HCl [Glucophage*] 500 mg PO DAILY 30 Days #60 tab 11/07/24 lisinopriL [Lisinopril] 10 mg PO DAILY 30 Days #30 tab 11/07/24 traMADol HCL [Ultram*] 50 mg PO Q6H PRN 5 Days #15 tab 11/07/24 New Medications: Ciprofloxacin HCl [Cipro 500 MG Tablet] 500 mg PO BID 5 Days #10 tab Metformin HCl [Glucophage*] 500 mg PO DAILY 30 Days #60 tab Atorvastatin Calcium [Lipitor] 40 mg PO BEDTIME #30 tab lisinopriL [Lisinopril] 10 mg PO DAILY 30 Days #30 tab traMADol HCL [Ultram*] 50 mg PO Q6H PRN 5 Days #15 tab PRN Reason: Pain Physician Discharge Instructions: 59-year-old man with a past medical history significant for DM type 2 insulin- dependent, HTN, and HDL presented to the emergency room complaining of left foot pain. The patient states 08/18/24 he had a left great toe amputation performed. He states he was given by mouth antibiotics to take after the surgery and completed all medication post discharge. The patient states that earlier today, he felt he was developing a fever, and noticed drainage from his left foot. He is a current smoker and reports smoking half a pack daily. Was noted to have SIRS infection left lower extremity. Leukocytosis, left foot cellulitis, was treated with IV fluids, IV antibiotics, as needed analgesics, surgery was consulted. MRI reports no osteomyelitis findings are present. He is tolerating diet stable to discharge home, follow-up with surgery after discharge Discharge on Cipro 1 twice daily for 5 days #10 Follow-up with surgery after discharge Daily dry dressing to foot wound, Follow-up with surgery in 2 weeks Assessment SIRS, left foot cellulitis discharged home on p.o. antibiotics, follow-up with surgery after discharge Left foot cellulitis-take antibiotics as prescribed, as needed analgesics, History of osteomyelitis, Left great toe amputation, fall precautions, resume home DME Insulin-dependent diabetes mellitus, resume home insulin Hypertension resume home antihypertensive Left foot x-ray FINDINGS: Most of the first metatarsal and remainder of the first phalanx are absent presumably secondary to amputation. Ill-defined lucencies are present within the residual first metatarsal which may indicate osteomyelitis. Further evaluation with MRI may be helpful No fracture or location seen MRI of the left foot No osteomyelitis findings are present. The patient has unde rgone recent amputation at the level of the mid shaft of the first metatarsal. 3.5 x 2.0 cm heterogenous presumed fluid collection is presentas detailed. Sterility of this collection is indeterminant. Continue home medicines as previously prescribed GOAL: Clear understanding of disease process INSTRUCTIONS: Physician Discharge Instructions: -Follow-up with surgery after discharge, call office for appointment -Follow-up with PCP in 1 to 2 weeks -Please call Dr. Linton at [phone] if any questions regarding hospital stay -Please call nursing station at [phone] if any nursing or medication questions -Return to the emergency room if symptoms worsen Diet: ADA, low sodium Activity: Fall precautions Followup: NONE,NONE [Primary Care Provider] - Fernie Morales MD [ACTIVE - CAN ADMIT] -
--- NOTE | 2024-11-05 09:27 | P.CNS ---
Date of Consult: 11/05/24 PC: This patient presented to the emergency room with an open wound where he had a previous left great toe amputation with some necrotic tissue and purulent drainage. HPC: This patient underwent a amputation of the left great toe a few months ago. After he was discharged, he was lost to follow-up. He was then able to come to my office about a month later. He had some wound disruption with some necrotic tissue and failure to heat over his surgical scar. He has been coming to see me on occasion in my office. He was recently treated with some silver nitrate, he states that the [employer]. PSHx: Amputation as mentioned PMHx: Diabetes Social Hx: No known medications Sys R: No cough, wheeze, shortness of breath. No chest pain or palpitations. Denies any urinary complaints. O/E: Awake alert comfortable HEENT: Negative Chest: Air entry equal bilaterally Abd: Soft [place]: The wound over the left toe shows a comma shaped area measuring approximately 3 cm x 1 cm in size. It is full-thickness skin loss. Underneath this it is soft and boggy and represents most likely some residual necrotic tissue. There is also a foul odor consistent with a Pseudomonas type aroma coming from it. Data: MRI negative apart from some fluid collection under the skin Impression: Nonhealing wound, known osteomyelitis Plan: I will taken the operating room for a exploration of this wound, and surgical debridement. We will see what the wound looks like and see if we can speed up his recovery. I have explained this to the patient, he understands and wants us to proceed.
[2024-11-05] MEDS: POTASSIUM CL SA 10 MEQ TAB PO ONE (10:00)
[2024-11-05] MEDS ORDERED: propofoL 200 MG/20 ML VIAL IV ONE ×2 (14:02→15:18)
[2024-11-05] MEDS ORDERED: LIDOCAINE 1% MPF 5 ML VIAL ONE (14:02)
[2024-11-05] MEDS ORDERED: MIDAZOLAM HCL 2 MG/2 ML INJ ONE (14:03)
[2024-11-05] MEDS ORDERED: FENTANYL CITR 100 MCG/2 ML ONE (14:03)
[2024-11-05] MEDS: SUCCINYLCHOLINE 20 MG/ML (10 ML) IV ONE (14:35)
--- NOTE | 2024-11-05 16:06 | P.OP ---
Preoperative diagnosis: Infected left toe amputation stump Postoperative diagnosis: The same Primary procedure: Incision, drainage, sharp debridement of infected left toe amputation stump Anesthesia: MAC Estimated blood loss: Less than 10 cc Specimen: Necrotic tissue was debrided but not sent Operative Technique: Patient brought the operating room and placed supine on the table. After the induction of adequate anesthesia, the area of the left foot was prepped with a Betadine solution, draped in usual aseptic manner. Attention was turned towards his black necrotic eschar that the patient had. It measures approximately 3 inches x 1-1/2 and was comma shaped. The junction of the healthy skin with this eschar was now opened using the electrocautery. We were able to from the surrounding tissue. The scabbed area was now removed of its history attachments to the underlying tissue. There was noted to be a lot of necrotic debris underneath this eschar, but we gradually encountered scar tissue that had been forming underneath. The necrotic material was sharply debrided both with an 11 cutting surgical blade as well as a surgical curette. Having got back to relatively clean tissue the area was then coagulated using the electrocautery. The wound itself was now inspected. By placing a buttress suture at the level of the skin for full-thickness we were able to pull the wound together closing down the actual skin defect. The wound itself was packed with quarter inch iodoform gauze. A sterile dressing was then applied. At the end of the procedure he was in a stable condition when sent to the recovery room. Needle sponge instrument count were correct. Drain(s): Other (Quarter inch iodoform gauze packing) Transferred to: Recovery Room Condition: Good
--- NOTE | 2024-11-05 17:20 | P.PN ---
Date of Service: 11/05/24 Subjective Chief Complaint: Left foot pain Seen postoperatively for incision and drainage of infected left toe stump, Review of Systems 10-point ROS is otherwise unremarkable General: As per HPI Physical Examination - Vital Signs Reviewed - Physical Exam General: Alert, In no apparent distress, drowsy HEENT: Atraumatic, Normocephalic Neck: Supple, 2+ carotid pulse no bruit, JVD not distended Respiratory: Clear to auscultation bilaterally, Cardiovascular: Normal pulses, Regular rate/rhythm, Normal S1 S2, Other (Left lower foot edema) Capillary refill: <2 Seconds Gastrointestinal: Normal bowel sounds, Soft and benign only Musculoskeletal: Other (Left lower foot tenderness, surgical dressing to left lower extreme Integumentary: Erythema (Left foot edema improved) Neurological: Normal speech, Normal strength at 5/5 x4 extr, Assessment And Plan - Current Problems (Diagnosis) (1) SIRS (systemic inflammatory response syndrome) improved Current Visit: Yes Status: Acute (2) Acute infection amputation of left great toe Current Visit: Yes Status: Chronic (3) Lower extremity cellulitis improved Current Visit: Yes Status: Acute (4) History of osteomyelitis Current Visit: Yes Status: Chronic (5) Insulin dependent type 2 diabetes mellitus Current Visit: Yes Status: Acute (6) Hypertension Current Visit: No Status: Chronic Qualifiers: Hypertension type: primary hypertension Qualified Code(s): I10 - Essential (primary) hypertension - Plan Assessment plan Admit to MedSurg, Surgery to consult, as needed analgesics, IV antibiotics for toe infection Status post I&D 11/05 incision and drainage left great toe infection PT to eval for additional DME needs prior to discharge IV antibiotics, IV fluids, as needed analgesics, antiemetic MRI of the left foot No osteomyelitis findings are present. The patient has undergone recent amputation at the level of the mid shaft of the first metatarsal. 3.5 x 2.0 cm heterogenous presumed fluid collection is presentas detailed. Sterility of this collection is indeterminant. Accu-Cheks ACHS, resume home insulin Resume home antihypertensives Full code DVT SCDs Diet diabetic disposition Home independent Discharge Plan: Home - Code Status/Comfort Care Code Status: Full Code Critical Care: No Time Spent Managing PTS Care (In Minutes): 35 <Davina Alvarez - Last Filed: 11/05/24 17:16> Chart has been reviewed. Events of the last 24 hours have been noted. Case discussed with SHAHBAZ. I performed a substantial part of the MDM during this patient's care today. I personally made or approved the documented management plan and acknowledge its risk of complications. I agree with the findings and documentation provided in the SHAHBAZ's notes <Arabella Linton - Last Filed: 11/10/24 05:21>
[2024-11-06 05:00] LABS: Absolute Eosinophils 0.4 K/uL (0-0.5); Absolute Lymphocytes (CBC) 0.9 K/uL (0.7-4.9); Absolute Monocytes 0.7 K/uL (0.1-1.3); Basophils % 0.2 % (0-1.3); Eosinophils % 4.3 % (0-4.4); Hemoglobin 11.2 g/dL (13.6-17.9); Lymphocytes % 9.2 % (15.3-44.8); MCH 27.3 pg (27.0-35.0); MCV 80.4 fL (80-100); MPV 6.7 fL (7.6-11.3); Monocytes % 7.2 % (3.3-12.3); Neutrophils % 79.1 % (41.7-73.7); Platelets 316 thou/uL (152-406); RBC Red Blood Cell Count 4.11 M/uL (4.33-5.43); Red Cell Distribution Width 14.6 % (12.1-15.2)
[2024-11-06 05:43] LABS: Albumin 2.3 g/dL (3.4-5.0); Anion Gap 7.4 mEq/L (5.0-15.0); Phosphorus 2.4 mg/dL (2.5-4.9); Potassium 3.4 mEq/L (3.5-5.1)
[2024-11-06] MEDS: POTASSIUM 25 MEQ EFFERV TAB PO ONE (09:18)
[2024-11-06] MEDS: POTASS/SODIUM PHOSPHATE 1 PKT POWD.PACK PO SCH (09:47)
[2024-11-06] MEDS: VANCOMYCIN 1.5 GM in NA CHLORIDE 0.9% 500 ML IVPB SCH (11:20)
--- NOTE | 2024-11-06 14:06 | P.PN ---
Date of Service: 11/06/24 Subjective Chief Complaint: Left foot pain daily dressing change after DC, dc home po abx Review of Systems 10-point ROS is otherwise unremarkable General: As per HPI Physical Examination - Vital Signs Reviewed - Physical Exam General: Alert, In no apparent distress, afebrile HEENT: Atraumatic, Normocephalic Neck: Supple, 2+ carotid pulse no bruit, JVD not distended Respiratory: Clear to auscultation bilaterally, Cardiovascular: Normal pulses, Regular rate/rhythm, Normal S1 S2, Other (Left lower foot edema) Capillary refill: <2 Seconds Gastrointestinal: Normal bowel sounds, Soft and benign only Musculoskeletal: Other (Left lower foot tenderness, surgical dressing to left lower extreme Integumentary: Erythema (Left foot edema improved) Neurological: Normal speech, Normal strength at 5/5 x4 extr, Assessment And Plan - Current Problems (Diagnosis) (1) SIRS (systemic inflammatory response syndrome) improved Current Visit: Yes Status: Acute (2) Acute infection amputation of left great toe Current Visit: Yes Status: Chronic (3) Lower extremity cellulitis improved Current Visit: Yes Status: Acute (4) History of osteomyelitis Current Visit: Yes Status: Chronic (5) Insulin dependent type 2 diabetes mellitus Current Visit: Yes Status: Acute (6) Hypertension Current Visit: No Status: Chronic Qualifiers: Hypertension type: primary hypertension Qualified Code(s): I10 - Essential (primary) hypertension - Plan Assessment plan Admit to MedSurg, Surgery to consult, as needed analgesics, IV antibiotics for toe infection Status post I&D 11/05 incision and drainage left great toe infection PT to eval for additional DME needs prior to discharge IV antibiotics, IV fluids, as needed analgesics, antiemetic MRI of the left foot No osteomyelitis findings are present. The patient has undergone recent amputation at the level of the mid shaft of the first metatarsal. 3.5 x 2.0 cm heterogenous presumed fluid collection is presentas detailed. Sterility of this collection is indeterminant. Accu-Cheks ACHS, resume home insulin Resume home antihypertensives Full code DVT SCDs Diet diabetic disposition Home independent Discharge Plan: Home - Code Status/Comfort Care Code Status: Full Code Critical Care: No Time Spent Managing PTS Care (In Minutes): 30 <Davina Alvarez - Last Filed: 11/09/24 12:14> Chart has been reviewed. Events of the last 24 hours have been noted. Case discussed with SHAHBAZ. I performed a substantial part of the MDM during this patient's care today. I personally made or approved the documented management plan and acknowledge its risk of complications. I agree with the findings and documentation provided in the SHAHBAZ's notes <Arabella Linton - Last Filed: 11/10/24 05:21>
[2024-11-07 05:55] LABS: Anion Gap 9.5 mEq/L (5.0-15.0); Phosphorus 2.4 mg/dL (2.5-4.9); Potassium 3.5 mEq/L (3.5-5.1)
[2024-11-07] MEDS ORDERED: POTASS/SODIUM PHOSPHATE 1 PKT POWD.PACK PO SCH (08:00)
[2024-11-07] MEDS: POTASS/SODIUM PHOSPHATE 1 PKT POWD.PACK PO SCH (08:12)
[2024-11-07] MEDS: POTASSIUM 25 MEQ EFFERV TAB PO ONE (08:12)
[2024-11-07 09:17] VITALS: BP 156/87; TEMP 98.2
[2024-11-07 09:53] VITALS: O2SAT 97
== END 2024-11-07 12:21 | disposition home or self-care (01) | DRG 264 ==
LOC: ER 18:05 → ERHOLD 21:16 → 2ND 11-03 13:33
PROVIDERS: ADMIT Hospitalist; ATTEND Hospitalist
PROC: 0JBR0ZZ Excision of Left Foot Subcutaneous Tissue and Fascia, Open Approach (ICD-10-PCS; principal; 2024-11-05 15:05)
DX: E11.52 Type 2 diabetes mellitus with diabetic peripheral angiopathy with gangrene (principal); R65.10 Systemic inflammatory response syndrome (SIRS) of non-infectious origin without acute organ dysfunction; T87.44 Infection of amputation stump, left lower extremity; L03.032 Cellulitis of left toe; I10 Essential (primary) hypertension; E78.5 Hyperlipidemia, unspecified; F17.200 Nicotine dependence, unspecified, uncomplicated; B96.5 Pseudomonas (aeruginosa) (mallei) (pseudomallei) as the cause of diseases classified elsewhere; Z79.4 Long term (current) use of insulin; Z79.84 Long term (current) use of oral hypoglycemic drugs; Z90.49 Acquired absence of other specified parts of digestive tract; Z89.412 Acquired absence of left great toe; Z79.899 Other long term (current) drug therapy
CPT/HCPCS: 36415; 80048; 80053; 80069; 80202; 82550; 82947; 83605; 83735; 84100; 84132; 85025; 85610; 85730; 87040; 93005; 94760; 96361; 96365; 96375; 97116; 97161; 99285; J0692; J1644; J2003; J2250; J2270; J2405; J2543; J2704; J3010; J7030; J7040; J7050

== ENCOUNTER 2024-11-28 08:45 | Inpatient (IN) | payer OTHER, SELFPAY ==
--- OUTSIDE RECORDS SUMMARY | 2024-11-28 08:48 | XMS REPORT | Continuity of Care Document ---
Author Name Unknown Address [address] [place] [address] [address] [place] [id number] [facility] Address [address] [facility] [address] [place] [address] Care Team Providers Care Exchange Teller Name Role Phone Arlin Pinto Primary Care Physician Medications Ordered Medication Name Filled Medication Name Start Date Stop Date Current Medication? Ordering Clinician Indication Dosage Frequency Signature (SIG) Comments Components Source trazodone 50 mg tablet 1-09 00:00: 00 Yes 12mg Raj Irwin duloxetine 60 mg capsule,del ayed release 1-03 00:00: 00 Yes 1mg Raj Irwin duloxetine 60 mg capsule,del ayed release 2023-11 2-19 00:00: 00 Yes 1mg Raj Irwin gabapentin 100 mg capsule 2023-11 2-12 00:00: 00 Yes 12mg Raj Irwin atorvastati n 10 mg tablet 2023-11 0-24 00:00: 00 Yes 1mg Raj Irwin hydrocodone 10 mg-acetamin ophen 325 mg tablet 2023-11 0-10 00:00: 00 Yes mg Raj Irwin clindamycin HCl 300 mg capsule 2023-11 0-02 00:00: 00 Yes mg Raj Irwin gabapentin 100 mg capsule 2023-11 0-02 00:00: 00 Yes mg Raj Irwin glyburide 2.5 mg tablet -20 00:00: 00 Yes mg Raj Irwin sulfamethox azole 800 mg-trimetho prim 160 mg tablet 7-20 00:00: 00 Yes mg Raj Irwin sulfamethox azole 800 mg-trimetho prim 160 mg tablet 7-05 00:00: 00 Yes mg Raj Irwin metformin ER 500 mg tablet,exte nded release 24 hr 705 00:00: 00 Yes mg Raj F Dc Vital Signs Vital Name Observation Time Observation Value Comments S ource BP Systolic 2024-11-19 08:06:00 122 mm[Hg] Step hen F Dc BP Diastolic 2024-11-19 08:06:00 79 mm[Hg] Rayo phen F Dc Weight Measured 2024-11-19 08:06:00 209.00 pounds Raj F Dc Height Measured 2024-11-19 08:06:00 68.00 inches Raj F Dc Body Temperature 2024-11-19 08:06:00 Raj F Dc Heart Rate 2024-11-19 08:06:00 105.00 /min Step hen F Dc Respiratory Rate 2024-11-19 08:06:00 18.00 /min Raj F Dc BP Systolic 2024-10-22 14:11:00 122 mm[Hg] Step hen F Dc BP Diastolic 2024-10-22 14:11:00 71 mm[Hg] Rayo phen F Dc Weight Measured 2024-10-22 14:11:00 [...] BP Systolic 2024-09-03 10:03:00 108 mm[Hg] Step zina Irwin BP Diastolic 2024-09-03 10:03:00 72 mm[Hg] Rayo phen Lisbeth Irwin Weight Measured 2024-09-03 10:03:00 206.00 pounds Raj Irwin Height Measured 2024-09-03 10:03:00 68.00 inches Raj Irwin Body Temperature 2024-09-03 10:03:00 98.20 degrees Raj Iwrin Heart Rate 2024-09-03 10:03:00 95.00 /min Verónica en F Dc Respiratory Rate 2024-09-03 10:03:00 18.00 /min Rajzina Irwin BP Systolic 2024-09-03 09:53:00 108 mm[Hg] Andres hen F Dc BP Diastolic 2024-09-03 09:53:00 72 mm[Hg] Rayo phen Lisbeth Irwin Weight Measured 2024-09-03 09:53:00 206.00 pounds Raj Irwin Height Measured 2024-09-03 09:53:00 68.00 inches Raj Irwin Body Temperature 2024-09-03 09:53:00 98.20 degrees Raj Irwin Heart Rate 2024-09-03 09:53:00 95.00 /min Verónica en F Dc Respiratory Rate 2024-09-03 09:53:00 18.00 /min Raj Irwin Encounters Start Date/Time End Date/Time Encounter Type Admission Type Attending [facility] Care Department Encounter ID Source 2024-11-19 07:54:15 2024-11-19 07:54:15 Outpatient [facility] [id number] Rja Irwin 2024-11-19 00:00:00 2024-11-19 00:00:00 Outpatient Visit [facility] [id number] Raj rIwin 2024-11-13 13:23:38 2024-11-13 13:23:38 Outpatient [facility] [id number] Raj Irwin 2024-10-22 14:04:32 2024-10-22 14:04:32 Outpatient [facility] [id number] Raj Irwin 2024-10-22 00:00:00 2024-10-22 00:00:00 Outpatient Visit [facility] [id number] Raj Irwin 2024-10-01 08:16:36 2024-10-01 08:16:36 Outpatient [facility] [id number] Raj Irwin 2024-09-23 17:21:05 2024-09-23 17:21:05 Outpatient [facility] [id number] Raj Irwin 2024-09-23 00:00:00 2024-09-23 00:00:00 Outpatient Visit [facility] [id number] Raj Bob Dc 2024-09-03 09:39:47 2024-09-03 09:39:47 Outpatient [facility] [id number] Raj Lisbeth Dc
[2024-11-28] MEDS ORDERED: VANCOMYCIN 1 GM/VIAL ONE (10:01)
[2024-11-28] MEDS ORDERED: ONDANSETRON 4 MG/2 ML VIAL ONE (10:01)
[2024-11-28] MEDS ORDERED: PIPERACIL/TAZO 3.375 GM VIAL IV ONE (10:02)
[2024-11-28] MEDS ORDERED: NA CHLORIDE 0.9% 100 ML ONE (10:02)
[2024-11-28] MEDS ORDERED: NA CHLORIDE 0.9% 250 ML ONE (10:02)
[2024-11-28] MEDS ORDERED: MORPHINE 4 MG/ML SYR ONE (10:02)
[2024-11-28] MEDS ORDERED: NA CHLORIDE 0.9% 2,000 ML ONE (10:03)
--- NOTE | 2024-11-28 10:35 | EDPHYS ---
Physician Documentation [facility] Name: Nas White Jr Age: 59 yrs Sex: Male : 1965 Arrival Date: 11/28/2024 Time: 08:45 Bed 17 Private MD: ED Physician Jose D Ponce HPI: 11/28 10:25 This 59 yrs old Male presents to ER via Ambulatory with complaints of Foot tyler Pain. 10:25 The patient presents with an abscess, an injury, pain, that is acute. The complaints tyler affect the right foot. Context: resulted from surgery, infection , necrosis. Onset: The symptoms/episode began/occurred 5 day(s) ago. Modifying factors: The symptoms are alleviated by nothing, elevation of extremity, the symptoms are aggravated by weight bearing, movement. Associated signs and symptoms: Pertinent positives: fever, swelling, warmth. Severity of symptoms: At their worst the symptoms were moderate, severe, in the emergency department the symptoms are unchanged. The patient has experienced similar episodes in the past, multiple times. Historical: - Allergies: 09:29 No Known Allergies; ap3 - PMHx: 09:29 Diabetes - NIDDM; Hypertension; ap3 - PSHx: 09:29 Appendectomy; ap3 - Immunization history:: Client reports having NOT received the Covid vaccine. - Infectious Disease History:: Denies. - Social history:: Smoking status: Patient reports the use of cigarette tobacco products, smokes one pack cigarettes per day. Patient uses street drugs, marijuana. - Family history:: not pertinent. ROS: 10:25 Constitutional: Negative for fever, chills, and weight loss, Eyes: Negative for injury, tyler pain, redness, and discharge, ENT: Negative for injury, pain, and discharge, Neck: Negative for injury, pain, and swelling, Cardiovascular: Negative for chest pain, palpitations, and edema, Respiratory: Negative for shortness of breath, cough, wheezing, and pleuritic chest pain, Abdomen/GI: Negative for abdominal pain, nausea, vomiting, diarrhea, and constipation, Back: Negative for injury and pain, : Negative for injury, bleeding, discharge, and swelling, Skin: Negative for injury, rash, and discoloration, Neuro: Negative for headache, weakness, numbness, tingling, and seizure, Psych: Negative for depression, anxiety, suicide ideation, homicidal ideation, and hallucinations, Allergy/Immunology: Negative for hives, rash, and allergies, Endocrine: Negative for neck swelling, polydipsia, polyuria, polyphagia, and marked weight changes, Hematologic/Lymphatic: Negative for swollen nodes, abnormal bleeding, and unusual bruising, 10:25 MS/extremity: Positive for injury or acute deformity, decreased range of motion, erythema, pain, swelling, tenderness, of the right foot, Exam: 10:25 Constitutional: This is a well developed, well nourished patient who is awake, alert, tyler and in no acute distress. Head/Face: Normocephalic, atraumatic. Eyes: Pupils equal round and reactive to light, extra-ocular motions intact. Lids and lashes normal. Conjunctiva and sclera are non-icteric and not injected. Cornea within normal limits. Periorbital areas with no swelling, redness, or edema. ENT: Nares patent. No nasal discharge, no septal abnormalities noted. Tympanic membranes are normal and external auditory canals are clear. Oropharynx with no redness, swelling, or masses, exudates, or evidence of obstruction, uvula midline. Mucous membranes moist. Neck: Trachea midline, no thyromegaly or masses palpated, and no cervical lymphadenopathy. Supple, full range of motion without nuchal rigidity, or vertebral point tenderness. No Meningismus. Chest/axilla: Normal chest wall appearance and motion. Nontender with no deformity. No lesions are appreciated. Cardiovascular: Regular rate and rhythm with a normal S1 and S2. No gallops, murmurs, or rubs. Normal PMI, no JVD. No pulse deficits. Respiratory: Lungs have equal breath sounds bilaterally, clear to auscultation and percussion. No rales, rhonchi or wheezes noted. No increased work of breathing, no retractions or nasal flaring. Abdomen/GI: Soft, non-tender, with normal bowel sounds. No distension or tympany. No guarding or rebound. No evidence of tenderness throughout. Back: No spinal tenderness. No costovertebral tenderness. Full range of motion. Neuro: Awake and alert, GCS 15, oriented to person, place, time, and situation. Cranial nerves II-XII grossly intact. Motor strength 5/5 in all extremities. Sensory grossly intact. Cerebellar exam normal. Normal gait. Psych: Awake, alert, with orientation to person, place and time. Behavior, mood, and affect are within normal limits. 10:25 Musculoskeletal/extremity: Extremities: decreased ROM, erythema, pain, swelling, tenderness, ROM: full active range of motion, full passive range of motion, Pulses: noted to be 4+ in the right posterior tibial artery and right dorsalis pedis artery, decreased sensation, Compartment Syndrome exam of affected extremity: is normal. Weight bearing: is unable to bear weight, DVT Exam: negative Homans' sign noted on exam, no appreciated bluish discoloration, pain, swelling, tenderness, erythema, increased warmth, of the right leg, of the right foot, right ankle, lateral aspect of right foot, anterior aspect of right ankle and dorsum of right foot, 11:43 ECG was reviewed by the Attending Physician. [facility] Vital Signs: 09:27 BP 147 / 74; Pulse 87; Resp 18; Temp 97.7(O); Pulse Ox 100% on R/A; Weight 92.99 kg; ap3 Height 5 ft. 4 in. ; Pain 10/10; 12:25 BP 134 / 87; Pulse 78; Resp 16; Pulse Ox 99% ; bp 09:27 Body Mass Index 35.19 (92.99 kg, 162.56 cm) ap3 09:27 Pain Scale: Adult ap3 MDM: 08:52 Medical Screening Exam initiated tyler 10:27 Differential diagnosis: fracture, penetrating trauma, arthritis, gout, cellulitis. Data [facility] reviewed: vital signs, nurses notes, lab test result(s), EKG, radiologic studies, doppler, plain films. Consideration of Admission/Observation Escalation of care including admission/observation considered. I considered the following discharge prescriptions or medication management in the emergency department Medications were administered in the Emergency Department. See MAR. Independent interpretation of the following test(s) in the Emergency Department EKG: See my EKG interpretation above. Test considered but Not performed: MRI: no mri. Historians other than the Patient: pt well informed. Care significantly affected by the following chronic conditions: Diabetes, Hypertension, Obesity, smoker , pvd. 11/28 09:53 Order name: Basic Metabolic Panel [facility] 11/28 09:53 Order name: CBC with Diff; Complete Time: 11:41 [facility] 11/28 09:53 Order name: LFT's [facility] 11/28 09:53 Order name: Magnesium [facility] 11/28 09:53 Order name: NT PRO-BNP [facility] 11/28 09:53 Order name: PT-INR; Complete Time: 11:41 [facility] 11/28 09:53 Order name: Troponin HS [facility] 11/28 09:53 Order name: Blood Culture Adult (2) [facility] 11/28 09:53 Order name: Lactate w/ 2H reflex if indic. [facility] 11/28 09:53 Order name: Wound Culture [facility] 11/28 11:01 Order name: Hemoglobin A1c EDMS 11/28 11:04 Order name: Basic Metabolic Panel EDMS 11/28 11:04 Order name: Basic Metabolic Panel EDMS 11/28 11:04 Order name: Basic Metabolic Panel EDMS 11/28 11:04 Order name: Basic Metabolic Panel EDMS 11/28 11:04 Order name: Basic Metabolic Panel EDMS 11/28 11:04 Order name: Basic Metabolic Panel EDMS 11/28 11:04 Order name: Basic Metabolic Panel EDMS 11/28 11:04 Order name: Basic Metabolic Panel EDMS 11/28 11:04 Order name: CBC with Automated Diff EDMS 11/28 11:04 Order name: CBC with Automated Diff EDMS 11/28 11:04 Order name: CBC with Automated Diff EDMS 11/28 11:04 Order name: CBC with Automated Diff EDMS 11/28 11:04 Order name: CBC with Automated Diff EDMS 11/28 11:04 Order name: CBC with Automated Diff EDMS 11/28 11:04 Order name: CBC with Automated Diff EDMS 11/28 11:04 Order name: CBC with Automated Diff EDMS 11/28 11:04 Order name: Magnesium EDMS 11/28 11:04 Order name: Magnesium EDMS 11/28 11:04 Order name: Magnesium EDMS 11/28 11:04 Order name: Magnesium EDMS 11/28 11:04 Order name: Magnesium EDMS 11/28 11:04 Order name: Magnesium EDMS 11/28 11:04 Order name: Magnesium EDMS 11/28 11:04 Order name: Magnesium EDMS 11/28 11:43 Order name: CRP [facility] 11/28 09:53 Order name: XRAY Chest (1 view); Complete Time: 11:41 [facility] 11/28 09:53 Order name: Foot Left 3 View XRAY; Complete Time: 11:41 [facility] 11/28 09:54 Order name: US LE Artery Uni Ltd; Complete Time: 11:41 [facility] 11/28 09:54 Order name: Extremity Venous Unilateral Ltd; Complete Time: 11:41 [facility] 11/28 09:53 Order name: Cardiac monitoring; Complete Time: 11:17 [facility] 11/28 09:53 Order name: EKG - Nurse/Tech; Complete Time: 12:24 [facility] 11/28 09:53 Order name: IV Saline Lock; Complete Time: 11:17 [facility] 11/28 09:53 Order name: Labs collected and sent; Complete Time: 11: [facility] 11/28 09:53 Order name: O2 Per Protocol; Complete Time: 10:12 [facility] 11/28 09:53 Order name: O2 Sat Monitoring; Complete Time: 10:12 [facility] EC:43 Rate is 79 beats/min. Rhythm is regular. QRS [place] is Normal. IN interval is normal. QRS tyler interval is normal. QT interval is normal. No Q waves. T waves are Normal. No ST changes noted. Clinical impression: Normal ECG and No evidence of ischemia. Interpreted by me. Reviewed by me. Administered Medications: 11:15 Drug: Piperacillin-Tazobactam IVPB 3.375 grams IVPB once over 60 mins; (mix in NS 100 bp mL) Route: IVPB; Infused Over: 60 mins; Site: right antecubital; 11:45 Follow up: Response: No adverse reaction; IV Status: Completed infusion; IV Intake: me1 100ml 11:15 Drug: morphine IVP or IV 4 mg IVP once over 4 mins Route: IVP; Infused Over: 4 mins; bp Site: right antecubital; 12:45 Follow up: Response: No adverse reaction; Pain is decreased me1 11:15 Drug: Ondansetron IVP 4 mg IVP once; over 2 minutes Route: IVP; Site: right antecubital;bp 12:45 Follow up: Response: No adverse reaction; Nausea is decreased me1 11:15 Drug: NS 0.9% IV (30 ml/kg) 30 ml/kg IV at bolus once; Sepsis Protocol; to be given as bp a bolus over 90 minutes Route: IV; Rate: bolus; Site: right antecubital; 12:46 Follow up: IV Status: Infusion continued upon admission [facility] 11:45 Drug: vancoMYCIN IVPB 1 grams IVPB once over 2 hrs Route: IVPB; Infused Over: 2 hrs; bp Site: right antecubital; 12:46 Follow up: Response: No adverse reaction; IV Status: Completed infusion; IV Intake: me1 250ml Disposition Summary: 11/28/24 10:34 Hospitalization Ordered Notes: Hospitalization Status: Inpatient Admission tyler Provider: Linus Tristan cha Location: Telemetry/MedSurg (Inpatient) tyler Condition: Fair tyler Problem: new tyler Symptoms: have improved tyler Bed/Room Type: Standard [facility] Room Assignment: 407(11/28/24 11:23) eb Diagnosis - Personal history of diabetic foot ulcer tyler - Other specified diabetes mellitus with foot ulcer tyler - Cellulitis of unspecified part of limb - right foot, leg tyler - Gangrene, not elsewhere classified - right 2nd toe tyler - Fever, unspecified tyler - Peripheral vascular disease, unspecified tyler - Tobacco abuse counseling tyler - Tobacco use tyler - Elevated white blood cell count tyler Forms: - Medication Reconciliation Form tyler - SBAR form tyler - Leadership Thank You Letter tyler Signatures: Dispatcher [employer] EDMS Jose D Ponce MD MD cha Peltier, Brian, RN RN Jadyn Hackett RN RN ap3 Sarah Cash Michelle RN me1 Corrections: (The following items were deleted from the chart) 09:53 09:53 BASIC METABOLIC PANEL+C.LAB.BRZ ordered. EDMS EDMS 09:53 09:53 CBC+H.LAB.BRZ ordered. EDMS EDMS 09:53 09:53 HEPATIC FUNCTION+C.LAB.BRZ ordered. EDMS EDMS 09:53 09:53 MAGNESIUM+C.LAB.BRZ ordered. EDMS EDMS 09:53 09:53 PROBNP+C.LAB.BRZ ordered. EDMS EDMS 09:53 09:53 PROTIME (+INR)+COAG.LAB.BRZ ordered. EDMS EDMS 09:53 09:53 Troponin High Sensitivity+C.LAB.BRZ ordered. EDMS EDMS 09:53 09:53 BLOOD CULTURE*+BA.LAB.BRZ ordered. EDMS EDMS 09:54 09:53 LACTATE+C.LAB.BRZ ordered. EDMS EDMS 09:54 09:53 Wound Culture+BA.LAB.BRZ ordered. EDMS EDMS 09:54 09:54 Chest Single View+RAD.RAD.BRZ ordered. EDMS EDMS 09:54 09:54 Foot Left 3 View+RAD.RAD.BRZ ordered. EDMS EDMS 09:54 09:54 Extremity Venous Uni Ltd+US.RAD.BRZ ordered. EDMS EDMS 11:23 10:34 tyler eb
--- NOTE | 2024-11-28 10:35 | ER ---
Nurse's Notes [facility] Name: Nas White Jr Age: 59 yrs Sex: Male : 1965 Arrival Date: 11/28/2024 Time: 08:45 Bed 17 Private MD: Diagnosis: Personal history of diabetic foot ulcer;Other specified diabetes mellitus with foot ulcer;Cellulitis of unspecified part of limb-right foot, leg;Gangrene, not elsewhere classified-right 2nd toe;Fever, unspecified;Peripheral vascular disease, unspecified;Tobacco abuse counseling;Tobacco use;Elevated white blood cell count Presentation: 11/28 09:27 Chief complaint: Patient states: he had an amputation of his left great toe, and is ap3 having left foot pain. patient currently rates his pain as a 10/10 on the pain scale. Coronavirus screen: At this time, the client does not indicate any symptoms associated with coronavirus-19. Ebola Screen: No symptoms or risks identified at this time. Initial Sepsis Screen: Does the patient meet any 2 criteria? No. Patient's initial sepsis screen is negative. Does the patient have a suspected source of infection? No. Patient's initial sepsis screen is negative. Risk Assessment: Do you want to hurt yourself or someone else? Patient reports no desire to harm self or others. Onset of symptoms is unknown. 09:27 Method Of Arrival: Ambulatory ap3 09:27 Acuity: CAITLIN 3 ap3 Triage Assessment: 09:29 General: Appears uncomfortable, Behavior is calm, cooperative, appropriate for age. ap3 Pain: Complains of pain in left foot. Neuro: Level of Consciousness is awake, alert, obeys commands, Oriented to person, place, time, situation. Cardiovascular: Patient's skin is warm and dry. Respiratory: Airway is patent Respiratory effort is even, unlabored, Respiratory pattern is regular, symmetrical. Derm: Wound noted left foot. Musculoskeletal: Amputation of left first toe. Historical: - Allergies: 09:29 No Known Allergies; ap3 - PMHx: 09:29 Diabetes - NIDDM; Hypertension; ap3 - PSHx: 09:29 Appendectomy; ap3 - Immunization history:: Client reports having NOT received the Covid vaccine. - Infectious Disease History:: Denies. - Social history:: Smoking status: Patient reports the use of cigarette tobacco products, smokes one pack cigarettes per day. Patient uses street drugs, marijuana. - Family history:: not pertinent. Screenin:30 Abuse screen: Denies threats or abuse. Nutritional screening: No deficits noted. ap3 Tuberculosis screening: No symptoms or risk factors identified. 09:30 [facility] ED Fall Risk Assessment (Adult) History of falling in the last 3 months, bp including since admission No falls in past 3 months (0 pts) Confusion or Disorientation No (0 pts) Intoxicated or Sedated No (0 pts) Impaired Gait No (0 pts) Mobility Assist Device Used No (0 pt) Altered Elimination No (0 pt) Score/Fall Risk Level 0 - 2 = Low Risk. Assessment: 09:30 General: Appears uncomfortable, Behavior is cooperative, appropriate for age, anxious. bp 12:15 Reassessment: REPORT FAXED TO 407. bp Vital Signs: 09:27 BP 147 / 74; Pulse 87; Resp 18; Temp 97.7(O); Pulse Ox 100% on R/A; Weight 92.99 kg; ap3 Height 5 ft. 4 in. ; Pain 10/10; 12:25 BP 134 / 87; Pulse 78; Resp 16; Pulse Ox 99% ; bp 09:27 Body Mass Index 35.19 (92.99 kg, 162.56 cm) ap3 09:27 Pain Scale: Adult ap3 ED Course: 08:49 Patient arrived in ED. sj2 08:52 Jose D Ponce MD is Attending Physician. tyler 09:16 Harjeet Donovan, GELY is Primary Nurse. bp 09:29 Triage completed. ap3 09:30 Arm band placed on right wrist. ap3 09:30 Patient has correct armband on for positive identification. bp 09:30 Initial lab(s) drawn, by ri, sent to lab. Inserted saline lock: 20 gauge in right bp antecubital area, using aseptic technique. Blood collected. Flushed with 10 mL NS. 10:31 Linus Tristan MD is Hospitalizing Provider. tyler 10:46 Antonina Briones FNP-C is PHCP. snw 10:51 US LE Artery Uni Ltd In Process Unspecified. EDMS 10:52 US Extremity Venous Unilateral Ltd In Process Unspecified. EDMS 11:01 XRAY Chest (1 view) In Process Unspecified. EDMS 11:01 Foot Left 3 View XRAY In Process Unspecified. EDMS 12:47 No provider procedures requiring assistance completed. Patient admitted, IV remains in me1 place. 12:48 Provided Education on: POC. Verbalized understanding.. me1 Administered Medications: 11:15 Drug: Piperacillin-Tazobactam IVPB 3.375 grams IVPB once over 60 mins; (mix in NS 100 bp mL) Route: IVPB; Infused Over: 60 mins; Site: right antecubital; 11:45 Follow up: Response: No adverse reaction; IV Status: Completed infusion; IV Intake: me1 100ml 11:15 Drug: morphine IVP or IV 4 mg IVP once over 4 mins Route: IVP; Infused Over: 4 mins; bp Site: right antecubital; 12:45 Follow up: Response: No adverse reaction; Pain is decreased me1 11:15 Drug: Ondansetron IVP 4 mg IVP once; over 2 minutes Route: IVP; Site: right antecubital;bp 12:45 Follow up: Response: No adverse reaction; Nausea is decreased me1 11:15 Drug: NS 0.9% IV (30 ml/kg) 30 ml/kg IV at bolus once; Sepsis Protocol; to be given as bp a bolus over 90 minutes Route: IV; Rate: bolus; Site: right antecubital; 12:46 Follow up: IV Status: Infusion continued upon admission me1 11:45 Drug: vancoMYCIN IVPB 1 grams IVPB once over 2 hrs Route: IVPB; Infused Over: 2 hrs; bp Site: right antecubital; 12:46 Follow up: Response: No adverse reaction; IV Status: Completed infusion; IV Intake: me1 250ml Medication: 09:30 VIS not applicable for this client. bp Intake: 11:45 IV: 100ml; Total: 100ml. me1 12:46 IV: 250ml; Total: 350ml. me1 Outcome: 10:34 Decision to Hospitalize by Provider. tyler 12:47 Admitted to Tele accompanied by darshan, via wheelchair, room 407, with chart, Report me1 called to FAXED BY HARJEET Membreno RN 12:47 Condition: stable 12:47 Instructed on the need for admit, 12:48 Patient left the ED. me1 Signatures: Dispatcher [employer] EDMS Jose D Ponce MD MD cha Waters, Shelly, [employer]-C [employer]-Csnw Harjeet Donovan, RN RN bp Jadyn Sky RN RN ap3 Orin Rojo, RN RN me1 Faraz Kuo
--- NOTE | 2024-11-28 10:58 | RAD REPORT ---
Extremity Venous Uni Ltd CLINICAL INDICATION: Male, 59 years old.PAIN RIGHT TECHNIQUE: Complete duplex sonography of the lower extremity veins was performed of the affected limb . The examination included compression for vein patency, color Doppler imaging and flow augmentation in response to distal compression of the distal external iliac, common femoral, femoral, popliteal, peroneal, tibial and great saphenous veins. [id number]. COMPARISON: No prior exams FINDINGS: Duplex sonography imaging demonstrates all deep veins examined to be fully compressible with spontane ous, phasic and augmented flow in the affected limb. IMPRESSION: No evidence of deep venous thrombosis in the left lower extremity. Incompletely compressible superficial vein in the posterior calf suspicious for a superficial venous thrombosis.
[2024-11-28] MEDS ORDERED: ONDANSETRON 4 MG/2 ML VIAL IV PRN (10:59)
[2024-11-28] MEDS ORDERED: ACETAMINOPHEN 500 MG TAB PO PRN (10:59)
--- NOTE | 2024-11-28 11:06 | RAD REPORT ---
EXAMINATION: US LOWER EXTREMITIES ARTERIAL DOPPLER LEFT LEG CLINICAL INDICATION: Male, 59 years old. PAIN RIGHT TECHNIQUE: Arterial duplex ultrasound was performed of the left leg with real-time and Doppler evalua tion. [id number]. COMPARISON: No prior exam. FINDINGS: Left leg Doppler: Common femoral: Waveform: Triphasic Peak systolic velocity (cm/sec): 267 Superficial femoral: Waveform: Triphasic Peak systolic velocity (cm/sec): 114 Popliteal Waveform: Triphasic Peak systolic velocity (cm/sec): 112 Posterior tibial: Waveform: Monophasic Peak systolic velocity (cm/sec): 83 Dorsalis pedis: Waveform: Monophasic Peak systolic velocity (cm/sec): 64 Enlarged left inguinal lymph node measuring 2 cm in short axis with cortical thickening. A fatty hilu m is present. IMPRESSION: 1. Monophasic flow in the posterior tibial and dorsal pedis arteries consistent with moderate to nestor re stenoses. 2. Elevated peak systolic velocity in the left common femoral artery without stenosis identified on C olor or grayscale imaging. The immediate downstream vessels have triphasic flow with normal velocities. This may be technique related and probably not clinically significant. 3. Enlarged left inguinal lymph node. The inguinal lymph nodes can be large in the setting of longsta nding lower extremity inflammation. Suggest clincal follow-up. Imaged guided biopsy is an option if malignancy is suspected.
--- NOTE | 2024-11-28 11:19 | RAD REPORT ---
EXAM: Foot Left 3 View HISTORY: PAIN COMPARISON: 11/02/2024 FINDINGS: Surgical changes from amputation of the great toe at the level of the mid metatarsal. Soft tissue gas is present as well as a wound at the great toe and a near the second metatarsal head and proximal phalanx. New cortical loss at the second toe proximal phalanx could reflect changes of osteomyelitis. Some lucency at the second metatarsal head is similar. Midfoot and hindfoot degenerative changes as well as calcaneal spurs and vascular calcifications. IMPRESSION: Ulceration, soft tissue gas, and possible osteomyelitis at the second toe proximal phalanx. No acute fracture.
--- NOTE | 2024-11-28 11:20 | RAD REPORT ---
EXAM: Chest Single View HISTORY: COUGH COMPARISON: 08/14/2024 FINDINGS: LUNGS/PLEURA: The lungs are clear. No pleural effusions or pneumothorax. No pulmonary edema. MEDIASTINUM: The mediastinal silhouette is within normal limits. CARDIAC: The cardiac silhouette is within normal limits. UPPER ABDOMEN: No significant abnormality. BONES: No acute abnormality. LINES/TUBES/OTHER: N/A IMPRESSION: No evidence of acute cardiopulmonary disease.
[2024-11-28] MEDS: INSULIN REGULAR (HUMAN) 100 UNIT/ML SQ SCH (11:30)
[2024-11-28 11:37] LABS: Absolute Basophils 0.1 K/uL (0-0.5); Absolute Eosinophils 0.3 K/uL (0-0.5); Absolute Lymphocytes (CBC) 2.2 K/uL (0.7-4.9); Absolute Neutrophil 13.3 K/uL (1.8-8.0); Basophils % 0.4 % (0-1.3); Eosinophils % 1.7 % (0-4.4); Hematocrit 37.6 % (39.6-49.0); Hemoglobin 12.5 g/dL (13.6-17.9); Lymphocytes % 12.8 % (15.3-44.8); MCH 26.1 pg (27.0-35.0); MCHC 33.2 g/dL (32.0-36.0); MCV 78.6 fL (80-100); Neutrophils % 79.1 % (41.7-73.7); Platelets 456 thou/uL (152-406); RBC Red Blood Cell Count 4.79 M/uL (4.33-5.43); Red Cell Distribution Width 15.2 % (12.1-15.2)
[2024-11-28 11:38] LABS: PT Prothrombin Time 12.7 SECONDS (9.4-12.5); Protime INR 1.21
[2024-11-28 11:51] LABS: ALT/SGPT 46 U/L (16-61); AST/SGOT 21 U/L (15-37); Albumin 2.5 g/dL (3.4-5.0); Albumin/Globulin Ratio 0.4 (1.1-1.8); Alkaline Phosphatase 139 U/L (45-117); Anion Gap 10.6 mEq/L (5.0-15.0); BUN Blood Urea Nitrogen 17 mg/dL (7-18); Bicarbonate 25 mEq/L (21-32); Bilirubin Direct 0.2 mg/dL (0-0.2); Bilirubin Indirect, Calculated 0.3 mg/dL (0.2-0.8); Bilirubin Total 0.5 mg/dL (0.2-1.0); Globulin 6.6 g/dL (2.3-3.5); Glomerular Filtration Rate 102 ml/min (=/>90); Glucose Level 276 mg/dL (74-106); Magnesium 2.2 mg/dL (1.6-2.4); NT PRO-BNP 65 pg/mL (<125); Potassium 3.6 mEq/L (3.5-5.1); Protein, Total 9.1 g/dL (6.4-8.2); Sodium Level 128 mEq/L (136-145)
[2024-11-28 12:06] LABS: Troponin High Sensitivity < 3.0 pg/mL (<58.9)
--- NOTE | 2024-11-28 12:18 | P.HP ---
Certification for Inpatient Patient admitted to: Inpatient With expected LOS: >2 Midnights Practitioner: I am a practitioner with admitting privileges, knowledge of patient current condition, hospital course, and medical plan of care. Services: Services provided to patient in accordance with Admission requirements found in Title 42 Section 412.3 of the Code of Federal Regulations Patient History Date of Service: 11/28/24 Reason for admission: Left foot infection History of Present Illness: 59-year-old male with history of type 2 diabetes, essential hypertension, hyperlipidemia, left big toe amputation in August 2024, initially presented to the ER with left foot infection. In aug 2024, patient underwent left big toe amputation due to left big toe osteomyelitis, and was again admitted in October 2020 for which was a month ago, and underwent I&D of the left big toe stump. Upon discharge, patient was being followed by general surgeon, Dr. Morales. According to patient, 2 days ago, noticed that the left second toe has turned black, prompting patient to come to the ER. At bedside, patient has a draining abscess at the left big toe stump and left second toe gangrene. Allergies No Known Allergies Allergy (Verified 07/23/24 10:16) Home Medications: lisinopriL [Prinivil*] 10 mg PO DAILY 90 Days #90 tab 07/25/23 Insulin Glargine,Hum.rec.anlog [Semglee] 15 unit SQ DAILY #10 ml 06/18/24 Mupirocin Calcium [Bactroban Nasal*] 1 appl ELKIN BID #1 tube 06/18/24 Hydrocodone 10/APAP 325 [[place] 10/325] 1 tab PO Q6H PRN #15 tab 08/20/24 Atorvastatin Calcium [Lipitor] 40 mg PO BEDTIME #30 tab 11/07/24 Ciprofloxacin HCl [Cipro 500 MG Tablet] 500 mg PO BID 5 Days #10 tab 11/07/24 Metformin HCl [Glucophage*] 500 mg PO DAILY 30 Days #60 tab 11/07/24 lisinopriL [Lisinopril] 10 mg PO DAILY 30 Days #30 tab 11/07/24 traMADol HCL [Ultram*] 50 mg PO Q6H PRN 5 Days #15 tab 11/07/24 - Past Medical/Surgical History Diabetic: Yes -: HTN -: DM -: left great toe chronic wound s/p amputation -: HDL -: APPENDECTOMY - Family History Mother -: Hypertension, Diabetes, Cancer Notes: STOMACH CANCER Father -: Hypertension, Diabetes, Stroke - Social History Alcohol use: No CD- Drugs: No Caffeine use: Yes Review of Systems General: Chills Eyes: Unremarkable ENT: Unremarkable Respiratory: Unremarkable Cardiovascular: Unremarkable Genitourinary: Unremarkable Musculoskeletal: Unremarkable Neurological: Unremarkable Physical Examination - Physical Exam General: Alert, Oriented x3 HEENT: PERRLA Neck: 2+ carotid pulse no bruit Respiratory: Clear to auscultation bilaterally Cardiovascular: No edema Gastrointestinal: Normal bowel sounds Musculoskeletal: Other (left 2nd toe gangrene , with draining at the left big toe amputation site) Neurological: Normal gait, Normal speech, Normal strength at 5/5 x4 extr Assessment and Plan - Plan 1. Left rectal stump abscess and second toe gangrene -Ordered MRI of left foot for further evaluation -On cefepime and vancomycin -Consulted general surgeon, Dr. Morales who performed the initial amputation -Also consulted infectious disease for antibiotic recommendations -Also consulted cardiology since patient may require left lower extremity revascularization surgery 2.Uncontrolled Type II diabetes - check hgba1c - on lantus and SSI 3. Essential HTN - on metoprolol 4. DVT prophylaxis -SCDS - Advance Directives Does patient have a Living Will: No Does patient have a Durable POA for Healthcare: No
[2024-11-28 13:32] VITALS: BMI 35.5
[2024-11-28] MEDS: MORPHINE 2 MG/ML SYR IV PRN (14:01)
[2024-11-28] MEDS: VANCOMYCIN 1.25 GM in NA CHLORIDE 0.9% 250 ML IV SCH (14:30)
[2024-11-28] MEDS: HYDROCODONE/APAP 10/325 TAB PO PRN (15:44)
[2024-11-28] MEDS: CEFEPIME 1 GM in NA CHLORIDE 0.9% 100 ML IV SCH (21:41)
[2024-11-28] MEDS: DOCUSATE NA/SENNA CONC 1 TAB PO SCH (21:45)
[2024-11-28] MEDS: ATORVASTATIN 40 MG TAB PO SCH (21:45)
[2024-11-28] MEDS: NA CHLORIDE 0.9% 500 ML ONE (23:31)
[2024-11-28] MEDS: WATER FOR INJ,STERILE 40 ML ONE (23:36)
[2024-11-28] MEDS: VANCOMYCIN 1.75 GM in NA CHLORIDE 0.9% 500 ML IVPB SCH (23:59)
[2024-11-29 06:17] LABS: Absolute Eosinophils 0.4 K/uL (0-0.5); Absolute Lymphocytes (CBC) 0.9 K/uL (0.7-4.9); Absolute Monocytes 0.4 K/uL (0.1-1.3); Absolute Neutrophil 12.1 K/uL (1.8-8.0); Basophils % 0.1 % (0-1.3); Hemoglobin 11.6 g/dL (13.6-17.9); Lymphocytes % 6.4 % (15.3-44.8); MCH 26.3 pg (27.0-35.0); MCHC 33.1 g/dL (32.0-36.0); MCV 79.3 fL (80-100); MPV 6.8 fL (7.6-11.3); Monocytes % 3.1 % (3.3-12.3); Neutrophils % 87.4 % (41.7-73.7); Platelets 382 thou/uL (152-406); RBC Red Blood Cell Count 4.41 M/uL (4.33-5.43); Red Cell Distribution Width 14.9 % (12.1-15.2)
[2024-11-29 06:29] LABS: Anion Gap 8.1 mEq/L (5.0-15.0); Magnesium 1.9 mg/dL (1.6-2.4); Potassium 4.1 mEq/L (3.5-5.1)
[2024-11-29] MEDS: CEFEPIME 2 GM in NA CHLORIDE 0.9% 100 ML IV SCH (09:34)
[2024-11-29] MEDS: INSULIN GLARGINE 100 UNIT/ML SQ SCH (09:34)
[2024-11-29] MEDS: POLYETHYL GLY 3350 17 GM/DOSE PO SCH (09:35)
--- NOTE | 2024-11-29 10:47 | P.PN ---
Subjective Date of Service: 11/29/24 Chief Complaint: Left foot infection Subjective: No new changes No complaints, sitting up in bed Review of Systems 10-point ROS is otherwise unremarkable Physical Examination - Vital Signs Temperature: 97.7 F Blood Pressure: 102/61 Pulse: 86 Respirations: 20 Pulse Ox (%): 98 - Physical Exam General: Oriented x3 HEENT: Atraumatic Neck: Supple Respiratory: Clear to auscultation bilaterally Cardiovascular: No edema Gastrointestinal: Soft and benign, Non-distended Musculoskeletal: Other (L big toe stump with overlying draining abscess. Left second and third toe with areas of gangrene) Neurological: Normal strength at 5/5 x4 extr, Normal tone Assessment And Plan - Plan 1. Left big toe stump abscess and second toe gangrene -Ordered MRI of left foot for further evaluation -On cefepime and vancomycin -Consulted general surgeon, Dr. Morales who performed the initial amputation -Also consulted infectious disease for antibiotic recommendations -Left lower extremity arterial Doppler positive for severe peripheral artery disease. Cardiology consulted for possible revascularization surgery 2.Uncontrolled Type II diabetes - hgba1c of 9.8 - on lantus and SSI 3. Essential HTN - on metoprolol 4. DVT prophylaxis -Subcu Lovenox
[2024-11-29] MEDS: VANCOMYCIN 1.5 GM in NA CHLORIDE 0.9% 500 ML IVPB SCH (11:04)
[2024-11-29] MEDS: ENOXAPARIN 40 MG/0.4 ML SQ SCH (17:07)
--- NOTE | 2024-11-29 20:39 | P.CNS ---
Date of Consult: 11/29/24 PC: I was asked to see this 59-year-old man in regards to nonhealing of a past amputation of the left great toe as well as now gangrene of the second and possibly third toe left foot. HPC: This patient, has a history of diabetes that is not very well-controlled. He presented with additional sores ulcers and gangrene of his left great toe. He has had amputations in the past, and was left with a open nonhealing wound. The patient has difficulty obtaining medical follow-up and support. He sees me on a weekly basis in my office. He has been trying to get back to work, and has been wearing some shoes that are obviously putting pressure on his wound as well as the other toes due to the fact he does not have a spacer. I have explained to this on numerous occasions, he is doing the best he can with his limited resources. He stays at the [facility]. He does have family but support is minimal. PSHx: Previous amputations lower left great toe PMHx: Diabetes Social Hx: No known allergies, does not drink, or do street drugs Sys R: No cough, wheeze, shortness of breath. No chest pain or palpitations. Says he just felt weak these last few days and obviously had infection in his foot so he came to the emergency room. O/E: Awake alert vital signs are stable HEENT: Negative Chest: Air entry equal bilaterally Abd: Negative [place]: The incision over the left great toe where he had the amputation of the phalanx, his back open again, and draining some foul-smelling material. The second and third toe also shows signs of gangrene. Tonight there is also some darkening over the forefoot on the dorsal surface, extending from the third back over to the incision site. Data: X-ray shows possible osteomyelitis of the second metatarsal phalangeal joint area. Impression: Infected wound, possible developing gangrene of the left forefoot Plan: The patient is currently admitted, on antibiotics, and undergoing vascular examinations. He has peripheral neuropathy as well as diminished pulses in that left foot. He had been seeing a vascular surgeon in regards to the diminished blood flow, but he was unable to keep his appointments. At the current time his wound, is infected, he is on antibiotics. He is going to require some type of definitive therapy in the future. I have discussed with him doing a tra nsmetatarsal versus of left BKA. At the current time the wound can be treated with local wound care, until this area delineates as far as blood flow goes. I have explained this to the patient, I have also told him his surgical options at this time. I have mentioned a transmetatarsal as well as a below-knee amputation. We will see how this wound delineates over the next few days.
[2024-11-30 08:02] LABS: Absolute Eosinophils 0.6 K/uL (0-0.5); Absolute Lymphocytes (CBC) 1.1 K/uL (0.7-4.9); Absolute Monocytes 0.9 K/uL (0.1-1.3); Absolute Neutrophil 10.6 K/uL (1.8-8.0); Basophils % 0.3 % (0-1.3); Eosinophils % 4.7 % (0-4.4); Hematocrit 32.7 % (39.6-49.0); Lymphocytes % 8.1 % (15.3-44.8); MCH 26.5 pg (27.0-35.0); MCHC 33.7 g/dL (32.0-36.0); MCV 78.5 fL (80-100); Monocytes % 6.9 % (3.3-12.3); Platelets 353 thou/uL (152-406); RBC Red Blood Cell Count 4.17 M/uL (4.33-5.43)
[2024-11-30 08:11] LABS: Anion Gap 7.2 mEq/L (5.0-15.0); Magnesium 2.1 mg/dL (1.6-2.4); Potassium 4.2 mEq/L (3.5-5.1)
--- NOTE | 2024-11-30 12:54 | P.CNS ---
Date of Consult: 11/30/24 Chief Complaint: Left foot infection History of Present Illness: Patient with PMH of HTN, DM, presented with left toes infection and gangrene, patient had surgical debridement in the past, denies any cardiac complains. Allergies No Known Allergies Allergy (Verified 07/23/24 10:16) Home medications list reviewed: Yes Home Medications: lisinopriL [Prinivil*] 10 mg PO DAILY 90 Days #90 tab 07/25/23 Insulin Glargine,Hum.rec.anlog [Semglee] 15 unit SQ DAILY #10 ml 06/18/24 Mupirocin Calcium [Bactroban Nasal*] 1 appl ELKIN BID #1 tube 06/18/24 Hydrocodone 10/APAP 325 [[place] 10/325] 1 tab PO Q6H PRN #15 tab 08/20/24 Atorvastatin Calcium [Lipitor] 40 mg PO BEDTIME #30 tab 11/07/24 Ciprofloxacin HCl [Cipro 500 MG Tablet] 500 mg PO BID 5 Days #10 tab 11/07/24 Metformin HCl [Glucophage*] 500 mg PO DAILY 30 Days #60 tab 11/07/24 lisinopriL [Lisinopril] 10 mg PO DAILY 30 Days #30 tab 11/07/24 traMADol HCL [Ultram*] 50 mg PO Q6H PRN 5 Days #15 tab 11/07/24 - Past Medical/Surgical History Diabetic: Yes -: HTN -: DM -: left great toe chronic wound s/p amputation -: HDL -: APPENDECTOMY -: L Greater Toe Amputation - Family History Mother Medical History: Hypertension, Diabetes, Cancer Notes: STOMACH CANCER Father Medical History: Hypertension, Diabetes, Stroke - Social History Smoking Status: Current every day smoker Alcohol use: No CD- Drugs: Yes Caffeine use: No Place of Residence: [facility] Review of Systems 10-point ROS is otherwise unremarkable Physical Examination Temp Pulse Resp BP Pulse Ox 97 F 94 H 18 131/58 L 97 11/30/24 08:00 11/30/24 08:00 11/30/24 09:21 11/30/24 08:00 11/30/24 09:21 General: Alert, In no apparent distress HEENT: Atraumatic, PERRLA, Mucous membr. moist/pink, EOMI, Sclerae nonicteric Neck: Supple, 2+ carotid pulse no bruit, No LAD, Without JVD or thyroid abnorm ality Respiratory: Clear to auscultation bilaterally, Normal air movement Cardiovascular: Regular rate/rhythm, Normal S1 S2 Gastrointestinal: Normal bowel sounds, No tenderness Musculoskeletal: No tenderness, Other (black 2nd and 3rd toes) Integumentary: No rashes Neurological: Normal gait, Normal speech, Normal tone, Normal affect Lymphatics: No axilla or inguinal lymphadenopathy - Problems (1) Gangrene Current Visit: Yes Status: Acute Plan: Patient 2nd toe is black, looks , although patient got PAD, there is no indication that peripheral angiogram and revascularization will help saving his toes, explained to patient that peripheral angiogram can be done after surgical intervention on his toes.
--- NOTE | 2024-11-30 15:32 | CON ---
History Of Present Illness: This is a 59-year-old male known to me from previous admissions. The sourav roberson with uncontrolled diabetes mellitus, essential hypertension, hyperlipidemia, left big amputatio n in August 2024, came to the emergency room with left foot infection. The patient denies any fever , headache, nausea, vomiting, problems with any antibiotic at this time. Currently, the patient is b eing treated with cefepime and vancomycin. Foot wound is growing E coli ESBL. Past Medical History: As per HPI. Social History: Tobacco positive. Alcohol negative. Family History: Noncontributory. Medications: Vancomycin and cefepime. See MARs for other medications. Allergies: NO KNOWN DRUG ALLERGIES. Review of Systems: A 10-point review was performed. Physical Examination: General: This is a 59-year-old male, lying in bed, not in any acute cardiopulmonary distress. Vital Signs: Temperature 97, pulse 90, respirations 18, blood pressure 131/58. HEENT: Unremarkable. Neck: Supple. Lungs: Basal crackles. Heart: S1, S2. Regular. Abdomen: Soft, nontender. Bowel sounds present. Extremities: Left foot ulceration, soft tissue gas, possible osteomyelitis of the second toe proxima l phalanx. Assessment And Plan: A 59-year-old male with left foot osteomyelitis and second toe and gas, current ly on vancomycin and cefepime. Cultures are growing E coli ESBL. Recommend cefepime to be switched to meropenem. Continue to monitor blood sugar, leukocytosis, anemia of chronic disease. Consider am putation and Vascular Surgery evaluation. We will follow the patient as needed. NF/MODL Voice ID: [id number] Report ID: [id number]
[2024-12-01] MEDS: HYDROMORPHONE HCL 1 MG/ML INJ IV ONE (01:11)
[2024-12-01 07:31] LABS: Absolute Basophils 0.2 K/uL (0-0.5); Absolute Eosinophils 0.6 K/uL (0-0.5); Absolute Lymphocytes (CBC) 0.9 K/uL (0.7-4.9); Absolute Monocytes 1.1 K/uL (0.1-1.3); Absolute Neutrophil 12.2 K/uL (1.8-8.0); Basophils % 1.1 % (0-1.3); Eosinophils % 3.9 % (0-4.4); Hematocrit 31.4 % (39.6-49.0); Hemoglobin 10.3 g/dL (13.6-17.9); Lymphocytes % 6.3 % (15.3-44.8); MCV 78.9 fL (80-100); MPV 7.1 fL (7.6-11.3); Monocytes % 7.5 % (3.3-12.3); Neutrophils % 81.2 % (41.7-73.7); Platelets 352 thou/uL (152-406); RBC Red Blood Cell Count 3.97 M/uL (4.33-5.43); Red Cell Distribution Width 15.2 % (12.1-15.2)
[2024-12-01 07:49] LABS: Anion Gap 8.9 mEq/L (5.0-15.0); Magnesium 2.2 mg/dL (1.6-2.4); Potassium 3.9 mEq/L (3.5-5.1)
[2024-12-01] MEDS: POTASSIUM CL SA 10 MEQ TAB PO ONE (09:11)
[2024-12-01 09:48] LABS: Band Neutrophils 5 % (0-1); Blood Morphology Comment NOT SEEN (NOT SEEN); Differential Total Cells Count 100; Eosinophils 5 % (0-3); Lymphocytes 6 % (15-42); Monocytes 9 % (0-10); Platelet Estimate ADEQ; Segmented Neutrophils 75 % (40-80)
[2024-12-01] MEDS: HYDROMORPHONE HCL 0.5 MG/0.5 ML INJ IV PRN (13:32)
[2024-12-02 06:48] LABS: Absolute Eosinophils 0.5 K/uL (0-0.5); Absolute Lymphocytes (CBC) 1.2 K/uL (0.7-4.9); Absolute Neutrophil 11.7 K/uL (1.8-8.0); Basophils % 0.3 % (0-1.3); Eosinophils % 3.7 % (0-4.4); Hematocrit 29.6 % (39.6-49.0); MCH 26.1 pg (27.0-35.0); MCHC 33.9 g/dL (32.0-36.0); MPV 6.9 fL (7.6-11.3); Monocytes % 6.8 % (3.3-12.3); Neutrophils % 81.2 % (41.7-73.7); Nucleated Red Blood Cells % 0.1 % (0-0); Platelets 323 thou/uL (152-406); RBC Red Blood Cell Count 3.84 M/uL (4.33-5.43); Red Cell Distribution Width 15.2 % (12.1-15.2)
[2024-12-02 07:00] LABS: Anion Gap 7.9 mEq/L (5.0-15.0); Magnesium 2.3 mg/dL (1.6-2.4); Potassium 3.9 mEq/L (3.5-5.1)
--- NOTE | 2024-12-02 18:12 | RAD REPORT ---
EXAM: MRI of the left foot without contrast HISTORY: Evaluate for osteomyelitis. Evaluate for abscess and osteomyelitis COMPARISON: 11/28/2024, 11/03/2024 TECHNIQUE: Multiplanar multisequence MR images were obtained of the left foot without contrast. FINDINGS: Previous first metatarsal base amputation. Abnormal marrow signal seen distal second metatarsal mild edema also seen distal third metatarsal head this is most compatible with osteomyelitis. There is moderate surrounding fluid and edema. Soft tissue ulceration is present as well medially. Soft tissue air bubbles may be present. The muscles and tendons appear intact. IMPRESSION: Moderate osteomyelitis distal second and third metatarsals as detailed. Air may be present in the sof t tissues in this region. Please note that evaluation is limited without IV contrast.
--- NOTE | 2024-12-03 01:08 | P.PN ---
Subjective Date of Service: 11/30/24 CHART HAS BEEN REVIEWED. EVENTS OF LAST 24 HOURS HAVE BEEN NOTED. Patient is a 59-year-old gentleman who comes in with gangrene of the 2nd and 3rd toe of the left foot. Patient with moderate to severe PA D distal to the posterior tibial artery. Recommendation is for surgical intervention. Patient with most likely benefit from BKA. Patient of is homeless. It will be very difficult for him to function day-to-day. Will continue with surgical intervention. MRI was recommended. However, after speaking with surgery and Cardiology as well as Infectious Disease it is not going to change patient's prognosis. Recommendation is for admitted will and a transmetatarsal amputation. However, patient will need to get arteriogram afterwards. Continue with IV antibiotic therapy at this time. Review of Systems 10-point ROS is otherwise unremarkable Physical Examination - Vital Signs Temperature: 98.0 F Blood Pressure: 150/66 Pulse: 93 Respirations: 15 Pulse Ox (%): 97 - Physical Exam General: Alert, In no apparent distress, Oriented x3 Respiratory: Clear to auscultation bilaterally, Normal air movement Cardiovascular: Regular rate/rhythm, Normal S1 S2, No murmurs Gastrointestinal: Normal bowel sounds, Soft and benign, Non-distended, No tenderness Musculoskeletal: No clubbing, No swelling, Swelling, Tenderness Integumentary: Erythema, Cyanosis, Arterial ulcer, Other ( Gangrene of the 2nd and 3rd toe.) Neurological: Sensation intact, Cranial nerves 3-12 intact - Studies Medications List Reviewed: Yes Assessment & Plan - Problems (Diagnosis) (1) Gangrene Current Visit: Yes Status: Acute (2) Diabetes type 2, controlled Current Visit: No Status: Acute Qualifiers: Diabetes mellitus press tender long goods insulin use: without press tender long goods use Diabetes mellitus complication status: without complication Qualified Code(s): E11.9 - Type 2 diabetes mellitus without complications (3) Dyslipidemia (high LDL; low HDL) Current Visit: No Status: Acute (4) History of osteomyelitis Current Visit: No Status: Acute (5) Lower extremity cellulitis Current Visit: No Status: Acute (6) Osteomyelitis Current Visit: No Status: Acute (7) SIRS (systemic inflammatory response syndrome) Current Visit: No Status: Acute - Plan Plan: 1. Patient with gangrene of the 2nd and 3rd toe in a patient with a history of diabetes and peripheral arterial disease of the left leg. Patient will need amputation. Patient will at least need a transmetatarsal amputation and patient may need below-knee amputation. Continue with IV antibiotic therapy. Appreciate Cardiology recommendation as patient will get an arteriogram after the interventions completed. Patient will need continue wound care and patient will need to proceed with surgical intervention. Because of the freeze we may have to delay this for about 24-48 hours. 2. Peripheral arterial disease; continue with anti-platelet therapy and statin therapy. Patient will need arteriogram and possibly further intervention after some initial surgical intervention is completed. 3. Type 2 diabetes; strict blood sugar control 4. GI and DVT prophylaxis Discharge Plan: Home Plan to discharge in: Greater than 2 days - Advance Directives Does patient have a Living Will: No Does patient have a Durable POA for Healthcare: No - Code Status/Comfort Care Code Status Assessed: Yes Code Status: Full Code Critical Care: No Time Spent Managing PTS Care (In Minutes): 45
--- NOTE | 2024-12-03 01:18 | P.PN ---
Date of Service: 12/01/24 Subjective Patient remained stable with no new complaints. Clinical symptoms continued to be poor. Patient will probably need to proceed with surgical intervention. Will discuss with surgery regarding plan of care. Physical Examination - Vital Signs Reviewed - Physical Exam General: Alert, In no apparent distress, Oriented x3 Respiratory: Clear to auscultation bilaterally, Normal air movement Cardiovascular: Regular rate/rhythm, Normal S1 S2, No murmurs Gastrointestinal: Normal bowel sounds, Soft and benign, Non-distended, No tenderness Musculoskeletal: No clubbing, No swelling, Swelling, Tenderness Integumentary: Erythema, Cyanosis, Arterial ulcer, Other ( Gangrene of the 2nd and 3rd toe.) Neurological: Sensation intact, Cranial nerves 3-12 intact Assessment & Plan - Problems (Diagnosis) (1) Gangrene Current Visit: Yes Status: Acute (2) Diabetes type 2, controlled Current Visit: No Status: Acute Qualifiers: Diabetes mellitus chcf insulin use: without watermaster use Diabetes mellitus complication status: without complication Qualified Code(s): E11.9 - Type 2 diabetes mellitus without complications (3) Dyslipidemia (high LDL; low HDL) Current Visit: No Status: Acute (4) History of osteomyelitis Current Visit: No Status: Acute (5) Lower extremity cellulitis Current Visit: No Status: Acute (6) Osteomyelitis Current Visit: No Status: Acute (7) SIRS (systemic inflammatory response syndrome) Current Visit: No Status: Acute - Plan Continue with plan of care as mentioned below: 1. Patient with gangrene of the 2nd and 3rd toe in a patient with a history of diabetes and peripheral arterial disease of the left leg. Patient will need amputation. Patient will at least need a transmetatarsal amputation and patient may need below-knee amputation. Continue with IV antibiotic therapy. Appreci ate Cardiology recommendation as patient will Need to proceed with outpatient arteriogram. However patient needs to proceed with surgical intervention to get the gangrene removed. Patient will need continue wound care and patient will need to proceed with surgical intervention. Because of the freeze we may have to delay this for about 24-48 hours. 2. Peripheral arterial disease; continue with anti-platelet therapy and statin therapy. Patient will need arteriogram and possibly further intervention after initial surgical intervention is completed. 3. Type 2 diabetes; strict blood sugar control 4. GI and DVT prophylaxis Discharge Plan: Home Plan to discharge in: Greater than 2 days - Advance Directives Does patient have a Living Will: No Does patient have a Durable POA for Healthcare: No - Code Status/Comfort Care Code Status Assessed: Yes Code Status: Full Code Critical Care: No Time Spent Managing PTS Care (In Minutes): 35
--- NOTE | 2024-12-03 01:22 | P.PN ---
Date of Service: 12/02/24 Subjective Patient had an MRI which does reveal bony involvement of the 2nd and 3rd metatarsal. This speak with General surgery and they want me to get a 2nd opinion per patient's request. At the minimum patient will need a transmetatarsal amputation if not a below-knee amputation. Physical Examination - Vital Signs Reviewed - Physical Exam General: Alert, In no apparent distress, Oriented x3 Respiratory: Clear to auscultation bilaterally, Normal air movement Cardiovascular: Regular rate/rhythm, Normal S1 S2, No murmurs Gastrointestinal: Normal bowel sounds, Soft and benign, Non-distended, No tenderness Musculoskeletal: No clubbing, No swelling, Swelling, Tenderness Integumentary: Erythema, Cyanosis, Arterial ulcer, Other ( Gangrene of the 2nd and 3rd toe.) Neurological: Diminished sensation; neuropathy Assessment & Plan - Problems (Diagnosis) (1) Gangrene Current Visit: Yes Status: Acute (2) Diabetes type 2, controlled Current Visit: No Status: Acute Qualifiers: Diabetes mellitus senior living insulin use: without 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 Patient with gangrene of the 2nd and 3rd toe in a patient with a history of diabetes and peripheral arterial disease of the left leg. Patient will need amputation. Patient will at least need a transmetatarsal amputation and patient may need below-knee amputation. Continue with IV antibiotic therapy. Appreciate Cardiology recommendation as patient will Need to proceed with outpatient arteriogram. However patient needs to proceed with surgical in tervention to get the gangrene removed. Patient will need continue wound care and patient will need to proceed with surgical intervention. spoke with patient and General surgery and patient will requesting 2nd opinion. Will discuss with surgery in a.m. to see with that would recommend. However, patient does need at the minimum a transmetatarsal amputation about a below-knee amputation. Will continue with anti-platelet therapy and statin therapy. Patient will need outpatient arteriogram after the procedure. 2. Peripheral arterial disease; continue with anti-platelet therapy and statin therapy. Patient will need arteriogram and possibly further intervention after initial surgical intervention is completed. 3. Type 2 diabetes; strict blood sugar control 4. GI and DVT prophylaxis Discharge Plan: Home Plan to discharge in: Greater than 2 days - Advance Directives Does patient have a Living Will: No Does patient have a Durable POA for Healthcare: No - Code Status/Comfort Care Code Status Assessed: Yes Code Status: Full Code Critical Care: No Time Spent Managing PTS Care (In Minutes): 35
[2024-12-03 06:41] LABS: Absolute Basophils 0.1 K/uL (0-0.5); Absolute Eosinophils 0.5 K/uL (0-0.5); Absolute Lymphocytes (CBC) 1.6 K/uL (0.7-4.9); Absolute Neutrophil 10.7 K/uL (1.8-8.0); Basophils % 0.5 % (0-1.3); Eosinophils % 3.8 % (0-4.4); Hematocrit 30.6 % (39.6-49.0); Hemoglobin 10.2 g/dL (13.6-17.9); Lymphocytes % 11.7 % (15.3-44.8); MCH 25.9 pg (27.0-35.0); MCHC 33.4 g/dL (32.0-36.0); MCV 77.7 fL (80-100); MPV 6.9 fL (7.6-11.3); Monocytes % 7.3 % (3.3-12.3); Neutrophils % 76.7 % (41.7-73.7); Platelets 354 thou/uL (152-406); RBC Red Blood Cell Count 3.93 M/uL (4.33-5.43); Red Cell Distribution Width 15.1 % (12.1-15.2)
[2024-12-03 06:59] LABS: Anion Gap 5.6 mEq/L (5.0-15.0); Magnesium 2.4 mg/dL (1.6-2.4); Potassium 4.6 mEq/L (3.5-5.1)
--- NOTE | 2024-12-03 13:10 | EKG ---
Test Date: 2024-11-28 Test Time: 11:36:51 Strategic Buyer: NORMA MEASUREMENT RESULTS: Intervals: Rate: 79 OR: 148 QRSD: 102 QT: 400 QTc: 458 [place]: P: 12 OR: 148 QRS: 4 T: 18 INTERPRETIVE STATEMENTS: Normal sinus rhythm Normal ECG Compared to ECG 11/02/2024 21:09:23 No significant changes Electronically Signed On 12-03-24 13:02:45 RATINGS ANALYST by Yared Pedro
[2024-12-03] MEDS: VANCOMYCIN 1.5 GM in NA CHLORIDE 0.9% 500 ML IVPB SCH (13:31)
[2024-12-04 06:20] LABS: Absolute Eosinophils 0.4 K/uL (0-0.5); Absolute Lymphocytes (CBC) 1.3 K/uL (0.7-4.9); Absolute Monocytes 0.9 K/uL (0.1-1.3); Absolute Neutrophil 10.1 K/uL (1.8-8.0); Basophils % 0.3 % (0-1.3); Eosinophils % 3.1 % (0-4.4); Hematocrit 30.1 % (39.6-49.0); Hemoglobin 9.9 g/dL (13.6-17.9); Lymphocytes % 10.2 % (15.3-44.8); MCH 25.6 pg (27.0-35.0); MCV 77.6 fL (80-100); MPV 7.1 fL (7.6-11.3); Monocytes % 7.4 % (3.3-12.3); Platelets 383 thou/uL (152-406); RBC Red Blood Cell Count 3.87 M/uL (4.33-5.43); Red Cell Distribution Width 14.6 % (12.1-15.2)
[2024-12-04 06:54] LABS: Anion Gap 8.2 mEq/L (5.0-15.0); Magnesium 2.2 mg/dL (1.6-2.4); Potassium 4.2 mEq/L (3.5-5.1)
[2024-12-04] MEDS: NA CHLORIDE 0.9% 1,000 ML ONE (10:18)
[2024-12-04] MEDS: MEPERIDINE HCL 25 MG/ML SYR IV ONE (10:31)
[2024-12-04] MEDS: HYDROMORPHONE HCL 1 MG/ML INJ ONE ×2 (10:41→14:17)
[2024-12-04] MEDS ORDERED: LIDOCAINE 1% MPF 5 ML VIAL ONE (11:41)
[2024-12-04] MEDS ORDERED: KETAMINE HCL IN 0.9 % NACL 50 MG/5 ML SYRINGE IV ONE (11:42)
[2024-12-04] MEDS ORDERED: propofoL 200 MG/20 ML VIAL IV ONE (11:42)
--- NOTE | 2024-12-04 11:44 | P.PN ---
S: Patient states he is ready for surgery, understands he is going undergo an amputation today. O: Vital signs are stable A: The second and third toes continue to demarcate P: This patient, who has diabetes, peripheral vascular disease has been struggling with his leg for the last 8 months. He had been advised in the past that a below-knee amputation would probably be better but he wanted to try just having his great toe amputated. The toe amputation was performed, but he had to has had failure to heal, and now shows osteomyelitis possibly of second and third toes as well as gangrene of the distal digits. He has documented peripheral vascular disease, small vessel below the trifurcation. He has been seen by infectious disease, the hospitalist and myself. It is my opinion that he would benefit from a BKA, and this would greatly improve his chances of restoring maximal functionality and hopefully help him back towards a modified lifestyle. The risks of the procedure have been discussed with the patient. The possibility of nonhealing, need for further surgeries and procedures including higher amputation. Bleeding infection stump necrosis and further complications were outlined. He understands and wants us to proceed.
[2024-12-04] MEDS ORDERED: FENTANYL CITR 100 MCG/2 ML ONE (12:28)
[2024-12-04] MEDS ORDERED: MORPHINE 10 MG/ML VIAL ONE (13:40)
--- NOTE | 2024-12-04 14:23 | P.OP ---
Preoperative diagnosis: Gangrene of the left foot and osteomyelitis of the second and third toe Postoperative diagnosis: The same Primary procedure: Left below-knee amputation Anesthesia: General Estimated blood loss: Less than 20 cc Specimen: Leg since 4 Operative Technique: Patient brought the operating room placed supine on the table. After the induction of adequate general endotracheal anesthesia, the area of the left leg was prepped after placing a tourniquet in usual aseptic manner. The leg was then draped. Attending attention to the tibial tuberosity of problems of the handsbreadth below this a skin incision was made. This is brought down through the skin and subcutaneous tissue. The periosteum over the tibia was identified. This was then cleared around. We opened the lateral aspect of the left leg. The tibia was identified. This was also cleared of its periosteal attachments. The oscillating saw was now used to shorten the fibula which was completely transected. The attention was turned towards the tibia at this point. Having secured the vasculature with hemostats and dividing it, the tibia was transected with a Gigli saw. The anterior portion was then trimmed up using the hand-held oscillating saw. At this point the large fillet knife was then used to take off the posterior skin flap and leave the gastrocsoleus muscles behind. The specimen was handed off the table. Attention was now turned towards the posterior flap. Obvious blood vessels were then tied using hemostat and silk ligatures. The tourniquet was now relieved. Small venous bleeders were identified and coagulated. There was minimal bleeding at this point. We did have good viable tissue. It was necessary to debulk more of the solea's muscle as well as the medial gastroc. The Achilles tendon was also shortened. This posterior flap was now swelling up and anchored securely to the periosteum overlying the tibia itself. These areas of the below-knee amputation was now fashion using the fascia over the muscles being anchored to the periosteum superiorly. At this point having obtained good skin closure of a compartment muscle closure, attention was turned towards the skin. We were able to gently pull this together applying wagner to hold it securely in place. At the end of the procedure the stump was adequately covered. There is still some bulk in there however we did notice is quite a lot of edema particular in the posterior portion of the tissue which will come out over the next few days. At the end of the procedure a posterior splint was applied. At the end of procedure he was in a stable condition was sent to the recovery room. Needle sponge instrument count were correct. No drains were placed. Complications: None Transferred to: Recovery Room Condition: Good
[2024-12-04 14:48] VITALS: O2SAT 98
[2024-12-04] MEDS: Meropenem 500 MG in NA CHLORIDE 0.9% 100 ML IV SCH (16:56)
[2024-12-04] MEDS: MORPHINE 4 MG/ML SYR IV PRN (20:04)
[2024-12-05] MEDS: HYDROCODONE/APAP 10/325 TAB PO PRN (00:29)
[2024-12-05] MEDS: INSULIN REGULAR (HUMAN) 100 UNIT/ML ONE (22:44)
[2024-12-06] MEDS ORDERED: D10W 125 ML IV PRN (12:06)
[2024-12-06] MEDS ORDERED: GLUCAGON 1 MG/VIAL IM PRN (12:06)
--- NOTE | 2024-12-06 17:53 | P.PN ---
Date of Service: 12/03/24 Subjective Patient is doing well. Patient scheduled for below-knee amputation.Patient also got a second opinion and he was agreeable to go ahead and proceed with surgery. Continue with antibiotic therapy and strict blood sugar control. Patient is a little anxious and will need social service input to assist in discharge planning. Physical Examination - Vital Signs Reviewed - Physical Exam General: Alert, In no apparent distress, Oriented x3 Respiratory: Clear to auscultation bilaterally, Normal air movement Cardiovascular: Regular rate/rhythm, Normal S1 S2, No murmurs Gastrointestinal: Normal bowel sounds, Soft and benign, Non-distended, No tenderness Musculoskeletal: No clubbing, No swelling, Swelling, Tenderness Integumentary: Erythema, Cyanosis, Arterial ulcer, Other ( Gangrene of the 2nd and 3rd toe.) Neurological: Diminished sensation; neuropathy Assessment & Plan - Problems (Diagnosis) (1) Gangrene Current Visit: Yes Status: Acute (2) Diabetes type 2, controlled Current Visit: No Status: Acute Qualifiers: 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 Patient with gangrene of the 2nd and 3rd toe in a patient with a history of diabetes and peripheral arterial disease of the left leg. Patient will need amputation. Patient will need below-knee amputation. Continue with IV antibiotic therapy. Appreciate Cardiology recommendationWill continue with anti-platelet therapy and statin therapy. Patient will need outpatient arteriogram after the procedure. 2. Peripheral arterial disease; continue with anti-platelet therapy and statin therapy. Patient will need arteriogram and possibly further intervention after initial surgical intervention is completed. 3. Type 2 diabetes; strict blood sugar control 4. GI and DVT prophylaxis Discharge Plan: Home Plan to discharge in: Greater than 2 days - Advance Directives Does patient have a Living Will: No Does patient have a Durable POA for Healthcare: No - Code Status/Comfort Care Code Status Assessed: Yes Code Status: Full Code Critical Care: No Time Spent Managing PTS Care (In Minutes): 35
[2024-12-06] MEDS ORDERED: INSULIN REGULAR (HUMAN) 100 UNIT/ML SQ ONE (22:46)
--- NOTE | 2024-12-07 02:30 | P.PN ---
Date of Service: 12/04/24 Subjective Patient was confused after coming back from surgery. Patient with a below-knee amputation. Patient is doing okay. Will continue to monitor patient closely. Start physical therapy in AM. Continue with antibiotics at this time. Physical Examination - Vital Signs Reviewed - Physical Exam General: Alert, In no apparent distress, Oriented x3 Respiratory: Clear to auscultation bilaterally, Normal air movement Cardiovascular: Regular rate/rhythm, Normal S1 S2, No murmurs Gastrointestinal: Normal bowel sounds, Soft and benign, Non-distended, No tenderness Musculoskeletal: No clubbing, No swelling, Swelling, Tenderness Integumentary: Left below-knee amputation Neurological: Phantom pain at this time Assessment & Plan - Problems (Diagnosis) (1) Gangrene Current Visit: Yes Status: Acute (2) Diabetes type 2, controlled Current Visit: No Status: Acute 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 Patient with gangrene of the 2nd and 3rd toe in a patient with a history of diabetes and peripheral arterial disease of the left leg. Status post left below-knee amputation. Continue with antibiotics. Continue with physical therapy. Will try to get tyrone rehab as well. Patient has family at bedside including his sister. 2. Peripheral arterial disease; continue with anti-platelet therapy and statin therapy. Patient will need arteriogram outpatient. 3. Type 2 diabetes; strict blood sugar control 4. GI and DVT prophylaxis Discharge Plan: Home Plan to discharge in: Greater than 2 days - Advance Directives Does patient have a Living Will: No Does patient have a Durable POA for Healthcare: No - Code Status/Comfort Care Code Status Assessed: Yes Code Status: Full Code Critical Care: No Time Spent Managing PTS Care (In Minutes): 35
--- NOTE | 2024-12-07 02:42 | P.PN ---
Date of Service: 12/05/24 Subjective Patient continues to do well. Patient denies any new complaints. Patient continues to work with physical therapy. Using a rolling walker at this time. Anticipate patient going to rehab if administration approves tyrone rehab. Overall, patient is doing better than the last 3 to 4 days. And he also has family available who seems to be willing to help. Plan to discharge over the next 72 to 96 hours. Physical Examination - Vital Signs Reviewed - Physical Exam General: Alert, In no apparent distress, Oriented x3 Respiratory: Clear to auscultation bilaterally, Normal air movement Cardiovascular: Regular rate/rhythm, Normal S1 S2, No murmurs Gastrointestinal: Normal bowel sounds, Soft and benign, Non-distended, No tenderness Musculoskeletal: No clubbing, No swelling, Swelling, Tenderness Integumentary: Left below-knee amputation Neurological: Phantom pain at this time Assessment & Plan - Problems (Diagnosis) (1) Gangrene Current Visit: Yes Status: Acute (2) Diabetes type 2, controlled Current Visit: No Status: Acute 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 Patient with gangrene of the 2nd and 3rd toe in a patient with a history of diabetes and peripheral arterial disease of the left leg. Status post left below-knee amputation. Continue with antibiotics. Continue with physical therapy. Will try to get tyrone rehab as well. Patient has family at bedside including his sister. 2. Peripheral arterial disease; continue with anti-platelet therapy and statin therapy. Patient will need arteriogram outpatient. 3. Type 2 diabetes; strict blood sugar control 4. GI and DVT prophylaxis Discharge Plan: Home Plan to discharge in: Greater than 2 days - Advance Directives Does patient have a Living Will: No Does patient have a Durable POA for Healthcare: No - Code Status/Comfort Care Code Status Assessed: Yes Code Status: Full Code Critical Care: No Time Spent Managing PTS Care (In Minutes): 20
--- NOTE | 2024-12-07 02:45 | P.PN ---
Date of Service: 12/06/24 Subjective Patient is a 59-year-old gentleman who came to the hospital with gangrene of the second and third toe. Patient had a below-knee amputation performed on Saturday. Patient was homeless and was living in a nursing home prior to the surgery. Patient is recovering really well and he does have some family available who is willing to help with his rehab. Pt may be able to get tyrone rehab for 7 to 10 days. Spoke with CM re: difficulty in discharging unless family willing to help. Physical Examination - Vital Signs Reviewed - Physical Exam General: Alert, In no apparent distress, Oriented x3 Respiratory: Clear to auscultation bilaterally, Normal air movement Cardiovascular: Regular rate/rhythm, Normal S1 S2, No murmurs Gastrointestinal: Normal bowel sounds, Soft and benign, Non-distended, No tenderness Musculoskeletal: No clubbing, No swelling, Swelling, Tenderness Integumentary: Left below-knee amputation Neurological: generalized weakness Assessment & Plan - Problems (Diagnosis) (1) Gangrene Current Visit: Yes Status: Acute (2) Diabetes type 2, controlled Current Visit: No Status: Acute 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 Patient with gangrene of the 2nd and 3rd toe in a patient with a history of diabetes and peripheral arterial disease of the left leg. Status post left below-knee amputation. Continue with antibiotics. Continue with physical therapy. Will get OT. Will try to get tyrone rehab as well. Patient has family at bedside including his sisters. 2. Peripheral arterial disease; continue with anti-platelet therapy and statin therapy. Patient will need arteriogram outpatient. 3. Type 2 diabetes; strict blood sugar control 4. GI and DVT prophylaxis Discharge Plan: Home Plan to discharge in: Greater than 2 days - Advance Directives Does patient have a Living Will: No Does patient have a Durable POA for Healthcare: No - Code Status/Comfort Care Code Status Assessed: Yes Code Status: Full Code Critical Care: No Time Spent Managing PTS Care (In Minutes): 20
--- NOTE | 2024-12-07 10:00 | P.PN ---
Date of Service: 12/07/24 Subjective Patient is a 59-year-old gentleman who came to the hospital with gangrene of the second and third toe. Patient had a below-knee amputation performed on Saturday. Patient was homeless and was living in a [facility] prior to the surgery. Patient is recovering really well and he does have some family available who is willing to help with his rehab. Pt may be able to get tyrone rehab for 7 to 10 days. Spoke with re: difficulty in discharging unless family willing to help. Awaiting word from re: discharge plan Physical Examination - Vital Signs Reviewed - Physical Exam General: Alert, In no apparent distress, Oriented x3 Respiratory: Clear to auscultation bilaterally, Normal air movement Cardiovascular: Regular rate/rhythm, Normal S1 S2, No murmurs Gastrointestinal: Normal bowel sounds, Soft and benign, Non-distended, No tenderness Musculoskeletal: No clubbing, No swelling, Swelling, Tenderness Integumentary: Left below-knee amputation Neurological: generalized weakness Assessment & Plan - Problems (Diagnosis) (1) Gangrene Current Visit: Yes Status: Acute (2) Diabetes type 2, controlled Current Visit: No Status: Acute 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 Patient with gangrene of the 2nd and 3rd toe in a patient with a history of diabetes and peripheral arterial disease of the left leg. Status post left below-knee amputation. Continue with antibiotics. Continue with physical therapy. Will get OT. Will try to get tyrone rehab as well. Patient has 2 sisters. 2. Peripheral arterial disease; continue with anti-platelet therapy and statin therapy. Patient will need arteriogram outpatient. 3. Type 2 diabetes; strict blood sugar control (still in 3-400s) 4. GI and DVT prophylaxis Discharge Plan: Home Plan to discharge in: Greater than 1 days - Advance Directives Does patient have a Living Will: No Does patient have a Durable POA for Healthcare: No - Code Status/Comfort Care Code Status Assessed: Yes Code Status: Full Code Critical Care: No
[2024-12-07] MEDS: Meropenem 1,000 MG in NA CHLORIDE 0.9% 100 ML IV SCH (16:30)
--- NOTE | 2024-12-07 16:37 | PN ---
Subjective: The patient is sitting in easy chair, not in any acute distress. Objective: Vital Signs: Temperature 97, pulse 90, respirations 16, blood pressure 119/65. Lungs: Basal crackles. Heart: S1, S2. Regular. Abdomen: Soft, nontender. Bowel sounds present. Extremities: Left BKA wound noted. Laboratory Data: Shows WBC trending down to 12.8, hemoglobin 9.9, platelets 383. Chemistry shows cr eatinine of 0.6, BUN of 13. Assessment And Plan: Diabetic foot ulcer, diabetic neuropathy, status post below-knee amputation. T he patient is doing better. Continue current antibiotic. Can be switched to oral. On discharge swi tching to Cipro and doxycycline for 7 more days. We will follow the patient closely. No other recom mendation at this time. NF/MODL Voice ID: [id number] Report ID: [id number]
[2024-12-07] MEDS: INSULIN REGULAR (HUMAN) 100 UNIT/ML SQ ONE (21:04)
[2024-12-08 11:10] LABS: Absolute Basophils 0.1 K/uL (0-0.5); Absolute Eosinophils 0.4 K/uL (0-0.5); Absolute Lymphocytes (CBC) 1.7 K/uL (0.7-4.9); Absolute Monocytes 0.8 K/uL (0.1-1.3); Absolute Neutrophil 5.6 K/uL (1.8-8.0); Basophils % 1.1 % (0-1.3); Eosinophils % 4.4 % (0-4.4); Hematocrit 29.5 % (39.6-49.0); Hemoglobin 10.1 g/dL (13.6-17.9); Lymphocytes % 19.7 % (15.3-44.8); MCH 26.5 pg (27.0-35.0); MCHC 34.3 g/dL (32.0-36.0); MCV 77.3 fL (80-100); MPV 6.6 fL (7.6-11.3); Monocytes % 8.9 % (3.3-12.3); Neutrophils % 65.9 % (41.7-73.7); Platelets 544 thou/uL (152-406); RBC Red Blood Cell Count 3.81 M/uL (4.33-5.43); Red Cell Distribution Width 14.8 % (12.1-15.2)
[2024-12-08 11:18] LABS: Magnesium 2.5 mg/dL (1.6-2.4); Potassium 3.9 mEq/L (3.5-5.1)
[2024-12-08] MEDS: POTASSIUM 25 MEQ EFFERV TAB PO ONE (11:53)
--- NOTE | 2024-12-08 15:41 | PN ---
Subjective: The patient is lying in bed. No new acute event. Sugars are running a little bit eleva antonio around 200s, otherwise unremarkable. Tolerating antibiotic without any problem. Objective: Vital Signs: Temperature 98, pulse 80, respirations 14, blood pressure 110/60. Lungs: Clear to auscultation. Heart: S1, S2. Regular. Abdomen: Soft, nontender. Bowel sounds present. Extremities: Left BKA wound noted. Marie are in place. No signs of active infection at the wound site. Laboratory Data: Reviewed. CBC pending. Assessment And Plan: Status post left below-knee amputation for diabetic neuropathy and diabetic ryan t ulcer and osteomyelitis. The patient is doing well. We will discontinue IV antibiotic and recomme nd to start the patient on Bactrim DS for 5 days. Continue wound care for surgical team. Recommend to apply Xeroform, Kerlix, and Daniel wrap. Keep leg elevated when possible. Follow up with surgical t eam for staple removal. We will follow the patient as needed. NF/MODL Voice ID: [id number] Report ID: [id number]
--- NOTE | 2024-12-08 17:57 | P.PN ---
Date of Service: 12/08/24 Subjective Patient is a 59-year-old gentleman who came to the hospital with gangrene of the second and third toe. Patient had a below-knee amputation performed on Saturday. Patient was homeless and was living in a prison prior to the surgery. Patient is recovering really well and he does have some family available who is willing to help with his rehab. Pt may be able to get [facility] for 7 to 10 days. Spoke with CM re: difficulty in discharging unless family willing to help. Pt has been denied IPR x 2. Pt has no DME. CM working with Siblings. Pt is medically stable to discharge. Needs licensed clinical social worker help Awaiting word from re: discharge plan Physical Examination - Vital Signs Reviewed - Physical Exam General: Alert, In no apparent distress, Oriented x3 Respiratory: Clear to auscultation bilaterally, Normal air movement Cardiovascular: Regular rate/rhythm, Normal S1 S2, No murmurs Gastrointestinal: Normal bowel sounds, Soft and benign, Non-distended, No tenderness Musculoskeletal: No clubbing, No swelling, Swelling, Tenderness Integumentary: Left below-knee amputation, wagner dry and intact. Pics of wound in chart Neurological: generalized weakness Assessment & Plan - Problems (Diagnosis) (1) Gangrene Current Visit: Yes Status: Acute (2) Diabetes type 2, controlled Current Visit: No Status: Acute Diabetes mellitus watcher [employer] insulin use: without watcher [employer] use Diabetes mellitus complication status: without complication Qualified Code(s): E11.9 - Type 2 diabetes mellitus without complications (3) Dyslipidemia (high LDL; low HDL) Current Visit: No Status: Acute (4) History of osteomyelitis Current Visit: No Status: Acute (5) Lower extremity cellulitis Current Visit: No Status: Acute (6) Osteomyelitis Current Visit: No Status: Acute (7) SIRS (systemic inflammatory response syndrome) Current Visit: No Status: Acute - Plan Continue with plan of care as mentioned below: 1. Patient with gangrene of the 2nd and 3rd toe in a patient with a history of diabetes and peripheral arterial disease of the left leg. Status post left below-knee amputation. Continue with antibiotics. Changed per ID to Bactrim DS BID. Continue with physical therapy. Will get OT. Will try to get ty[facility] as well (denied x 2). Patient has 2 sisters. 2. Peripheral arterial disease; continue with anti-platelet therapy and statin therapy. Patient will need arteriogram outpatient. 3. Type 2 diabetes; strict blood sugar control (still in 3-400s) 4. GI and DVT prophylaxis 5. pt is medically cleared for discharge, awaiting social decision Discharge Plan: Home Plan to discharge in: Greater than 1 days - Advance Directives Does patient have a Living Will: No Does patient have a Durable POA for Healthcare: No - Code Status/Comfort Care Code Status Assessed: Yes Code Status: Full Code Critical Care: No
--- NOTE | 2024-12-08 19:29 | P.DS ---
Admission Date: 11/28/24 Discharge Date: 12/09/24 Disposition: ROUTINE DISCHARGE Discharge Condition: GOOD Reason for Admission: Left foot infection Consultations: Dr. Morales (general surgery) Dr. Barlow (infectious disease) Dr. Pedro (cardiology) Procedures: left below the knee amputation Brief History of Present Illness: 59-year-old male with history of type 2 diabetes, essential hypertension, hyperlipidemia, left big toe amputation in August 2024, initially presented to the ER with left foot infection. In aug 2024, patient underwent left big toe amputation due to left big toe osteomyelitis, and was again admitted in October 2020 for which was a month ago, and underwent I&D of the left big toe stump. Upon discharge, patient was being followed by general surgeon, Dr. Morales. According to patient, 2 days ago, noticed that the left second toe has turned black, prompting patient to come to the ER. At bedside, patient has a draining abscess at the left big toe stump and left second toe gangrene. Hospital Course: Medically cleared for discharge with oral Bactrim and continuation of maintenance medication. Case management approved rollator and patient will be discharged to follow-up with Dr. Morales for staple removal. Patient plans to go to his SSI meeting next week. Vital Signs/Physical Exam: Temp Pulse Resp BP Pulse Ox 97.8 F 92 H 18 130/67 96 12/08/24 16:00 12/08/24 16:00 12/08/24 16:00 12/08/24 16:00 12/08/24 16:00 General: Alert, In no apparent distress, Oriented x3 HEENT: Atraumatic, Normocephalic Neck: Supple, 2+ carotid pulse no bruit Respiratory: Normal air movement Cardiovascular: Normal pulses, Regular rate/rhythm, Normal S1 S2 Capillary refill: <2 Seconds Gastrointestinal: Normal bowel sounds, Soft and benign Musculoskeletal: No clubbing, No swelling, Other (Left BKA with wagner intact, no evidence of infection) Integumentary: No rashes Neurological: Other (Walking well with PT with a walker. CM approved to rollator so patient will be discharged) Lymphatics: No axilla or inguinal lymphadenopathy External genitalia: Deferred Rectal: Deferred Laboratory Data at Discharge: WBC 8.40 thou/uL (4.3-10.9) 12/08/24 10:40 Hgb 10.1 g/dL (13.6-17.9) L 12/08/24 10:40 Hct 29.5 % (39.6-49.0) L 12/08/24 10:40 Plt Count 544 thou/uL (152-406) H 12/08/24 10:40 PT 12.7 SECONDS (9.4-12.5) H 11/28/24 11:00 INR 1.21 11/28/24 11:00 Sodium 129 mEq/L (136-145) L 12/04/24 05:10 Potassium 3.9 mEq/L (3.5-5.1) 12/08/24 10:40 BUN 13 mg/dL (7-18) 12/04/24 05:10 Creatinine 0.69 mg/dL (0.70-1.30) L 12/04/24 05:10 Glucose 207 mg/dL (74-106) H 12/04/24 05:10 Magnesium Cancelled 12/08/24 Unknown Total Bilirubin 0.5 mg/dL (0.2-1.0) 11/28/24 11:00 AST 21 U/L (15-37) 11/28/24 11:00 ALT 46 U/L (16-61) 11/28/24 11:00 Alkaline Phosphatase 139 U/L (45-117) H 11/28/24 11:00 Home Medications: Insulin Glargine,Hum.rec.anlog [Semglee] 15 unit SQ DAILY #10 ml 06/18/24 Hydrocodone 10/APAP 325 [[place] 10/325] 1 tab PO Q6H PRN #15 tab 08/20/24 Atorvastatin Calcium [Lipitor] 40 mg PO BEDTIME #30 tab 11/07/24 lisinopriL [Lisinopril] 10 mg PO DAILY 30 Days #30 tab 11/07/24 Metformin HCl [Glucophage*] 500 mg PO DAILY 30 Days #60 tab 12/07/24 Mupirocin Calcium [Bactroban Nasal*] 1 appl ELKIN BID #1 tube 12/07/24 lisinopriL [Prinivil*] 10 mg PO DAILY 90 Days #90 tab 12/07/24 traMADol HCL [Ultram*] 50 mg PO Q6H PRN 5 Days #15 tab 12/07/24 Atorvastatin Calcium [Lipitor] 40 mg PO BEDTIME #30 tab 12/08/24 Smz./Tmp. [Bactrim Ds 800 MG/160 MG*] 1 tab PO BID #20 tab 12/08/24 New Medications: Smz./Tmp. [Bactrim Ds 800 MG/160 MG*] 1 tab PO BID #20 tab Mupirocin Calcium [Bactroban Nasal*] 1 appl ELKIN BID #1 tube Metformin HCl [Glucophage*] 500 mg PO DAILY 30 Days #60 tab Atorvastatin Calcium [Lipitor] 40 mg PO BEDTIME #30 tab lisinopriL [Prinivil*] 10 mg PO DAILY 90 Days #90 tab traMADol HCL [Ultram*] 50 mg PO Q6H PRN 5 Days #15 tab PRN Reason: Pain Physician Discharge Instructions: Medically cleared for discharge with oral Bactrim and continuation of maintenance medication. Case management approved rollator and patient will be discharged to follow-up with Dr. Morales for staple removal. Patient plans to go to his SSI meeting next week. Diet: ADA Activity: Fall precautions Followup: Fernie Morales MD [ACTIVE - CAN ADMIT] - 1-2 Weeks NONE,NONE [Primary Care Provider] -
[2024-12-08] MEDS: SMZ./TMP. 800/160 MG TABLET PO SCH (20:53)
[2024-12-09 13:49] VITALS: BP 109/64; TEMP 98.1
== END 2024-12-09 17:30 | disposition home or self-care (01) | DRG 854 ==
LOC: ER 08:45 → ERHOLD 10:58 → 4TH 12:18
PROVIDERS: ADMIT Internal Medicine; ATTEND Internal Medicine
PROC: 0Y6J0Z1 Detachment at Left Lower Leg, High, Open Approach (ICD-10-PCS; principal; 2024-12-04 11:00)
DX: A41.9 Sepsis, unspecified organism (principal); E11.52 Type 2 diabetes mellitus with diabetic peripheral angiopathy with gangrene; Z16.12 Extended spectrum beta lactamase (ESBL) resistance; M86.172 Other acute osteomyelitis, left ankle and foot; Z59.01 Sheltered homelessness; L02.612 Cutaneous abscess of left foot; L03.116 Cellulitis of left lower limb; E11.69 Type 2 diabetes mellitus with other specified complication; E11.621 Type 2 diabetes mellitus with foot ulcer; L97.529 Non-pressure chronic ulcer of other part of left foot with unspecified severity; I10 Essential (primary) hypertension; D63.8 Anemia in other chronic diseases classified elsewhere; E78.5 Hyperlipidemia, unspecified; E66.9 Obesity, unspecified; F17.210 Nicotine dependence, cigarettes, uncomplicated; B96.20 Unspecified Escherichia coli [E. coli] as the cause of diseases classified elsewhere; Z71.6 Tobacco abuse counseling; Z79.4 Long term (current) use of insulin; Z79.84 Long term (current) use of oral hypoglycemic drugs; Z68.35 Body mass index [BMI] 35.0-35.9, adult; Z90.49 Acquired absence of other specified parts of digestive tract; Z89.412 Acquired absence of left great toe; Z28.310 Unvaccinated for COVID-19; Z79.899 Other long term (current) drug therapy
CPT/HCPCS: 36415; 71045; 80048; 80076; 80202; 82947; 83036; 83605; 83735; 83880; 84132; 84484; 85025; 85610; 86140; 87040; 87070; 87077; 87186; 87205; 88305; 88307; 88311; 93005; 93926; 93971; 94010; 96365; 96367; 96368; 96375; 97116; 97162; 97530; 97542; 99285; J0692; J1171; J1650; J2003; J2175; J2185; J2270; J2405; J2543; J2704; J3010; J7030; J7040; J7050

== ENCOUNTER 2024-12-09 21:10 | Emergency (ER) | payer OTHER, SELFPAY ==
--- OUTSIDE RECORDS SUMMARY | 2024-12-09 21:14 | XMS REPORT | Continuity of Care Document ---
Author Name Unknown Address [address] [facility] [address] [facility] [address] [place] [id number] [facility] Address [address] [facility] [address] [place] [address] Care Team Providers Care Atm Technician Name Role Phone Arlin Pinto [facility] [...] mg Raj Irwin glyburide 2.5 mg tablet 7-20 00:00: 00 Yes mg Raj Irwin sulfamethox azole 800 mg-trimetho prim 160 mg tablet 7-20 00:00: 00 Yes mg Raj Irwin sulfamethox azole 800 mg-trimetho prim 160 mg tablet 7-05 00:00: 00 Yes mg Raj Irwin metformin ER 500 mg tablet,exte nded release 24 hr 7-05 00:00: 00 Yes mg Raj F Dc Vital Signs Vital Name Observation Time Observation Value Comments S tracy BP Systolic 2024-11-19 08:06:00 122 mm[Hg] Step [...] Body Temperature 2024-09-03 10:03:00 98.20 degrees Raj Lisbeth Irwin Heart Rate 2024-09-03 10:03:00 95.00 /min Verónica en F Dc Respiratory Rate 2024-09-03 10:03:00 18.00 /min Raj Lisbeth Irwin BP Systolic 2024-09-03 09:53:00 108 mm[Hg] Step hen F Dc BP Diastolic 2024-09-03 09:53:00 72 mm[Hg] Rayo phen F Dc Weight Measured 2024-09-03 09:53:00 206.00 pounds Raj Irwin Height Measured 2024-09-03 09:53:00 68.00 inches Raj Irwin Body Temperature 2024-09-03 09:53:00 98.20 degrees Raj Lisbeth Irwin Heart Rate 2024-09-03 09:53:00 95.00 /min Verónica en F Dc Respiratory Rate 2024-09-03 09:53:00 18.00 /min Raj Irwin Encounters Start Date/Time End Date/Time Encounter Type Admission Type Attending [facility] Care Department Encounter ID Source 2024-11-19 07:54:15 2024-11-19 07:54:15 Outpatient [facility] [id number] Raj Irwin 2024-11-19 00:00:00 2024-11-19 00:00:00 Outpatient Visit [facility] [id number] Raj Irwin 2024-11-13 13:23:38 2024-11-13 13:23:38 Outpatient [facility] [id number] Raj Irwin 2024-10-22 14:04:32 2024-10-22 14:04:32 Outpatient [facility] [id number] Raj Irwin 2024-10-22 00:00:00 2024-10-22 00:00:00 Outpatient Visit [facility] [id number] Raj Irwin 2024-10-01 08:16:36 2024-10-01 08:16:36 Outpatient [facility] [id number] Raj Irwin 2024-09-23 17:21:05 2024-09-23 17:21:05 Outpatient [facility] [id number] Raj Irwin 2024-09-23 00:00:00 2024-09-23 00:00:00 Outpatient Visit [facility] [id number] Raj Irwin 2024-09-03 09:39:47 2024-09-03 09:39:47 Outpatient [facility] [id number] Raj Irwin
[2024-12-09 21:51] LABS: Absolute Basophils 0.1 K/uL (0-0.5); Absolute Eosinophils 0.3 K/uL (0-0.5); Absolute Monocytes 0.8 K/uL (0.1-1.3); Absolute Neutrophil 6.9 K/uL (1.8-8.0); Basophils % 0.9 % (0-1.3); Eosinophils % 2.9 % (0-4.4); Hematocrit 30.2 % (39.6-49.0); Hemoglobin 10.3 g/dL (13.6-17.9); Lymphocytes % 20.1 % (15.3-44.8); MCH 26.6 pg (27.0-35.0); MCHC 34.1 g/dL (32.0-36.0); MCV 78.1 fL (80-100); MPV 6.2 fL (7.6-11.3); Monocytes % 7.8 % (3.3-12.3); Neutrophils % 68.3 % (41.7-73.7); Nucleated Red Blood Cells % 0.1 % (0-0); Platelets 581 thou/uL (152-406); RBC Red Blood Cell Count 3.87 M/uL (4.33-5.43); Red Cell Distribution Width 15.1 % (12.1-15.2)
[2024-12-09] MEDS ORDERED: ONDANSETRON 4 MG/2 ML VIAL ONE (21:54)
[2024-12-09] MEDS ORDERED: MORPHINE 4 MG/ML SYR ONE (21:54)
[2024-12-09] MEDS ORDERED: DIAZEPAM 5 MG TABLET ONE (21:55)
[2024-12-09] MEDS ORDERED: NA CHLORIDE 0.9% 500 ML ONE (21:55)
[2024-12-09 22:09] LABS: Albumin 2.2 g/dL (3.4-5.0); Albumin/Globulin Ratio 0.4 (1.1-1.8); Anion Gap 10.9 mEq/L (5.0-15.0); Bilirubin Total 0.2 mg/dL (0.2-1.0); Globulin 5.6 g/dL (2.3-3.5); Potassium 4.9 mEq/L (3.5-5.1); Protein, Total 7.8 g/dL (6.4-8.2)
--- NOTE | 2024-12-09 22:43 | RAD REPORT ---
EXAMINATION: XR Tib Fib Left CLINICAL INDICATION: Male, 59 years old. PAIN TECHNIQUE: 2 view radiograph of the left tibia and fibula were obtained. COMPARISON: No prior exam. FINDINGS: No evidence of fracture or dislocation. Sequelae of below-knee amputation. No lucency or de structive changes, with attention to the amputation stump. Mild suprapatellar effusion. 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 Mild degenerative changes throughout the 3 knee compartments. No soft tissue gas. Skin wagner along the below knee stump. No focal bone lesion. Soft tissues are otherwise unremarkable. IMPRESSION: No acute osseous abnormality. Chronic findings as above.
--- NOTE | 2024-12-09 23:10 | ER ---
Nurse's Notes [facility] Name: Nas White Jr Age: 59 yrs Sex: Male : 1965 Arrival Date: 12/09/2024 Time: 21:10 Bed 23 Private MD: Diagnosis: Fall on same level, unspecified;Pain in left lower leg-SP BKA, INTACT , BLEEDING;Contusion of lower leg;Tobacco abuse counseling;Tobacco use;Type 2 diabetes mellitus with hyperglycemia Presentation: 12/09 21:14 Chief complaint: Patient states: I fell out of myc chair and I just had a BKA sx bm8 Saturday. I got pain all over and especcially in my left leg. Coronavirus screen: At this time, the client does not indicate any symptoms associated with coronavirus-19. Ebola Screen: Patient negative for fever greater than or equal to 101.5 degrees Fahrenheit, and additional compatible Ebola Virus Disease symptoms Patient denies exposure to infectious person. Patient denies travel to an Ebola-affected area in the 21 days before illness onset. No symptoms or risks identified at this time. Initial Sepsis Screen: Does the patient meet any 2 criteria? No. Patient's initial sepsis screen is negative. Does the patient have a suspected source of infection? No. Patient's initial sepsis screen is negative. Risk Assessment: Do you want to hurt yourself or someone else? Patient reports no desire to harm self or others. Onset of symptoms was December 09, 2024 at 20:00. 21:14 Method Of Arrival: EMS: [facility] 8 21:14 Acuity: CAITLIN 3 bm8 Triage Assessment: 21:15 General: Appears distressed, uncomfortable, Behavior is cooperative, anxious. Pain: bm8 Complains of pain in "all over" Pain currently is 10 out of 10 on a pain scale. EENT: No deficits noted. No signs and/or symptoms were reported regarding the EENT system. Neuro: No deficits noted. Level of Consciousness is awake, alert, obeys commands, Oriented to person, place, time, situation, Appropriate for age. Cardiovascular: Denies chest pain, Capillary refill < 3 seconds in bilateral fingers Patient's skin is warm and dry. Respiratory: Airway is patent Respiratory effort is even, unlabored, Respiratory pattern is regular, symmetrical. GI: No deficits noted. No signs and/or symptoms were reported involving the gastrointestinal system. : No deficits noted. No signs and/or symptoms were reported regarding the genitourinary system. Derm: No deficits noted. No signs and/or symptoms reported regarding the dermatologic system. Musculoskeletal: pt has recent BKA sx. Reports pain in all over. Historical: - Allergies: 21:15 No Known Allergies; bm8 - Home Meds: 21:15 insulin [Active]; Metformin Oral [Active]; bm8 - PMHx: 21:15 Diabetes - NIDDM; Hypertension; bm8 - PSHx: 21:15 Appendectomy; left BKA (Appendectomy); bm8 - Immunization history:: Adult Immunizations up to date. - Infectious Disease History:: Denies. - Social history:: Smoking status: Patient denies any tobacco usage or history of. - Family history:: not pertinent. Screenin:14 [facility] ED Fall Risk Assessment (Adult) History of falling in the last 3 months, ha1 including since admission Yes- single mechanical fall (1 pt) Confusion or Disorientation No (0 pts) Intoxicated or Sedated No (0 pts) Impaired Gait Yes (1 pt) Mobility Assist Device Used Yes (1 pt) Altered Elimination No (0 pt) Score/Fall Risk Level 3 or more points = High Risk Oriented to surroundings, Maintained a safe environment, Educated pt \\T\\ family on fall prevention, incl call for assistance when getting out of bed, Hourly rounding (assess needs \\T\\ fall precautionary measures) done. Abuse screen: Denies threats or abuse. Denies injuries from another. 21:14 Nutritional screening: No deficits noted. Tuberculosis screening: No symptoms or risk ha1 factors identified. Assessment: 21:14 General: Appears uncomfortable, Behavior is cooperative. Pain: Complains of pain in ha1 right leg and arm. 21:14 Neuro: Level of Consciousness is awake, alert, obeys commands, Oriented to person, ha1 place, time, situation. Cardiovascular: Capillary refill < 3 seconds Patient's skin is warm and dry. Respiratory: Airway is patent Respiratory effort is even, unlabored, Respiratory pattern is regular, symmetrical. GI: No signs and/or symptoms were reported involving the gastrointestinal system. Abdomen is round non-distended. Derm: Skin is healthy with good turgor, Skin is normal. Musculoskeletal: Amputation of wagner present. Vital Signs: 21:14 BP 148 / 62; Pulse 90; Resp 18; Temp 98.2; Pulse Ox 100% ; Weight 93.89 kg; Height 5 bm8 ft. 4 in. ; Pain 10/10; 22:00 BP 159 / 77; Pulse 83; Resp 17 S; Pulse Ox 98% on R/A; ha1 23:00 BP 131 / 65; Pulse 90; Resp 18 S; Pulse Ox 98% on R/A; ha1 21:14 Body Mass Index 35.53 (93.89 kg, 162.56 cm) bm8 21:14 Pain Scale: Adult bm8 ED Course: 21:14 Patient arrived in ED. bm8 21:14 Patient has correct armband on for positive identification. Allergy band placed. Placed ha1 in gown. Bed in low position. Call light in reach. Side rails up X2. 21:14 Provided Education on: plan of care . Client placed on continuous cardiac and pulse ha1 oximetry monitoring. NIBP monitoring applied. traffic monitor specialist on. 21:15 Triage completed. bm8 21:15 Arm band placed on right wrist. bm8 21:18 Jose D Ponce MD is Attending Physician. tyler 21:30 Inserted saline lock: 20 gauge in left antecubital area, using aseptic technique. Blood ha1 collected. Flushed with 10 mL NS. 22:01 Tib Fib Left XRAY In Process Unspecified. EDMS 22:02 Chani Strong, GELY is Primary Nurse. ha1 23:07 Neto Douglas MD is Hospitalizing Provider. tyler 12/10 00:32 Chest Abdomen Pelvis W Cont In Process Unspecified. EDMS 00:32 Head C Spine Mpr Wo Con In Process Unspecified. EDMS 01:21 Fernie Morales MD is Referral Physician. tyler 01:39 No provider procedures requiring assistance completed. ha1 01:40 IV discontinued, intact, bleeding controlled, No redness/swelling at site. Pressure ha1 dressing applied. Administered Medications: 12/09 22:00 Drug: Ondansetron IVP 4 mg IVP once; over 2 minutes Route: IVP; Site: left antecubital; ha1 22:30 Follow up: Response: No adverse reaction; Marked relief of symptoms ha1 22:02 Drug: Diazepam PO 10 mg PO once Route: PO; ha1 22:30 Follow up: Response: No adverse reaction; Marked relief of symptoms ha1 22:03 Drug: NS 0.9% IV 500 ml IV at bolus once; to be given as a bolus over 30 minutes Route: ha1 IV; Rate: bolus; Site: left antecubital; 23:32 Follow up: Response: No adverse reaction; IV Status: Completed infusion; IV Intake: ha1 500ml 22:03 Drug: morphine IVP or IV 4 mg IVP once over 4 mins Route: IVP; Infused Over: 4 mins; ha1 Site: left antecubital; 22:30 Follow up: Response: No adverse reaction; Pain is decreased; RASS: Alert and Calm (0) ha1 12/10 00:06 Drug: NS 0.9% IV 1000 ml IV at 1000 ml once; to be given as a bolus over 60 minutes ha1 Route: IV; Rate: 1000 ml; Site: left antecubital; 01:20 Follow up: Response: No adverse reaction; IV Status: Completed infusion; IV Intake: ha1 1000ml Medication: 12/09 23:31 VIS not applicable for this client. ha1 Intake: 23:32 IV: 500ml; Total: 500ml. ha1 12/10 01:20 IV: 1000ml; Total: 1500ml. ha1 Outcome: 12/09 23:08 Decision to Hospital[facility] 12/10 01:23 [facility] 01:40 Discharged to home via wheelchair, with family, [facility] 01:40 Condition: stable 01:40 Discharge instructions given to patient, family, Instructed on discharge instructions, follow up and referral plans. medication usage, Demonstrated understanding of instructions, follow-up care, medications, Prescriptions given X 1, 01:41 Patient left the ED. 1 Signatures: Dispatcher [employer] Jose D Ge MD MD cha Ayala, Heidy RN RN [facility] Lee Boss RN RN bm8
--- NOTE | 2024-12-09 23:10 | EDPHYS ---
Physician Documentation [facility] Name: Nas White Jr Age: 59 yrs Sex: Male : 1965 Arrival Date: 12/09/2024 Time: 21:10 Bed 23 Private MD: ED Physician Jose D Ponce HPI: 12/09 22:58 This 59 yrs old Male presents to ER via EMS with complaints of FALL, LEFT tyler STUMP TRAUMA. 22:58 FALL , HOMELESS, BLEEDING STUMP. Onset: The symptoms/episode began/occurred just prior tyler to arrival. The patient has a laceration related to: falling. The laceration(s) is(are) located on the lateral aspect of left calf, left calf, medial aspect of left calf and left oro. Associated signs and symptoms: The patient has no apparent associated signs or symptoms. Severity of symptoms: At their worst the symptoms were moderate in the emergency department the symptoms are unchanged. The patient has experienced similar episodes in the past, a few times. Historical: - Allergies: 21:15 No Known Allergies; bm8 - Home Meds: 21:15 insulin [Active]; Metformin Oral [Active]; bm8 - PMHx: 21:15 Diabetes - NIDDM; Hypertension; bm8 - PSHx: 21:15 Appendectomy; left BKA (Appendectomy); bm8 - Immunization history:: Adult Immunizations up to date. - Infectious Disease History:: Denies. - Social history:: Smoking status: Patient denies any tobacco usage or history of. - Family history:: not pertinent. ROS: 23:03 Constitutional: Negative for fever, chills, and weight loss, Eyes: Negative for injury, tyler pain, redness, and discharge, ENT: Negative for injury, pain, and discharge, Neck: Negative for injury, pain, and swelling, Cardiovascular: Negative for chest pain, palpitations, and edema, Respiratory: Negative for shortness of breath, cough, wheezing, and pleuritic chest pain, Abdomen/GI: Negative for abdominal pain, nausea, vomiting, diarrhea, and constipation, Back: Negative for injury and pain, : Negative for injury, bleeding, discharge, and swelling, Skin: Negative for injury, rash, and discoloration, Neuro: Negative for headache, weakness, numbness, tingling, and seizure, Psych: Negative for depression, anxiety, suicide ideation, homicidal ideation, and hallucinations, Allergy/Immunology: Negative for hives, rash, and allergies, Endocrine: Negative for neck swelling, polydipsia, polyuria, polyphagia, and marked weight changes, Hematologic/Lymphatic: Negative for swollen nodes, abnormal bleeding, and unusual bruising, 23:03 MS/extremity: Positive for injury or acute deformity, decreased range of motion, laceration, pain, of the lateral aspect of left calf, left calf, medial aspect of left calf and left oro, Exam: 23:03 Constitutional: This is a well developed, well nourished patient who is awake, alert, tyler and in no acute distress. Head/Face: Normocephalic, atraumatic. Eyes: Pupils equal round and reactive to light, extra-ocular motions intact. Lids and lashes normal. Conjunctiva and sclera are non-icteric and not injected. Cornea within normal limits. Periorbital areas with no swelling, redness, or edema. ENT: Nares patent. No nasal discharge, no septal abnormalities noted. Tympanic membranes are normal and external auditory canals are clear. Oropharynx with no redness, swelling, or masses, exudates, or evidence of obstruction, uvula midline. Mucous membranes moist. Neck: Trachea midline, no thyromegaly or masses palpated, and no cervical lymphadenopathy. Supple, full range of motion without nuchal rigidity, or vertebral point tenderness. No Meningismus. Chest/axilla: Normal chest wall appearance and motion. Nontender with no deformity. No lesions are appreciated. Cardiovascular: Regular rate and rhythm with a normal S1 and S2. No gallops, murmurs, or rubs. Normal PMI, no JVD. No pulse deficits. Respiratory: Lungs have equal breath sounds bilaterally, clear to auscultation and percussion. No rales, rhonchi or wheezes noted. No increased work of breathing, no retractions or nasal flaring. Abdomen/GI: Soft, non-tender, with normal bowel sounds. No distension or tympany. No guarding or rebound. No evidence of tenderness throughout. Back: No spinal tenderness. No costovertebral tenderness. Full range of motion. Male : Normal genitalia with no discharge or lesions. Neuro: Awake and alert, GCS 15, oriented to person, place, time, and situation. Cranial nerves II-XII grossly intact. Motor strength 5/5 in all extremities. Sensory grossly intact. Cerebellar exam normal. Normal gait. Psych: Awake, alert, with orientation to person, place and time. Behavior, mood, and affect are within normal limits. 23:03 Musculoskeletal/extremity: ROM: full active range of motion, full passive range of motion, limited active range of motion due to pain, limited passive range of motion due to pain, Circulation is intact in all extremities. BLEEDING AT SUTURE LINE, MARIE INTACT. Sensation intact. Compartment Syndrome exam of affected extremity: is normal. 23:03 Skin: Appearance: Color: normal in color, Temperature: normal temperature, Moisture: normal moisture, petechiae, not noted, ecchymosis, not noted, diaphoresis is not appreciated, Vital Signs: 21:14 BP 148 / 62; Pulse 90; Resp 18; Temp 98.2; Pulse Ox 100% ; Weight 93.89 kg; Height 5 bm8 ft. 4 in. ; Pain 10/10; 22:00 BP 159 / 77; Pulse 83; Resp 17 S; Pulse Ox 98% on R/A; ha1 23:00 BP 131 / 65; Pulse 90; Resp 18 S; Pulse Ox 98% on R/A; ha1 21:14 Body Mass Index 35.53 (93.89 kg, 162.56 cm) bm8 21:14 Pain Scale: Adult bm8 MDM: 21:18 Medical Screening Exam initiated tyler 23:05 Differential Diagnosis sepsis. Differential diagnosis: superficial laceration, STAPLED tyler WOUND, BLEEDING CONTROLLED, WOUND INTACT. Data reviewed: vital signs, nurses notes, lab test result(s), radiologic studies, plain films. Consideration of Admission/Observation Escalation of care including admission/observation considered. Independent interpretation of the following test(s) in the Emergency Department X-Ray: My interpretation is LEFT TIB/FIB. Test considered but Not performed: Ultrasound NO USG NEEDED. Historians other than the Patient: EMS: EMS WELL INFORMED. PT HOMELESS, ALONE. Care significantly affected by the following chronic conditions: Diabetes, Hypertension. 12/09 21:28 Order name: CBC with Diff; Complete Time: 22:58 [facility] 12/09 21:28 Order name: Comprehensive Metabolic Panel; Complete Time: 22:58 [facility] 12/09 21: Order name: Tib Fib Left XRAY; Complete Time: 22:58 tyler 12/10 00:07 Order name: Chest Abdomen Pelvis W Cont EDVT 12/10 00:07 Order name: Head C Spine Mpr Wo Con; Complete Time: EDVT 12/09 21:28 Order name: Wound dressing: XEROFORM , MC , TERE; Complete Time: 22:35 tyler Administered Medications: 22:00 Drug: Ondansetron IVP 4 mg IVP once; over 2 minutes Route: IVP; Site: left antecubital; 1 22:30 Follow up: Response: No adverse reaction; Marked relief of symptoms ha1 22:02 Drug: Diazepam PO 10 mg PO once Route: PO; ha1 22:30 Follow up: Response: No adverse reaction; Marked relief of symptoms ha1 22:03 Drug: NS 0.9% IV 500 ml IV at bolus once; to be given as a bolus over 30 minutes Route: ha1 IV; Rate: bolus; Site: left antecubital; 23:32 Follow up: Response: No adverse reaction; IV Status: Completed infusion; IV Intake: ha1 500ml 22:03 Drug: morphine IVP or IV 4 mg IVP once over 4 mins Route: IVP; Infused Over: 4 mins; ha1 Site: left antecubital; 22:30 Follow up: Response: No adverse reaction; Pain is decreased; RASS: Alert and Calm (0) [facility] 12/10 00:06 Drug: NS 0.9% IV 1000 ml IV at 1000 ml once; to be given as a bolus over 60 minutes ha1 Route: IV; Rate: 1000 ml; Site: left antecubital; 01:20 Follow up: Response: No adverse reaction; IV Status: Completed infusion; IV Intake: ha1 1000ml Disposition Summary: 12/10/24 01:23 Discharge Ordered Notes: Location: Home(12/10/24 01:23) tyler Problem: new(12/10/24 01:23) tyler Symptoms: have improved(12/10/24 01:23) tyler Condition: Stable(12/10/24 01:23) tyler Diagnosis - Fall on same level, unspecified(12/10/24 01:23) tyler - Pain in left lower leg - SP BKA, INTACT , BLEEDING(12/10/24 01:23) tyler - Contusion of lower leg tyler - Tobacco abuse counseling tyler - Tobacco use tyler - Type 2 diabetes mellitus with hyperglycemia(12/10/24 01:25) tyler Followup: tyler - With: Private Physician - When: 2 - 3 days - Reason: Recheck today's complaints, Continuance of care, Re-evaluation by your physician Followup: tyler - With: Fernie Morales MD - When: 2 - 3 days - Reason: Recheck today's complaints, Re-evaluation by your physician Discharge Instructions: - Discharge Summary Sheet tyler - How to Change Your Wound Dressing tyler - Musculoskeletal Pain tyler - Steps to Quit Smoking tyler - Health Risks of Smoking tyler - Diabetes Mellitus and Nutrition, Adult tyler - Steps to Quit Smoking, Wplu-by-Tluf tyler - How to Change Your Wound Dressing, Hbkm-ib-[id number] tyler - Sutures, Marie, or Adhesive Wound Closure, Zcpj-sm-Cjtl tyler Forms: - Medication Reconciliation Form tyler - Antibiotic Education tyler - Prescription Opioid Use tyler - Patient Portal Instructions tyler - Leadership Thank You Letter tyler Prescriptions: - Cephalexin 500 mg Oral capsule - take 1 capsule ORAL route every 6 hours for 7 days; 28 capsule; Refills: 0, tyler Product Selection Permitted Signatures: Dispatcher [employer] EDMS Jose D Ponce MD MD cha Ayala, Heidy, RN RN ha1 Lee Boss, RN RN bm8 Corrections: (The following items were deleted from the chart) 12/09 21: 21:28 CBC+H.LAB.BRZ ordered. EDVT EDVT 21:28 21:28 COMPREHENSIVE METABOLIC PANEL+C.LAB.BRZ ordered. EDVT EDVT 21:28 21:28 Tib Fib Left+RAD.RAD.BRZ ordered. EDVT EDVT 12/10 00:07 00:01 Head C Spine CAP W Con+CT.RAD.BRZ ordered. EDVT EDVT 12/09 23:08 Observation [facility] 12/10 00:12/09 23:08 Neto Douglas [facility] 12/10 00:12/09 23:08 Telemetry/MedSurg (observation) [facility] 12/10 00:12/09 23:08 Stable [facility] 12/10 00:12/09 23:08 new [facility] 12/10 00:12/09 23:08 have improved [facility] 12/10 00:12/09 23:08 Standard [facility] 12/10 00:12/09 23:08 [facility] 12/10 01:12/09 23:08 Fall on same level, unspecified [facility] 12/10 00:12/09 23:08 Pain in left lower leg - STUMP , S/P BKA, SITE BLEEDING, INTACT [facility]ott 12/10 00:12/09 23:08 Type 2 diabetes mellitus with hyperglycemia [facility]ott 12/10 01:12/09 23:09 Homelessness [facility] tyler
[2024-12-10] MEDS ORDERED: NA CHLORIDE 0.9% 1,000 ML ONE (00:05)
--- NOTE | 2024-12-10 01:13 | RAD REPORT ---
EXAM: CT Head and Cervical Spine Without Intravenous Contrast CLINICAL HISTORY: TRAUMA TECHNIQUE: Axial computed tomography images of the head/brain and cervical spine without intravenous contrast. Sagittal and coronal reformatted images were created and reviewed. This CT exam was performed using one or more of the following dose reduction techniques: automated exposure control, adjustmen t of the mA and/or kV according to patient size, and/or use of iterative reconstruction technique. COMPARISON: No relevant prior studies available. FINDINGS: Brain: Mild cerebral atrophy. No hemorrhage. No significant white matter disease. Ventricles: Unremarkable. No ventriculomegaly. Skull: Remote appearing bilateral nasal bone fracture deformities. Sinuses: Unremarkable as visualized. No acute sinusitis. Mastoid air cells: Unremarkable as visualized. No mastoid effusion. Vertebrae: Unremarkable. No acute fracture or subluxation. Discs/spinal canal/neural foramina: Mild to moderate multilevel degenerative changes. Multilevel os sification of the posterior longitudinal ligament most pronounced at the upper to mid cervical spine. No canal stenosis. Soft tissues: Unremarkable. Vasculature: There is atherosclerotic disease of the internal carotid arteries bilaterally and left vertebral artery. IMPRESSION: 1. No acute intracranial or extra-axial abnormality. 2. No acute cervical spine injury. 3. Other findings as above. Electronically signed by: Viet Law MD 12/10/2024 01:07 AM [facility] Due to temporary technical issues with the PACS/[address] reporting system, reports are being danay d by the in-house radiologist without review as a courtesy to ensure prompt reporting the interpreting radiologist is fully responsible for the content of the report. Transcribed Date/Time: 12/10/2024 1:12 AM
--- NOTE | 2024-12-10 01:49 | RAD REPORT ---
CLINICAL HISTORY: Trauma. COMPARISON: CT Abdomen Pelvis 08/30/2021. 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 MIPS reconstructions w ere generated. This exam was performed according to our departmental dose-optimization program, which includes autom ated exposure control, adjustment of the mA and/or kV according to patient size and/or use of iterative reconstruction technique. FINDINGS: Vascular: Thoracic aorta is normal in course and caliber without aneurysm or dissection. Pulmonary ar teries are adequately opacified without acute or chronic filling defects. Abdominal aorta is normal in course and caliber without aneurysm. Pelvic arteries are patent without aneurysm or occlusion. Chest: The heart is normal in size. There is no pericardial effusion. Intrathoracic lymph nodes are n ot enlarged. There is no pleural effusion, pleural thickening or pneumothorax. Central airways are patent. Lungs a re clear with no consolidation, mass or interstitial lung disease. Abdomen: The liver is normal in appearance. There is no biliary dilatation. Gallbladder is decompress ed. The pancreas and spleen are normal in appearance. The adrenal glands and kidneys are unremarkable. There is no free air. There is no retroperitoneal adenopathy. Pelvis: There is no bowel obstruction. Urinary bladder is unremarkable. There is no free fluid. Appen tim is not clearly seen. Skeleton: There are no acute osseous findings. No suspicious bony lesions. IMPRESSION: No definite acute posttraumatic findings. Electronically signed by: Mando Nguyen MD 12/10/2024 01:46 AM [employer] Due to temporary technical issues with the PACS/ADOP reporting system, reports are being danay d by the in-house radiologist without review as a courtesy to ensure prompt reporting the interpreting radiologist is fully responsible for the content of the report. Transcribed Date/Time: 12/10/2024 1:49 AM
[2024-12-10 14:47] VITALS: TEMP 98.2
[2024-12-10 14:48] VITALS: O2SAT 98
[2024-12-10 14:49] VITALS: BP 131/65
== END 2024-12-10 01:41 | disposition home or self-care (01) ==
LOC: ER 21:10
DX: S80.12XA Contusion of left lower leg, initial encounter (principal); W18.30XA Fall on same level, unspecified, initial encounter; Z89.512 Acquired absence of left leg below knee; E11.65 Type 2 diabetes mellitus with hyperglycemia; Z71.6 Tobacco abuse counseling; Z72.0 Tobacco use; Z59.00 Homelessness unspecified; Z79.4 Long term (current) use of insulin
CPT/HCPCS: 36415; 70450; 71260; 72125; 74177; 80053; 85025; 96361; 96374; 96375; 99285; J2405; J7030; J7040; Q9967

== ENCOUNTER 2024-12-12 08:22 | Emergency (ER) | payer SELFPAY ==
--- OUTSIDE RECORDS SUMMARY | 2024-12-12 08:25 | XMS REPORT | Continuity of Care Document ---
Author Name Unknown Address [address] [place] [id number] [facility] [address] [place] [address] Care Team Providers Care Desk Pen Set Assembler Name Role Phone Arlin Pinto [facility] [...] capsule 2023-11 0-02 00:00: 00 Yes mg Rja Irwin glyburide 2.5 mg tablet 7-20 00:00: [...] End Date/Time Encounter Type Admission Type [facility]ending [facility] Care Department Encounter ID Source 2024-11-19 07:54:15 2024-11-19 07:54:15 Outpatient [facility] [id number] Raj Irwin 2024-11-19 00:00:00 2024-11-19 00:00:00 Outpatient Visit [facility] [id number] Raj Irwin 2024-11-13 13:23:38 2024-11-13 13:23:38 Outpatient [facility] [id number] Raj Irwin 2024-10-22 14:04:32 2024-10-22 14:04:32 Outpatient [facility] [id number] Raj Irwin 2024-10-22 00:00:00 2024-10-22 00:00:00 Outpatient Visit [facility] [id number] Raj Irwin 2024-10-01 08:16:36 2024-10-01 08:16:36 Outpatient [facility] [id number] Raj Irwin 2024-09-23 17:21:05 2024-09-23 17:21:05 Outpatient [facility] [id number] Raj Irwin 2024-09-23 00:00:00 2024-09-23 00:00:00 Outpatient Visit [facility] [id number] Raj Irwin 2024-09-03 09:39:47 2024-09-03 09:39:47 Outpatient [facility] [id number] Raj Irwin
[2024-12-12] MEDS ORDERED: NA CHLORIDE 0.9% 500 ML ONE (08:46)
[2024-12-12] MEDS ORDERED: FLEET ENEMA ADULT PR ONE (08:46)
[2024-12-12 08:52] LABS: Absolute Basophils 0.1 K/uL (0-0.5); Absolute Eosinophils 0.4 K/uL (0-0.5); Absolute Lymphocytes (CBC) 2.4 K/uL (0.7-4.9); Absolute Monocytes 0.6 K/uL (0.1-1.3); Absolute Neutrophil 7.6 K/uL (1.8-8.0); Basophils % 1.1 % (0-1.3); Eosinophils % 3.8 % (0-4.4); Hematocrit 31.3 % (39.6-49.0); Hemoglobin 10.2 g/dL (13.6-17.9); Lymphocytes % 21.2 % (15.3-44.8); MCH 25.5 pg (27.0-35.0); MCHC 32.5 g/dL (32.0-36.0); MCV 78.4 fL (80-100); MPV 6.2 fL (7.6-11.3); Monocytes % 5.8 % (3.3-12.3); Neutrophils % 68.1 % (41.7-73.7); Platelets 658 thou/uL (152-406); RBC Red Blood Cell Count 3.99 M/uL (4.33-5.43); Red Cell Distribution Width 15.1 % (12.1-15.2)
[2024-12-12 09:11] LABS: Albumin 2.3 g/dL (3.4-5.0); Albumin/Globulin Ratio 0.4 (1.1-1.8); Anion Gap 9.9 mEq/L (5.0-15.0); Bilirubin Total 0.2 mg/dL (0.2-1.0); Globulin 5.3 g/dL (2.3-3.5); Potassium 3.9 mEq/L (3.5-5.1); Protein, Total 7.6 g/dL (6.4-8.2)
--- NOTE | 2024-12-12 10:46 | RAD REPORT ---
EXAMINATION: CT Abdomen Pelvis W Contrast CLINICAL INDICATION: Male, 59 years old. Abd pain;Constipation TECHNIQUE: CT abdomen and pelvis was performed, after the administration of IV contrast, as per [facility] protocol. Axial, sagittal and coronal reconstructions were obtained. One or more of the following dose reduction techniques were used: Automated exposure control, adjustment of the mA and k V according to patient size, and iterative reconstruction. Unless otherwise specified, incidental findings do not require dedicated imaging follow-up. COMPARISON: 12/10/2024. FINDINGS: LOWER CHEST: The visualized lung bases are clear. LIVER: Normal in size and contour. No focal lesion. BILIARY SYSTEM: No suspicious abnormalities. SPLEEN: Normal size. No focal lesion. PANCREAS: No mass, ductal dilation, or abril-pancreatic fluid. ADRENALS: Normal; no mass. KIDNEYS: Normal size and contour. No hydronephrosis. URINARY BLADDER: Unremarkable. GASTROINTESTINAL TRACT: No evidence of free air, significant intra-abdominal free fluid, bowel obstru ction or abscess. Moderate stool burden in the rectal bulb. Moderate stool burden along the proximal colon to the level of the distal transverse colon APPENDIX: Appendix not visualized, but no inflammatory changes in region of appendix. LYMPH NODES: No lymphadenopathy. MUSCULOSKELETAL: 1.3 cm lucent lesion within the left aspect of T10 vertebral body, stable and nonspe cific, could reflect an atypical hemangioma. No other acute or suspicious osseous abnormality. ADDITIONAL FINDINGS: None. IMPRESSION: Moderate stool retention in the rectal bulb. Up to moderate stool burden along the proximal colon to the level of the distal transverse colon. No other acute or concerning abnormalities seen in the abdomen or pelvis.
[2024-12-12] MEDS ORDERED: MAGNESIUM CITRATE 300 ML BOT ONE (11:01)
--- NOTE | 2024-12-12 12:03 | EDPHYS ---
Physician Documentation [facility] Name: Nas White Jr Age: 59 yrs Sex: Male : 1965 Arrival Date: 12/12/2024 Time: 08:22 Bed 15 Private MD: ED Physician Alexey Garcia HPI: 12/12 09:22 This 59 yrs old Male presents to ER via EMS with complaints of Constipation. rn 09:22 The patient presents with abdominal pain in the lower abdomen. Onset: The rn symptoms/episode began/occurred at an unknown time. The symptoms do not radiate. Associated signs and symptoms: Pertinent positives: constipation, Pertinent negatives: diarrhea, dysuria, fever, hematuria. Modifying factors: The symptoms are alleviated by nothing, the symptoms are aggravated by nothing. Severity of pain: At its worst the pain was mild in the emergency department the pain is unchanged. The patient has not experienced similar symptoms in the past. Patient reports recent left BKA this past week, discharged 3 days ago, staying in a motel right now. Patient reports taking pain medication and has been constipated for the last few days, is getting small amount of stool out but feels like there is a lot more in there. No fever or chills. No trauma. No blood in stool. States has had constipation before and magnesium citrate helped him relieve the discomfort.. Historical: - Allergies: 08:28 No Known Allergies; hb - PMHx: 08:28 Diabetes - NIDDM; Hypertension; hb - PSHx: 08:28 Appendectomy; Left BKA (ec); hb - Immunization history:: Adult Immunizations up to date. - Infectious Disease History:: Denies. - Social history:: Smoking status: Patient denies any tobacco usage or history of. - Family history:: not pertinent. - Hospitalizations: : No recent hospitalization is reported. ROS: 09:22 Constitutional: Negative for fever, chills, and weight loss, Cardiovascular: Negative rn for chest pain, palpitations, and edema, Respiratory: Negative for shortness of breath, cough, wheezing, and pleuritic chest pain, Abdomen/GI: Positive for lower abdominal pain with constipation Back: Negative for injury and pain, : Negative for injury, bleeding, discharge, and swelling, MS/Extremity: Recent left BKA, no acute complaints and left lower extremity Skin: Negative for injury, rash, and discoloration, Neuro: Negative for headache, weakness, numbness, tingling, and seizure, Exam: 09:22 Constitutional: This is a well developed, well nourished patient who is awake, alert, rn and in no acute distress. Cardiovascular: Regular rate and rhythm. No pulse deficits. Respiratory: No increased work of breathing, no retractions or nasal flaring. Abdomen/GI: Soft, suprapubic tenderness. No rebound or guarding. No distention. MS/ Extremity: Pulses equal, no cyanosis. Neuro: Awake and alert, GCS 15 Vital Signs: 08:27 BP 139 / 81; Pulse 88; Resp 16; Temp 98.6(O); Pulse Ox 100% on R/A; Pain 8/10; hb 09:33 BP 152 / 80; Pulse 80; Resp 17 S; Pulse Ox 99% on R/A; kc6 10:16 BP 107 / 57; Pulse 81; Resp 18 S; Pulse Ox 99% on R/A; kc6 11:38 BP 129 / 65; Pulse 85; Resp 18 S; Pulse Ox 99% on R/A; kc6 08:27 Pain Scale: Adult hb MDM: 08:31 Medical Screening Exam initiated rn 12:00 Differential diagnosis: bowel obstruction, non-specific abd pain, Constipation, fecal rn impaction. Data reviewed: vital signs, nurses notes, lab test result(s), radiologic studies, CT scan, and as a result, I will discharge patient. Counseling: I had a detailed discussion with the patient and/or guardian regarding the historical points, exam findings, and any diagnostic results supporting the discharge/admit diagnosis, lab results, radiology results, the need for outpatient follow up, to return to the emergency department if symptoms worsen or persist or if there are any questions or concerns that arise at home. Response to treatment: the patient's symptoms have markedly improved after treatment, and as a result, I will discharge patient. ED course: Patient had large bowel movement, feels much better, no acute findings on CT imaging other than constipation. Patient is thankful and ready to go home.. 12/12 08:32 Order name: CBC with Diff; Complete Time: 09:12 rn 12/12 08:32 Order name: CMP; Complete Time: 09:12 rn 12/12 08:32 Order name: Lipase; Complete Time: 09:12 rn 12/12 08:32 Order name: CT Abd/Pelvis - IV Contrast Only; Complete Time: 10:54 rn 12/12 08:32 Order name: IV Saline Lock; Complete Time: 08:43 rn 12/12 08:32 Order name: Labs collected and sent; Complete Time: 08:43 rn Administered Medications: 08:49 Drug: NS 0.9% IV 500 ml 500 ml IV at 1 bolus once; to be given as a bolus over 30 kc6 minutes Volume: 500 ml; Route: IV; Rate: 1 bolus; Site: right forearm; 09:33 Follow up: Response: No adverse reaction; IV Status: Completed infusion; IV Intake: kc6 500ml 09:49 Not Given (Patient Refused): fleet [id number] ml W[place] once; may repeat once kc6 11:06 Drug: Magnesium Citrate PO Liquid 300 ml PO once Route: PO; kc6 11:38 Follow up: Response: No adverse reaction kc6 Disposition Summary: 12/12/24 12:03 Discharge Ordered Notes: Location: Home rn Problem: new rn Symptoms: have improved rn Condition: Stable rn Diagnosis - Constipation, unspecified rn Followup: rn - With: Private Physician - When: As needed - Reason: Recheck today's complaints, Re-evaluation by your physician Discharge Instructions: - Discharge Summary Sheet rn - Constipation, Adult rn Forms: - Medication Reconciliation Form rn - Antibiotic bottom turning lathe tender - Prescription Opioid Use rn - Patient Portal Instructions rn - Leadership Thank You Letter rn Signatures: Dispatcher [employer] EDMS Alexey Garcia MD MD rn Baxter, Heather, RN RN hb Campbell, Kaitlyn, RN RN kc6 Corrections: (The following items were deleted from the chart) 08:33 08:33 CBC+H.LAB.BRZ ordered. EDMS EDMS 08:33 08:33 COMPREHENSIVE METABOLIC PANEL+C.LAB.BRZ ordered. EDMS EDMS 08:33 08:33 LIPASE+C.LAB.BRZ ordered. EDMS EDMS 08:33 08:33 Abdomen Pelvis W Con+CT.RAD.BRZ ordered. EDMS EDMS
--- NOTE | 2024-12-12 12:03 | ER ---
Nurse's Notes [facility] Name: Nas White Jr Age: 59 yrs Sex: Male : 1965 Arrival Date: 12/12/2024 Time: 08:22 Bed 15 Private MD: Diagnosis: Constipation, unspecified Presentation: 12/12 08:27 Chief complaint: EMS states: Constipation and rectal pain x 2 days. Had left BKA 3 days hb ago. Coronavirus screen: At this time, the client does not indicate any symptoms associated with coronavirus-19. Ebola Screen: No symptoms or risks identified at this time. Initial Sepsis Screen: Does the patient meet any 2 criteria? No. Patient's initial sepsis screen is negative. Does the patient have a suspected source of infection? No. Patient's initial sepsis screen is negative. Risk Assessment: Do you want to hurt yourself or someone else? Patient reports no desire to harm self or others. Onset of symptoms was December 11, 2024. 08:27 Method Of Arrival: EMS: [facility] 08:27 Acuity: CAITLIN 3 hb Historical: - Allergies: 08:28 No Known Allergies; hb - PMHx: 08:28 Diabetes - NIDDM; Hypertension; hb - PSHx: 08:28 Appendectomy; Left BKA (ec); hb - Immunization history:: Adult Immunizations up to date. - Infectious Disease History:: Denies. - Social history:: Smoking status: Patient denies any tobacco usage or history of. - Family history:: not pertinent. - Hospitalizations: : No recent hospitalization is reported. Screenin:43 [facility] ED Fall Risk Assessment (Adult) History of falling in the last 3 months, kc6 including since admission Yes- single mechanical fall (1 pt) Confusion or Disorientation No (0 pts) Intoxicated or Sedated No (0 pts) Impaired Gait Yes (1 pt) Mobility Assist Device Used Yes (1 pt) Altered Elimination No (0 pt) Score/Fall Risk Level 3 or more points = High Risk Oriented to surroundings, Maintained a safe environment, Educated pt \T\ family on fall prevention, incl call for assistance when getting out of bed. Abuse screen: Denies threats or abuse. Denies injuries from another. Nutritional screening: No deficits noted. Tuberculosis screening: No symptoms or risk factors identified. Assessment: 08:44 General: Appears in no apparent distress. uncomfortable, well groomed, well developed, kc6 Behavior is calm, cooperative, appropriate for age. Pain: Complains of pain in buttocks and left leg. Neuro: Level of Consciousness is awake, alert, obeys commands, Oriented to person, place, time, situation, Appropriate for age. Cardiovascular: Capillary refill < 3 seconds. Respiratory: Airway is patent Trachea midline Respiratory effort is even, unlabored, Respiratory pattern is regular, symmetrical. GI: Abdomen is round non-distended, Bowel sounds present X 4 quads. Abd is soft and non tender X 4 quads. Reports constipation, Patient currently denies abdominal pain, nausea, vomiting. : No signs and/or symptoms were reported regarding the genitourinary system. EENT: No signs and/or symptoms were reported regarding the EENT system. Derm: Skin is healthy with good turgor, Skin is pink, warm \T\ dry. Musculoskeletal: Amputation of left leg. 09:33 Reassessment: Patient appears in no apparent distress at this time. No changes from kc6 previously documented assessment. Patient and/or family updated on plan of care and expected duration. Pain level reassessed. Patient is alert, oriented x 3, equal unlabored respirations, skin warm/dry/pink. 10:16 Reassessment: Patient appears in no apparent distress at this time. No changes from kc6 previously documented assessment. Patient and/or family updated on plan of care and expected duration. Pain level reassessed. Patient is alert, oriented x 3, equal unlabored respirations, skin warm/dry/pink. 11:38 Reassessment: Patient appears in no apparent distress at this time. No changes from kc6 previously documented assessment. Patient and/or family updated on plan of care and expected duration. Pain level reassessed. Patient is alert, oriented x 3, equal unlabored respirations, skin warm/dry/pink. Vital Signs: 08:27 BP 139 / 81; Pulse 88; Resp 16; Temp 98.6(O); Pulse Ox 100% on R/A; Pain 8/10; hb 09:33 BP 152 / 80; Pulse 80; Resp 17 S; Pulse Ox 99% on R/A; kc6 10:16 BP 107 / 57; Pulse 81; Resp 18 S; Pulse Ox 99% on R/A; kc6 11:38 BP 129 / 65; Pulse 85; Resp 18 S; Pulse Ox 99% on R/A; kc6 08:27 Pain Scale: Adult hb ED Course: 08:26 Patient arrived in ED. hb 08:28 Triage completed. hb 08:28 Arm band placed on. hb 08:30 Marianela Anguiano RN is Primary Nurse. kc6 08:31 Alexey Garcia MD is Attending Physician. rn 08:43 Patient has correct armband on for positive identification. Bed in low position. Call kc6 light in reach. Side rails up X2. Pulse ox on. NIBP on. Door closed. Noise minimized. Lights dimmed. Warm blanket given. Pillow given. 08:43 Inserted saline lock: 22 gauge in right forearm, using aseptic technique. Blood kc6 collected. Flushed with 10 mL NS. Patient maintains SpO2 saturation greater than 95% on room air. 09:45 CT Abd/Pelvis - IV Contrast Only In Process Unspecified. EDMS 12:19 No provider procedures requiring assistance completed. IV discontinued, intact, kc6 bleeding controlled, No redness/swelling at site. Pressure dressing applied. Administered Medications: 08:49 Drug: NS 0.9% IV 500 ml 500 ml IV at 1 bolus once; to be given as a bolus over 30 kc6 minutes Volume: 500 ml; Route: IV; Rate: 1 bolus; Site: right forearm; 09:33 Follow up: Response: No adverse reaction; IV Status: Completed infusion; IV Intake: kc6 500ml 09:49 Not Given (Patient Refused): fleet [id number] ml IL once; may repeat once kc6 11:06 Drug: Magnesium Citrate PO Liquid 300 ml PO once Route: PO; kc6 11:38 Follow up: Response: No adverse reaction kc6 Medication: 12:20 VIS not applicable for this client. kc6 Intake: 09:33 IV: 500ml; Total: 500ml. kc6 Outcome: 12:03 Discharge ordered by . rn 12:19 Discharged to home via wheelchair, with family, with friend, kc6 12:19 Condition: good 12:19 Discharge instructions given to patient, Instructed on discharge instructions, follow up and referral plans. Demonstrated understanding of instructions, follow-up care, 12:20 Patient left the ED. kc6 Signatures: Dispatcher [employer] EDMS Alexey Garcia MD MD rn Milagro Mccarty, RN RN hb Marianela Anguiano RN RN kc6
[2024-12-12 12:25] VITALS: TEMP 98.6
[2024-12-12 12:27] VITALS: O2SAT 99
[2024-12-12 12:29] VITALS: BP 129/65
== END 2024-12-12 12:20 | disposition home or self-care (01) ==
LOC: ER 08:22
DX: K59.00 Constipation, unspecified (principal); E11.9 Type 2 diabetes mellitus without complications; I10 Essential (primary) hypertension
CPT/HCPCS: 36415; 74177; 80053; 83690; 85025; 96360; 99284; J7040; Q9967

== ENCOUNTER 2025-01-04 16:06 | Emergency (ER) | payer OTHER, SELFPAY ==
--- OUTSIDE RECORDS SUMMARY | 2025-01-04 16:08 | XMS REPORT | Continuity of Care Document ---
Author Name Unknown Address [address] [id number] [email or web address] Address [address] [place] [address] Care Team Providers Care Director Stage Name Role Phone Arlin Pinto Primary Care Physician [phone] Medications Ordered Medication Name Filled Medication Name [...] 0-02 00:00: 00 Yes mg Rja Irwin gabapentin 100 mg capsule 2023-11 0-02 [...] End Date/Time Encounter Type Admission Type Attending [facility] Care Department Encounter ID Source 2024-11-19 07:54:15 2024-11-19 07:54:[address] [facility] [id number] Raj Irwin 2024-11-19 00:00:00 2024-11-19 00:00:[address] [facility] [id number] Raj Irwin 2024-11-13 13:23:38 2024-11-13 13:23:[address] [facility] [id number] Raj Irwin 2024-10-22 14:04:32 2024-10-22 14:04:[address] [facility] [id number] Raj Irwin 2024-10-22 00:00:00 2024-10-22 00:00:00 Outpatient Visit [facility] [id number] Raj Irwin 2024-10-01 08:16:36 2024-10-01 08:16:36 Outpatient [facility] [id number] Raj Irwin 2024-09-23 17:21:05 2024-09-23 17:21:05 Outpatient [facility] [id number] Raj Irwin 2024-09-23 00:00:00 2024-09-23 00:00:00 Outpatient Visit [facility] [id number] Raj Irwin 2024-09-03 09:39:47 2024-09-03 09:39:47 Outpatient [facility] [id number] Raj Irwin Notes Date/Time Note Provider Source Raj Haas [facility]2024-12-12 00:00:00 Raj BobAlejandra [facility]2024-11-13 00:00:00 Raj Alejandra [facility]
[2025-01-04] MEDS ORDERED: FENTANYL CITR 100 MCG/2 ML ONE ×2 (16:53→18:45)
--- NOTE | 2025-01-04 17:14 | RAD REPORT ---
EXAMINATION: Femur Right CLINICAL INDICATION: Male, 59 years old. fall;Pain RIGHT COMPARISON: No prior exam. VIEWS: Five views FINDINGS: No acute fracture. No malalignment/dislocation. Degenerative changes are present at the knee. Other: Peripheral vascular calcifications. IMPRESSION: No acute osseous abnormality.
--- NOTE | 2025-01-04 17:15 | RAD REPORT ---
EXAMINATION: Hip Right 2 View CLINICAL INDICATION: Male, 59 years old. PAIN RIGHT COMPARISON: No prior exam. FINDINGS: No acute fracture. Limited due to overlapping anatomy on the frontal view. No fracture seen on the cr osstable lateral view. No malalignment/dislocation. No significant focal degenerative change. Other: n/a IMPRESSION: No acute osseous abnormality. Limited evaluation due to body habitus.
--- NOTE | 2025-01-04 17:16 | RAD REPORT ---
EXAMINATION: Pelvis CLINICAL INDICATION: Male, 59 years old. fall COMPARISON: No prior exam. FINDINGS: There is slight offset of the left femoral neck on the frontal view which may be projectional or repr esent a left subcapital femoral neck fracture. No other fractures are seen. No malalignment/dislocation. No significant focal degenerative change. Other: n/a IMPRESSION: No pelvic fracture identified. The left femoral neck is not well assessed on either this exam or the dedicated left hip radiograph. A CT is pending.
--- NOTE | 2025-01-04 18:51 | RAD REPORT ---
EXAMINATION: CT ABDOMEN AND PELVIS WITHOUT CONTRAST CLINICAL INDICATION: Male, 59 years old.fall, right hip/pelvis pain TECHNIQUE: CT abdomen and pelvis was performed, without IV contrast, as per department protocol. Axia l, sagittal and coronal reconstructions were obtained. One or more of the following dose reduction techniques were used: Automated exposure control, adjustment of the mA and/or kV according to the pat ient size, and/or iterative reconstruction. Unless otherwise specified, incidental findings do not require dedicated imaging follow-up. [id number]. IV CONTRAST: Not administered. COMPARISON: 12/12/24 FINDINGS: The lack of intravenous contrast limits the sensitivity of this exam for evaluation of solid visceral organs, vascular structures, and retroperitoneum. LOWER CHEST: No acute process identified.No significant pericardial effusion. UPPER GI: No significant abnormality. LIVER: Hepatic steatosis, but otherwise unremarkable. GALLBLADDER/BILE DUCTS: No biliary ductal dilatation.? PANCREAS: No mass, ductal dilation, or abril-pancreatic fluid. SPLEEN: Unremarkable. ADRENALS: No adrenal masses. KIDNEYS AND URETERS: No hydronephrosis.Limited evaluation for renal lesions in the absence of IV cont rast.No renal calculi. ABDOMINAL AORTA AND OTHER VESSELS: Normal caliber aorta and IVC. PERITONEUM: No abnormal free fluid. No free air. LYMPH NODES: No pathologic lymphadenopathy. ABDOMINAL WALL: Fat containing inguinal hernias. SMALL BOWEL/COLON: Small bowel has normal course and caliber. No colonic wall thickening or pericolon ic inflammatory changes. Mild diverticulosis without diverticulitis. URINARY BLADDER: Underdistended but grossly unremarkable. REPRODUCTIVE ORGANS: No pathologic process. MUSCULOSKELETAL: Multilevel degenerative changes in the spine. No acute fracture. Nonaggressive appea ring lytic lesion in T10 is unchanged. ADDITIONAL FINDINGS: None. IMPRESSION: No acute findings within the abdomen or pelvis. No evidence of significant trauma.
--- NOTE | 2025-01-04 19:15 | ER ---
Nurse's Notes [facility] Name: Nas White Jr Age: 59 yrs Sex: Male : 1965 Arrival Date: 01/04/2025 Time: 16:06 Bed 17 Private MD: Diagnosis: Fall from non-moving wheelchair;Pain in right hip Presentation: 01/04 16:11 Chief complaint: Patient states: Fall while transferring from walker seat to chair. C/o ss pain to R hip. Coronavirus screen: Client denies travel out of the [place] in the last 14 days. Ebola Screen: Patient denies exposure to infectious person. Patient denies travel to an Ebola-affected area in the 21 days before illness onset. Initial Sepsis Screen: Does the patient meet any 2 criteria? No. Patient's initial sepsis screen is negative. Does the patient have a suspected source of infection? No. Patient's initial sepsis screen is negative. Risk Assessment: Do you want to hurt yourself or someone else? Patient reports no desire to harm self or others. Onset of symptoms was January 04, 2025. 16:11 Method Of Arrival: EMS: [facility] ss 16:11 Acuity: CAITLIN 3 ss 16:11 Care prior to arrival: Glucose check: 264. ss Historical: - Allergies: 16:13 No Known Allergies; ss - PMHx: 16:13 Diabetes - NIDDM; Hypertension; ss - PSHx: 16:13 Appendectomy; Left BKA; ss - Immunization history:: Adult Immunizations up to date. - Infectious Disease History:: Denies. - Social history:: Smoking status: unknown. Screenin:47 [facility] ED Fall Risk Assessment (Adult) History of falling in the last 3 months, me1 including since admission Yes- single mechanical fall (1 pt) Confusion or Disorientation No (0 pts) Intoxicated or Sedated No (0 pts) Impaired Gait No (0 pts) Mobility Assist Device Used No (0 pt) Altered Elimination No (0 pt) Score/Fall Risk Level 0 - 2 = Low Risk Maintained a safe environment, Provided non-skid footwear, Hourly rounding (assess needs \T\ fall precautionary measures) done. Abuse screen: Denies threats or abuse. Nutritional screening: No deficits noted. Tuberculosis screening: No symptoms or risk factors identified. Assessment: 16:46 General: Appears uncomfortable, well groomed, well developed, well nourished, Behavior me1 is calm, cooperative, appropriate for age, Reports fall while transferring from walker seat to chair. 16:47 Pain: Complains of pain in right hip Pain does not radiate. Pain currently is 9 out of me1 10 on a pain scale. Quality of pain is described as sharp, Pain began suddenly, Is continuous. Neuro: Level of Consciousness is awake, alert, obeys commands, Oriented to person, place, time, situation, Appropriate for age. Cardiovascular: Patient's skin is warm and dry. Respiratory: Airway is patent Respiratory effort is even, unlabored, Respiratory pattern is regular, symmetrical. GI: No signs and/or symptoms were reported involving the gastrointestinal system. : No signs and/or symptoms were reported regarding the genitourinary system. EENT: No signs and/or symptoms were reported regarding the EENT system. Derm: Skin is intact, is healthy with good turgor, Skin is pink, warm \T\ dry. Musculoskeletal: Reports pain in right hip. Injury Description: fell when transferring from walker seat to chair. c/o right hip pain. Vital Signs: 16:11 BP 138 / 88; Pulse 70; Resp 16; Temp 97.8(TE); Pulse Ox 100% on R/A; Pain 10/10; ss 17:00 BP 125 / 62; Pulse 72; Resp 16; Pulse Ox 100% ; me1 17:30 Pain 5/10; me1 18:00 BP 123 / 71; Pulse 70; Resp 15; Pulse Ox 100% ; me1 19:00 BP 125 / 50; Pulse 71; Resp 16; Pulse Ox 98% ; me1 16:11 Pain Scale: Adult ss 17:30 Pain Scale: Adult me1 ED Course: 16:10 Patient arrived in ED. ms3 16:10 Salomon Crooks DO is Attending Physician. ms3 16:12 Jose D Ferris PA is PHCP. cp 16:12 Triage completed. ss 16:13 Arm band placed on right wrist. ss 16:45 Orin Rojo, RN is Primary Nurse. me1 16:47 Patient has correct armband on for positive identification. Bed in low position. Call me1 light in reach. Side rails up X 1. Provided Education on: POC. Verbalized understanding.. Client placed on continuous cardiac and pulse oximetry monitoring. NIBP monitoring applied. Pulse ox on. NIBP on. 16:47 No provider procedures requiring assistance completed. me1 17:00 Inserted saline lock: 22 gauge in left antecubital area, using aseptic technique. me1 17:01 Hip Right 2 View XRAY In Process Unspecified. EDMS 17:01 XRAY Pelvis In Process Unspecified. EDMS 17:01 XRAY Femur RIGHT In Process Unspecified. EDMS 18:10 CT Abd/Pelvis - Without Contrast In Process Unspecified. EDMS 19:38 IV discontinued, intact, bleeding controlled, No redness/swelling at site. Pressure me1 dressing applied. Administered Medications: 17:00 Drug: fentaNYL (PF) IVP 50 mcg IVP once Route: IVP; Site: left antecubital; me1 17:30 Follow up: Pain 5/10 Adult; Response: No adverse reaction; Pain is decreased me1 18:54 Drug: fentaNYL (PF) IVP 50 mcg IVP once Route: IVP; Site: left antecubital; me1 19:21 Follow up: Response: No adverse reaction; Pain is decreased me1 19:24 Drug: Neurontin PO 300 mg PO once Route: PO; me1 19:36 Follow up: Response: No adverse reaction; Pain is decreased me1 19:24 Drug: Methocarbamol PO 750 mg PO once Route: PO; me1 19:36 Follow up: Response: No adverse reaction; Pain is decreased me1 19:24 Drug: Ketorolac IVP 15 mg IVP once Route: IVP; Site: left antecubital; me1 19:36 Follow up: Response: No adverse reaction; Pain is decreased me1 Medication: 16:47 VIS not applicable for this client. me1 Outcome: 19:14 Discharge ordered by . cp 19:38 Discharged to home via wheelchair, with family, me1 19:38 Condition: stable 19:38 Discharge instructions given to patient, Instructed on discharge instructions, follow up and referral plans. medication usage, Demonstrated understanding of instructions, follow-up care, medications, Prescriptions given X 2, 19:40 Patient left the ED. me1 Signatures: Dispatcher [employer] Alia Banda RN RN Jose D Feliciano PA PA cp Sims, Marcus, DO DO ms3 Orin Rojo RN RN me1 Corrections: (The following items were deleted from the chart) 16:46 16:11 Chief complaint: Patient states: Fall while transferring from walker seat to [facility] chair. C/o pain to R hip ss 16:48 16:46 General: Appears uncomfortable, well groomed, well developed, well nourished, me1 Behavior is calm, cooperative, appropriate for age, Reports fall while transferring from walker seat to chair [facility]
--- NOTE | 2025-01-04 19:15 | EDPHYS ---
Physician Documentation [facility] Name: Nas White Jr Age: 59 yrs Sex: Male : 1965 Arrival Date: 01/04/2025 Time: 16:06 Bed 17 Private MD: ED Physician Salomon Crooks HPI: 01/04 16:20 This 59 yrs old Male presents to ER via EMS with complaints of Fall Injury, cp Hip Pain. 16:20 Details of fall: The patient fell from seated position, out of a wheelchair. cp 16:20 Onset: The symptoms/episode began/occurred just prior to arrival. Associated injuries: cp The patient sustained right hip and pelvis, painful injury. Historical: - Allergies: 16:13 No Known Allergies; ss - PMHx: 16:13 Diabetes - NIDDM; Hypertension; ss - PSHx: 16:13 Appendectomy; Left BKA; ss - Immunization history:: Adult Immunizations up to date. - Infectious Disease History:: Denies. - Social history:: Smoking status: unknown. ROS: 16:25 Cardiovascular: Negative for chest pain, edema, palpitations, cp 16:25 Eyes: Negative for injury, pain, redness, and discharge, cp 16:25 Constitutional: Negative for body aches, chills, fever, 16:25 Respiratory: Negative for cough, shortness of breath, wheezing, 16:25 Abdomen/GI: Negative for abdominal pain, vomiting, diarrhea, constipation, 16:25 Back: Positive for pain at rest, pain with movement, of the low back, 16:25 MS/extremity: Positive for pain, of the pelvis and right hip, 16:25 Neuro: Negative for altered mental status, headache, loss of consciousness, syncope, near syncope, weakness, 16:25 All other systems are negative, Exam: 16:30 Constitutional: The patient appears in no acute distress, alert, awake, non-toxic, well cp developed, well nourished, in obvious pain, uncomfortable, 16:30 Head/Face: Normocephalic, atraumatic. cp 16:30 Eyes: Periorbital structures: appear normal, Conjunctiva: normal, no exudate, no injection, Lids and lashes: appear normal, bilaterally, 16:30 ENT: External ear(s): are unremarkable, Nose: is normal, Mouth: Lips: moist, Oral mucosa: moist, Posterior pharynx: Airway: no evidence of obstruction, patent, 16:30 Chest/axilla: Inspection: normal, 16:30 Cardiovascular: Rate: normal, Rhythm: regular, 16:30 Respiratory: the patient does not display signs of respiratory distress, Respirations: normal, no use of accessory muscles, no retractions, labored breathing, is not present, Breath sounds: are clear throughout, no decreased breath sounds, 16:30 Abdomen/GI: Inspection: abdomen appears normal, Palpation: abdomen is soft and non-tender, in all quadrants, 16:30 Back: pain, that is severe, of the right low back, 16:30 Musculoskeletal/extremity: Extremities: noted in the right pelvis and right hip: pain, noted in the left leg: BKA with surgical wound appearing to be healing well and wagner in place, ROM: limited passive range of motion due to pain, in the right hip, 16:30 Neuro: Orientation: to person, place \T\ time. Mentation: is normal, Vital Signs: 16:11 BP 138 / 88; Pulse 70; Resp 16; Temp 97.8(TE); Pulse Ox 100% on R/A; Pain 10/10; ss 17:00 BP 125 / 62; Pulse 72; Resp 16; Pulse Ox 100% ; me1 17:30 Pain 5/10; me1 18:00 BP 123 / 71; Pulse 70; Resp 15; Pulse Ox 100% ; me1 19:00 BP 125 / 50; Pulse 71; Resp 16; Pulse Ox 98% ; me1 16:11 Pain Scale: Adult ss 17:30 Pain Scale: Adult me1 MDM: 16:10 Medical Screening Exam initiated ms3 17:20 Differential diagnosis: closed head injury, contusion, fracture, dislocation. cp 19:13 Data reviewed: vital signs, nurses notes, radiologic studies, CT scan, plain films, and cp as a result, I will discharge patient. 19:13 I considered the following discharge prescriptions or medication management in the emergency department Medications were administered in the Emergency Department. See MAR. Care significantly affected by the following chronic conditions: Diabetes, Hypertension. Counseling: I had a detailed discussion with the patient and/or guardian regarding the historical points, exam findings, and any diagnostic results supporting the discharge/admit diagnosis, radiology results, to return to the emergency department if symptoms worsen or persist or if there are any questions or concerns that arise at home. Response to treatment: the patient's symptoms have mildly improved after treatment, and as a result, I will discharge patient. 01/04 16:10 Order name: Hip Right 2 View XRAY; Complete Time: 17:33 ms3 01/04 19:04 Interpretation: Report reviewed. cp 01/04 16:13 Order name: XRAY Pelvis; Complete Time: 17:33 cp 01/04 19:04 Interpretation: Report reviewed. cp 01/04 16:13 Order name: XRAY Femur RIGHT; Complete Time: 17:33 cp 01/04 19:05 Interpretation: Report reviewed. cp 01/04 17:06 Order name: CT Abd/Pelvis - Without Contrast; Complete Time: 18:52 cp 01/04 18:53 Interpretation: Report reviewed. cp Administered Medications: 17:00 Drug: fentaNYL (PF) IVP 50 mcg IVP once Route: IVP; Site: left antecubital; me1 17:30 Follow up: Pain 5/10 Adult; Response: No adverse reaction; Pain is decreased me1 18:54 Drug: fentaNYL (PF) IVP 50 mcg IVP once Route: IVP; Site: left antecubital; me1 19:21 Follow up: Response: No adverse reaction; Pain is decreased me1 19:24 Drug: Neurontin PO 300 mg PO once Route: PO; me1 19:36 Follow up: Response: No adverse reaction; Pain is decreased me1 19:24 Drug: Methocarbamol PO 750 mg PO once Route: PO; me1 19:36 Follow up: Response: No adverse reaction; Pain is decreased me1 19:24 Drug: Ketorolac IVP 15 mg IVP once Route: IVP; Site: left antecubital; me1 19:36 Follow up: Response: No adverse reaction; Pain is decreased me1 Disposition Summary: 01/04/25 19:14 Discharge Ordered Notes: Location: Home cp Problem: new cp Symptoms: have improved cp Condition: Stable cp Diagnosis - Fall from non-moving wheelchair cp - Pain in right hip cp Followup: cp - With: Private Physician - When: 2 - 3 days - Reason: Recheck today's complaints Discharge Instructions: - Discharge Summary Sheet cp - Fall Prevention in the Home, Adult cp - Hip Pain cp Forms: - Medication Reconciliation Form cp - Antibiotic Education cp - Prescription Opioid Use cp - Patient Portal Instructions cp - Leadership Thank You Letter cp Prescriptions: - Celebrex 200 mg Oral Capsule - take 1 capsule ORAL route once daily As needed take with food; 20 capsule; cp Refills: 0, Product Selection Permitted - methocarbamol 750 mg Oral tablet - take 1 tablet ORAL route 3 times per day; 30 tablet; Refills: 0, Product cp Selection Permitted Signatures: Dispatcher [employer] Alia Banda RN RN ss Jose D Ferris, MARY PA Salomon Llanes DO DO ms3 Orin Rojo RN RN me1
[2025-01-04] MEDS ORDERED: methocarbamoL 750 MG TAB ONE (19:23)
[2025-01-04] MEDS ORDERED: KETOROLAC 30 MG/ML INJ ONE (19:23)
[2025-01-04] MEDS ORDERED: GABAPENTIN 300 MG CAP ONE (19:23)
[2025-01-04 19:58] VITALS: TEMP 97.8
[2025-01-04 20:03] VITALS: BP 125/50; O2SAT 98
== END 2025-01-04 19:40 | disposition home or self-care (01) ==
LOC: ER 16:06
DX: M25.551 Pain in right hip (principal); W05.0XXA Fall from non-moving wheelchair, initial encounter; Z89.512 Acquired absence of left leg below knee
CPT/HCPCS: 72170; 74176; 96374; 96375; 99284; J3010

== ENCOUNTER 2025-02-23 10:56 | Emergency (ER) | payer SELFPAY ==
--- OUTSIDE RECORDS SUMMARY | 2025-02-23 11:00 | XMS REPORT | Continuity of Care Document ---
Author Name Unknown Address [address] [place] [address] [facility] [address] [place] [address] Care Team Providers Care Guard Range Name Role Phone Arlin Pinto Primary Care Physician Medications Ordered Medication Name Filled Medication Name Start Date Stop Date Current Medication? Ordering Clinician Indication Dosage Frequency Signature (SIG) Comments Components Source atorvastati n 10 mg tablet 4- 00:00: 00 Yes 1mg Raj Irwin Januvia 100 mg tablet 4-04 00:00: 00 Yes 1mg Raj Irwin glipizide 5 mg tablet 4-04 00:00: 00 Yes 1mg Raj Irwin trazodone 50 mg tablet 4-04 00:00: 00 Yes 12mg Raj Irwin trazodone 50 mg tablet 1-09 00:00: 00 [...] Raj Irwin gabapentin 100 mg capsule 2023-11 00:00: 00 Yes mg Raj Irwin glyburide 2.5 mg tablet 05-30 00:00: 00 Yes mg Raj Irwin sulfamethox azole 800 mg-trimetho prim 160 mg tablet 05-30 00:00: 00 Yes mg Raj Irwin sulfamethox azole 800 mg-trimetho prim 160 mg tablet 05-15 00:00: 00 Yes mg Raj Irwin metformin ER 500 mg tablet,exte nded release 24 hr 05-15 00:00: 00 Yes mg Raj Irwin Vital Signs Vital Name Observation Time Observation Value Comments S tracy BP Systolic 2025-02-12 14:29:00 116 mm[Hg] Step hen Lisbeth Irwin BP Diastolic 2025-02-12 14:29:00 69 mm[Hg] Rayo phen Lisbeth Irwin Weight Measured 2025-02-12 14:29:00 Rajzina Irwin Height Measured 2025-02-12 14:29:00 68.00 inches Raj Irwin Body Temperature 2025-02-12 14:29:00 99.00 degrees Raj Irwin Heart Rate 2025-02-12 14:29:00 101.00 /min Step hen Lisbeth Irwin Respiratory Rate 2025-02-12 14:29:00 18.00 /min Raj Irwin BP Systolic 2024-11-19 08:06:00 122 mm[Hg] Step hen Lisbeth Irwin BP Diastolic 2024-11-19 08:06:00 79 mm[Hg] Rayo phen F Dc Weight Measured 2024-11-19 08:06:00 209.00 pounds Raj Irwin Height Measured 2024-11-19 08:06:00 68.00 inches Raj Irwin Body Temperature 2024-11-19 08:06:00 Raj Lisbeth Irwin Heart Rate 2024-11-19 08:06:00 105.00 /min Step hen F Dc Respiratory Rate 2024-11-19 08:06:00 18.00 /min Raj Irwin BP Systolic 2024-10-22 14:11:00 122 mm[Hg] Step [...] Height Measured 2024-09-03 09:53:00 68.00 inches Raj F Dc Body Temperature 2024-09-03 09:53:00 98.20 degrees Raj Irwin Heart Rate 2024-09-03 09:53:00 95.00 /min Verónica Irwin Respiratory Rate 2024-09-03 09:53:00 18.00 /min Raj Irwin Encounters Start Date/Time End Date/Time Encounter Type Admission Type Attending [facility] Care Department Encounter ID Source 2025-02-15 11:18:06 2025-02-15 11:18:06 Outpatient SFA SFA [id number] Raj Irwin 2025-02-12 14:26:37 2025-02-12 14:26:37 Outpatient SFA SFA [id number] Raj Irwin 2025-02-12 00:00:00 2025-02-12 00:00:00 Outpatient Visit SFA [id number] Raj Irwin 2024-11-19 07:54:15 2024-11-19 07:54:15 Outpatient SFA SFA [id number] Raj Irwin 2024-11-19 00:00:00 2024-11-19 00:00:00 Outpatient Visit SFA [id number] Raj Irwin 2024-11-13 13:23:38 2024-11-13 13:23:38 Outpatient SFA SFA [id number] Raj Irwin 2024-10-22 14:04:32 2024-10-22 14:04:32 Outpatient SFA SFA [id number] Raj Irwin 2024-10-22 00:00:00 2024-10-22 00:00:00 Outpatient Visit SFA [id number] Raj Irwin 2024-10-01 08:16:36 2024-10-01 08:16:36 Outpatient SFA SFA [id number] Raj Irwin 2024-09-23 17:21:05 2024-09-23 17:21:05 Outpatient SFA SFA [id number] Raj Irwin 2024-09-23 00:00:00 2024-09-23 00:00:00 Outpatient Visit SFA [id number] Raj Irwin 2024-09-03 09:39:47 2024-09-03 09:39:47 Outpatient SFA SFA [id number] Raj Irwin Notes Date/Time Note Provider Source Raj BobAlejandra [facility]2025-01-09 00:00:00 [facility]2024-12-12 00:00:00 [facility]2024-11-13 00:00:00 [facility]
--- NOTE | 2025-02-23 12:16 | RAD REPORT ---
Exam:Shoulder Right 2+ Views History: Right shoulder pain Findings: No fracture or dislocation seen Bones are osteoporotic. Bony/calcific densities superior to the humerus appear chronic
--- NOTE | 2025-02-23 12:17 | RAD REPORT ---
Exam:Elbow Right 3 View HISTORY: Right elbow pain FINDINGS: No fracture or dislocation seen
--- NOTE | 2025-02-23 12:17 | RAD REPORT ---
Exam:Femur Right CLINICAL HISTORY: Right leg pain. FINDINGS: No fracture visualized
--- NOTE | 2025-02-23 12:21 | RAD REPORT ---
Exam:Hip Right 2 View HISTORY: Right hip pain FINDINGS: No fracture or dislocation seen. If the patient continues to have symptoms to suggest an occult fracture then MRI would be recommended
[2025-02-23] MEDS ORDERED: HYDROCODONE/APAP 10/325 TAB ONE (12:40)
--- NOTE | 2025-02-23 13:01 | EDPHYS ---
Physician Documentation [facility] Name: Nas White Jr Age: 59 yrs Sex: Male : 1965 Arrival Date: 02/23/2025 Time: 10:56 Bed 12 Private MD: ED Physician Gagan Nunez HPI: 02/23 12:00 This 59 yrs old Male presents to ER via Wheelchair with complaints of Fall rt Injury. 12:00 Patient presents to the ED with mechanical fall from his wheelchair. Patient landed rt onto his right arm, hitting his elbow. Reports pain to his right shoulder, right elbow. Also reports pain to the right hip, right thigh. Denies hitting his head, syncope, other acute complaints, symptoms are moderate severity, aching nature, nonradiating, no other aggravating elevating factors.. Historical: - Allergies: 11:40 No Known Allergies; iw - PMHx: 11:40 Diabetes - NIDDM; Hypertension; iw - PSHx: 11:40 Left BKA; Appendectomy; iw - Infectious Disease History:: Denies. - Family history:: not pertinent. ROS: 12:00 Constitutional: Negative for fever, chills, and weight loss, Neck: Negative for injury, rt pain, and swelling, Cardiovascular: Negative for chest pain, palpitations, and edema, Respiratory: Negative for shortness of breath, cough, wheezing, and pleuritic chest pain, Abdomen/GI: Negative for abdominal pain, nausea, vomiting, diarrhea, and constipation, Neuro: Negative for headache, weakness, numbness, tingling, and seizure, 12:00 MS/extremity: Positive for contusion, pain, Exam: 12:00 Constitutional: This is a well developed, well nourished patient who is awake, alert, rt and in no acute distress. Head/Face: Normocephalic, atraumatic. Chest/axilla: Normal chest wall appearance and motion. Nontender with no deformity. No lesions are appreciated. Cardiovascular: Regular rate and rhythm with a normal S1 and S2. No gallops, murmurs, or rubs. Normal PMI, no JVD. No pulse deficits. Respiratory: Lungs have equal breath sounds bilaterally, clear to auscultation and percussion. No rales, rhonchi or wheezes noted. No increased work of breathing, no retractions or nasal flaring. Abdomen/GI: Soft, non-tender, with normal bowel sounds. No distension or tympany. No guarding or rebound. No evidence of tenderness throughout. Back: No spinal tenderness. No costovertebral tenderness. Full range of motion. 12:00 Musculoskeletal/extremity: Right clavicle appears to be superiorly deviated, tenderness to that region, no other deformity, mild tenderness to the elbow with swelling, full range of motion, pulses, motor, sensation intact, mild tenderness to the right hip, right distal thigh, no appreciable tenderness on the right knee or swelling noted. Pulses, motor, sensation intact, left BKA noted. Vital Signs: 11:39 BP 118 / 71; Pulse 93; Resp 19; Temp 98.7; Pulse Ox 100% on R/A; Pain 10/10; iw 11:43 Weight 108.86 kg; Height 5 ft. 4 in. ; iw 11:43 Body Mass Index 41.20 (108.86 kg, 162.56 cm) iw 11:39 Pain Scale: Adult iw MDM: 11:38 Medical Screening Exam initiated rt 13:13 Differential diagnosis: Fracture, contusion. Data reviewed: vital signs, nurses notes, rt radiologic studies. I considered the following discharge prescriptions or medication management in the emergency department Medications were administered in the Emergency Department. See MAR. Independent interpretation of the following test(s) in the Emergency Department X-Ray: My interpretation is No fracture seen on my interpretation of x-ray images. Test considered but Not performed: CT: Denies head trauma, CT scan of the head is not indicated. Care significantly affected by the following chronic conditions: Diabetes, Hypertension. Counseling: I had a detailed discussion with the patient and/or guardian regarding the historical points, exam findings, and any diagnostic results supporting the discharge/admit diagnosis, radiology results, the need for outpatient follow up. Response to treatment: the patient's symptoms have mildly improved after treatment. 02/23 11:44 Order name: Femur Right XRAY; Complete Time: 12:22 rt 02/23 11:44 Order name: Hip Right 2 View XRAY; Complete Time: 12:22 rt 02/23 11:44 Order name: Elbow Right 3 View XRAY; Complete Time: 12:22 rt 02/23 11:44 Order name: Shoulder Right (2 View) XRAY; Complete Time: 12:22 rt Administered Medications: 12:48 Drug: [place] PO 10 mg-325 mg 1 tabs PO once Route: PO; 13:29 Follow up: Response: No adverse reaction ss Disposition Summary: 02/23/25 13:01 Discharge Ordered Notes: Location: Home rt Problem: new rt Symptoms: have improved rt Condition: Stable rt Diagnosis - Mechanical fall rt - Right arm pain rt - Right leg pain rt Followup: rt - With: Private Physician - When: 2 - 3 days - Reason: Discharge Instructions: - Discharge Summary Sheet rt - Fall Prevention in the Home, Adult rt - Musculoskeletal Pain rt Forms: - Medication Reconciliation Form rt - Antibiotic Education rt - Prescription Opioid Use rt - Patient Portal Instructions rt - Leadership Thank You Letter rt Prescriptions: - Tramadol 50 mg Oral Tablet - take 1 tablet ORAL route every 8 hours as needed; 12 tablet; Refills: 0, rt Product Selection Permitted Signatures: Dispatcher [employer] Margot Damon RN RN iw Gagan Nunez MD MD rt Alia August RN ss Corrections: (The following items were deleted from the chart) 11:44 11:44 Femur Right+RAD.RAD.BRZ ordered. EDMS EDMS 11:44 11:44 Hip Right 2 View+RAD.RAD.BRZ ordered. EDMS EDMS 11:44 11:44 Elbow Right 3 View+RAD.RAD.BRZ ordered. EDMS EDMS 11:44 11:44 Shoulder Right 2 View+RAD.RAD.BRZ ordered. EDMS EDMS
--- NOTE | 2025-02-23 13:01 | ER ---
Nurse's Notes [facility] Name: Nas White Jr Age: 59 yrs Sex: Male : 1965 Arrival Date: 02/23/2025 Time: 10:56 Bed 12 Private MD: Diagnosis: Mechanical fall;Right arm pain;Right leg pain Presentation: 02/23 11:39 Chief complaint: Patient states: fell yesterday in bathroom, fell on right side, pain iw to right leg/hip. Coronavirus screen: At this time, the client does not indicate any symptoms associated with coronavirus-19. Ebola Screen: No symptoms or risks identified at this time. Initial Sepsis Screen: Does the patient meet any 2 criteria? No. Patient's initial sepsis screen is negative. Does the patient have a suspected source of infection? No. Patient's initial sepsis screen is negative. Risk Assessment: Do you want to hurt yourself or someone else? Patient reports no desire to harm self or others. Onset of symptoms was February 22, 2025. 11:39 Method Of Arrival: Wheelchair iw 11:39 Acuity: CAITLIN 4 iw Historical: - Allergies: 11:40 No Known Allergies; iw - PMHx: 11:40 Diabetes - NIDDM; Hypertension; iw - PSHx: 11:40 Left BKA; Appendectomy; iw - Infectious Disease History:: Denies. - Family history:: not pertinent. Vital Signs: 11:39 BP 118 / 71; Pulse 93; Resp 19; Temp 98.7; Pulse Ox 100% on R/A; Pain 10/10; iw 11:43 Weight 108.86 kg; Height 5 ft. 4 in. ; iw 11:43 Body Mass Index 41.20 (108.86 kg, 162.56 cm) iw 11:39 Pain Scale: Adult iw ED Course: 10:58 Patient arrived in ED. im 10:58 Gagan Nunez MD is Attending Physician. rt 11:40 Triage completed. iw 11:40 Arm band placed on. iw 12:12 Femur Right XRAY In Process Unspecified. EDMS 12:12 Hip Right 2 View XRAY In Process Unspecified. EDMS 12:12 Elbow Right 3 View XRAY In Process Unspecified. EDMS 12:12 Shoulder Right (2 View) XRAY In Process Unspecified. EDMS 13:27 August, Alia, RN is Primary Nurse. ss 13:28 No provider procedures requiring assistance completed. Patient did not have IV access ss during this emergency room visit. Administered Medications: 12:48 Drug: [place] PO 10 mg-325 mg 1 tabs PO once Route: PO; iw 13:29 Follow up: Response: No adverse reaction ss Outcome: 13:01 Discharge ordered by . rt 13:28 Discharged to home ambulatory, ss 13:28 Condition: good 13:28 Discharge instructions given to patient, Instructed on discharge instructions, follow up and referral plans. medication usage, Demonstrated understanding of instructions, follow-up care, medications, Prescriptions given X 1, 13:28 Patient left the ED. ss Signatures: Dispatcher [employer] EDNC Margot Shea RN RN iw Alia August, GELY RN Gagan Mann MD MD rt Catherine Rivera im
[2025-02-23 13:32] VITALS: BP 118/71; TEMP 98.7; O2SAT 100
== END 2025-02-23 13:28 | disposition home or self-care (01) ==
LOC: ER 10:56
DX: M79.601 Pain in right arm (principal); M79.604 Pain in right leg; W05.0XXA Fall from non-moving wheelchair, initial encounter; Z89.512 Acquired absence of left leg below knee

== ENCOUNTER 2025-03-06 16:35 | Emergency (ER) | payer SELFPAY ==
--- OUTSIDE RECORDS SUMMARY | 2025-03-06 16:36 | XMS REPORT | Continuity of Care Document ---
Author Name Unknown Address [address] [place] [address] [facility] Address [address] [place] [address] Care Team Providers Care Cane Furniture Maker Name Role Phone Arlin Pinto Primary Care Physician [phone] Medications Ordered Medication Name Filled Medication Name [...] Diastolic 2025-02-12 14:29:00 69 mm[Hg] Rayo phen F Dc Weight Measured 2025-02-12 14:29:00 Raj Irwin Height Measured 2025-02-12 14:29:00 68.00 inches Raj Irwin Body Temperature 2025-02-12 14:29:00 99.00 degrees Raj Irwin Heart Rate 2025-02-12 14:29:00 101.00 /min Andres Irwin Respiratory Rate 2025-02-12 14:29:00 18.00 /min Raj Irwin BP Systolic 2024-11-19 08:06:00 122 mm[Hg] Andres hen Lisbeth Irwin BP Diastolic 2024-11-19 08:06:00 79 mm[Hg] Rayo phen Lisbeth Irwin Weight Measured 2024-11-19 08:06:00 209.00 pounds Raj Irwin Height Measured 2024-11-19 08:06:00 68.00 inches Raj Irwin Body Temperature 2024-11-19 08:06:00 Raj Irwin Heart Rate 2024-11-19 08:06:00 105.00 /min Step hen F Dc Respiratory Rate 2024-11-19 08:06:00 18.00 /min Raj Irwin BP Systolic 2024-10-22 14:11:00 122 mm[Hg] Step hen Lisbeth Iriwn BP Diastolic 2024-10-22 14:11:00 71 mm[Hg] Rayo phen F Dc Weight Measured 2024-10-22 14:11:00 217.20 pounds Raj Irwin Height Measured 2024-10-22 14:11:00 68.00 inches Raj F Dc Body Temperature 2024-10-22 14:11:00 98.20 degrees Raj F Dc Heart Rate 2024-10-22 14:11:00 92.00 /min Verónica en F Dc Respiratory Rate 2024-10-22 14:11:00 18.00 /min Raj F Dc Body Temperature 2024-09-23 17:38:00 98.10 degrees Raj F Cd Heart Rate 2024-09-23 17:38:00 98.00 /min Verónica [...] End Date/Time Encounter Type Admission Type Attending [facility] Care Department Encounter ID Source 2025-02-15 11:18:06 2025-02-15 11:18:06 Outpatient SFA SFA [id number] Raj Irwin 2025-02-12 14:26:37 2025-02-12 14:26:37 Outpatient SFA SFA [id number] Rja Irwin 2025-02-12 00:00:00 2025-02-12 00:00:00 Outpatient Visit SFA [id number] Raj Irwin 2024-11-19 07:54:15 2024-11-19 07:54:15 Outpatient SFA SFA [id number] Raj Irwin 2024-11-19 00:00:00 2024-11-19 00:00:00 Outpatient Visit SFA [id number] Raj Irwin 2024-11-13 13:23:38 2024-11-13 13:23:38 Outpatient SFA SFA [id number] Raj Irwin 2024-10-22 14:04:32 2024-10-22 14:04:32 Outpatient SFA SFA [id number] Raj Irwin 2024-10-22 00:00:00 2024-10-22 00:00:00 Outpatient Visit SFA [id number] Raj Irwin 2024-10-01 08:16:36 2024-10-01 08:16:36 Outpatient SFA SFA [id number] Raj Irwin 2024-09-23 17:21:05 2024-09-23 17:21:05 Outpatient SFA SFA [id number] Raj Irwin 2024-09-23 00:00:00 2024-09-23 00:00:00 Outpatient Visit [facility] [id number] Raj Irwin 2024-09-03 09:39:47 2024-09-03 09:39:47 Outpatient SFA [facility] [id number] Raj Irwin Notes Date/Time Note Provider Source Raj Haas [facility]2025-01-09 00:00:00 [facility]2024-12-12 00:00:00 [facility]2024-11-13 00:00:00 [facility]
[2025-03-06] MEDS ORDERED: MORPHINE 4 MG/ML SYR ONE (17:14)
[2025-03-06 17:40] LABS: Absolute Basophils 0.1 K/uL (0-0.5); Absolute Eosinophils 0.2 K/uL (0-0.5); Absolute Neutrophil 6.9 K/uL (1.8-8.0); Basophils % 0.6 % (0-1.3); Eosinophils % 2.1 % (0-4.4); Hematocrit 42.9 % (39.6-49.0); Hemoglobin 14.8 g/dL (13.6-17.9); Lymphocytes % 19.9 % (15.3-44.8); MCH 28.6 pg (27.0-35.0); MCHC 34.5 g/dL (32.0-36.0); MCV 82.8 fL (80-100); MPV 7.7 fL (7.6-11.3); Monocytes % 10.2 % (3.3-12.3); Neutrophils % 67.2 % (41.7-73.7); Nucleated Red Blood Cells % 0.1 % (0-0); Platelets 222 thou/uL (152-406); RBC Red Blood Cell Count 5.18 M/uL (4.33-5.43)
[2025-03-06 17:43] LABS: PT Prothrombin Time 10.7 SECONDS (10-13.0); PTT, Activated Partial Thromb 28.7 SECONDS (27.2-37.4); Protime INR 0.94
--- NOTE | 2025-03-06 17:47 | RAD REPORT ---
EXAM: Chest Single View HISTORY: 59 years Male CHEST PAIN COMPARISON: 11/28/2024 FINDINGS: LUNGS/PLEURA: The lungs are clear. No pleural effusions or pneumothorax. No pulmonary edema. CARDIAC/MEDIASTINUM: The cardiac silhouette is within normal limits. UPPER ABDOMEN: No significant abnormality. BONES: No acute abnormality. LINES/TUBES/OTHER: N/A IMPRESSION: No evidence of acute cardiopulmonary disease. No significant change from prior.
[2025-03-06 17:51] LABS: Anion Gap 10.9 mEq/L (5.0-15.0); BUN Blood Urea Nitrogen 27 mg/dL (7-18); Bicarbonate 24 mEq/L (21-32); Glomerular Filtration Rate 50 ml/min (=/>90); Glucose Level 355 mg/dL (74-106); Potassium 3.9 mEq/L (3.5-5.1); Sodium Level 132 mEq/L (136-145)
[2025-03-06 17:56] LABS: Troponin High Sensitivity < 3.0 pg/mL (<58.9)
--- NOTE | 2025-03-06 19:03 | EDPHYS ---
Physician Documentation [facility] Name: Nas White Jr Age: 59 yrs Sex: Male : 1965 Arrival Date: 03/06/2025 Time: 16:29 Bed 3 Private MD: ED Physician Alexey Garcia HPI: 03/06 17:08 This 59 yrs old Male presents to ER via EMS with complaints of Chest Pain. rn 17:08 The patient or guardian reports chest pain that is located primarily in the anterior rn chest wall. 17:08 Onset: this morning. The pain. rn 17:09 The pain radiates to the right arm. Associated signs and symptoms: Pertinent positives: rn cough, Pertinent negatives: diaphoresis, shortness of breath, syncope, vomiting. The chest pain is described as sharp, stabbing. Duration: The patient or guardian reports multiple episodes, that are intermittent. Modifying factors: The symptoms are alleviated by nothing. the symptoms are aggravated by cough, movement, palpation of area. Severity of pain: At its worst the pain was moderate in the emergency department the pain is unchanged. 17:11 The patient has not experienced similar symptoms in the past. Pt reports right sided rn chest pain that radiates to right arm, worse with palpation and cough. Patient reports is active smoker and coughs a lot. No hemoptysis. No fever or chills. Patient reports recent fall from wheelchair, seen here, discharged without notable injuries. Patient became homeless today and under emotional stress. Started to have chest pain this morning and has been intermittent. Denies previous heart attacks but he thinks he has a stent.. Historical: - Allergies: 16:34 No Known Allergies; cm10 - PMHx: 16:34 Diabetes - NIDDM; Hypertension; cm10 - PSHx: 16:34 Appendectomy; Left BKA; cm10 - Immunization history:: Adult Immunizations up to date. - Infectious Disease History:: Denies. - Social history:: Smoking status: Patient reports the use of cigarette tobacco products. - Family history:: not pertinent. - Hospitalizations: : No recent hospitalization is reported. ROS: 17:11 Constitutional: Negative for fever, chills, and weight loss, Cardiovascular: Positive rn for chest pain Respiratory: Positive for sharp right-sided chest pain worse with inspiration/cough/palpation Abdomen/GI: Negative for abdominal pain, nausea, vomiting, diarrhea, and constipation, MS/Extremity: Negative for injury and deformity, Neuro: Negative for headache, weakness, numbness, tingling, and seizure, Exam: 17:11 Constitutional: This is a well developed, well nourished patient who is awake, alert, rn emotional and tearful Head/Face: Normocephalic, atraumatic. Chest/axilla: Reproducible right anterior chest wall tenderness without crepitus or discoloration. No masses Cardiovascular: Regular rate and rhythm. No pulse deficits. Respiratory: No increased work of breathing, no retractions or nasal flaring. Abdomen/GI: Soft, non-tender 18:54 ECG was reviewed by the Attending Physician. rn Vital Signs: 15:40 BP 130 / 74; Pulse 89; Resp 15; Temp 98.6(O); Pulse Ox 100% on R/A; Weight 108.86 kg; hb Height 5 ft. 4 in. ; Pain 8/10; 17:12 BP 112 / 69; Pulse 87; Resp 17; Pulse Ox 97% on R/A; hb 18:26 BP 110 / 68; Pulse 68; Resp 15; Pulse Ox 99% on R/A; hb 19:15 BP 119 / 71; Pulse 77; Resp 18; Temp 98.6; Pulse Ox 98% ; Pain 0/10; bm8 15:40 Body Mass Index 41.20 (108.86 kg, 162.56 cm) hb 15:40 Pain Scale: Adult hb 19:15 Pain Scale: Adult bm8 [place] Coma Score: 19:15 Eye Response: spontaneous(4). Motor Response: obeys commands(6). Verbal Response: bm8 oriented(5). Total: 15. MDM: 16:43 Medical Screening Exam initiated rn 19:00 Differential diagnosis: acute myocardial infarction, acute pericarditis, anxiety, rn coronary artery disease chest wall pain, costochondritis, esophagitis, gastritis, gastroesophageal reflux disease (GERD), pleurisy, pneumothorax, stable angina. HEART Score: History: Slightly Suspicious (0), ECG: Non specific repolarization disturbance / LBTB / PM (1), Age: > 45 and < 65 years (1), Risk Factors: 1 or 2 risk factors (1), Troponin: < or = 1 x Normal Limit (0), Total Score = 3. Data reviewed: vital signs, nurses notes, lab test result(s), EKG, radiologic studies, plain films, and as a result, I will discharge patient. Counseling: I had a detailed discussion with the patient and/or guardian regarding the historical points, exam findings, and any diagnostic results supporting the discharge/admit diagnosis, lab results, radiology results, the need for outpatient follow up, to return to the emergency department if symptoms worsen or persist or if there are any questions or concerns that arise at home. Response to treatment: the patient's symptoms have markedly improved after treatment, Resting comfortably in room, sleeping, no apparent pain, and as a result, I will discharge patient. Special discussion: Based on the patient's history, exam, and Dx evaluation, there is no indication for emergent intervention or inpatient Tx. It is understood by the patient/guardian that if the Sx's persist or worsen they need to return immediately for re-evaluation. I discussed with the patient/guardian in detail that at this point there is no indication for admission to the hospital. It is understood, however, that if the symptoms persist or worsen the patient needs to return immediately for re-evaluation. Based on the history and exam findings, there is no indication for further emergent testing or inpatient evaluation. I discussed with the patient/guardian the need to see the infrastructure project manager for further evaluation of the symptoms. I discussed with the patient/guardian the need to see the primary care provider for further evaluation of the symptoms. 19:00 ED course: Patient feels much better, stable vital signs, troponin negative. No rn ischemia on ECG. Pain is reproducible right anterior chest wall, made worse with cough. Chest x-ray images negative for pneumonia or pneumothorax per my interpretation. Will discharge home with return precautions and recommend PCP and cardiology follow-up. Patient has also had multiple falls recently and reproducible chest pain and reproducible with palpation could indicate musculoskeletal pain. I have personally reviewed all of the results, including but not limited to blood tests and imaging deemed necessary to safely discharge this patient at this time. All results given to and printed out for patient. I personally went over all the results with the patient and answered all questions. Patient will follow-up with PCP and or specialist as discussed. Return precautions given and understood.. 03/06 16:41 Order name: Basic Metabolic Panel; Complete Time: 18:32 hb 03/06 16:41 Order name: CBC with Diff; Complete Time: 18:32 hb 03/06 16:41 Order name: Troponin HS; Complete Time: 18:32 hb 03/06 16:47 Order name: Protime (+inr); Complete Time: 18:32 rn 03/06 16:47 Order name: Ptt, Activated; Complete Time: 18:32 rn 03/06 16:41 Order name: XRAY Chest (1 view); Complete Time: 18:32 hb 03/06 16:41 Order name: Cardiac monitoring; Complete Time: 16:42 hb 03/06 16:41 Order name: EKG - Nurse/Tech; Complete Time: 16:41 hb 03/06 16:41 Order name: IV Saline Lock; Complete Time: 16:42 hb 03/06 16:41 Order name: Labs collected and sent; Complete Time: 16:51 hb 03/06 16:41 Order name: O2 Per Protocol; Complete Time: 16:42 hb 03/06 16:41 Order name: O2 Sat Monitoring; Complete Time: 16:42 hb EC:54 Rate is 89 beats/min. Rhythm is regular. QRS [place] is Normal. ID interval is normal. QRS rn interval is normal. QT interval is normal. No Q waves. T waves are Normal. No ST changes noted. Clinical impression: NSR w/ Non-specific ST/T Changes. Interpreted by me. Reviewed by me. Administered Medications: 17:16 Drug: morphine IVP or IV 4 mg IVP once over 4 mins Route: IVP; Infused Over: 4 mins; hb Site: left forearm; 18:27 Follow up: Response: No adverse reaction hb 19:15 Drug: Ketorolac IVP 15 mg IVP once Route: IVP; Site: right antecubital; bm8 19:15 Follow up: Response: No adverse reaction; Medication Administered at Departure bm8 Disposition Summary: 03/06/25 19:02 Discharge Ordered Notes: Location: Home rn Problem: new rn Symptoms: have improved rn Condition: Stable rn Diagnosis - Chest pain, unspecified rn Followup: rn - With: Private Physician - When: As needed - Reason: Recheck today's complaints, Re-evaluation by your physician Discharge Instructions: - Discharge Summary Sheet rn - Nonspecific Chest Pain, Adult rn Forms: - Medication Reconciliation Form rn - Antibiotic government teacher - Prescription Opioid Use rn - Patient Portal Instructions rn - Leadership Thank You Letter rn Signatures: Dispatcher [employer] EDMS Alexey Garcia MD MD rn Baxter, Heather, RN RN hb Martinez, Clarissa, RN RN cm10 Lee Boss RN RN bm8 Corrections: (The following items were deleted from the chart) 16:42 16:42 BASIC METABOLIC PANEL+C.LAB.BRZ ordered. EDMS EDMS 16:42 16:42 CBC+H.LAB.BRZ ordered. EDMS EDMS 16:42 16:42 Troponin High Sensitivity+C.LAB.BRZ ordered. EDMS EDMS 16:42 16:42 Chest Single View+RAD.RAD.BRZ ordered. EDMS EDMS 16:46 15:40 Social history: Smoking status: Patient denies any tobacco usage or history of. hbhb
--- NOTE | 2025-03-06 19:03 | ER ---
Nurse's Notes [facility] Name: Nas White Jr Age: 59 yrs Sex: Male : 1965 Arrival Date: 03/06/2025 Time: 16:29 Bed 3 Private MD: Diagnosis: Chest pain, unspecified Presentation: 03/06 15:40 Chief complaint: EMS states: Worsening midsternal chest pain that radiates to right arm hb that started this morning. Zofran 4 mg and NS 150 ml to 18g RFA, ASA 324 mg PO, NSR on EKG. Coronavirus screen: At this time, the client does not indicate any symptoms associated with coronavirus-19. Ebola Screen: No symptoms or risks identified at this time. Initial Sepsis Screen: Does the patient meet any 2 criteria? No. Patient's initial sepsis screen is negative. Does the patient have a suspected source of infection? No. Patient's initial sepsis screen is negative. Risk Assessment: Do you want to hurt yourself or someone else? Patient reports no desire to harm self or others. Onset of symptoms was March 06, 2025. 15:40 Method Of Arrival: EMS: [facility] hb 16:41 Acuity: CAITLIN 2 hb Historical: - Allergies: 16:34 No Known Allergies; cm10 - PMHx: 16:34 Diabetes - NIDDM; Hypertension; cm10 - PSHx: 16:34 Appendectomy; Left BKA; cm10 - Immunization history:: Adult Immunizations up to date. - Infectious Disease History:: Denies. - Social history:: Smoking status: Patient reports the use of cigarette tobacco products. - Family history:: not pertinent. - Hospitalizations: : No recent hospitalization is reported. Screenin:42 [facility] ED Fall Risk Assessment (Adult) History of falling in the last 3 months, hb including since admission No falls in past 3 months (0 pts) Confusion or Disorientation No (0 pts) Intoxicated or Sedated No (0 pts) Impaired Gait Yes (1 pt) Mobility Assist Device Used Yes (1 pt) Altered Elimination No (0 pt) Score/Fall Risk Level 3 or more points = High Risk Oriented to surroundings, Maintained a safe environment, Educated pt \T\ family on fall prevention, incl call for assistance when getting out of bed. Abuse screen: Denies threats or abuse. Denies injuries from another. Nutritional screening: No deficits noted. Tuberculosis screening: No symptoms or risk factors identified. Assessment: 16:43 General: Appears uncomfortable, Behavior is cooperative, crying. Pain: Pain currently hb is 8 out of 10 on a pain scale. Neuro: Level of Consciousness is awake, alert, obeys commands, Oriented to person, place, time, situation. Cardiovascular: Reports chest pain, Patient's skin is warm and dry. Respiratory: Respiratory effort is even, unlabored, Respiratory pattern is regular, symmetrical. GI: No signs and/or symptoms were reported involving the gastrointestinal system. : No signs and/or symptoms were reported regarding the genitourinary system. EENT: No signs and/or symptoms were reported regarding the EENT system. Derm: Skin is pink, warm \T\ dry. Musculoskeletal: No signs and/or symptoms reported regarding the musculoskeletal system. 18:26 Reassessment: Patient appears in no apparent distress at this time. Patient and/or hb family updated on plan of care and expected duration. Pain level reassessed. Patient is alert, oriented x 3, equal unlabored respirations, skin warm/dry/pink. Vital Signs: 15:40 BP 130 / 74; Pulse 89; Resp 15; Temp 98.6(O); Pulse Ox 100% on R/A; Weight 108.86 kg; hb Height 5 ft. 4 in. ; Pain 8/10; 17:12 BP 112 / 69; Pulse 87; Resp 17; Pulse Ox 97% on R/A; hb 18:26 BP 110 / 68; Pulse 68; Resp 15; Pulse Ox 99% on R/A; hb 19:15 BP 119 / 71; Pulse 77; Resp 18; Temp 98.6; Pulse Ox 98% ; Pain 0/10; bm8 15:40 Body Mass Index 41.20 (108.86 kg, 162.56 cm) hb 15:40 Pain Scale: Adult hb 19:15 Pain Scale: Adult bm8 [place] Coma Score: 19:15 Eye Response: spontaneous(4). Motor Response: obeys commands(6). Verbal Response: bm8 oriented(5). Total: 15. ED Course: 15:40 EKG done, by ED staff, reviewed by Alexey Garcia MD. hb 15:40 Maintain EMS IV. Dressing intact. Good blood return noted. Site clean \T\ dry. Gauge \T\ hb site: 18G RFA. Flushed with 10 mL NS. 16:34 Patient arrived in ED. hb 16:41 Triage completed. hb 16:42 Arm band placed on. hb 16:43 Alexey Garcia MD is Attending Physician. rn 16:48 Patient has correct armband on for positive identification. Bed in low position. Call hb light in reach. Provided Education on: TESTS, RESULT TIME. Client placed on continuous cardiac and pulse oximetry monitoring. NIBP monitoring applied. locks tender on. Pulse ox on. NIBP on. 16:51 Basic Metabolic Panel Sent. hb 16:51 Troponin HS Sent. hb 16:51 Protime (+inr) Sent. hb 16:51 Ptt, Activated Sent. hb 16:51 Protime (+inr) Sent. hb 16:51 Ptt, Activated Sent. hb 16:52 Accessed peripheral vein via ultrasound, utilizing dynamic ultrasound technique using hb per hospital protocol. Clean \T\ dry. Dressing intact. Good blood return. Flushes easily. 20G LAC. 17:34 XRAY Chest (1 view) In Process Unspecified. EDMS 18:26 Milagro Mccarty, RN is Primary Nurse. hb 19:15 No provider procedures requiring assistance completed. IV discontinued, intact, bm8 bleeding controlled, No redness/swelling at site. Pressure dressing applied, x2. Administered Medications: 17:16 Drug: morphine IVP or IV 4 mg IVP once over 4 mins Route: IVP; Infused Over: 4 mins; hb Site: left forearm; 18:27 Follow up: Response: No adverse reaction hb 19:15 Drug: Ketorolac IVP 15 mg IVP once Route: IVP; Site: right antecubital; bm8 19:15 Follow up: Response: No adverse reaction; Medication Administered at Departure bm8 Medication: 16:48 VIS not applicable for this client. hb Outcome: 19:02 Discharge ordered by . rn 19:15 Discharged to home via wheelchair, bm8 19:15 Condition: stable 19:15 Discharge instructions given to patient, Instructed on discharge instructions, follow up and referral plans. no drinking with medication, no driving heavy equipment, medication usage, safety practices, 19:17 Patient left the ED. bm8 Signatures: Dispatcher [employer] EDNC Alexey Garcia MD MD rn Baxter, Heather, RN RN hb Martinez Franca, RN RN cm10 Lee Boss RN RN bm8 Corrections: (The following items were deleted from the chart) 16:46 15:40 Social history: Smoking status: Patient denies any tobacco usage or history of. hbhb 16:46 15:40 BP 130 / 74; Pulse 89bpm; Resp 15bpm; Pulse Ox 100% RA; Temp 98.3F; Pain 8/10, hb Adult; hb 16:46 15:40 BP 130 / 74; Pulse 89bpm; Resp 15bpm; Pulse Ox 100% RA; Temp 98.6F Oral; Pain hb 8/10, Adult; hb
[2025-03-06] MEDS ORDERED: KETOROLAC 30 MG/ML INJ ONE (19:06)
--- NOTE | 2025-03-08 12:12 | EKG ---
Test Date: 2025-03-06 Test Time: 16:39:04 Condominium Association Manager: HB MEASUREMENT RESULTS: Intervals: Rate: 89 WV: 154 QRSD: 82 QT: 348 QTc: 423 [place]: P: 38 WV: 154 QRS: -3 T: 17 INTERPRETIVE STATEMENTS: Normal sinus rhythm Cannot rule out Anterior infarct, age undetermined Abnormal ECG Compared to ECG 11/28/2024 11:36:51 Myocardial infarct finding now present Electronically Signed On 03-08-25 12:08:28 CDT by Yared Pedro
[2025-03-08 21:17] VITALS: BP 119/71; TEMP 98.6; O2SAT 98
== END 2025-03-06 19:17 | disposition home or self-care (01) ==
LOC: ER 16:35
DX: R07.9 Chest pain, unspecified (principal)
CPT/HCPCS: 36415; 71045; 80048; 84484; 85025; 85610; 85730; 93005; 99285

== ENCOUNTER 2025-09-01 17:52 | Emergency (ER) | payer SELFPAY ==
[2025-09-01] MEDS ORDERED: HYDROCODONE/APAP 7.5/325 MG TAB ONE (18:25)
[2025-09-01 18:55] LABS: Absolute Lymphocytes (CBC) 2.8 K/uL (0.7-4.9); Hematocrit 40.1 % (39.6-49.0); Hemoglobin 14.2 g/dL (13.6-17.9); MCH 29.6 pg (27.0-35.0); MCHC 35.3 g/dL (32.0-36.0); MCV 83.8 fL (80-100); MPV 7.8 fL (7.6-11.3); Nucleated RBC Absolute Count 0.0 (0-0); Nucleated Red Blood Cells % 0.0 % (0-0); RBC Red Blood Cell Count 4.79 M/uL (4.33-5.43); White Blood Count 9.70 thou/uL (4.3-10.9)
--- NOTE | 2025-09-01 19:03 | RAD REPORT ---
Exam:Foot Right 3 View CLINICAL HISTORY: Right foot pain FINDINGS: No fracture or dislocation seen. Vascular calcifications. Large plantar calcaneal spur. No bony destructive lesion. Hallux valgus deformity.
--- NOTE | 2025-09-01 19:06 | RAD REPORT ---
EXAM:Extremity Venous Uni Ltd HISTORY: Right leg pain TECHNIQUE: Sonographic evaluation right lower extremity performed.Grayscale, color and spectral magda sis performed on all vessels COMPARISON: May 2025 FINDINGS: Right common femoral, superficial femoral, greater saphenous, popliteal and posterior tibial veins ar e compressible and demonstrate augmentation. Doppler demonstrates good flow. IMPRESSION: No evidence of deep venous thrombosis involving the right lower extremity.
[2025-09-01 19:11] LABS: Anion Gap 9.9 mEq/L (5.0-15.0); BUN Blood Urea Nitrogen 15.0 mg/dL (7-18); Magnesium 2.0 mg/dL (1.6-2.4); Potassium 3.9 mEq/L (3.5-5.1)
[2025-09-01 19:21] LABS: Glucose Level 406.0 mg/dL (74-106)
--- NOTE | 2025-09-01 19:30 | ER ---
Nurse's Notes [facility] Name: Nas White Jr Age: 59 yrs Sex: Male : 1965 Arrival Date: 09/01/2025 Time: 17:52 Bed 13 Private MD: Diagnosis: Pain in right leg;Type 2 diabetes mellitus with hyperglycemia Presentation: 09/01 18:12 Chief complaint: EMS states: Pt c/o pain to R foot and leg that has been ongoing, ph concerned for infection or blood clot, VSS, BGL 400. Coronavirus screen: At this time, the client does not indicate any symptoms associated with coronavirus-19. Ebola Screen: No symptoms or risks identified at this time. Initial Sepsis Screen: Does the patient meet any 2 criteria? No. Patient's initial sepsis screen is negative. Does the patient have a suspected source of infection? No. Patient's initial sepsis screen is negative. Risk Assessment: Do you want to hurt yourself or someone else? Patient reports no desire to harm self or others. Onset of symptoms was September 01, 2025. 18:12 Method Of Arrival: EMS: [facility] ph 18:12 Acuity: CAITLIN 3 ph Triage Assessment: 18:16 General: Appears in no apparent distress. comfortable, well groomed, Behavior is calm, ph cooperative, appropriate for age. Pain: Complains of pain in right foot Pain radiates to right leg. Neuro: Level of Consciousness is awake, alert, obeys commands, Oriented to person, place, time, situation. Cardiovascular: Capillary refill < 3 seconds in bilateral fingers Patient's skin is warm and dry. Respiratory: Airway is patent Respiratory effort is even, unlabored. Derm: Skin is pink, warm \T\ dry. Musculoskeletal: Amputation of L BKA. Circulation, motion, and sensation intact. Swelling present in right foot. Historical: - Allergies: 18:16 No Known Allergies; ph - PMHx: 18:16 Diabetes - NIDDM; Hypertension; PERIPHERAL NEUROPATHY; ph - PSHx: 18:16 Appendectomy; Left BKA; ph - Immunization history:: Adult Immunizations unknown. - Infectious Disease History:: Denies. - Social history:: Smoking status: Patient reports the use of cigarette tobacco products, denies chronic smoking, but will smoke occasionally. Screenin:55 [facility] ED Fall Risk Assessment (Adult) History of falling in the last 3 months, ph including since admission No falls in past 3 months (0 pts) Confusion or Disorientation No (0 pts) Intoxicated or Sedated No (0 pts) Impaired Gait Yes (1 pt) Mobility Assist Device Used Yes (1 pt) Altered Elimination No (0 pt) Score/Fall Risk Level 0 - 2 = Low Risk Oriented to surroundings, Maintained a safe environment, Hourly rounding (assess needs \T\ fall precautionary measures) done, Used ambulatory aids as needed (educated on \T\ assisted with). 18:58 Abuse screen: Denies threats or abuse. Denies injuries from another. Nutritional ph screening: No deficits noted. Tuberculosis screening: No symptoms or risk factors identified. Assessment: 18:54 General: SEE TRIAGE ASSESSMENT. ph 19:08 General: received report from kylee bone, all questions answered. kt5 19:21 Reassessment: Patient appears in no apparent distress at this time. Patient and/or kt5 family updated on plan of care and expected duration. Pain level reassessed. Patient is alert, oriented x 3, equal unlabored respirations, skin warm/dry/pink. Patient states feeling better. Patient states symptoms have improved. General:. 19:42 General: pt to rr via w/c w/o complications. kt5 20:22 Reassessment: Patient appears in no apparent distress at this time. Patient and/or kt5 family updated on plan of care and expected duration. Pain level reassessed. Patient is alert, oriented x 3, equal unlabored respirations, skin warm/dry/pink. Patient states feeling better. Patient states symptoms have improved. Vital Signs: 18:12 BP 149 / 79; Pulse 87; Resp 18; Temp 97.8; Pulse Ox 99% on R/A; Weight 108.86 kg; ph Height 5 ft. 4 in. ; 19:21 BP 141 / 74; Pulse 84; Resp 18; Pulse Ox 97% ; Pain 4/10; kt5 20:22 BP 144 / 70; Pulse 87; Resp 16; Temp 98.6; Pulse Ox 96% ; Pain 0/10; kt5 18:12 Body Mass Index 41.20 (108.86 kg, 162.56 cm) ph 19:21 Pain Scale: Adult kt5 20:22 Pain Scale: Adult kt5 ED Course: 18:00 Patient arrived in ED. ll1 18:00 Kristin Cox PA-C is PHCP. sb4 18:00 Jose D Ponce MD is Attending Physician. sb4 18:11 Kylee Caceres, RN is Primary Nurse. ph 18:14 Triage completed. ph 18:18 Arm band placed on Patient placed in an exam room, on a stretcher, on pulse oximetry. ph 18:54 Magnesium Sent. ph 18:54 BMP Sent. ph 18:54 CBC with Diff Sent. ph 18:56 Foot Right 3 View XRAY In Process Unspecified. EDMS 18:56 Initial lab(s) drawn, by me, sent to lab. Inserted saline lock: 22 gauge in right ph forearm, using aseptic technique. Blood collected. Flushed with 10 mL NS. 18:57 Patient has correct armband on for positive identification. Bed in low position. Call ph light in reach. Side rails up X2. Provided Education on: On use of call light. Pulse ox on. NIBP on. Door closed. Noise minimized. Visitors limited. Warm blanket given. Pillow given. 18:58 No provider procedures requiring assistance completed. ph 19:03 Extremity Venous Uni Ltd US In Process Unspecified. EDMS 20:22 IV discontinued, intact, bleeding controlled, No redness/swelling at site. Pressure kt5 dressing applied. Administered Medications: 18:54 Drug: Hydrocodone-Acetaminophen PO (7.5 mg-325 mg) 1 tabs PO once Route: PO; ph 18:59 Follow up: Response: No adverse reaction ph 20:10 Drug: Cephalexin PO 500 mg PO once Route: PO; kt5 20:30 Follow up: Response: No adverse reaction kt5 20:10 Drug: Gabapentin PO 600 mg PO once Route: PO; kt5 20:29 Follow up: Response: No adverse reaction kt5 Medication: 18:57 VIS not applicable for this client. ph Outcome: 19:30 Discharge ordered by . sb4 20:28 Discharged to home via wheelchair, kt5 20:28 Condition: improved 20:28 Discharge instructions given to patient, Instructed on discharge instructions, follow up and referral plans. Demonstrated understanding of instructions, follow-up care, medications, 20:38 Prescriptions given X 2, kt5 20:38 Patient left the ED. kt5 Signatures: Dispatcher [employer] EDMS Kylee Caceres, RN RN ph Edi Cullen RN RN ll1 Kristin Cox, PACristy PACristy [id number] Sri Li RN RN kt5
--- NOTE | 2025-09-01 19:30 | EDPHYS ---
Physician Documentation [facility] Name: Nas White Jr Age: 59 yrs Sex: Male : 1965 Arrival Date: 09/01/2025 Time: 17:52 Bed 13 Private MD: ED Physician Jose D Ponce HPI: 09/01 18:46 This 59 yrs old Male presents to ER via EMS with complaints of Leg Pain. sb4 18:46 Patient is complaining of pain in his right leg. He states that it is acute on chronic. sb4 He has had cellulitis in that leg/foot before. He is homeless and tries his best to care for himself. States that he has been compliant with his medications. Denies any fever or chills. Historical: - Allergies: 18:16 No Known Allergies; ph - PMHx: 18:16 Diabetes - NIDDM; Hypertension; PERIPHERAL NEUROPATHY; ph - PSHx: 18:16 Appendectomy; Left BKA; ph - Immunization history:: Adult Immunizations unknown. - Infectious Disease History:: Denies. - Social history:: Smoking status: Patient reports the use of cigarette tobacco products, denies chronic smoking, but will smoke occasionally. ROS: 18:46 Constitutional: Negative for fever, chills, and weight loss, sb4 18:46 MS/extremity: Positive for pain, swelling, of the right leg and right foot, 18:46 All other systems are negative, Exam: 18:46 Head/Face: Normocephalic, atraumatic. Eyes: Extra-ocular motions intact. Periorbital sb4 areas with no swelling, redness, or edema. ENT: Mucous membranes moist. Cardiovascular: Regular rate and rhythm with a normal S1 and S2. Respiratory: No increased work of breathing, no retractions or nasal flaring. Abdomen/GI: Soft, non-tender, no distension. 18:46 Constitutional: The patient appears in no acute distress, alert, awake, 18:46 Musculoskeletal/extremity: Circulation is intact in all extremities. Pulses: are normal with no appreciated deficits, Sensation intact. Mild swelling noted to right lower extremity. 18:46 Skin: cellulitis, is not appreciated, Vital Signs: 18:12 BP 149 / 79; Pulse 87; Resp 18; Temp 97.8; Pulse Ox 99% on R/A; Weight 108.86 kg; ph Height 5 ft. 4 in. ; 19:21 BP 141 / 74; Pulse 84; Resp 18; Pulse Ox 97% ; Pain 4/10; kt5 20:22 BP 144 / 70; Pulse 87; Resp 16; Temp 98.6; Pulse Ox 96% ; Pain 0/10; kt5 18:12 Body Mass Index 41.20 (108.86 kg, 162.56 cm) ph 19:21 Pain Scale: Adult kt5 20:22 Pain Scale: Adult kt5 MDM: 18:01 Medical Screening Exam initiated sb4 18:46 Differential diagnosis: Cellulitis, DVT, neuropathy, tendinitis, stress fracture. sb4 19:28 Data reviewed: vital signs, nurses notes, EMS record, lab test result(s), radiologic sb4 studies, and as a result, I will discharge patient. Care significantly affected by the following chronic conditions: Diabetes, Hypertension, Obesity. Care significantly affected by the following Social Determinants of Health: Inadequate housing. Counseling: I had a detailed discussion with the patient and/or guardian regarding the historical points, exam findings, and any diagnostic results supporting the discharge/admit diagnosis, the presence of at least one elevated blood pressure reading (>120/80) during this emergency department visit, lab results, radiology results, the need for outpatient follow up, for definitive care, to return to the emergency department if symptoms worsen or persist or if there are any questions or concerns that arise at home. 09/01 18:10 Order name: CBC with Diff; Complete Time: 18:57 sb4 09/01 18:10 Order name: BMP; Complete Time: 19:23 sb4 09/01 18:10 Order name: Magnesium; Complete Time: 19:23 sb4 09/01 18:10 Order name: Extremity Venous Uni Ltd US; Complete Time: 19:07 sb4 09/01 18:10 Order name: Foot Right 3 View XRAY; Complete Time: 19:06 sb4 09/01 18:10 Order name: IV Start; Complete Time: 18:54 sb4 Administered Medications: 18:54 Drug: Hydrocodone-Acetaminophen PO (7.5 mg-325 mg) 1 tabs PO once Route: PO; ph 18:59 Follow up: Response: No adverse reaction ph 20:10 Drug: Cephalexin PO 500 mg PO once Route: PO; kt5 20:30 Follow up: Response: No adverse reaction kt5 20:10 Drug: Gabapentin PO 600 mg PO once Route: PO; kt5 20:29 Follow up: Response: No adverse reaction kt5 Disposition Summary: 09/01/25 19:30 Discharge Ordered Notes: Location: Home sb4 Problem: new sb4 Symptoms: have improved sb4 Condition: Stable sb4 Diagnosis - Pain in right leg sb4 - Type 2 diabetes mellitus with hyperglycemia sb4 Followup: sb4 - With: Emergency Department - When: As needed - Reason: Fever > 102 F, Worsening of condition Discharge Instructions: - Discharge Summary Sheet sb4 - Hyperglycemia sb4 - Diabetic Neuropathy sb4 Forms: - Patient Portal Instructions sb4 - Leadership Thank You Letter sb4 Prescriptions: - gabapentin 300 mg Oral capsule - take 1 capsule ORAL route 3 times per day PRN pain; 20 capsule; Refills: 0, sb4 Product Selection Permitted - Cephalexin 500 mg Oral Capsule - take 1 capsule ORAL route every 12 hours for 10 days; 20 capsule; Refills: 0, sb4 Product Selection Permitted Signatures: Dispatcher [employer] EDMS Kylee Caceres, RN RN Kristin Yoder, PA-C PA-C sb4 Sri Li, RN RN kt5 Corrections: (The following items were deleted from the chart) 18:10 18:10 Foot Right 3 View+RAD.RAD.BRZ ordered. EDMS EDMS 18:10 18:10 CBC+H.LAB.BRZ ordered. EDMS EDMS 18:10 18:10 BASIC METABOLIC PANEL+C.LAB.BRZ ordered. EDMS EDMS 18:10 18:10 MAGNESIUM+C.LAB.BRZ ordered. EDMS EDMS
[2025-09-01] MEDS ORDERED: CEPHALEXIN 250 MG CAP ONE (19:56)
[2025-09-01] MEDS ORDERED: GABAPENTIN 300 MG CAP ONE (19:57)
[2025-09-01 23:39] VITALS: BP 144/70; TEMP 98.6; O2SAT 96
== END 2025-09-01 20:38 | disposition home or self-care (01) ==
LOC: ER 17:52
DX: M79.604 Pain in right leg (principal); E11.65 Type 2 diabetes mellitus with hyperglycemia; F17.210 Nicotine dependence, cigarettes, uncomplicated; I10 Essential (primary) hypertension; G62.9 Polyneuropathy, unspecified; Z59.00 Homelessness unspecified
CPT/HCPCS: 36415; 80048; 83735; 85025; 93971; 99284